=== PATIENT | female | born 1965 | race Caucasian/White ===

== ENCOUNTER 2016-05-12 17:51 | Inpatient (IN) | payer MEDICARE, OTHER ==
[2016-05-12 20:30] LABS: Hematocrit 23 % (35-47); Hemoglobin 7.2 g/dl (12.0-16.0); Mean Corpuscular HGB Conc 31 g/dl (31-36); Mean Corpuscular Hemoglobin 26 pg (27-31); Mean Corpuscular Volume 84 fL (80-97); Mean Platelet Volume 9 um3 (7.4-10.4); Red Blood Count 2.75 10^6/ul (4.0-5.4); Red Cell Distribution Width 14 % (10.5-15); White Blood Count 11.4 10^3/ul (3.5-10.8)
[2016-05-12 20:41] LABS: ALT 16 U/L (7-52); AST 20 U/L (13-39); Acetaminophen < 15 mcg/mL; Albumin 3.3 g/dL (3.2-5.2); Alcohol < 10 mg/dL (<10); Alkaline Phosphatase 309 U/L (34-104); Anion Gap 6 mmol/L (2-11); BUN/Creatinine Ratio 15.8 (8-20); Blood Urea Nitrogen 22 mg/dL (6-24); CO2 Carbon Dioxide 23 mmol/L (22-32); Calcium 9.3 mg/dL (8.6-10.3); Chloride 99 mmol/L (101-111); EGFR African American 51.4 (>60); Globulin 3.9 g/dL (2-4); Glucose 210 mg/dL (70-100); Potassium 4.7 mmol/L (3.5-5.0); Salicylate < 2.50 mg/dL (<30); Sodium 128 mmol/L (133-145); Total Protein 7.2 g/dL (6.4-8.9)
[2016-05-12 20:51] LABS: TSH (Thyroid Stimulating Horm) 1.23 mcIU/mL (0.34-5.60)
--- NOTE | 2016-05-12 21:26 | ED ---
I, Oh,Sooheleazarun, scribed for Kelby Byrd MD on 05/12/16 at 1821 . Psychiatric Complaint - HPI Summary HPI Summary: This 50 y/o female presents to ED for acute on chronic anxiety that is worse since yesterday PM. Pt states her anxiety started 2 weeks ago, and reports pounding/racing palpitation. "Everything is making me nervous". This pt is noted to be yelling and frustrated when asked questions during initial evaluation. Recent medication change from Xanax to Clonazepam. She states that clonazepam did little to alleviate her anxiety. PMHx includes DM type I with DKA and bilat BKA, and friend present at bedside reports recent sinusitis and RLE infection, for which pt was evaluated by Dr. Fofana 2 days ago and sent home with keflex, doxycycline, and wound clinic referral. FHx is positive for "nervous breakdown" to pt's sister. - History Of Current Complaint Time Seen by Provider: 05/12/16 17:59 Hx Obtained From: Patient, Family/Bisque Cleaner - friend present at bedside, Medical Records Onset/Duration: Gradual Onset Timing: Constant Severity Initially: Mild Severity Currently: Moderate Character: Anxious Aggravating Factor(s): Nothing Alleviating Factor(s): Nothing Associated Signs And Symptoms: Positive: Paranoid Behavior Related History: Positive For: Prior Psychiatric Issues - Allergies/Home Medications Allergies/Adverse Reactions: Allergies Allergy/AdvReac Type Severity Reaction Status Date / Time Iodinated Contrast Media AdvReac Severe See Comment Verified 03/20/15 16:10 [IV CONTRAST DYE] Metronidazole [From Flagyl] AdvReac Intermediate GI Upset Verified 03/20/15 16: 10 Vancomycin AdvReac Mild See Comment Verified 03/20/15 16:10 PMH/Surg Hx/FS Hx/Imm Hx Endocrine/Hematology History: Reports: Hx Anticoagulant Therapy - During hospitalizations only, Hx Blood Transfusions - 06/04/12, Hx Diabetes - 1, Hx Anemia Denies: Hx Blood Disorders, Hx Bone Marrow Disease, Hx Systemic Lupus Erythematosus, Hx Sickle Cell Disease, Hx Thyroid Disease, Hx Unexplained Bleeding, Other Endocrine/Hematological Disorders Cardiovascular History: Reports: Hx Coronary Artery Disease, Hx Hypercholesterolemia, Hx Hypotension, Hx Hypertension, Other Cardiovascular Problems/Disorders - hyperlipidemia, HX OF TRIPLE BYPASS Denies: Hx Aneurysm, Hx Angina, Hx Angioplasty, Hx Auto Implanted Cardiovert Defib, Hx Cardiac Arrest, Hx Cardiomegaly, Hx Congenital Heart Disease, Hx Congestive Heart Failure, Hx Deep Vein Thrombosis, Hx Pacemaker/ICD, Hx Peripheral Vascular Disease, Hx Rheumatic Fever, Hx Syncope, Hx Valvular Heart Disease Respiratory History: Reports: Other Respiratory Problems/Disorders - "Always stuffed up." Denies: Hx Asthma, Hx Chronic Bronchitis, Hx Chronic Obstructive Pulmonary Disease (COPD), Hx Cystic Fibrosis, Hx Lung Cancer, Hx Pleural Effusion, Hx Pneumonia, Hx Pulmonary Edema, Hx Pulmonary Embolism, Hx Seasonal Allergies, Hx Sleep Apnea GI History: Reports: Hx Gall Bladder Disease - Has gallstones, Hx Gastroesophageal Reflux Disease Denies: Hx Cirrhosis, Hx Crohn's Disease, Hx Diverticulosis, Hx Gastrointestinal Bleed, Hx Hiatal Hernia, Hx Irritable Bowel, Hx Jaundice, Hx Obstructive Bowel, Hx Ileostomy, Hx Pyloric Stenosis, Hx Ulcer, Other GI Disorders History: Reports: Other Problems/Disorders - Hx of UTIs and in 2002 or 2003 a Kidney infection Denies: Hx Acute Renal Failure, Hx Benign Prostatic Hyperplasia, Hx Chronic Renal Failure, Hx Dialysis, Hx Kidney Infection, Hx Kidney Stones, Hx Renal Disease Musculoskeletal History: Reports: Hx Arthritis - hands Denies: Hx Back Problems, Hx Bursitis, Hx Congenital Bone Abnormalities, Hx Fibromyalgia, Hx Gout, Hx Orthopedic Injury, Hx Osteoporosis, Hx Scoliosis, Hx Tendonitis, Other Musculoskeletal History Sensory History: Reports: Hx Cataracts, Hx Contacts or Glasses, Hx Legally Blind - blind left eye, Hx Vision Problem - Right eye farsighted, only needs reading glasses. Denies: Hx Eye Injury, Hx Eye Prosthesis, Hx Glaucoma, Hx Macular Degeneration, Hx Deafness, Hx Hearing Aid, Hx Hearing Problem, Other Sensory Impairments Opthamlomology History: Reports: Hx Cataracts, Hx Contacts or Glasses, Hx Legally Blind - blind left eye, Hx Vision Problem - Right eye farsighted, only needs reading glasses. Denies: Hx Eye Injury, Hx Eye Prosthesis, Hx Glaucoma, Hx Macular Degeneration, Other Sensory Impairments Neurological History: Reports: Other Neuro Impairments/Disorders - diabetic neuropathy, right facial numbness Denies: Hx Dementia, Hx Developmental Delay, Hx Headaches, Hx Migraine, Hx Seizures, Hx Spinal Cord Injury, Hx Transient Ischemic Attacks (TIA) Psychiatric History: Reports: Hx Anxiety Denies: Hx Attention Deficit Hyperactivity Disorder, Hx Eating Disorder, Hx Depression, Hx Panic Disorder, Hx Post Traumatic Stress Disorder, Hx Inpatient Treatment, Hx Community Mental Health Tx, Hx Schizophrenia, Hx Bipolar Disorder , Hx Suicide Attempt, Hx of Violent Episodes Against Others, Hx Substance Abuse , Other Psychiatric Issues/Disorders - Surgical History Surgery Procedure, Year, and Place: TRIPLE BYPASS 2005, EYE SURGERY LEFT DETACHED RETINA ( ORBIT XRAYS DONE 2007 - CLEARED FOR MRI BY ){sw}, BILAT CATARACTS, RT EYE VITRECTOMY , LT BKA 3 YEARS AGO, RT FOOT HEEL EXCISION, rt below knee amputation, 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 Infectious Disease History: Denies: Hx Clostridium Difficile, Hx Hepatitis, Hx Human Immunodeficiency Virus (HIV), Hx Shingles, Hx Tuberculosis, History Other Infectious Disease, Traveled Outside the [place] in Last 30 Days - Family History Known Family History: Positive: Cardiac Disease - "Nervous breakdown" to sister , Other - Social History Alcohol Use: None Hx Substance Use: No Substance Use Type: Reports: None Hx Tobacco Use: Yes Smoking Status (MU): Heavy Every Day Tobacco Smoker Type: Cigarettes Amount Used/How Often: 1.5 PPD Review of Systems Negative: Fever Positive: Other - RLE infection at BKA stump Positive: Anxious All Other Systems Reviewed And Are Negative: Yes Physical Exam Triage Information Reviewed: Yes Vital Signs On Initial Exam: Initial Vitals Temp Pulse Resp BP Pulse Ox 98.9 F 72 16 119/46 97 05/12/16 18:33 05/12/16 18:33 05/12/16 18:33 05/12/16 18:33 05/12/16 18:33 Vital Signs Reviewed: Yes Appearance: Positive: Well-Appearing, No Pain Distress Skin: Positive: Warm, Dry, Other - anterior erythem 1 cm granulated wound. No fluctuance. No cretipus. Not TTP. Head/Face: Positive: Normal Head/Face Inspection Eyes: Positive: UZIEL Neck: Positive: Supple, Nontender Respiratory/Lung Sounds: Positive: Clear to Auscultation, Breath Sounds Present Musculoskeletal: Positive: Strength/ROM Intact Neurological: Positive: Sensory/Motor Intact, Alert, Oriented to Person Place, Time Psychiatric: Positive: Anxious AVPU Assessment: Alert Diagnostics - Vital Signs Vital Signs Temp Pulse Resp BP Pulse Ox 05/12/16 18:33 98.9 F 72 16 119/46 97 - Laboratory Result Diagrams: 05/12/16 18:25 05/12/16 18:25 Lab Statement: Any lab studies that have been ordered have been reviewed, and results considered in the medical decision making process. Course/Dx - Differential Dx/Clinical Impression Differential Diagnosis/HQI/PQRI: Positive: Anxiety, Depression, Other - Primary concern for escalating anxiety and exacerbation due to changed benzodiazepine for which she is clearly addicted. Minimal signs of cellulitis and just begun therapy on appropriate therapy of doxycycline and cephalexin. No streaking, adenopathy, or fluctuance. Provider Diagnosis: Cellulitis, Anemia - Physician Notifications Discussed Care Of Patient With: [facility] -- Pt is psych cleared for discharge. Dr. Llanes (Hospitalist) at 2118 PM -- shared bloodwork indicative for acute anemia. He will admit. Patient Is Medically Stable For: Psych Evaluation - at 1812 pm Discharge - Discharge Plan Condition: Stable Disposition: ADMITTED TO [facility] Referrals: Ade Koehler, [employer]IAISON [Primary Care Provider] - Additional Instructions: In Case of Emergency Instructions to copy and paste for Adult patients: Per completion of a mental health evaluation, you are cleared for release and do not require inpatient psychiatric hospitalization at this time. Please go to nearest emergency room or call 911 if safety concerns arise or condition worsens. Important Phone Numbers: [facility]~~ ph:[phone] Suicide Prevention and Crisis Services~~~~~~~~~ph:[phone] [place] Suicide Prevention Lifeline~~~~~~~~~~~ph:326-264-IHNP (4382) [facility]~~~~~~~~ph:[phone] Alcoholics Anonymous~~~~~~~~~~~~~~~~~~~ph:[phone] [facility] Mental Health Association~~~~ph:[phone] [place] [employer]~~~~~~~~~~~~~~~~~~~ph:[phone] In Case of Emergency Please go to the nearest emergency room or call 911 if safety concerns arise or your condition worsens [facility] ph: [phone] Suicide Prevention and Crisis Services ph: [phone] National Suicide Prevention Lifeline ph: [phone] [facility] ph: [phone] Alcoholics Anonymous ph: [phone] [facility] ph: [phone] [facility]: [facility] Mental Health Clinic: Crisis Number: Suicide Prevention and Crisis Services [facility]: [facility]: [facility] - Emergency Room: [facility] Crisis Line- Suicide Prevention and Crisis Service: [facility]: [facility]: ph: [phone] National Suicide Prevention 29/10 Hotline Ph: 2-256-358-XTBD [facility] Suicide Prevention Hotline: [facility]: [facility]: [phone] 2-04-08 is a 29/10 Crisis and Suicide Information and Referral line [facility] Suicide Prevention Hotline: or [facility]: [place] [facility], [facility] Clinic [facility]: [facility] Department [facility] Suicide Prevention Hotline: 240.813.1107 [facility]: [facility] Ph: [phone] [facility] Crisis Program: [phone] Suicide Prevention Hotline: 5-135-944930-963-GTAD [facility] Mental Health Association of [facility] warm line at [phone] Family [facility] Children[facility] Society ph: [phone] [facility] ph: [phone] [facility] CPEP open 29/10 or [phone] [facility] Counsel[facility] Services [facility] Clinic [facility] Suicide and Crisis Prevention / The documentation as recorded by the Sunday morejon Soohyun accurately reflects the service I personally performed and the decisions made by me, Kelby Byrd MD.
[2016-05-12] MEDS ORDERED: Acetaminophen TAB* 325 MG PO PRN (21:51)
[2016-05-12] MEDS ORDERED: Ondansetron INJ* 2 MG/ML VIAL IV PRN (21:51)
[2016-05-12] MEDS ORDERED: Dextrose 50% Syringe 50 ML* 25 GM/50 ML SYRINGE IV PUSH PRN (21:51)
[2016-05-12] MEDS ORDERED: Metoclopramide TAB* 10 MG PO PRN (21:54)
[2016-05-12] MEDS ORDERED: Docusate CAP* 100 MG PO PRN (21:54)
[2016-05-12 22:21] LABS: Total Iron Binding Capacity 340 mcg/dL (250-450); Transferrin 243 mg/dL (203-362)
[2016-05-12 22:41] LABS: Ferritin 18.8 ng/mL (11-307)
[2016-05-12 22:46] LABS: Vitamin B12 271 pg/mL (180-914)
[2016-05-12 23:01] LABS: Iron < 15 ug/dL (50-212)
[2016-05-12] MEDS ORDERED: ZALEPLON 10 MG PO PRN (23:45)
--- NOTE | 2016-05-13 00:31 | HP ---
HISTORY AND PHYSICAL: DATE OF ADMISSION: 05/12/16 PRIMARY CARE PROVIDER: Ade Koehler NP ATTENDING PHYSICIAN WHILE IN THE HOSPITAL: Dr. Eric Llanes * (report being dictated by George Tejada NP). CHIEF COMPLAINT: 1. Redness to right stump. 2. Anxiety. HISTORY OF PRESENT ILLNESS: Ms. Reyes is a 50-year-old female patient who has a history of type 1 diabetes with multiple complications related to this, osteomyelitis, retinopathy. She is blind in the left eye, CAD, hypertension, gastroparesis, neuropathy, GERD, and hyperlipidemia. She comes in today stating that 2 days ago, she was evaluated in the outpatient setting, noted that she had some redness and erythema to her right stump. She noticed this spot the day before, which would be on Saturday. It got worse. She had a scheduled appointment in the outpatient wound clinic and started on doxycycline and Keflex. The patient states that despite this, the redness had gotten worse, and she was not feeling better. She says she has been having fevers off and on as high as 101. She denied having any chest pain or any shortness of breath. She also states that she has been feeling extremely anxious. She says that she wishes she could take a pill that makes her feel better. She has a lot of stress going on, but she denies having any suicidal ideation or wanting to harm herself or others. She says that she recently was started on Klonopin, but it only makes her sleepy. She states that she has also been having some sinus pressure as well behind both her eyes. She denies having any discharge from the wound. She says that it has been painful to put her prosthetic devices on her legs because of the cellulitis. She was concerned because it was not getting any better and anxiety as well, so she came into the ER today and wishes to be evaluated. She was evaluated and it was noted that she was a little anemic and she had some hyponatremia and there was concern that she may be failing outpatient therapy. Hospitalist service was asked to evaluate for admission. PAST MEDICAL HISTORY: Significant for: 1. Type 1 diabetes. 2. Osteomyelitis. 3. Retinopathy. 4. She is blind in the left eye. 5. CAD. 6. Hypertension. 7. Gastroparesis. 8. Neuropathy. 9. GERD. 10. Hyperlipidemia. PAST SURGICAL HISTORY: 1. She has had a CABG. 2. Bilateral amputations. 3. Eye surgeries. HOME MEDICATIONS: According to the list that she provided us include: 1. Lantus 56 units subcu daily. 2. Klonopin 1 mg p.o. b.i.d. 3. Altace 5 mg daily. 4. Prilosec 20 mg daily. 5. Nitro 0.4 mg sublingual q.5 minutes x3 p.r.n. chest pain. 6. Multivitamin 1 tablet daily. 7. Reglan 10 mg p.o. b.i.d. after meals as needed. 8. Milk of mag 10 to 20 cc p.o. daily as needed. 9. NovoLog 5 to 7 units injection daily. 10. Lasix 20 mg p.o. every other day. 11. Colace 200 mg p.o. daily as needed. 12. Clarinex 5 mg a day. 13. Doxycycline 100 mg p.o. daily. 14. Keflex 500 mg p.o. t.i.d. 15. Lipitor 20 mg daily. 16. Tenormin 50 mg daily. 17. Aspirin 81 mg a day. 18. Xanax 0.5 mg p.o. b.i.d. as needed. ALLERGIES TO MEDICATIONS: Include IV DYE, FLAGYL, VANCO. FAMILY HISTORY: Her mother had skin cancer. Father's history is unknown. SOCIAL HISTORY: She is a pack a day smoker, quit two and a half months ago. She does not drink alcohol. Surrogate decision maker is her brother, Yariel. REVIEW OF SYSTEMS: There is no documented fever. She denied any significant weight change. There was no double vision. There is no ear discharge. There is no rhinorrhea. No sore throat. No thyroid enlargement. She denies having any chest pain. There is no orthopnea. No nocturnal dyspnea. There is no abdominal pain. There was no nausea, no vomiting. No dysuria. No frequency. No loss of consciousness. No pruritus and there are skin ulcerations. Review of 14 systems completed, all others were negative. PHYSICAL EXAMINATION GENERAL: At this time, Ms. Reyes is a 50-year-old female patient. She appears chronically ill. She is sitting on the ER stretcher. She does not appear to be in any acute distress. VITAL SIGNS: Blood pressure 119/46, pulse 72, respirations 16, O2 sat 97%, temperature 98.9. HEENT: Head: Atraumatic, normocephalic. Eyes: EOMs are intact. Sclerae anicteric and not pale. Throat: Oral mucosa appeared to be dry. No oropharyngeal erythema. NECK: Supple. LUNGS: Clear to auscultation bilaterally. No wheezes, rales, or rhonchi. HEART: Sounds S1, S2. Regular rate and rhythm. No murmurs, rubs, or gallops. ABDOMEN: Soft, flat, nontender. Bowel sounds present. EXTREMITIES: She has bilateral lower amputations, though she is moving her upper extremities with 5/5 strength. NEUROLOGIC: She is awake, alert, and oriented x3. Tongue midline. Director Supply were equal. No gross focal deficits. SKIN: She had ulcerations noted to bilateral lower stumps. On the right stump though, however, there did appear to be a wound. It measured approximately a centimeter in circumference. In addition to this, it may be 0.5 cm in depth, but there was erythema surrounding the stump, going up to almost her knee. She did have an open ulceration to the left knee into the left stump as well, but they appear to be clean, dry and intact, no discharge. Otherwise skin intact. LABORATORY DATA: Labs today revealed WBC 11.4, RBC of 2.75, hemoglobin 7.2, hematocrit 23, platelet count 426. Sodium 128, potassium 4.7, chloride of 99, bicarb 23, BUN 22, creatinine 1.39, which is right near her baseline. Glucose of 210, calcium 9.3. Total bili 0.3, AST 20, ALT 16, alk phos 309. Albumin was 3.3. Toxicology negative. Old medical records were reviewed. ASSESSMENT AND PLAN: Ms. Reyes is a 50-year-old female patient coming in to the ER today with complaints of worsening redness in the stump and anxiety. On evaluation today, it was found that she was hyponatremic, a little bit of white count, and in addition to this, also noted to be anemic. She will be admitted under observation status for: 1. Right stump infection. At this point, I will go ahead and put her on Rocephin. She does not appear to have any fluctuance or abscess collection there. We will continue to monitor this. Should she spike fevers, we may need to consider broadening her coverage for gram negatives as well, but for the time being, I will just continue her on Rocephin and we will continue to monitor her. If it does not improve, we may consider getting an ID consult. 2. Anemia. Etiology is unclear. I am going to go ahead and repeat her labs in the morning. We will get iron studies. She is not having any tarry stools, but I will get a Hemoccult and we will type and screen her. If we need to, we will transfuse, but she appears to be asymptomatic. 3. Hyponatremia. Again, etiology is unclear. I will get a urine lytes and urine osmol and TSH and I will continue to monitor her. She does run right around the 130 range. She is not too far from the baseline, but we will monitor. 4. Type 1 diabetes. We will continue her meds as prescribed. 5. Retinopathy. Supportive care. 6. Coronary artery disease. Continue with her beta-tony, aspirin, and her statin. 7. Hypertension. Continue meds as prescribed. 8. Gastroparesis, p.r.n. Reglan is available. 9. Neuropathy. Continue meds as prescribed. 10. Gastroesophageal reflux disease. Continue PPI therapy. 11. Hyperlipidemia. Continue statin therapy. 12. Bilateral wounds. We will go ahead and continue dressing changes. 13. DVT prophylaxis. She will be on heparin subcu. 14. Code status. Full code. 15. Fluids, electrolytes, and nutrition: She can have a consistent carb diet. TIME SPENT: Time spent on the admission was 60 minutes, greater than half the time was spent [id number] with the patient obtaining my history and physical, and the other half time was spent going over the plan of care with patient and implementing the plan of care. I did discuss the plan of care with my attending, Dr. Llanes, he is in agreement. GEORGE TEJADA NP CC: Ade Koehler NP * [id number]/[facility] #: [id number] JUAN ANTONIO
[2016-05-13] MEDS: Insulin GLARGINE(*) 1 UNITS UNIT SUBCUT SCH ×2 (01:35→20:56)
[2016-05-13] MEDS: Zolpidem TAB* 10 MG PO PRN ×2 (02:13→22:11)
[2016-05-13 06:27] LABS: Hematocrit 23 % (35-47); Hemoglobin 7.2 g/dl (12.0-16.0); Mean Corpuscular HGB Conc 32 g/dl (31-36); Mean Corpuscular Hemoglobin 26 pg (27-31); Mean Corpuscular Volume 83 fL (80-97); Mean Platelet Volume 9 um3 (7.4-10.4); Red Blood Count 2.74 10^6/ul (4.0-5.4); Red Cell Distribution Width 14 % (10.5-15); White Blood Count 11.3 10^3/ul (3.5-10.8)
[2016-05-13 06:37] LABS: BUN/Creatinine Ratio 16.4 (8-20); Calcium 9.4 mg/dL (8.6-10.3); EGFR African American 59.8 (>60); EGFR Non-African American 46.5 (>60); Potassium 4.2 mmol/L (3.5-5.0)
[2016-05-13] MEDS ORDERED: Magnesium Hydroxide LIQ* 30 ML UDC PO ONE (07:36)
[2016-05-13 08:55] LABS: C Reactive Protein 92.79 mg/L (< 5.00)
[2016-05-13] MEDS: Atorvastatin* 20 MG TAB PO SCH (08:59)
[2016-05-13] MEDS: Atenolol TAB* 50 MG PO SCH (08:59)
[2016-05-13] MEDS: Omeprazole CAP* 20 MG PO SCH (08:59)
[2016-05-13] MEDS: Ramipril CAP* 5 MG PO SCH (08:59)
[2016-05-13] MEDS: Aspirin EC Low Dose* 81 MG TAB.EC PO SCH (09:00)
[2016-05-13] MEDS: Heparin VIAL(*) 5000 UNITS/ML VIAL (FIVE THOUSAND) SUBCUT SCH ×2 (09:00→20:55)
[2016-05-13] MEDS: Insulin LISPRO* 1 UNITS UNIT SUBCUT SCH ×3 (09:00→18:03)
[2016-05-13 10:01] LABS: Urine Bacteria 1+ (Absent); Urine Bilirubin Negative (Negative); Urine Glucose 1+(50 mg/dL) (Negative); Urine Nitrite Negative (Negative)
[2016-05-13 10:07] LABS: Benzodiazepine Urine Screen Presumptive Positive (None Detect)
[2016-05-13] MEDS ORDERED: Magnesium CITRATE* 300 ML BTL PO ONE (10:10)
[2016-05-13] MEDS ORDERED: Iron Sucrose* 20 MG/ML 5 ML VIAL IV PUSH ONE (12:25)
--- NOTE | 2016-05-13 12:39 | PN ---
Subjective Date of Service: 05/13/16 Interval History: Pt reports R stump blister that opened up several days ago. since then she has had low grade fevers. Was placed on Keflex and Doxy by PCP. Has chronic constipation and has had rectal bleeding due to hemorrhoids x 6 months. Last BM reported 1-2 weeks ago. Denies abd pain. Objective Active Medications: Acetaminophen (Tylenol Tab*) 650 mg PO Q4H PRN PRN Reason: FEVER/PAIN Alprazolam (Xanax Tab*) 0.5 mg PO BID PRN PRN Reason: ANXIETY Aspirin (Aspirin Ec Low Dose*) 81 mg PO DAILY [facility] Last Admin: 05/13/16 09:00 Dose: 81 mg Atenolol (Tenormin Tab*) 50 mg PO DAILY [facility] Last Admin: 05/13/16 08:59 Dose: 50 mg Atorvastatin Calcium (Lipitor*) 20 mg PO DAILY [facility] Last Admin: 05/13/16 08:59 Dose: 20 mg Dextrose (D50w Syringe 50 Ml*) 12.5 gm IV PUSH .FOR FS < 60 - SS PRN PRN Reason: FS < 60 Docusate Sodium (Colace Cap*) 200 mg PO BEDTIME PRN PRN Reason: CONSTIPATION Furosemide (Lasix Tab*) 20 mg PO EVERY OTHER DAY [facility] Heparin Sodium (Porcine) (Heparin Vial(*)) 5,000 units SUBCUT Q12HR [facility] Last Admin: 05/13/16 09:00 Dose: 5,000 units Ceftriaxone Sodium 1,000 mg/ (Sodium Chloride) 50 mls @ 200 mls/hr IVPB Q24H [facility] Insulin Glargine (Lantus(*)) 56 units SUBCUT BEDTIME [facility] Last Admin: 05/13/16 01:35 Dose: 56 units Insulin Human Lispro (Humalog*) 0 units SUBCUT AC [facility] PRN Reason: Protocol Last Admin: 05/13/16 12:27 Dose: 6 units Iron Sucrose (Venofer*) 200 mg IV PUSH ONCE ONE Stop: 05/13/16 12:26 Metoclopramide HCl (Reglan Tab*) 10 mg PO BID PC PRN PRN Reason: NAUSEA Last Admin: 05/13/16 12:27 Dose: 10 mg Omeprazole (Prilosec Cap*) 20 mg PO DAILY [facility] Last Admin: 05/13/16 08:59 Dose: 20 mg Ondansetron HCl (Zofran Inj*) 4 mg IV Q6H PRN PRN Reason: NAUSEA Last Admin: 05/13/16 12:27 Dose: 4 mg Ramipril (Altace Cap*) 5 mg PO DAILY [facility] Last Admin: 05/13/16 08:59 Dose: 5 mg Zaleplon (Sonata (Nf)) 10 mg PO BEDTIME PRN; Protocol PRN Reason: SLEEP Zolpidem Tartrate (Ambien Tab*) 10 mg PO BEDTIME PRN PRN Reason: INSOMNIA Last Admin: 05/13/16 02:13 Dose: 10 mg Oxygen Devices in Use Now: None Appearance: 50 yo F in nAD, aAOx3 Eyes: No Scleral Icterus, PERRLA Ears/Nose/Mouth/Throat: NL Teeth, Lips, Gums, Mucous Membranes Moist Neck: NL Appearance and Movements; NL JVP, Trachea Midline Respiratory: Symmetrical Chest Expansion and Respiratory Effort, Clear to Auscultation Cardiovascular: NL Sounds; No Murmurs; No JVD Abdominal: NL Sounds; No Tenderness; No Distention Lymphatic: No Cervical Adenopathy Extremities: No Edema Skin: No Nodules or Sclerosis, - - B/l BKA: R stump wound at 2 cm in diam with purulent drainage. Left stump with what appears to be small chronic wound that is closed Neurological: Alert and Oriented x 3, NL Muscle Strength and Tone Result Diagrams: 05/13/16 06:11 05/13/16 06:11 Assess/Plan/Problems-Billing Assessment: 50 yo F with h/o DM1, B/l BKA, HTN, gastroparesis, anxiety presented feeling anxious and "mean", had ahd low grade fevers x 1 week. R blister on R stump "opened up" several days ago. Was placed on Keflex and doxy by PCP. - Patient Problems (1) Amputation stump infection Comment: R stump wound has copious purulent drainage. MRI of RLE will be ordered. Dr. Chang is consulted re: further management. will as ID to see pt on Saturday. For now cont Ceftriaxone. Cx of the wound pending. (2) Microcytic anemia Comment: worsening of chronic. Pt reports rectal bleeding with BM's due to hemorrhoids x 6 months. will start PO iron and tx with one Venofer infusion. Dr. Chang consulted re: hemorrhoids and leg wound infection. Pt herself is not interested in definitive tx of hemorrhoids due to feeling like she can handle one problem at a time. (3) Gastroparesis due to DM Comment: Continue reglan. (4) Type I diabetes mellitus Comment: A1c 13.2 in 02/2016., BG in 200s. Continue Lantus at home dose and Lispro SSI. (5) HTN (hypertension) Comment: BP is under good control. Continue home medication regimen. (6) Hyponatremia Comment: Improving. Na 131.Chronic (7) CKD stage 3 due to type 1 diabetes mellitus Comment: creat at baseline 1.2-1.3 (8) LFT elevation Comment: Alk phos elevation: may be due to osteo. will await MRI and monitor. (9) DVT prophylaxis Comment: SQ heparin Status and Disposition: Due to suspected osteomyelitis - OBV will be changed to inpatient for further management.
[2016-05-13] MEDS ORDERED: Iron Sucrose* 200 MG in NS 0.9% 250 ML* 250 ML IVPB ONE (13:00)
--- NOTE | 2016-05-13 13:35 | RAD ---
INDICATION: RIGHT lower extremity edema. Below-knee amputation. Immobility. COMPARISON: February 21, 2016 CT. TECHNIQUE: Tejeda scale, color Doppler, and spectral analysis of the deep veins of the RIGHT lower extremity. Vessel compression, phasicity, and augmentation assessed. REPORT: The RIGHT common femoral, great saphenous, profunda femoral, femoral, and popliteal veins are patent. RIGHT below-knee amputation. Similar to the February 21, 2016 CT exam there multiple enlarged RIGHT inguinal lymph nodes with the largest measuring up to 2.6 x 3.5 x 2.2 cm without significant change. Patency of the contralateral common femoral vein documented. IMPRESSION: No evidence for RIGHT lower extremity deep venous thrombosis.
--- NOTE | 2016-05-13 19:24 | CONS ---
SURGICAL CONSULTATION REPORT: DATE OF CONSULT: 05/13/16 HISTORY OF PRESENT ILLNESS: The patient is a 50-year-old female with longstanding type 1 diabetes who has had multiple complications, most relevant is that she has had bilateral [id number] amputations. She has had a chronic small wound in the left stump, which has been treated in the wound clinic but then developed a more acute problem in the right stump, which led to this hospitalization. She did have fevers as high as 101 and some drainage from an open area on the right side. PHYSICAL EXAM: On examination, she does not appear acutely ill. She is a little pale but not diaphoretic. Examination of the left leg reveals a below- knee stump with a well-healed scar, in the central portion is a slight opening that is maybe a centimeter across that looks like it has kind of chronic scabbing and callus building up, but no sign of infection. On the right stump there is an open wound anteriorly undoubtedly from pressure with the underlying bone. There is erythema from the stump up to the knee and there is purulence draining from this open wound. The skin appears well perfused. Nothing appears ischemic. There is no gangrene. DIAGNOSTIC STUDIES/LAB DATA: Her laboratory studies do show an elevated white count of 11,000. She is anemic with a hemoglobin of 7. IMPRESSION: A 50-year-old longstanding diabetic with previous vascular disease and bilateral below-knee amputations, now with an infected right below-knee stump. I did take a culture of that today and sent that off to laboratory. She is currently on ceftriaxone and I think pending the results of the culture that is a reasonable choice. She will be needing imaging to rule out osteomyelitis and I discussed this with Dr. West and she is agreeable to that as well and pending the results of the culture and of the scan for osteomyelitis that will determine the future course. She may potentially need a revision of the stump and I think infectious disease consultation will be warranted and at some point it may be helpful to get an opinion from Dr. Sharma as well. CC: Chris Chang MD; [facility] * [id number]/[facility] #: [id number] MTDD
[2016-05-13] MEDS: Ferrous Sulfate TAB* 325 MG PO SCH (20:54)
[2016-05-13] MEDS: cefTRIAXone VIAL(*) 1,000 MG in NS 0.9% 50 ML* 50 ML IVPB SCH (21:02)
[2016-05-14] MEDS: Insulin LISPRO* 1 UNITS UNIT SUBCUT SCH ×3 (08:28→17:09)
[2016-05-14] MEDS: Heparin VIAL(*) 5000 UNITS/ML VIAL (FIVE THOUSAND) SUBCUT SCH ×2 (08:46→21:55)
[2016-05-14] MEDS: Ramipril CAP* 5 MG PO SCH (08:46)
[2016-05-14] MEDS: Furosemide TAB* 20 MG PO SCH (08:47)
[2016-05-14] MEDS: Aspirin EC Low Dose* 81 MG TAB.EC PO SCH (08:47)
[2016-05-14] MEDS: Atenolol TAB* 50 MG PO SCH (08:47)
[2016-05-14] MEDS: Omeprazole CAP* 20 MG PO SCH (08:47)
[2016-05-14] MEDS: Ferrous Sulfate TAB* 325 MG PO SCH ×2 (08:47→21:54)
[2016-05-14] MEDS: Atorvastatin* 20 MG TAB PO SCH (08:47)
[2016-05-14 09:15] LABS: Hematocrit 23 % (35-47); Hemoglobin 7.2 g/dl (12.0-16.0); Mean Corpuscular HGB Conc 32 g/dl (31-36); Mean Corpuscular Hemoglobin 27 pg (27-31); Mean Corpuscular Volume 84 fL (80-97); Mean Platelet Volume 9 um3 (7.4-10.4); Red Blood Count 2.71 10^6/ul (4.0-5.4); Red Cell Distribution Width 15 % (10.5-15)
[2016-05-14 09:35] LABS: BUN/Creatinine Ratio 14.8 (8-20); Calcium 9.4 mg/dL (8.6-10.3); EGFR African American 56.5 (>60); Potassium 4.3 mmol/L (3.5-5.0)
--- NOTE | 2016-05-14 17:34 | PN ---
Subjective Date of Service: 05/14/16 Interval History: pt feels well. Wound on left stump with mild drainage noted. R stump still with purulent discharge Objective Active Medications: Acetaminophen (Tylenol Tab*) 650 mg PO Q4H PRN PRN Reason: FEVER/PAIN Alprazolam (Xanax Tab*) 0.5 mg PO BID PRN PRN Reason: ANXIETY Aspirin (Aspirin Ec Low Dose*) 81 mg PO DAILY [facility] Last Admin: 05/14/16 08:47 Dose: 81 mg Atenolol (Tenormin Tab*) 50 mg PO DAILY [facility] Last Admin: 05/14/16 08:47 Dose: 50 mg Atorvastatin Calcium (Lipitor*) 20 mg PO DAILY [facility] Last Admin: 05/14/16 08:47 Dose: 20 mg Dextrose (D50w Syringe 50 Ml*) 12.5 gm IV PUSH .FOR FS < 60 - SS PRN PRN Reason: FS < 60 Docusate Sodium (Colace Cap*) 200 mg PO BEDTIME PRN PRN Reason: CONSTIPATION Ferrous Sulfate (Ferrous Sulfate Tab*) 325 mg PO BID [facility] Last Admin: 05/14/16 08:47 Dose: 325 mg Furosemide (Lasix Tab*) 20 mg PO EVERY OTHER DAY [facility] Last Admin: 05/14/16 08:47 Dose: 20 mg Heparin Sodium (Porcine) (Heparin Vial(*)) 5,000 units SUBCUT Q12HR [facility] Last Admin: 05/14/16 08:46 Dose: 5,000 units Ceftriaxone Sodium 1,000 mg/ (Sodium Chloride) 50 mls @ 200 mls/hr IVPB Q24H [facility] Last Admin: 05/13/16 21:02 Dose: 200 mls/hr Insulin Glargine (Lantus(*)) 56 units SUBCUT BEDTIME [facility] Last Admin: 05/13/16 20:56 Dose: 56 units Insulin Human Lispro (Humalog*) 0 units SUBCUT AC [facility] PRN Reason: Protocol Last Admin: 05/14/16 17:09 Dose: 3 units Metoclopramide HCl (Reglan Tab*) 10 mg PO BID PC PRN PRN Reason: NAUSEA Last Admin: 05/13/16 12:27 Dose: 10 mg Omeprazole (Prilosec Cap*) 20 mg PO DAILY [facility] Last Admin: 05/14/16 08:47 Dose: 20 mg Ondansetron HCl (Zofran Inj*) 4 mg IV Q6H PRN PRN Reason: NAUSEA Last Admin: 05/13/16 12:27 Dose: 4 mg Ramipril (Altace Cap*) 5 mg PO DAILY [facility] Last Admin: 05/14/16 08:46 Dose: 5 mg Zaleplon (Sonata (Nf)) 10 mg PO BEDTIME PRN; Protocol PRN Reason: SLEEP Zolpidem Tartrate (Ambien Tab*) 10 mg PO BEDTIME PRN PRN Reason: INSOMNIA Last Admin: 05/13/16 22:11 Dose: 10 mg Vital Signs 05/13/16 05/13/16 05/14/16 19:46 20:00 00:05 Temperature 99.3 F 99.3 F Pulse Rate 83 84 Respiratory 16 16 20 Rate Blood Pressure 128/50 125/67 (mmHg) O2 Sat by Pulse 97 97 Oximetry 05/14/16 05/14/16 05/14/16 02:32 07:27 08:00 Temperature 98.6 F Pulse Rate 79 Respiratory 18 16 Rate Blood Pressure 131/53 (mmHg) O2 Sat by Pulse 97 99 Oximetry 05/14/16 15:00 Temperature 98.2 F Pulse Rate 75 Respiratory Rate Blood Pressure 154/55 (mmHg) O2 Sat by Pulse 97 Oximetry Oxygen Devices in Use Now: None Appearance: 50 yo F in NAD, AAOx3 Eyes: No Scleral Icterus, PERRLA Ears/Nose/Mouth/Throat: NL Teeth, Lips, Gums, Mucous Membranes Moist Neck: NL Appearance and Movements; NL JVP, Trachea Midline Respiratory: Symmetrical Chest Expansion and Respiratory Effort, Clear to Auscultation Cardiovascular: NL Sounds; No Murmurs; No JVD, RRR Abdominal: NL Sounds; No Tenderness; No Distention, No Hepatosplenomegaly Lymphatic: No Cervical Adenopathy Extremities: No Clubbing, Cyanosis, - - s/p BKA b/l Skin: No Nodules or Sclerosis, - - R stump 2 cm wound with purulent drainage. Small crack like wound on left stump with scant yellowish discharge Neurological: Alert and Oriented x 3, NL Muscle Strength and Tone Result Diagrams: 05/14/16 05:51 05/14/16 05:51 Assess/Plan/Problems-Billing Assessment: 50 yo F with h/o DM1, B/l BKA, HTN, gastroparesis, anxiety presented feeling anxious and "mean", had ahd low grade fevers x 1 week. R blister on R stump "opened up" several days ago. Was placed on Keflex and doxy by PCP. - Patient Problems (1) Amputation stump infection Comment: R stump wound has still purulent drainage. MRI of RLE pending appreciate Dr. Chang's consult. For now cont Ceftriaxone. Cx of the wound pending. (2) Microcytic anemia Comment: worsening of chronic. Pt reports rectal bleeding with BM's due to hemorrhoids x 6 months. cont PO iron and tx with one Venofer infusion on 05/13/16. Pt herself is not interested in definitive tx of hemorrhoids due to feeling like she can handle one problem at a time. (3) Gastroparesis due to DM Comment: Continue reglan. (4) Type I diabetes mellitus Comment: A1c 13.2 in 02/2016., BG in 200s. Continue Lantus at home dose and Lispro SSI. (5) HTN (hypertension) Comment: BP is under good control. Continue home medication regimen. (6) Hyponatremia Comment: resolved (7) CKD stage 3 due to type 1 diabetes mellitus Comment: creat at baseline 1.2-1.3 (8) LFT elevation Comment: Alk phos elevation: may be due to osteo. will await MRI and monitor. (9) DVT prophylaxis Comment: SQ heparin Status and Disposition: Suspected osteomyelitis - inpatient for further management.
[2016-05-14] MEDS: Insulin GLARGINE(*) 1 UNITS UNIT SUBCUT SCH (21:54)
[2016-05-14] MEDS: Zolpidem TAB* 10 MG PO PRN (21:54)
[2016-05-14] MEDS: cefTRIAXone VIAL(*) 1,000 MG in NS 0.9% 50 ML* 50 ML IVPB SCH (22:03)
[2016-05-15] MEDS: ALPRAZolam TAB* 0.5 MG PO PRN ×2 (01:16→23:05)
--- NOTE | 2016-05-15 08:04 | PN ---
Subjective Date of Service: 05/15/16 Interval History: no new complaints. R stump with less drainage. Objective Active Medications: Acetaminophen (Tylenol Tab*) 650 mg PO Q4H PRN PRN Reason: FEVER/PAIN Last Admin: 05/15/16 03:50 Dose: 650 mg Alprazolam (Xanax Tab*) 0.5 mg PO BID PRN PRN Reason: ANXIETY Last Admin: 05/15/16 01:16 Dose: 0.5 mg Aspirin (Aspirin Ec Low Dose*) 81 mg PO DAILY [facility] Last Admin: 05/14/16 08:47 Dose: 81 mg Atenolol (Tenormin Tab*) 50 mg PO DAILY [facility] Last Admin: 05/14/16 08:47 Dose: 50 mg Atorvastatin Calcium (Lipitor*) 20 mg PO DAILY [facility] Last Admin: 05/14/16 08:47 Dose: 20 mg Dextrose (D50w Syringe 50 Ml*) 12.5 gm IV PUSH .FOR FS < 60 - SS PRN PRN Reason: FS < 60 Docusate Sodium (Colace Cap*) 200 mg PO BEDTIME PRN PRN Reason: CONSTIPATION Ferrous Sulfate (Ferrous Sulfate Tab*) 325 mg PO BID [facility] Last Admin: 05/14/16 21:54 Dose: 325 mg Furosemide (Lasix Tab*) 20 mg PO EVERY OTHER DAY [facility] Last Admin: 05/14/16 08:47 Dose: 20 mg Heparin Sodium (Porcine) (Heparin Vial(*)) 5,000 units SUBCUT Q12HR [facility] Last Admin: 05/14/16 21:55 Dose: 5,000 units Ceftriaxone Sodium 1,000 mg/ (Sodium Chloride) 50 mls @ 200 mls/hr IVPB Q24H [facility] Last Admin: 05/14/16 22:03 Dose: 200 mls/hr Insulin Glargine (Lantus(*)) 56 units SUBCUT BEDTIME [facility] Last Admin: 05/14/16 21:54 Dose: 56 units Insulin Human Lispro (Humalog*) 0 units SUBCUT AC [facility] PRN Reason: Protocol Last Admin: 05/14/16 17:09 Dose: 3 units Metoclopramide HCl (Reglan Tab*) 10 mg PO BID [facility] PRN PRN Reason: NAUSEA Last Admin: 05/13/16 12:27 Dose: 10 mg Omeprazole (Prilosec Cap*) 20 mg PO DAILY [facility] Last Admin: 05/14/16 08:47 Dose: 20 mg Ondansetron HCl (Zofran Inj*) 4 mg IV Q6H PRN PRN Reason: NAUSEA Last Admin: 05/13/16 12:27 Dose: 4 mg Ramipril (Altace Cap*) 5 mg PO DAILY [facility] Last Admin: 05/14/16 08:46 Dose: 5 mg Zaleplon (Sonata (Nf)) 10 mg PO BEDTIME PRN; Protocol PRN Reason: SLEEP Zolpidem Tartrate (Ambien Tab*) 10 mg PO BEDTIME PRN PRN Reason: INSOMNIA Last Admin: 05/14/16 21:54 Dose: 10 mg Vital Signs 05/14/16 05/14/16 05/14/16 15:00 18:08 20:00 Temperature 98.2 F 98.5 F Pulse Rate 75 80 Respiratory 16 16 Rate Blood Pressure 154/55 144/49 (mmHg) O2 Sat by Pulse 97 99 Oximetry 05/14/16 05/15/16 05/15/16 22:06 01:16 02:13 Temperature 98.2 F 98.8 F Pulse Rate 79 81 Respiratory 16 16 16 Rate Blood Pressure 150/59 132/43 (mmHg) O2 Sat by Pulse 99 99 Oximetry 05/15/16 03:16 Temperature Pulse Rate Respiratory 16 Rate Blood Pressure (mmHg) O2 Sat by Pulse Oximetry Oxygen Devices in Use Now: None Appearance: 50 yo F in nAD, aAOx3 Eyes: No Scleral Icterus, PERRLA Ears/Nose/Mouth/Throat: NL Teeth, Lips, Gums, Mucous Membranes Moist Neck: NL Appearance and Movements; NL JVP, Trachea Midline Respiratory: Symmetrical Chest Expansion and Respiratory Effort, Clear to Auscultation Cardiovascular: NL Sounds; No Murmurs; No JVD, No Edema Abdominal: NL Sounds; No Tenderness; No Distention, No Hepatosplenomegaly Lymphatic: No Cervical Adenopathy Extremities: No Clubbing, Cyanosis, - - b/l BKA Skin: - - R stump wound at 2 cm with purulent drainage, L stump with small area of chronic wound at 2 cm in length- not draining today Result Diagrams: 05/14/16 05:51 05/14/16 05:51 Assess/Plan/Problems-Billing Assessment: 50 yo F with h/o DM1, B/l BKA, HTN, gastroparesis, anxiety presented feeling anxious and "mean", had ahd low grade fevers x 1 week. R blister on R stump "opened up" several days ago. Was placed on Keflex and doxy by PCP. - Patient Problems (1) Amputation stump infection Comment: R stump wound has still purulent drainage. MRI of RLE pending appreciate Dr. Chang's consult. For now cont Ceftriaxone. Cx of the wound pending. (2) Microcytic anemia Comment: worsening of chronic. Pt reports rectal bleeding with BM's due to hemorrhoids x 6 months. cont PO iron and tx with one Venofer infusion on 05/13/16. Pt herself is not interested in definitive tx of hemorrhoids due to feeling like she can handle one problem at a time. (3) Gastroparesis due to DM Comment: Continue reglan. (4) Type I diabetes mellitus Comment: A1c 13.2 in 02/2016., BG in 200s. Continue Lantus at home dose and Lispro SSI. (5) HTN (hypertension) Comment: BP is under good control. Continue home medication regimen. (6) Hyponatremia Comment: resolved (7) CKD stage 3 due to type 1 diabetes mellitus Comment: creat at baseline 1.2-1.3 (8) LFT elevation Comment: Alk phos elevation: may be due to osteo. will await MRI and monitor. (9) DVT prophylaxis Comment: SQ heparin Status and Disposition: Suspected osteomyelitis - inpatient for further management.
--- NOTE | 2016-05-15 08:12 | RAD ---
Indication: Right leg amputation with swelling. Evaluate for osteomyelitis. Image sequences: Sagittal T1, STIR, coronal T1, STIR, axial T1 and T2 fat sat images of the right lower extremity proximal to the amputation is performed. Patient is status post bilateral below the knee amputation. The right lower extremity demonstrates no evidence of bone marrow edema to suggest osteomyelitis. There is diffuse soft tissue edema noted with increased soft tissue swelling in the subcutaneous tissue. There is also muscular edema noted in the remaining of the quadriceps and several hamstring muscles. No drainable collections are noted. IMPRESSION: NO DEFINITE EVIDENCE OF OSTEOMYELITIS. DIFFUSE SOFT TISSUE SWELLING WITH SUBCUTANEOUS EDEMA AND NO ABNORMAL FLUID COLLECTIONS.
[2016-05-15] MEDS: Docusate CAP* 100 MG PO SCH ×2 (09:00→21:54)
[2016-05-15] MEDS: Omeprazole CAP* 20 MG PO SCH (09:00)
[2016-05-15] MEDS: Ramipril CAP* 5 MG PO SCH (09:00)
[2016-05-15] MEDS: Atorvastatin* 20 MG TAB PO SCH (09:00)
[2016-05-15] MEDS: Ferrous Sulfate TAB* 325 MG PO SCH ×2 (09:00→21:52)
[2016-05-15] MEDS: Atenolol TAB* 50 MG PO SCH (09:01)
[2016-05-15] MEDS: Aspirin EC Low Dose* 81 MG TAB.EC PO SCH (09:01)
[2016-05-15] MEDS: Heparin VIAL(*) 5000 UNITS/ML VIAL (FIVE THOUSAND) SUBCUT SCH ×2 (09:01→21:54)
[2016-05-15] MEDS: Insulin LISPRO* 1 UNITS UNIT SUBCUT SCH ×3 (09:01→17:38)
[2016-05-15] MEDS ORDERED: Polyethylene Glycol 3350* 17 GM PACKET ONE (13:01)
[2016-05-15] MEDS: Polyethylene Glycol 3350* 17 GM PACKET PO SCH ×2 (13:05→21:53)
[2016-05-15] MEDS: cefTRIAXone VIAL(*) 1,000 MG in NS 0.9% 50 ML* 50 ML IVPB SCH (21:50)
[2016-05-15] MEDS: Insulin GLARGINE(*) 1 UNITS UNIT SUBCUT SCH (21:53)
[2016-05-15] MEDS: Zolpidem TAB* 10 MG PO PRN (23:06)
--- NOTE | 2016-05-15 23:36 | PRO ---
PROGRESS/PROCEDURE NOTE: DATE OF PROCEDURE/DICTATION: 05/15/16 - ROOM #414 HISTORY: I came to see Ms. Sherin Reyes is a 50-year-old female who admitted in the hospitalist service with soft tissue infection of the right BKA stump followed by Dr. Chang over the weekend, where culture was taken from draining wound at the stump site. The patient has been started on antibiotics, currently on ceftriaxone. The patient underwent MRI. These images as well as report was reviewed, showed soft tissue swelling without fluid collection and without changes in the marrow suggestive of osteomyelitis. This was a noncontrast study. Today, the patient states she is feeling somewhat better. She wants to get back to wearing a prosthesis and this is her major concern. She has been afebrile since hospitalization with legs elevated and she is not utilizing her prosthesis. I saw the patient on in my office and recommended antibiotics and offloading of the area of the right stump because of the cellulitis and pain at the site. There is no fluctuance at that time and it seemed to have blossomed into soft tissue infection. Plan is to follow up at the wound center. I asked the patient to remain off of her right-sided prosthesis and to try to convert the way she does things at her small home, where she utilizes the prosthesis to go to the bathroom because she cannot fit her wheelchair through her bathroom door. I believe this is the one of the reason patient did present to the hospital because she is not sure how she can get along without doing her regular systems within her home and clearly she is becoming some type of placement issue. Microbiology reviewed and still pending. MRSA is negative, however. PHYSICAL EXAMINATION: On examination today, she is afebrile. Vital signs are stable. She is in no apparent distress. Focus examination of the bilateral BKA stumps reveals a small gap at the open area on the left stump. There is no cellulitis and no drainage in the tunnel, but I did not probe the tunnel. The right BKA stump shows a 0.5 x 1 cm ulceration. This does track towards the medial superior aspect. This was drained today of approximately 7 cc of yoli pus. I did not reculture this as the cultures are pending. IMPRESSION: A 50-year-old female with complex medical history, status post bilateral below-knee amputations both with small ulcerations at the site with right BKA stump showing signs of soft tissue abscess. Recommendations for excisional debridement, drainage of abscess and this was performed. Plan will be for wound care and antibiotics. Follow up at the wound center and possible placement in short term rehab facility. The patient will need PT/OT for transfer as she will have to remain off of her prosthetic device on the right till this wound heals. DESCRIPTION OF PROCEDURE: I described the patient the drainage procedure. The area was cleaned and with clamp. The base of the wound was debrided of its loosely adhered fibrinous tissue. This allowed me to enter into a pocket of pus that was drained and I debrided the cavity as well with a Veronica clamp. The wound was then packed with 0.25 inch iodoform packing. The tunnel went into the 2 o'clock direction approximately 5 cm. Once this was packed this followed up with gauze and Hypafix tape. The patient tolerated the procedure well. PLAN: Daily wound care with packing changes, antibiotics, follow up cultures and follow up in the wound center. CC: W[facility]; [facility]; Ade Koe[place] * [id number]/[facility] #: [id number] [facility]ITAL[facility]ess[facility]
[2016-05-16 07:09] LABS: Hematocrit 25 % (35-47); Hemoglobin 7.9 g/dl (12.0-16.0); Mean Corpuscular HGB Conc 32 g/dl (31-36); Mean Corpuscular Hemoglobin 27 pg (27-31); Mean Corpuscular Volume 84 fL (80-97); Mean Platelet Volume 9 um3 (7.4-10.4); Red Blood Count 2.91 10^6/ul (4.0-5.4); Red Cell Distribution Width 15 % (10.5-15); White Blood Count 12.4 10^3/ul (3.5-10.8)
[2016-05-16 07:17] LABS: BUN/Creatinine Ratio 15.2 (8-20); Calcium 9.8 mg/dL (8.6-10.3); EGFR African American 71.1 (>60); EGFR Non-African American 55.3 (>60); Potassium 4.4 mmol/L (3.5-5.0)
[2016-05-16] MEDS: Atenolol TAB* 50 MG PO SCH (08:25)
[2016-05-16] MEDS: Omeprazole CAP* 20 MG PO SCH (08:25)
[2016-05-16] MEDS: Ramipril CAP* 5 MG PO SCH (08:25)
[2016-05-16] MEDS: Docusate CAP* 100 MG PO SCH ×2 (08:25→20:53)
[2016-05-16] MEDS: Atorvastatin* 20 MG TAB PO SCH (08:25)
[2016-05-16] MEDS: Ferrous Sulfate TAB* 325 MG PO SCH ×2 (08:25→20:53)
[2016-05-16] MEDS: Heparin VIAL(*) 5000 UNITS/ML VIAL (FIVE THOUSAND) SUBCUT SCH ×2 (08:25→20:55)
[2016-05-16] MEDS: Insulin LISPRO* 1 UNITS UNIT SUBCUT SCH ×3 (08:25→18:00)
[2016-05-16] MEDS: Aspirin EC Low Dose* 81 MG TAB.EC PO SCH (08:25)
[2016-05-16] MEDS: Furosemide TAB* 20 MG PO SCH (08:25)
[2016-05-16] MEDS: Polyethylene Glycol 3350* 17 GM PACKET PO SCH ×2 (08:27→20:58)
--- NOTE | 2016-05-16 11:11 | PN ---
Subjective Date of Service: 05/16/16 Interval History: Ms. Reyes denies complaint today. She has no pain to either leg. She denies chest pain, SOB, nausea, or abdominal pain. Objective Active Medications: Acetaminophen (Tylenol Tab*) 650 mg PO Q4H PRN Alprazolam (Xanax Tab*) 0.5 mg PO BID PRN Aspirin (Aspirin Ec Low Dose*) 81 mg PO DAILY KAIT Atenolol (Tenormin Tab*) 50 mg PO DAILY KAIT Atorvastatin Calcium (Lipitor*) 20 mg PO DAILY KAIT Dextrose (D50w Syringe 50 Ml*) 12.5 gm IV PUSH .FOR FS < 60 - SS PRN Docusate Sodium (Colace Cap*) 200 mg PO BEDTIME PRN Docusate Sodium (Colace Cap*) 100 mg PO BID KAIT Ferrous Sulfate (Ferrous Sulfate Tab*) 325 mg PO BID KAIT Furosemide (Lasix Tab*) 20 mg PO EVERY OTHER DAY KAIT Heparin Sodium (Porcine) (Heparin Vial(*)) 5,000 units SUBCUT Q12HR KAIT Ceftriaxone Sodium 1,000 mg/ (Sodium Chloride) 50 mls @ 200 mls/hr IVPB Q24H KAIT Insulin Glargine (Lantus(*)) 56 units SUBCUT BEDTIME KAIT Insulin Human Lispro (Humalog*) 0 units SUBCUT AC KAIT Metoclopramide HCl (Reglan Tab*) 10 mg PO BID PC PRN Omeprazole (Prilosec Cap*) 20 mg PO DAILY KAIT Ondansetron HCl (Zofran Inj*) 4 mg IV Q6H PRN Polyethylene Glycol/Electrolytes (Miralax*) 17 gm PO 0800,2100 KAIT Zaleplon (Sonata (Nf)) 10 mg PO BEDTIME PRN; Protocol Zolpidem Tartrate (Ambien Tab*) 10 mg PO BEDTIME PRN Vital Signs 05/15/16 05/15/16 05/15/16 16:22 20:00 23:05 Temperature 98.3 F Pulse Rate 77 Respiratory 16 18 Rate Blood Pressure 112/74 (mmHg) O2 Sat by Pulse 97 Oximetry 05/16/16 05/16/16 01:05 07:32 Temperature 97.8 F Pulse Rate 78 Respiratory 15 16 Rate Blood Pressure 128/53 (mmHg) O2 Sat by Pulse 99 Oximetry Oxygen Devices in Use Now: None Appearance: Female sitting up in bed in NAD Respiratory: Symmetrical Chest Expansion and Respiratory Effort, Clear to Auscultation Cardiovascular: NL Sounds; No Murmurs; No JVD, No Edema Abdominal: NL Sounds; No Tenderness; No Distention Skin: - - Approximately 2 cm diameter wound to anterior of right stump, packing in situ. Minimal drainage, minimal erythema. Smaller approx 1 cm diameter wound to L stump, no drainage or erythema. Neurological: Alert and Oriented x 3, NL Muscle Strength and Tone Nutrition: Taking PO's Result Diagrams: 05/16/16 06:05 05/16/16 06:01 Assess/Plan/Problems-Billing Assessment: Ms. Reyes is a 50 yo F with h/o DM1, B/l BKA, HTN, gastroparesis, anxiety presented feeling anxious with low grade fevers, found to have an abscess to R BKA. - Patient Problems (1) Amputation stump infection Comment: Abscess to R stump drained by Dr. Fofana 05/15/16. Switch to zosyn pending ID eval tomorrow based on polymicrobial cultures. (2) CKD stage 3 due to type 1 diabetes mellitus Comment: Creat at baseline, 1.2-1.3. (3) LFT elevation Comment: Alk phos elevated chronically. Repeat in AM as was higher on admission than in the past. (4) Type I diabetes mellitus Comment: A1c 13.2 in 02/2016., BG well controlled now. Continue Lantus at home dose and Lispro SSI. (5) Microcytic anemia Comment: Stable, worsening of chronic anemia. Pt reports rectal bleeding with BM 's due to hemorrhoids x 6 months. Cont PO iron, had one Venofer infusion on . Pt herself is not interested in definitive tx of hemorrhoids due to feeling like she can handle one problem at a time. (6) HTN (hypertension) Current Visit: No Status: Acute Code(s): I10 - ESSENTIAL (PRIMARY) HYPERTENSION SNOMED Code(s): 75533768 Comment: BP is under good control. Continue atenolol, furosemide, and ramipril. (7) CAD (coronary artery disease) Current Visit: No Status: Chronic Priority: Medium Code(s): I25.10 - ATHSCL HEART DISEASE OF [place] CORONARY ARTERY W/O ANG PCTRS SNOMED Code(s): 02469951 Comment: Continue ASA, atenolol and lipitor. (8) Gastroparesis due to DM Comment: Continue reglan. (9) DVT prophylaxis Comment: SQ heparin (10) Full code status Current Visit: No Status and Disposition: Suspected osteomyelitis - inpatient for further management.
[2016-05-16] MEDS ORDERED: Piperac/Tazob 3.375 gm in NS* 3.375 GM/100 ML BAG IVPB ONE (13:00)
[2016-05-16] MEDS: Piperac/Tazob 3.375 gm in NS* 3.375 GM/100 ML BAG IVPB SCH ×3 (17:16→20:52)
[2016-05-16] MEDS: Insulin GLARGINE(*) 1 UNITS UNIT SUBCUT SCH (20:53)
[2016-05-16] MEDS: ALPRAZolam TAB* 0.5 MG PO PRN (23:55)
[2016-05-17] MEDS: Piperac/Tazob 3.375 gm in NS* 3.375 GM/100 ML BAG IVPB SCH (05:13)
[2016-05-17 07:27] LABS: Albumin 3.2 g/dL (3.2-5.2); BUN/Creatinine Ratio 14.4 (8-20); Calcium 9.4 mg/dL (8.6-10.3); EGFR African American 62.1 (>60); EGFR Non-African American 48.3 (>60); Globulin 3.8 g/dL (2-4); Potassium 4.1 mmol/L (3.5-5.0); Total Bilirubin 0.2 mg/dL (0.2-1.0)
[2016-05-17] MEDS: Insulin LISPRO* 1 UNITS UNIT SUBCUT SCH ×3 (08:41→17:52)
[2016-05-17] MEDS: Heparin VIAL(*) 5000 UNITS/ML VIAL (FIVE THOUSAND) SUBCUT SCH ×2 (08:41→21:00)
[2016-05-17] MEDS: Polyethylene Glycol 3350* 17 GM PACKET PO SCH ×2 (08:41→21:01)
[2016-05-17] MEDS: Aspirin EC Low Dose* 81 MG TAB.EC PO SCH (08:42)
[2016-05-17] MEDS: Omeprazole CAP* 20 MG PO SCH (08:42)
[2016-05-17] MEDS: Ferrous Sulfate TAB* 325 MG PO SCH ×2 (08:42→20:59)
[2016-05-17] MEDS: ALPRAZolam TAB* 0.5 MG PO PRN ×2 (08:42→20:59)
[2016-05-17] MEDS: Docusate CAP* 100 MG PO SCH ×2 (08:43→20:59)
[2016-05-17] MEDS: Ramipril CAP* 5 MG PO SCH (08:43)
[2016-05-17] MEDS: Atenolol TAB* 50 MG PO SCH (08:43)
[2016-05-17] MEDS: Atorvastatin* 20 MG TAB PO SCH (08:43)
--- NOTE | 2016-05-17 09:55 | PN ---
Subjective Date of Service: 05/17/16 Interval History: Ms. Reyes complains of anxiety early this morning but denies complaint at the time of my examination. She denies chest pain, SOB, nausea, or abdominal pain. Objective Active Medications: Acetaminophen (Tylenol Tab*) 650 mg PO Q4H PRN Alprazolam (Xanax Tab*) 0.5 mg PO BID PRN Aspirin (Aspirin Ec Low Dose*) 81 mg PO DAILY KAIT Atenolol (Tenormin Tab*) 50 mg PO DAILY KAIT Atorvastatin Calcium (Lipitor*) 20 mg PO DAILY KAIT Dextrose (D50w Syringe 50 Ml*) 12.5 gm IV PUSH .FOR FS < 60 - SS PRN Docusate Sodium (Colace Cap*) 200 mg PO BEDTIME PRN Docusate Sodium (Colace Cap*) 100 mg PO BID KAIT Ferrous Sulfate (Ferrous Sulfate Tab*) 325 mg PO BID KAIT Furosemide (Lasix Tab*) 20 mg PO EVERY OTHER DAY KAIT Heparin Sodium (Porcine) (Heparin Vial(*)) 5,000 units SUBCUT Q12HR KAIT Piperacillin Sod/Tazobactam Sod (Zosyn 3.375 Gm In Ns Premix*) 3.375 gm in 100 mls @ 25 mls/hr IVPB 0500,1300,2100 KAIT Insulin Glargine (Lantus(*)) 56 units SUBCUT BEDTIME KAIT Insulin Human Lispro (Humalog*) 0 units SUBCUT AC KAIT Metoclopramide HCl (Reglan Tab*) 10 mg PO BID PC PRN Omeprazole (Prilosec Cap*) 20 mg PO DAILY KAIT Ondansetron HCl (Zofran Inj*) 4 mg IV Q6H PRN Polyethylene Glycol/Electrolytes (Miralax*) 17 gm PO 0800,2100 KAIT Ramipril (Altace Cap*) 5 mg PO DAILY KAIT Zaleplon (Sonata (Nf)) 10 mg PO BEDTIME PRN; Protocol Zolpidem Tartrate (Ambien Tab*) 10 mg PO BEDTIME PRN Vital Signs 05/16/16 05/16/16 05/16/16 16:17 20:00 21:44 Temperature 98.6 F Pulse Rate 71 80 Respiratory 16 16 Rate Blood Pressure 114/52 124/51 (mmHg) O2 Sat by Pulse 98 Oximetry 05/16/16 05/17/1617 23:55 06:23 08:00 Temperature 98.4 F Pulse Rate 79 Respiratory 18 16 18 Rate Blood Pressure 119/41 (mmHg) O2 Sat by Pulse 99 Oximetry 05/17/16 08:42 Temperature Pulse Rate Respiratory 18 Rate Blood Pressure (mmHg) O2 Sat by Pulse Oximetry Oxygen Devices in Use Now: None Appearance: Female sitting up in bed in NAD Respiratory: Symmetrical Chest Expansion and Respiratory Effort, Clear to Auscultation Cardiovascular: NL Sounds; No Murmurs; No JVD Abdominal: NL Sounds; No Tenderness; No Distention Skin: - Neurological: Alert and Oriented x 3, NL Muscle Strength and Tone Nutrition: Taking PO's Result Diagrams: 05/16/16 06:05 05/17/16 06:04 Microbiology and Other Data: Microbiology 05/16/16 17:00 Stool Gross Appearance - Final Stool Stool Occult Blood (JAN) - Final Assess/Plan/Problems-Billing Assessment: Ms. Reyes is a 50 yo F with h/o DM1, B/l BKA, HTN, gastroparesis, anxiety presented feeling anxious with low grade fevers, found to have an abscess to R BKA. - Patient Problems (1) Amputation stump infection Comment: Abscess to R stump drained by Dr. Fofana 05/15/16. Switch to augmentin x 2 weeks based on recommendation from ID. (2) CKD stage 3 due to type 1 diabetes mellitus Comment: Creat at baseline, 1.2-1.3. (3) LFT elevation Comment: Stable, Alk phos elevated chronically. (4) Type I diabetes mellitus Comment: A1c 13.2 in 02/2016., BG well controlled now. Continue Lantus at home dose and Lispro SSI. (5) Microcytic anemia Comment: Stable, worsening of chronic anemia. Pt reports rectal bleeding with BM 's due to hemorrhoids x 6 months. Cont PO iron, had one Venofer infusion on . Pt herself is not interested in definitive tx of hemorrhoids due to feeling like she can handle one problem at a time. (6) HTN (hypertension) Current Visit: No Status: Acute Code(s): I10 - ESSENTIAL (PRIMARY) HYPERTENSION SNOMED Code(s): 95058646 Comment: BP is under good control. Continue atenolol, furosemide, and ramipril. (7) CAD (coronary artery disease) Current Visit: No Status: Chronic Priority: Medium Code(s): I25.10 - ATHSCL HEART DISEASE OF [place] CORONARY ARTERY W/O ANG PCTRS SNOMED Code(s): 86945604 Comment: Continue ASA, atenolol and lipitor. (8) Gastroparesis due to DM Comment: Continue reglan. (9) Anxiety Comment: Continue low dose prn xanax, encouraged self soothing techniques such as deep breathing and guided imagery. (10) DVT prophylaxis Comment: SQ heparin (11) Full code status Current Visit: No Status and Disposition: Suspected osteomyelitis - inpatient for further management.
[2016-05-17] MEDS: Amoxicillin/Clavulanate TAB* 500 MG PO SCH (20:58)
[2016-05-17] MEDS: Insulin GLARGINE(*) 1 UNITS UNIT SUBCUT SCH (21:00)
[2016-05-18] MEDS ORDERED: LORazepam INJ* 2 MG/ML 1 ML VIAL IV ONE (00:35)
[2016-05-18] MEDS ORDERED: LORazepam INJ* 2 MG/ML 1 ML VIAL ONE (00:40)
[2016-05-18 08:26] VITALS: BP 126/54
[2016-05-18] MEDS: Heparin VIAL(*) 5000 UNITS/ML VIAL (FIVE THOUSAND) SUBCUT SCH (08:54)
[2016-05-18] MEDS: Insulin LISPRO* 1 UNITS UNIT SUBCUT SCH ×2 (08:54→12:23)
[2016-05-18] MEDS: Polyethylene Glycol 3350* 17 GM PACKET PO SCH (08:54)
[2016-05-18] MEDS: Docusate CAP* 100 MG PO SCH (08:56)
[2016-05-18] MEDS: Aspirin EC Low Dose* 81 MG TAB.EC PO SCH (08:56)
[2016-05-18] MEDS: Furosemide TAB* 20 MG PO SCH (08:56)
[2016-05-18] MEDS: Ferrous Sulfate TAB* 325 MG PO SCH (08:57)
[2016-05-18] MEDS: Atorvastatin* 20 MG TAB PO SCH (08:57)
[2016-05-18] MEDS: Omeprazole CAP* 20 MG PO SCH (08:57)
[2016-05-18] MEDS: ALPRAZolam TAB* 0.5 MG PO PRN (08:57)
[2016-05-18] MEDS: Atenolol TAB* 50 MG PO SCH (08:58)
[2016-05-18] MEDS: Amoxicillin/Clavulanate TAB* 500 MG PO SCH (08:58)
[2016-05-18] MEDS ORDERED: Fluticasone NASAL SPRAY 50MCG* 16 gm SPRAY BTL BOTH NARES SCH (09:00)
[2016-05-18] MEDS: Ramipril CAP* 5 MG PO SCH (09:01)
--- NOTE | 2016-05-18 09:35 | PN ---
Subjective Date of Service: 05/18/16 Interval History: Ms. Reyes denies complaint and is ready for discharge to [facility] [place] today as it will be one step closer to getting home to her cat. Objective Active Medications: Acetaminophen (Tylenol Tab*) 650 mg PO Q4H PRN Alprazolam (Xanax Tab*) 0.25 mg PO Q8H PRN Amoxicillin/Clavulanate Potassium (Augmentin Tab*) 500 mg PO BID KAIT Aspirin (Aspirin Ec Low Dose*) 81 mg PO DAILY KAIT Atenolol (Tenormin Tab*) 50 mg PO DAILY KAIT Atorvastatin Calcium (Lipitor*) 20 mg PO DAILY KAIT Dextrose (D50w Syringe 50 Ml*) 12.5 gm IV PUSH .FOR FS < 60 - SS PRN Docusate Sodium (Colace Cap*) 200 mg PO BEDTIME PRN Docusate Sodium (Colace Cap*) 100 mg PO BID KAIT Ferrous Sulfate (Ferrous Sulfate Tab*) 325 mg PO BID KAIT Fluticasone Propionate (Flonase Nasal [place] 50mcg*) 2 spray BOTH NARES DAILY KAIT Furosemide (Lasix Tab*) 20 mg PO EVERY OTHER DAY KAIT Heparin Sodium (Porcine) (Heparin Vial(*)) 5,000 units SUBCUT Q12HR KAIT Insulin Glargine (Lantus(*)) 56 units SUBCUT BEDTIME KAIT Insulin Human Lispro (Humalog*) 0 units SUBCUT AC KAIT Metoclopramide HCl (Reglan Tab*) 10 mg PO BID PC PRN Omeprazole (Prilosec Cap*) 20 mg PO DAILY KAIT Ondansetron HCl (Zofran Inj*) 4 mg IV Q6H PRN Polyethylene Glycol/Electrolytes (Miralax*) 17 gm PO 0800,2100 KAIT Ramipril (Altace Cap*) 5 mg PO DAILY KAIT Zaleplon (Sonata (Nf)) 10 mg PO BEDTIME PRN; Protocol Zolpidem Tartrate (Ambien Tab*) 10 mg PO BEDTIME PRN Vital Signs 05/17/16 05/17/16 05/17/16 10:42 15:05 15:15 Temperature 99.7 F Pulse Rate 81 89 Respiratory 18 16 Rate Blood Pressure 108/50 (mmHg) O2 Sat by Pulse 98 99 Oximetry 05/17/16 05/17/16 05/17/16 16:06 20:00 20:59 Temperature 99.3 F Pulse Rate Respiratory 18 18 Rate Blood Pressure (mmHg) O2 Sat by Pulse Oximetry 05/17/16 05/17/16 05/18/16 22:59 23:29 00:42 Temperature 98.7 F Pulse Rate 91 Respiratory 16 16 18 Rate Blood Pressure 110/31 (mmHg) O2 Sat by Pulse 97 Oximetry 05/18/16 05/18/16 05/18/16 01:42 08:22 08:57 Temperature 98.4 F Pulse Rate 85 Respiratory 16 18 16 Rate Blood Pressure 126/54 (mmHg) O2 Sat by Pulse 99 Oximetry Oxygen Devices in Use Now: None Appearance: Female sitting up in bed in NAD Respiratory: Symmetrical Chest Expansion and Respiratory Effort, Clear to Auscultation Cardiovascular: NL Sounds; No Murmurs; No JVD Abdominal: NL Sounds; No Tenderness; No Distention Skin: - - Bilateral stump dressings CDI. Neurological: Alert and Oriented x 3, NL Muscle Strength and Tone Nutrition: Taking PO's Result Diagrams: 05/16/16 06:05 05/17/16 06:04 Microbiology and Other Data: Microbiology 05/16/16 17:00 Stool Gross Appearance - Final Stool Stool Occult Blood (JAN) - Final Assess/Plan/Problems-Billing Assessment: Ms. Reyes is a 50 yo F with h/o DM1, B/l BKA, HTN, gastroparesis, anxiety presented feeling anxious with low grade fevers, found to have an abscess to R BKA. - Patient Problems (1) Amputation stump infection Comment: Abscess to R stump drained by Dr. Fofana 05/15/16. Switch to augmentin x 2 weeks based on recommendation from ID. (2) CKD stage 3 due to type 1 diabetes mellitus Comment: Creat at baseline, 1.2-1.3. (3) LFT elevation Comment: Stable, Alk phos elevated chronically. (4) Type I diabetes mellitus Comment: A1c 13.2 in 02/2016. BG well controlled now. Continue Lantus at home dose and Lispro SSI. (5) Microcytic anemia Comment: Stable, worsening of chronic anemia. Pt reports rectal bleeding with BM 's due to hemorrhoids x 6 months. Cont PO iron, had one Venofer infusion on . Pt herself is not interested in definitive tx of hemorrhoids due to feeling like she can handle one problem at a time. (6) HTN (hypertension) Current Visit: No Status: Acute Code(s): I10 - ESSENTIAL (PRIMARY) HYPERTENSION SNOMED Code(s): 82669706 Comment: BP is under good control. Continue atenolol, furosemide, and ramipril. (7) CAD (coronary artery disease) Current Visit: No Status: Chronic Priority: Medium Code(s): I25.10 - ATHSCL HEART DISEASE OF [place] CORONARY ARTERY W/O ANG PCTRS SNOMED Code(s): 61728934 Comment: Continue ASA, atenolol and lipitor. (8) Gastroparesis due to DM Comment: Continue reglan. (9) Anxiety Comment: Continue low dose prn xanax, encouraged self soothing techniques such as deep breathing and guided imagery. (10) DVT prophylaxis Comment: SQ heparin (11) Full code status Current Visit: No Status and Disposition: Discharge to [facility] [place].
--- NOTE | 2016-05-18 11:12 | DS ---
[facility] MEDICINE DISCHARGE SUMMARY: DATE OF ADMISSION: 05/12/16 DATE OF DISCHARGE: 05/18/16 PRIMARY CARE PROVIDER: Erin Koehler NP ATTENDING PHYSICIAN: Marco A Negrete MD* (dictation provided by Kavitha Mcelroy NP) PRIMARY DIAGNOSIS: Right below knee amputation stump diabetic ulceration with abscess, status post incision and drainage. SECONDARY DIAGNOSES: 1. Type 1 diabetes. 2. History of osteomyelitis. 3. History of retinopathy. 4. History of blindness in the left eye. 5. Coronary artery disease, status post CABG. 6. Hypertension. 7. Gastroparesis. 8. Neuropathy. 9. Gastroesophageal reflux disease. 10. Hyperlipidemia. 11. History of bilateral below-knee amputations. MEDICATIONS AT THE TIME OF DISCHARGE: 1. Augmentin 500 mg p.o. b.i.d. x2 weeks. 2. Lantus 56 units subcutaneously daily. 3. Klonopin 1 mg p.o. b.i.d. 4. Altace 5 mg daily. 5. Prilosec 20 mg daily. 6. Nitroglycerin p.r.n. sublingually. 7. Multivitamin 1 tab daily. 8. Reglan 10 mg p.o. b.i.d. with meals as needed. 9. Milk of mag 10 to 20 mL p.o. as needed. 10. NovoLog 3 to 7 units per sliding scale per routine with meals. 11. Lasix 20 mg every other day. 12. Colace 200 mg p.o. daily as needed. 13. Clarinex 5 mg daily. 14. Lipitor 20 mg daily. 15. Atenolol 50 mg daily. 16. Aspirin 81 mg daily. 17. Xanax 0.5 mg p.o. b.i.d. as needed. HOSPITAL COURSE: Ms. Reyes is a 50-year-old female with past medical history of type 1 diabetes with retinopathy and bilateral below-knee amputations, who presented to the emergency room on 05/12/16 with concern for redness to the right stump. Please see the dictated H and P from George Tejada NP, for complete details. The patient stated that 2 days prior to admission, she had noted to have erythema to her right stump. She states she had a fever up to 101. Though she was started on doxycycline and Keflex, she did not see significant improvement. The patient was admitted to the hospital out of concern for a right stump infection with possible osteomyelitis. Ms. Reyes had a lower extremity MRI, which reads as follows: "No definite evidence of osteomyelitis, diffuse soft tissue swelling with subcutaneous edema , and abnormal fluid collections." The patient was seen in consultation by Dr. Levar Fofana from [facility], who performed an incision and drainage on . I refer you to his documentation for complete details. Plans are for the patient to continue with packing to the right stump wound with followup with Wound Care. The patient does have a small ulceration to her left stump as well, but this has also been followed at the [facility] and shows no evidence of infection or abscess formation. During this hospitalization, Ms. Reyes has also been noted to be anemic with a hemoglobin running at approximately 7.2. Today, at the time of discharge, it was 7.9 with hematocrit of 25. The patient has had chronic anemia, although this is slightly normal than baseline. She reports having hemorrhoids with a light amount of blood in the stool. She is not willing or interested in any intervention on the hemorrhoids. She has not noticed of bleeding during the hospitalization nor dark, tarry stools. Plans are for her to follow up outpatient with Surgical Services team regarding banding of the hemorrhoids if this continues to be a problem for her, otherwise she will continue with iron supplementation. During the hospitalization, the patient's blood sugars have been well controlled on her current regimen. She has noted significant anxiety and she is continuing on her Klonopin and Xanax p.r.n. Ms. Reyes is medically stable for discharge to subacute rehab. At this time, she is unable to use her prosthesis due to wounds on her stump and will be supported at rehab until she is able to use prosthesis and live and function independently. DISPOSITION: To [facility] [place]. ACTIVITY: As tolerated. FOLLOWUP PLANS: Please follow up with Wound Care in the next 5 to 7 days regarding management of both bilateral stump wounds. TIME SPENT: Approximately 60 minutes was spent in the discharge of this patient , more than half of the time was spent with her at the bedside reviewing the events leading up to this hospitalization, performing the physical examination, and reviewing my plan of care. KAVITHA MCELROY NP CC: Erin Koehler, GILL * [id number]/[facility] #: [id number] JUAN ANTONIO
--- NOTE | 2016-05-18 13:56 | PN ---
Progress Note - Progress Note SOAP: Subjective: Pt seen and examined yesterday 05/17/16. Note was not written until now. Pt feeling better overall. Nurses are changing packing. Pt yuaneleazar going to short term rehab facility Objective: Right BK stump: 0.5x1.0x0.2 cm full thickness wound tunneling in the 1 o'clock direction. No exposed muscle or bone. Minimal drainage, with improving surrounding cellulitis. packing in place Assessment: Soft tissue abscess, but still a concern fro occult bone infection Plan: off-loading Antibiotics wound care: packing 1/4" plain packing QOD for 1 more week. f/u at wound center with Dr. Mosley or myself No revision surgery at this time, despite pt's frequent request. This would most likely require a vascular surgeon performing a Above knee amputation if the wound does not heal.
== END 2016-05-18 13:00 | DRG 501 ==
LOC: ED 17:51 → MEDTELE 21:45 → OBSVTOIN 05-13 12:21 → MED 05-14 17:50
PROVIDERS: ADMIT Internal Medicine; ATTEND Hospitalist
PROC: 0J9N0ZZ Drainage of Right Lower Leg Subcutaneous Tissue and Fascia, Open Approach (ICD-10-PCS; principal; 2016-05-15)
DX: T87.43 Infection of amputation stump, right lower extremity (principal); E87.1 Hypo-osmolality and hyponatremia; E10.22 Type 1 diabetes mellitus with diabetic chronic kidney disease; E10.622 Type 1 diabetes mellitus with other skin ulcer; L02.415 Cutaneous abscess of right lower limb; L03.115 Cellulitis of right lower limb; L97.819 Non-pressure chronic ulcer of other part of right lower leg with unspecified severity; L97.829 Non-pressure chronic ulcer of other part of left lower leg with unspecified severity; K31.84 Gastroparesis; E10.40 Type 1 diabetes mellitus with diabetic neuropathy, unspecified; Y83.5 Amputation of limb(s) as the cause of abnormal reaction of the patient, or of later complication, without mention of misadventure at the time of the procedure; F41.9 Anxiety disorder, unspecified; E10.319 Type 1 diabetes mellitus with unspecified diabetic retinopathy without macular edema; H54.42 Blindness, left eye, normal vision right eye; I25.10 Atherosclerotic heart disease of native coronary artery without angina pectoris; T87.89 Other complications of amputation stump; E10.43 Type 1 diabetes mellitus with diabetic autonomic (poly)neuropathy; K21.9 Gastro-esophageal reflux disease without esophagitis; E78.5 Hyperlipidemia, unspecified; Z95.1 Presence of aortocoronary bypass graft; Z89.512 Acquired absence of left leg below knee; Z89.511 Acquired absence of right leg below knee; Z88.1 Allergy status to other antibiotic agents; Z91.041 Radiographic dye allergy status; Z80.8 Family history of malignant neoplasm of other organs or systems; K59.09 Other constipation; K64.9 Unspecified hemorrhoids; D50.9 Iron deficiency anemia, unspecified; D53.9 Nutritional anemia, unspecified; I12.9 Hypertensive chronic kidney disease with stage 1 through stage 4 chronic kidney disease, or unspecified chronic kidney disease; N18.3 Chronic kidney disease, stage 3 (moderate); Z79.4 Long term (current) use of insulin; Z79.82 Long term (current) use of aspirin; M13.842 Other specified arthritis, left hand; M13.841 Other specified arthritis, right hand; Z98.42 Cataract extraction status, left eye; Z98.41 Cataract extraction status, right eye; Z87.440 Personal history of urinary (tract) infections; Z95.3 Presence of xenogenic heart valve; F17.210 Nicotine dependence, cigarettes, uncomplicated; Y92.9 Unspecified place or not applicable
CPT/HCPCS: 36415; 80048; 80053; 80307; 80320; 80329; 81003; 81015; 82272; 82533; 82607; 82728; 83540; 83550; 83930; 84443; 84466; 85025; 85027; 86140; 86850; 86900; 86901; 87040; 87070; 87076; 87077; 87086; 87185; 87186; 87205; 87502; 87640; 87641; 99406; A9270-GY; G0480; J0696; J1644; J1756; J2060; J2405; J2543

== ENCOUNTER 2017-08-12 17:33 | Inpatient (IN) | payer MEDICARE, OTHER ==
[2017-08-12] MEDS ORDERED: Albuterol/Ipratropium NEB.SOL* Albuterol 2.5 MG/Ipratropium 0.5 MG 3 ML INH ONE (18:17)
--- NOTE | 2017-08-12 18:48 | RAD ---
INDICATION: Shortness of breath. COMPARISON: None. TECHNIQUE: Single AP portable view of the chest was obtained. FINDINGS: Image quality is compromised due to the relative inferiority of a portable chest x-ray. Stable postsurgical changes include sternotomy wires and surgical clips overlying the mediastinum. There is a mild degree of cardiomegaly. Bilaterally the diaphragm are secured and there is bibasilar costophrenic angle blunting. There is vague density overlying the left lung base. Visualized bones are normal for the patient's age. IMPRESSION: Density obscuring the bilateral lung bases and causing costophrenic angle blunting could be due to pleural effusions and/or consolidation.
[2017-08-12 19:18] LABS: INR 0.97 (0.77-1.02)
[2017-08-12 19:23] LABS: ABS Basophils 0.1 10^3/ul (0-0.2); ABS Eosinophils 0.4 10^3/ul (0-0.6); ABS Lymphocytes 1.9 10^3/ul (1.0-4.8); ABS Monocytes 0.7 10^3/ul (0-0.8); ABS Neutrophils 6.3 10^3/ul (1.5-7.7); ABS Nucleated RBC 0 10^3/ul; Eosinophil % 4.2 % (0-6); Hematocrit 19 % (35-47); Lymphocyte % 20.4 % (25-47); Mean Corpuscular HGB Conc 32 g/dl (31-36); Mean Corpuscular Hemoglobin 31 pg (27-31); Mean Corpuscular Volume 97 fL (80-97); Mean Platelet Volume 8.5 um3 (7.4-10.4); Nucleated Red Blood Cells % 0.1; Platelet Count 373 10^3/ul (150-450); Red Blood Count 1.95 10^6/ul (4.0-5.4); Red Cell Distribution Width 15 % (10.5-15); White Blood Count 9.3 10^3/ul (3.5-10.8)
[2017-08-12 19:24] LABS: EGFR Non-African American 37.9 (>60)
[2017-08-12 19:53] LABS: Urine Appearance Clear; Urine Blood Negative (Negative); Urine Color Straw; Urine Ketones Negative (Negative); Urine Protein Negative (Negative); Urine Specific Gravity 1.003 (1.010-1.030); Urine Urobilinogen Negative (Negative)
[2017-08-12] MEDS ORDERED: Ondansetron INJ* 2 MG/ML VIAL IV PRN (20:22)
[2017-08-12] MEDS ORDERED: Acetaminophen TAB* 325 MG PO PRN (20:22)
[2017-08-12] MEDS ORDERED: Dextrose 50% Syringe 50 ML* 25 GM/50 ML SYRINGE IV PUSH PRN (20:22)
[2017-08-12] MEDS ORDERED: Furosemide IV* 10 MG/ML VIAL (40 MG) IV SLOW PU ONE (20:30)
[2017-08-12] MEDS ORDERED: Metoclopramide TAB* 10 MG PO PRN (20:31)
[2017-08-12 21:34] LABS: Corrected Retic Count 3.5 % (0.5-1.5); Hematocrit 19 % (35-47); Hematocrit for Retic CNT 19 % (35-47); Hemoglobin 5.8 g/dl (12.0-16.0)
[2017-08-12] MEDS ORDERED: Heparin VIAL(*) 5000 UNITS/ML VIAL (FIVE THOUSAND) SUBCUT SCH (22:00)
[2017-08-12] MEDS: Docusate CAP* 100 MG PO SCH (22:48)
[2017-08-12] MEDS: Insulin GLARGINE(*) 1 UNITS UNIT SUBCUT SCH (22:48)
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
[2017-08-13 01:51] LABS: Hematocrit 23 % (35-47); Hemoglobin 7.4 g/dl (12.0-16.0)
--- NOTE | 2017-08-13 05:58 | HP ---
CC: Dr. Noni Faustin. * HISTORY AND PHYSICAL: DATE OF ADMISSION: 08/12/17 PRIMARY CARE PROVIDER: Dr. Noni Faustin. ATTENDING PHYSICIAN WHILE IN THE HOSPITAL: Angela Kramer MD * (report reported by George Tejada NP). CHIEF COMPLAINT: 1. Shortness of breath. 2. Bright red blood per rectum. HISTORY OF PRESENT ILLNESS: Mrs. Reyes is a 51-year-old female patient. She carries a history of diabetes. She has a history of osteomyelitis. She has a history of retinopathy. She is legally blind in the left eye. She has a history of CAD, hypertension, gastroparesis, neuropathy, GERD, and hyperlipidemia. She comes into the emergency department today stating that in the last couple of weeks she has had progressive worsening shortness of breath and she has noticed it today particularly with any type of exertion, she has been feeling really short of breath. She has had chest pressure, but none now. She said she did have some chest pressure with exerting herself today. She felt heaviness in the chest. She felt really short of breath, but again that discomfort is now gone. She said that she has also noted that over the last couple of weeks she has been anytime she wipes and intermittent with bowel movements even she has been having bright red blood per rectum. No lower abdominal pain. She does state that she has been diagnosed with hemorrhoids and they have bled intermittently throughout the last year, but the last couple of weeks has been very constant almost every time she wipes and she states she has been now noticing them more with bowel movements. She denies any fever. No vomiting. She says that she is not having any chest pain now and she admits short of breath at rest, but she was concerned because of bleeding and worsening shortness of breath. Because of this, she came into the hospital today to be evaluated. On evaluation, it was noted that her hemoglobin had dropped significantly from baseline at around 7.5 to 8 to 6 today. Because of these findings, we were asked to evaluate for admission. PAST MEDICAL HISTORY: Significant for: 1. Diabetes. 2. Osteomyelitis. 3. Retinopathy. 4. She is legally blind in the left eye. 5. CAD. 6. Hypertension. 7. Gastroparesis. 8. Neuropathy. 9. GERD. 10. Hyperlipidemia. PAST SURGICAL HISTORY: 1. She has had a CABG. 2. She has had bilateral [id number] amputations. 3. 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 4. She is also having multiple eye surgeries. HOME MEDICATIONS: According to the list provided includes: 1. Reglan 10 mg every 6 hours as needed. 2. MiraLax 17 g p.o. daily. 3. Lasix 20 mg p.o. every other day. 4. Ferrous sulfate 325 mg daily. 5. Aspirin 81 mg daily. 6. Tylenol 650 mg every 4 hours as needed. 7. NovoLog R sliding scale take as directed. 8. Altace 5 mg daily. 9. Prilosec 20 mg daily. 10. Lantus 36 units subcu b.i.d. 11. Lipitor 20 mg daily. 12. Atenolol 50 mg daily. 13. Zoloft 25 mg daily. 14. Colace 100 mg p.o. b.i.d. 15. Xanax 0.5 mg p.o. b.i.d. as needed. ALLERGIES TO MEDICATION: Include IV DYE, VANCOMYCIN, FLAGYL. FAMILY HISTORY: Her mother had a history of skin cancer. Father's history is unknown. SOCIAL HISTORY: She is a former smoker, quit a year and half ago. She was a pack a day smoker previously. She does not drink alcohol. Surrogate decision maker is her brother, Yariel and Monie, her aide. REVIEW OF SYSTEMS: There is no documented fever. She denied having any significant weight change. There is no double vision. She denies having any ear discharge. There is no rhinorrhea. There is no sore throat. No thyroid enlargement. She again does admit having some chest pressure. It is now gone. There is dyspnea particularly with exertion. There is no orthopnea. No nocturnal dyspnea. No abdominal pain. No nausea, vomiting. No dysuria, no frequency. No seizure. No loss of consciousness, no pruritus. No skin ulcerations. Review of 14 systems completed, all others negative. PHYSICAL EXAMINATION GENERAL: At this time, Mrs. Reyes is a 52-year-old female patient. She appears to be older than stated age. She is sitting in the ED stretcher. She does not appear to be in any acute distress. VITAL SIGNS: Blood pressure 145/63 with pulse 78, respirations 19, O2 sat 93% on room air, temperature 98.5. HEENT: Head: Atraumatic and normocephalic. Eyes: EOMs are intact. Sclerae were anicteric and not pale. Throat: Oral mucosa appears to be moist. No oropharyngeal erythema. NECK: Supple. LUNGS: Clear to auscultation bilaterally. No wheezes, rales, or rhonchi. HEART: Sounds S1, S2. Regular rate and rhythm. No murmurs, rubs, or gallops appreciated. ABDOMEN: Soft, flat, nontender. Bowel sounds were present. EXTREMITIES: Pulses were 2+ throughout. She is able to move all 4 extremities with 5/5 strength. RECTAL: Obtained by the ER provider once I was with him, did not appreciate any obvious blood or tarry stool. NEUROLOGICAL: The patient is awake. She is alert. She is oriented x3. No gross focal deficits. SKIN: Grossly intact. DIAGNOSTIC STUDIES/LAB DATA: WBC 9.3, RBC of 1.95, hemoglobin 6, hematocrit 19. Her baseline hemoglobin last one was 8.8 and 7.9. Platelet count was 373. INR of 0.97. PTT of 29.4. The D-dimer is 454. Sodium is 139, potassium 4.3, chloride 106, bicarb was 27, BUN 12, creatinine 1.45, glucose 123, lactate 1.1, calcium 9.1, mag 2.7, iron was 180, TIBC 332, iron sat 54, transferrin 237, ferritin 34, total bili 0.3, AST 14, ALT 13, alk phos 174, LDH was 296, troponin was 0.03, repeat pending. TSH was normal. Lipase was negative. B12 of 255. Urine was obtained, it was negative. The patient did have a chest x-ray obtained today. Chest x-ray showed density obscuring the bilateral lung bases and causing costophrenic angle blunting, could be pleural effusion and/or consolidation. EKG today does show a sinus rhythm rate of 74. She did have T-wave inversions in lead II, III and aVL along with V4, 5, and 6 and V2 and V3. I looked back to an EKG 2 years ago. The inversions in V2 and 3 are now new. The inversions in lead I, II, and aVL are not new. The inversions in V4, 5, and 6 are not new. Old medical records were reviewed. ASSESSMENT AND PLAN: Mrs. Reyes is a 52-year-old female patient with multiple medical problems coming into the ER today with complaints of shortness of breath and blood noted on toilet tissue, progressive worsening shortness of breath for 2 weeks, now found to have acute blood loss anemia. She will be admitted under inpatient status for: 1. Acute blood loss anemia. I suspect this is probably related to hemorrhoids that she has been having and they have been progressively getting worse over the last couple of weeks. Hemoccult is pending, but I am going to get repeat Hemoccult just to make sure that there is definitely no blood. I am going to go ahead and continue her aspirin for the time being given her history of CAD. I will give her two units of blood. In addition to this, I will get serial H and H, two IVs and I did touch base with GI to follow the patient. 2. Shortness of breath, chest pain. In addition to this EKG changes, again the hemoglobin of 6 is most likely causing demand ischemia with this patient. My plan would be to cycle her troponins, place her on telemetry, repeat the echo , get that hemoglobin up to her baseline of 8 and continue to follow. I would not put her on heparin drip obviously because of the bleeding and low H and H. I do continue the aspirin and beta-tony. She is chest pain free now and we will continue to follow. 3. Diabetes. Lispro sliding scale has been ordered. 4. History of retinopathy. Continue with diabetic management. 5. Coronary artery disease. Again continue trending troponin. Continue ASA and her beta-tony. 6. Hypertension. Continue meds as prescribed. 7. Hyperlipidemia. Continue her current medical regimen. 8. History of gastroparesis. We have ordered p.r.n. Reglan. 9. History of neuropathy. Continue meds as prescribed. 10. DVT prophylaxis. Because of the concern for bleeding, I am just going to put her on SCDs. I will not order heparin. We will encourage ambulation. 11. Code status. Full code. 12. Fluids, electrolytes, nutrition. She can have a clear liquid diet. TIME SPENT: On the admission 60 minutes; greater than half the time was spent face- to-face with the patient obtaining my history and physical, other half of the time was spent going over the plan of care with the patient and implementing plan of care. I did discuss the plan of care with my attending, Dr. Kramer; she is in agreement. GEORGE TEJADA NP [id number]/CPS #: [id number]
[2017-08-13] MEDS ORDERED: Perflutren Lipid Microsphere* 3 ML VIAL ONE (08:36)
[2017-08-13] MEDS: Polyethylene Glycol 3350* 17 GM PACKET PO SCH (09:37)
[2017-08-13] MEDS: Insulin GLARGINE(*) 1 UNITS UNIT SUBCUT SCH ×2 (09:37→22:10)
[2017-08-13] MEDS: Insulin LISPRO* 1 UNITS UNIT SUBCUT SCH ×3 (09:37→18:21)
[2017-08-13] MEDS: Ramipril CAP* 5 MG PO SCH (09:38)
[2017-08-13] MEDS: Atenolol TAB* 50 MG PO SCH (09:38)
[2017-08-13] MEDS: Ferrous Sulfate TAB* 325 MG PO SCH (09:38)
[2017-08-13] MEDS: Omeprazole CAP* 20 MG PO SCH (09:38)
[2017-08-13] MEDS: Atorvastatin* 20 MG TAB PO SCH (09:38)
[2017-08-13] MEDS: Docusate CAP* 100 MG PO SCH ×2 (09:38→22:10)
[2017-08-13] MEDS: Sertraline* 25 MG TAB PO SCH (09:38)
[2017-08-13] MEDS: Aspirin EC TAB* 81 MG TAB.EC PO SCH (09:38)
[2017-08-13 09:47] LABS: ABS Basophils 0.1 10^3/ul (0-0.2); ABS Eosinophils 0.6 10^3/ul (0-0.6); ABS Monocytes 0.7 10^3/ul (0-0.8); ABS Neutrophils 8.5 10^3/ul (1.5-7.7); ABS Nucleated RBC 0 10^3/ul; Eosinophil % 4.6 % (0-6); Hematocrit 28 % (35-47); Hemoglobin 9.2 g/dl (12.0-16.0); Lymphocyte % 16.9 % (25-47); Mean Corpuscular HGB Conc 33 g/dl (31-36); Mean Corpuscular Hemoglobin 30 pg (27-31); Mean Corpuscular Volume 92 fL (80-97); Mean Platelet Volume 8.3 um3 (7.4-10.4); Nucleated Red Blood Cells % 0.1; Platelet Count 367 10^3/ul (150-450); Red Blood Count 3.07 10^6/ul (4.0-5.4); Red Cell Distribution Width 17 % (10.5-15); White Blood Count 11.9 10^3/ul (3.5-10.8)
[2017-08-13 10:04] LABS: EGFR Non-African American 43.4 (>60)
[2017-08-13] MEDS ORDERED: Furosemide IV* 10 MG/ML 2 ML VIAL (20 MG) IV ONE (15:48)
--- NOTE | 2017-08-13 16:48 | ECHO ---
Patient: RENATA ROSE [facility] Rec#: [id number] : 1965 Date: 08/13/2017 Age: 51y Height: 137.16 cm / 54.0 in Weight: 104.33 kg / 229.9 lbs Sex: F BSA: 1.84 Room#: [facility] Admit Date#: 08/12/2017 Type: Inpatient Referring: George Tejada NP Reading: Edwin Patel MD [employer]oll Settlement Clerk: Stephanie Minaya RDCS CC: Noni Faustin Transthoracic Echocardiogram Indication: Abnormal EKG, history of CAD. BP: 148/47 HR: 72 Rhythm: NSR Findings History: DM, osteomyelitis, CAD s/p CABG, s/p bilateral below the knee amputation, HTN, HLD. Technical Comments: The study is technically difficult. The study is technically limited due to patient body habitus. Completed at 0915. Left Ventricle: The left ventricular chamber size is normal. Mild concentric left ventricular hypertrophy is observed. Global left ventricular wall motion and contractility are within normal limits. There is normal left ventricular systolic function. The estimated ejection fraction is 55-60%. Post surgical hypokinesis of the interventricular septum is observed consistent with coronary artery bypass. Normal left ventricular diastolic filling is observed. Left Atrium: The left atrium is moderately dilated. Right Ventricle: The right ventricle wall thickness is mildly increased. The right ventricular cavity size is normal. The right ventricular global systolic function is normal. Right Atrium: The right atrium is mild to moderately dilated. Aortic Valve: The aortic valve is trileaflet. The aortic valve leaflets are mildly thickened. There is a trace of aortic regurgitation. There is no evidence of aortic stenosis. Mitral Valve: There is posterior mitral annular calcification. The mitral valve leaflets are mildly thickened. There is a trace of mitral regurgitation. There is no evidence of mitral stenosis. Tricuspid Valve: The tricuspid valve leaflets are normal. There is mild tricuspid regurgitation. The right ventricular systolic pressure is estimated at 42 mmHg. There is evidence of mild pulmonary hypertension. There is no tricuspid stenosis. Pulmonic Valve: The pulmonic valve appears normal. There is trace to mild pulmonic regurgitation. There is no pulmonic stenosis. Pericardium: There is no significant pericardial effusion. A pericardial fat pad is visualized. Aorta: There is no dilatation of the ascending aorta. There is no dilatation of the aortic arch. The aortic root is normal in size. Pulmonary Artery: The main pulmonary artery appears normal. Venous: The venous system is not well visualized. The inferior vena cava is not visualized. Contrast: Definity was used to optimize study. 3 mL of diluted Definity was utilized. Intravenous contrast was used to enhance endocardial border definition. Summary: There are no significant changes when compared to the previous study done on 02/22/16 Conclusions Global left ventricular wall motion and contractility are within normal limits. There is normal left ventricular systolic function. The estimated ejection fraction is 55-60%. The right ventricular global systolic function is normal. There is no evidence of aortic stenosis. There is a trace of aortic regurgitation. There is a trace of mitral regurgitation. There is mild tricuspid regurgitation. There is evidence of mild pulmonary hypertension. There is no significant pericardial effusion. There are no significant changes when compared to the previous study done on 02/22/16 Measurements Name Value Normal Range RVIDd (AP) 2D 2.9 cm (0.9 - 2.6) RVDdMajor (2D) 3.7 cm (2.2 - 4.4) RVAW (2D) 0.6 cm (0.2 - 0.5) RAd ISD 4CH 5.4 cm (3.4 - 4.9) RA (A4C)W 4.4 cm (2.9 - 4.6) IVSd (2D) 1.3 cm (0.6 - 1) LVPWd (2D) 1.1 cm (0.6 - 1) LVIDd (2D) 4.5 cm (3.6 - 5.4) LVIDs (2D) 3.1 cm - LV FS (2D) 31 % (25 - 45) Aortic Annulus 1.8 cm (1.4 - 2.6) Ao root diameter (2D) 3.2 cm (2.1 - 3.5) Ascending Ao 3.1 cm (2.1 - 3.4) Aortic arch 2 cm (1.8 - 3.4) LA dimension (AP) 2D 4.1 cm (2.3 - 3.8) LAd ISD 4CH 5.4 cm (2.9 - 5.3) LA ISD 4CH W 5.4 cm (2.5 - 4.5) Name Value Normal Range LA ESV SP 4CH (A/L) 67 ml - LA ESV SP 2CH (A/L) 82 ml - LA ESV BP (A/L) 82 ml - LA ESV BP (A/L) index 44 ml/m2 - LA ESV SP 4CH (MOD) 65 ml - LA ESV SP 2CH (MOD) 77 ml - Name Value Normal Range MV E-wave Vmax 1.16 m/sec - MV deceleration time 177.4 msec - MV A-wave Vmax 0.74 m/sec - MV E:A ratio 1.57 ratio - LV septal e' Vmax 0.09 m/sec - LV lateral e' Vmax 0.08 m/sec - LV E:e' septal ratio 12.89 ratio - LV E:e' lateral ratio 14.5 ratio - Name Value Normal Range AV Vmax 1.72 m/sec - AV VTI 38.54 cm - AV peak gradient 11.87 mmHg - AV mean gradient 6.19 mmHg - LVOT Vmax 0.85 m/sec - LVOT VTI 20.46 cm - LVOT peak gradient 2.94 mmHg - LVOT mean gradient 1.51 mmHg - CESAR Vmax 1.03 m/sec - Name Value Normal Range TR Vmax 2.9 m/sec - TR peak gradient 34 mmHg - RAP 8 mmHg - RVSP 42 mmHg - Name Value Normal Range PV Vmax 0.73 m/sec - PV peak gradient 2.13 mmHg - DE end-diastolic Vmax 1.07 m/sec -
--- NOTE | 2017-08-13 18:59 | PN ---
Subjective Date of Service: 08/13/17 Interval History: Pt reports no further rectal bleeding noted. no further stools. No abdominal pain. Overall reports she feels good. She had an episode of hypoglycemia this afternoon and was given glucagon - she reports she felt a little sweaty and knew her sugar was low. No other complaints currently otherwise she feels well. Objective Active Medications: Acetaminophen (Tylenol Tab*) 650 mg PO Q4H PRN PRN Reason: FEVER/PAIN Alprazolam (Xanax Tab*) 0.5 mg PO BID PRN PRN Reason: ANXIETY Aspirin (Aspirin Ec Tab*) 81 mg PO DAILY COUNT INCLUDES THE [facility] Last Admin: 08/13/17 09:38 Dose: 81 mg Atenolol (Tenormin Tab*) 50 mg PO DAILY COUNT INCLUDES THE [facility] Last Admin: 08/13/17 09:38 Dose: 50 mg Atorvastatin Calcium (Lipitor*) 20 mg PO DAILY COUNT INCLUDES THE [facility] Last Admin: 08/13/17 09:38 Dose: 20 mg Dextrose (D50w Syringe 50 Ml*) 12.5 gm IV PUSH .FOR FS < 60 - SS PRN PRN Reason: FS < 60 Last Admin: 08/13/17 12:22 Dose: 12.5 gm Docusate Sodium (Colace Cap*) 100 mg PO BID COUNT INCLUDES THE [facility] Last Admin: 08/13/17 09:38 Dose: 100 mg Ferrous Sulfate (Ferrous Sulfate Tab*) 325 mg PO DAILY COUNT INCLUDES THE [facility] Last Admin: 08/13/17 09:38 Dose: 325 mg Furosemide (Lasix Tab*) 20 mg PO EVERY OTHER DAY COUNT INCLUDES THE [facility] Insulin Glargine (Lantus(*)) 10 units SUBCUT BID COUNT INCLUDES THE [facility] Insulin Human Lispro (Humalog*) 0 units SUBCUT AC COUNT INCLUDES THE [facility] PRN Reason: Protocol Last Admin: 08/13/17 18:21 Dose: Not Given Metoclopramide HCl (Reglan Tab*) 10 mg PO Q6H PRN PRN Reason: NAUSEA Omeprazole (Prilosec Cap*) 20 mg PO DAILY COUNT INCLUDES THE [facility] Last Admin: 08/13/17 09:38 Dose: 20 mg Ondansetron HCl (Zofran Inj*) 4 mg IV Q6H PRN PRN Reason: NAUSEA Polyethylene Glycol/Electrolytes (Miralax*) 17 gm PO DAILY COUNT INCLUDES THE [facility] Last Admin: 08/13/17 09:37 Dose: 17 gm Ramipril (Altace Cap*) 5 mg PO DAILY COUNT INCLUDES THE [facility] Last Admin: 08/13/17 09:38 Dose: 5 mg Sertraline HCl (Zoloft*) 25 mg PO DAILY COUNT INCLUDES THE [facility] Last Admin: 08/13/17 09:38 Dose: 25 mg Vital Signs - 8 hr 08/13/17 08/13/17 11:31 15:31 Temperature 99.0 F 98.1 F Pulse Rate 71 76 Respiratory 16 16 Rate Blood Pressure 146/55 155/70 (mmHg) O2 Sat by Pulse 99 96 Oximetry Oxygen Devices in Use Now: None Appearance: 51 yo female A+O x3 in NAD. Eyes: No Scleral Icterus, PERRLA Ears/Nose/Mouth/Throat: NL Teeth, Lips, Gums, Mucous Membranes Moist Neck: NL Appearance and Movements; NL JVP Respiratory: Symmetrical Chest Expansion and Respiratory Effort, Clear to Auscultation Cardiovascular: NL Sounds; No Murmurs; No JVD, RRR, No Edema Abdominal: NL Sounds; No Tenderness; No Distention Extremities: - - s/p B/L LE amputations Neurological: Alert and Oriented x 3 Result Diagrams: 08/13/17 09:36 08/13/17 09:36 Additional Lab and Data: Lab Results 08/12/17 08/12/17 08/12/17 Range/Units 18:58 18:58 18:58 WBC 9.3 (3.5-10.8) 10^3/ul RBC 1.95 L (4.0-5.4) 10^6/ul RBC (Retic) Cancelled Hgb 6.0 L* (12.0-16.0) g/dl Hct 19 L (35-47) % HCT (Retic) Cancelled MCV 97 (80-97) fL MCH 31 (27-31) pg MCHC 32 (31-36) g/dl RDW 15 (10.5-15) % Plt Count 373 (150-450) 10^3/ul MPV 8.5 (7.4-10.4) um3 Neut % (Auto) 67.4 (38-83) % Lymph % (Auto) 20.4 L (25-47) % [place] % (Auto) 7.1 H (0-7) % Eos % (Auto) 4.2 (0-6) % Baso % (Auto) 0.9 (0-2) % Absolute Neuts (auto) 6.3 (1.5-7.7) 10^3/ul Absolute Lymphs (auto) 1.9 (1.0-4.8) 10^3/ul Absolute Monos (auto) 0.7 (0-0.8) 10^3/ul Absolute Eos (auto) 0.4 (0-0.6) 10^3/ul Absolute Basos (auto) 0.1 (0-0.2) 10^3/ul Absolute Nucleated RBC 0 10^3/ul Nucleated RBC % 0.1 Retic Count, Calc Cancelled Corrected Retic Count Cancelled Retic Shift Factor Cancelled Retic Production Index Cancelled Immature Retic Fraction Cancelled Mean Retic Volume Cancelled INR (Anticoag Therapy) 0.97 (0.77-1.02) APTT 29.4 (26.0-36.3) seconds D-Dimer, Quantitative 564 H (Less Than 230) ng/mL Sodium 139 (139-145) mmol/L Potassium 4.2 (3.5-5.0) mmol/L Chloride 106 (101-111) mmol/L Carbon Dioxide 27 (22-32) mmol/L Anion Gap 6 (2-11) mmol/L BUN 12 (6-24) mg/dL Creatinine 1.45 H (0.51-0.95) mg/dL Est GFR ( Amer) 48.8 (>60) Est GFR (Non-Af Amer) 37.9 (>60) BUN/Creatinine Ratio 8.3 (8-20) Glucose 123 H (70-100) mg/dL Lactic Acid (0.5-2.0) mmol/L Calcium 9.1 (8.6-10.3) mg/dL Magnesium 2.7 (1.9-2.7) mg/dL Iron 180 (50-212) ug/dL TIBC 332 (250-450) mcg/dL % Saturation 54 (15-55) % Unsat Iron Binding 152 ug/dL Transferrin 237 (203-362) mg/dL Ferritin 34.7 (11-307) ng/mL Total Bilirubin 0.30 (0.2-1.0) mg/dL AST 14 (13-39) U/L ALT 13 (7-52) U/L Alkaline Phosphatase 174 H (34-104) U/L Lactate Dehydrogenase 296 H (140-271) U/L Total Creatine Kinase 112 (10-223) U/L CK-MB (CK-2) 3.4 (0.6-6.3) ng/mL Troponin I 0.03 (<0.04) ng/mL C-Reactive Protein 16.30 H (< 5.00) mg/L B-Natriuretic Peptide ( - 100) pg/mL Total Protein 6.5 (6.4-8.9) g/dL Albumin 3.5 (3.2-5.2) g/dL Globulin 3.0 (2-4) g/dL Albumin/Globulin Ratio 1.2 (1-3) Lipase < 10 L (11.0-82.0) U/L Vitamin B12 255 (180-914) pg/mL TSH 2.70 (0.34-5.60) mcIU/mL Urine Color Urine Appearance Urine pH (5-9) Ur Specific [place] (1.010-1.030) Urine Protein (Negative) Urine Ketones (Negative) Urine Blood (Negative) Urine Nitrate (Negative) Urine Bilirubin (Negative) Urine Urobilinogen (Negative) Ur Leukocyte Esterase (Negative) Urine Glucose (Negative) Blood Type Antibody Screen Direct Antiglob Test Crossmatch 08/12/17 08/12/17 08/12/17 Range/Units 18:58 18:58 18:58 WBC (3.5-10.8) 10^3/ul RBC (4.0-5.4) 10^6/ul RBC (Retic) Hgb (12.0-16.0) g/dl Hct (35-47) % HCT (Retic) MCV (80-97) fL MCH (27-31) pg MCHC (31-36) g/dl RDW (10.5-15) % Plt Count (150-450) 10^3/ul MPV (7.4-10.4) um3 Neut % (Auto) (38-83) % Lymph % (Auto) (25-47) % [place] % (Auto) (0-7) % Eos % (Auto) (0-6) % Baso % (Auto) (0-2) % Absolute Neuts (auto) (1.5-7.7) 10^3/ul Absolute Lymphs (auto) (1.0-4.8) 10^3/ul Absolute Monos (auto) (0-0.8) 10^3/ul Absolute Eos (auto) (0-0.6) 10^3/ul Absolute Basos (auto) (0-0.2) 10^3/ul Absolute Nucleated RBC 10^3/ul Nucleated RBC % Retic Count, Calc Corrected Retic Count Retic Shift Factor Retic Production Index Immature Retic Fraction Mean Retic Volume INR (Anticoag Therapy) (0.77-1.02) APTT (26.0-36.3) seconds D-Dimer, Quantitative (Less Than 230) ng/mL Sodium (139-145) mmol/L Potassium (3.5-5.0) mmol/L Chloride (101-111) mmol/L Carbon Dioxide (22-32) mmol/L Anion Gap (2-11) mmol/L BUN (6-24) mg/dL Creatinine (0.51-0.95) mg/dL Est GFR ( Amer) (>60) Est GFR (Non-Af Amer) (>60) BUN/Creatinine Ratio (8-20) Glucose (70-100) mg/dL Lactic Acid 1.1 (0.5-2.0) mmol/L Calcium (8.6-10.3) mg/dL Magnesium (1.9-2.7) mg/dL Iron (50-212) ug/dL TIBC (250-450) mcg/dL % Saturation (15-55) % Unsat Iron Binding ug/dL Transferrin (203-362) mg/dL Ferritin (11-307) ng/mL Total Bilirubin (0.2-1.0) mg/dL AST (13-39) U/L ALT (7-52) U/L Alkaline Phosphatase (34-104) U/L Lactate Dehydrogenase (140-271) U/L Total Creatine Kinase (10-223) U/L CK-MB (CK-2) (0.6-6.3) ng/mL Troponin I (<0.04) ng/mL C-Reactive Protein (< 5.00) mg/L B-Natriuretic Peptide 539 H ( - 100) pg/mL Total Protein (6.4-8.9) g/dL Albumin (3.2-5.2) g/dL Globulin (2-4) g/dL Albumin/Globulin Ratio (1-3) Lipase (11.0-82.0) U/L Vitamin B12 (180-914) pg/mL TSH (0.34-5.60) mcIU/mL Urine Color Urine Appearance Urine pH (5-9) Ur Specific [place] (1.010-1.030) Urine Protein (Negative) Urine Ketones (Negative) Urine Blood (Negative) Urine Nitrate (Negative) Urine Bilirubin (Negative) Urine Urobilinogen (Negative) Ur Leukocyte Esterase (Negative) Urine Glucose (Negative) Blood Type A Positive Antibody Screen Negative Direct Antiglob Test Negative Crossmatch See Detail 08/12/17 Range/Units 19:44 WBC (3.5-10.8) 10^3/ul RBC (4.0-5.4) 10^6/ul RBC (Retic) Hgb (12.0-16.0) g/dl Hct (35-47) % HCT (Retic) MCV (80-97) fL MCH (27-31) pg MCHC (31-36) g/dl RDW (10.5-15) % Plt Count (150-450) 10^3/ul MPV (7.4-10.4) um3 Neut % (Auto) (38-83) % Lymph % (Auto) (25-47) % [place] % (Auto) (0-7) % Eos % (Auto) (0-6) % Baso % (Auto) (0-2) % Absolute Neuts (auto) (1.5-7.7) 10^3/ul Absolute Lymphs (auto) (1.0-4.8) 10^3/ul Absolute Monos (auto) (0-0.8) 10^3/ul Absolute Eos (auto) (0-0.6) 10^3/ul Absolute Basos (auto) (0-0.2) 10^3/ul Absolute Nucleated RBC 10^3/ul Nucleated RBC % Retic Count, Calc Corrected Retic Count Retic Shift Factor Retic Production Index Immature Retic Fraction Mean Retic Volume INR (Anticoag Therapy) (0.77-1.02) APTT (26.0-36.3) seconds D-Dimer, Quantitative (Less Than 230) ng/mL Sodium (139-145) mmol/L Potassium (3.5-5.0) mmol/L Chloride (101-111) mmol/L Carbon Dioxide (22-32) mmol/L Anion Gap (2-11) mmol/L BUN (6-24) mg/dL Creatinine (0.51-0.95) mg/dL Est GFR ( Amer) (>60) Est GFR (Non-Af Amer) (>60) BUN/Creatinine Ratio (8-20) Glucose (70-100) mg/dL Lactic Acid (0.5-2.0) mmol/L Calcium (8.6-10.3) mg/dL Magnesium (1.9-2.7) mg/dL Iron (50-212) ug/dL TIBC (250-450) mcg/dL % Saturation (15-55) % Unsat Iron Binding ug/dL Transferrin (203-362) mg/dL Ferritin (11-307) ng/mL Total Bilirubin (0.2-1.0) mg/dL AST (13-39) U/L ALT (7-52) U/L Alkaline Phosphatase (34-104) U/L Lactate Dehydrogenase (140-271) U/L Total Creatine Kinase (10-223) U/L CK-MB (CK-2) (0.6-6.3) ng/mL Troponin I (<0.04) ng/mL C-Reactive Protein (< 5.00) mg/L B-Natriuretic Peptide ( - 100) pg/mL Total Protein (6.4-8.9) g/dL Albumin (3.2-5.2) g/dL Globulin (2-4) g/dL Albumin/Globulin Ratio (1-3) Lipase (11.0-82.0) U/L Vitamin B12 (180-914) pg/mL TSH (0.34-5.60) mcIU/mL Urine Color Straw Urine Appearance Clear Urine pH 7.0 (5-9) Ur Specific [place] 1.003 L (1.010-1.030) Urine Protein Negative (Negative) Urine Ketones Negative (Negative) Urine Blood Negative (Negative) Urine Nitrate Negative (Negative) Urine Bilirubin Negative (Negative) Urine Urobilinogen Negative (Negative) Ur Leukocyte Esterase Negative (Negative) Urine Glucose Negative (Negative) Blood Type Antibody Screen Direct Antiglob Test Crossmatch Assess/Plan/Problems-Billing Assessment: 52 yo female with complex PMH including type 1 DM s/p bilateral LE amputations, CAD s/p CABG, legally blind in left eye, gastroparesis, neuropathy , GERD, HLD who presented with report of BRB per rectum found to have a HH 6. - Patient Problems (1) Anemia Comment: HH stable after 2 units PRBCs now hgb 9. No further rectal bleeding/stools. Appreciate GI consult - plan for colonoscopy in am. NPO. continue to trend HH (2) Type I diabetes mellitus Comment: Cut home dose Lantus to 10 units QPM, she did have a hypoglycemic episode today and resolved quickly; and Lispro SSI- switch to FSBG Q4hr (3) Anxiety Comment: Continue low dose prn xanax (4) HTN (hypertension) Comment: BP is under good control. Continue atenolol, furosemide, and ramipril. (5) CAD (coronary artery disease) Comment: Continue ASA, atenolol and lipitor. (6) CKD stage 3 due to type 1 diabetes mellitus SNOMED Code(s): 55178228245123 Comment: Creat at baseline, 1.2-1.3 - currently at baseline (7) DVT prophylaxis Comment: hold in the setting of GI bleed Status and Disposition: inpatient. GI bleed. Plan for scope in am.
[2017-08-13] MEDS ORDERED: PEG 3000 GI LAVAGE* 1 GALLON PO ONE (20:00)
[2017-08-13 21:28] LABS: Hematocrit 31 % (35-47); Hemoglobin 9.3 g/dl (12.0-16.0)
[2017-08-13] MEDS: CMCS: Melatonin (NF) 3 MG TAB PO SCH (22:06)
[2017-08-13] MEDS ORDERED: Furosemide IV* 10 MG/ML 2 ML VIAL (20 MG) IV SLOW PU ONE (22:22)
[2017-08-13] MEDS: ALPRAZolam TAB* 0.5 MG PO PRN (22:32)
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
[2017-08-14] MEDS ORDERED: Ondansetron 40 MG VIAL* 2 MG/ML 20 ML VIAL IV PRN
[2017-08-14 01:22] LABS: EGFR Non-African American 48.6 (>60)
[2017-08-14 06:05] LABS: ABS Basophils 0.2 10^3/ul (0-0.2); ABS Eosinophils 0.7 10^3/ul (0-0.6); ABS Lymphocytes 2.4 10^3/ul (1.0-4.8); ABS Monocytes 0.8 10^3/ul (0-0.8); ABS Neutrophils 6.3 10^3/ul (1.5-7.7); ABS Nucleated RBC 0 10^3/ul; Eosinophil % 6.4 % (0-6); Hematocrit 26 % (35-47); Hemoglobin 8.5 g/dl (12.0-16.0); Lymphocyte % 23.6 % (25-47); Mean Corpuscular HGB Conc 32 g/dl (31-36); Mean Corpuscular Hemoglobin 30 pg (27-31); Mean Corpuscular Volume 92 fL (80-97); Mean Platelet Volume 8.7 um3 (7.4-10.4); Nucleated Red Blood Cells % 0.1; Platelet Count 344 10^3/ul (150-450); Red Blood Count 2.85 10^6/ul (4.0-5.4); Red Cell Distribution Width 16 % (10.5-15); White Blood Count 10.3 10^3/ul (3.5-10.8)
[2017-08-14 06:06] LABS: Hematocrit 26 % (35-47); Hemoglobin 8.5 g/dl (12.0-16.0)
[2017-08-14 06:20] LABS: EGFR Non-African American 43.8 (>60)
--- NOTE | 2017-08-14 07:54 | RAD ---
INDICATION: Vomiting COMPARISON: None TECHNIQUE: A single view of the abdomen representing 4 images is submitted. FINDINGS: Bones: There are no acute bony findings. Soft tissues: The soft tissues appear normal. The psoas margins are sharp. Bowel gas pattern: Normal Calcifications: There are no abnormal calcifications. Other: None IMPRESSION: NO ACUTE DIAGNOSTIC FINDINGS.
[2017-08-14] MEDS ORDERED: Magnesium Hydroxide LIQ* 30 ML UDC PO PRN (08:52)
[2017-08-14] MEDS ORDERED: Furosemide TAB* 20 MG PO SCH (09:00)
[2017-08-14] MEDS: Insulin LISPRO* 1 UNITS UNIT SUBCUT SCH ×3 (09:04→16:34)
[2017-08-14] MEDS: Polyethylene Glycol 3350* 17 GM PACKET PO SCH (09:16)
[2017-08-14] MEDS: Aspirin EC TAB* 81 MG TAB.EC PO SCH (09:17)
[2017-08-14] MEDS: Sertraline* 25 MG TAB PO SCH (09:17)
[2017-08-14] MEDS: Atorvastatin* 20 MG TAB PO SCH (09:17)
[2017-08-14] MEDS: Omeprazole CAP* 20 MG PO SCH (09:17)
[2017-08-14] MEDS: Ferrous Sulfate TAB* 325 MG PO SCH (09:17)
[2017-08-14] MEDS: Atenolol TAB* 50 MG PO SCH (09:17)
[2017-08-14] MEDS: Docusate CAP* 100 MG PO SCH ×2 (09:17→21:03)
[2017-08-14] MEDS: Ramipril CAP* 5 MG PO SCH (09:18)
[2017-08-14] MEDS: Insulin GLARGINE(*) 1 UNITS UNIT SUBCUT SCH ×2 (09:19→21:00)
[2017-08-14] MEDS: ALPRAZolam TAB* 0.5 MG PO PRN (12:51)
--- NOTE | 2017-08-14 19:39 | PN ---
Subjective Date of Service: 08/14/17 Interval History: patient reported constipation x 4-5 days - no bowel movement overnight even with prep. today had a enema and had multiple large BMs. Per nurse concern for melena after multiple hard stools. no further BRB. patient states she feels much better with less abdominal distention and discomfort. Objective Active Medications: Acetaminophen (Tylenol Tab*) 650 mg PO Q4H PRN PRN Reason: FEVER/PAIN Last Admin: 08/14/17 12:52 Dose: 650 mg Alprazolam (Xanax Tab*) 0.5 mg PO BID PRN PRN Reason: ANXIETY Last Admin: 08/14/17 12:51 Dose: 0.5 mg Aspirin (Aspirin Ec Tab*) 81 mg PO DAILY [facility] Last Admin: 08/14/17 09:17 Dose: 81 mg Atenolol (Tenormin Tab*) 50 mg PO DAILY [facility] Last Admin: 08/14/17 09:17 Dose: 50 mg Atorvastatin Calcium (Lipitor*) 20 mg PO DAILY [facility] Last Admin: 08/14/17 09:17 Dose: 20 mg Dextrose (D50w Syringe 50 Ml*) 12.5 gm IV PUSH .FOR FS < 60 - SS PRN PRN Reason: FS < 60 Last Admin: 08/13/17 12:22 Dose: 12.5 gm Docusate Sodium (Colace Cap*) 100 mg PO BID [facility] Last Admin: 08/14/17 09:17 Dose: 100 mg Ferrous Sulfate (Ferrous Sulfate Tab*) 325 mg PO DAILY [facility] Last Admin: 08/14/17 09:17 Dose: 325 mg Furosemide (Lasix Tab*) 20 mg PO EVERY OTHER DAY [facility] Last Admin: 08/14/17 09:17 Dose: 20 mg Insulin Glargine (Lantus(*)) 10 units SUBCUT BID [facility] Last Admin: 08/14/17 09:19 Dose: Not Given Insulin Human Lispro (Humalog*) 0 units SUBCUT AC [facility] PRN Reason: Protocol Last Admin: 08/14/17 16:34 Dose: Not Given Magnesium Hydroxide (Milk Of Magnesia Liq*) 30 ml PO Q4H PRN PRN Reason: CONSTIPATION Last Admin: 08/14/17 09:15 Dose: 30 ml Melatonin (Melatonin (Nf)) 3 mg PO BEDTIME [facility] Last Admin: 08/13/17 22:06 Dose: 3 mg Metoclopramide HCl (Reglan Tab*) 10 mg PO Q6H PRN PRN Reason: NAUSEA Last Admin: 08/13/17 18:56 Dose: 10 mg Omeprazole (Prilosec Cap*) 20 mg PO DAILY [facility] Last Admin: 08/14/17 09:17 Dose: 20 mg Ondansetron HCl (Zofran Inj*) 4 mg IV Q6H PRN PRN Reason: NAUSEA Last Admin: 08/14/17 00:13 Dose: 4 mg Polyethylene Glycol/Electrolytes (Miralax*) 17 gm PO DAILY [facility] Last Admin: 08/14/17 09:16 Dose: 17 gm Ramipril (Altace Cap*) 5 mg PO DAILY [facility] Last Admin: 08/14/17 09:18 Dose: 5 mg Sertraline HCl (Zoloft*) 25 mg PO DAILY [facility] Last Admin: 08/14/17 09:17 Dose: 25 mg Vital Signs - 8 hr 08/14/17 08/14/17 08/14/17 12:51 15:34 16:07 Temperature 98.5 F Pulse Rate 74 Respiratory 18 16 18 Rate Blood Pressure 141/45 (mmHg) O2 Sat by Pulse 97 Oximetry Oxygen Devices in Use Now: None Appearance: A+O x3 female sitting up in bed A+O x3 in NAD Eyes: No Scleral Icterus, PERRLA Ears/Nose/Mouth/Throat: NL Teeth, Lips, Gums, Mucous Membranes Moist Neck: NL Appearance and Movements; NL JVP Respiratory: Symmetrical Chest Expansion and Respiratory Effort, Clear to Auscultation Cardiovascular: NL Sounds; No Murmurs; No JVD, RRR, No Edema Abdominal: NL Sounds; No Tenderness; No Distention Extremities: No Edema, No Clubbing, Cyanosis, - - s/p B/L LE amputations Skin: No Rash or Ulcers, No Nodules or Sclerosis Neurological: Alert and Oriented x 3, NL Sensation, NL Muscle Strength and Tone Lines/Tubes/Other Access: Clean, Dry and Intact Peripheral IV Nutrition: Taking PO's Result Diagrams: 08/14/17 05:30 08/14/17 05:30 Additional Lab and Data: Lab Results 08/12/17 08/12/17 08/12/17 Range/Units 18:58 18:58 18:58 WBC 9.3 (3.5-10.8) 10^3/ul RBC 1.95 L (4.0-5.4) 10^6/ul RBC (Retic) Cancelled Hgb 6.0 L* (12.0-16.0) g/dl Hct 19 L (35-47) % HCT (Retic) Cancelled MCV 97 (80-97) fL MCH 31 (27-31) pg MCHC 32 (31-36) g/dl RDW 15 (10.5-15) % Plt Count 373 (150-450) 10^3/ul MPV 8.5 (7.4-10.4) um3 Neut % (Auto) 67.4 (38-83) % Lymph % (Auto) 20.4 L (25-47) % [place] % (Auto) 7.1 H (0-7) % Eos % (Auto) 4.2 (0-6) % Baso % (Auto) 0.9 (0-2) % Absolute Neuts (auto) 6.3 (1.5-7.7) 10^3/ul Absolute Lymphs (auto) 1.9 (1.0-4.8) 10^3/ul Absolute Monos (auto) 0.7 (0-0.8) 10^3/ul Absolute Eos (auto) 0.4 (0-0.6) 10^3/ul Absolute Basos (auto) 0.1 (0-0.2) 10^3/ul Absolute Nucleated RBC 0 10^3/ul Nucleated RBC % 0.1 Retic Count, Calc Cancelled Corrected Retic Count Cancelled Retic Shift Factor Cancelled Retic Production Index Cancelled Immature Retic Fraction Cancelled Mean Retic Volume Cancelled INR (Anticoag Therapy) 0.97 (0.77-1.02) APTT 29.4 (26.0-36.3) seconds D-Dimer, Quantitative 564 H (Less Than 230) ng/mL Sodium 139 (139-145) mmol/L Potassium 4.2 (3.5-5.0) mmol/L Chloride 106 (101-111) mmol/L Carbon Dioxide 27 (22-32) mmol/L Anion Gap 6 (2-11) mmol/L BUN 12 (6-24) mg/dL Creatinine 1.45 H (0.51-0.95) mg/dL Est GFR ( Amer) 48.8 (>60) Est GFR (Non-Af Amer) 37.9 (>60) BUN/Creatinine Ratio 8.3 (8-20) Glucose 123 H (70-100) mg/dL Lactic Acid (0.5-2.0) mmol/L Calcium 9.1 (8.6-10.3) mg/dL Magnesium 2.7 (1.9-2.7) mg/dL Iron 180 (50-212) ug/dL TIBC 332 (250-450) mcg/dL % Saturation 54 (15-55) % Unsat Iron Binding 152 ug/dL Transferrin 237 (203-362) mg/dL Ferritin 34.7 (11-307) ng/mL Total Bilirubin 0.30 (0.2-1.0) mg/dL AST 14 (13-39) U/L ALT 13 (7-52) U/L Alkaline Phosphatase 174 H (34-104) U/L Lactate Dehydrogenase 296 H (140-271) U/L Total Creatine Kinase 112 (10-223) U/L CK-MB (CK-2) 3.4 (0.6-6.3) ng/mL Troponin I 0.03 (<0.04) ng/mL C-Reactive Protein 16.30 H (< 5.00) mg/L B-Natriuretic Peptide ( - 100) pg/mL Total Protein 6.5 (6.4-8.9) g/dL Albumin 3.5 (3.2-5.2) g/dL Globulin 3.0 (2-4) g/dL Albumin/Globulin Ratio 1.2 (1-3) Lipase < 10 L (11.0-82.0) U/L Vitamin B12 255 (180-914) pg/mL TSH 2.70 (0.34-5.60) mcIU/mL Urine Color Urine Appearance Urine pH (5-9) Ur Specific [place] (1.010-1.030) Urine Protein (Negative) Urine Ketones (Negative) Urine Blood (Negative) Urine Nitrate (Negative) Urine Bilirubin (Negative) Urine Urobilinogen (Negative) Ur Leukocyte Esterase (Negative) Urine Glucose (Negative) Blood Type Antibody Screen Direct Antiglob Test Crossmatch 08/12/17 08/12/17 08/12/17 Range/Units 18:58 18:58 18:58 WBC (3.5-10.8) 10^3/ul RBC (4.0-5.4) 10^6/ul RBC (Retic) Hgb (12.0-16.0) g/dl Hct (35-47) % HCT (Retic) MCV (80-97) fL MCH (27-31) pg MCHC (31-36) g/dl RDW (10.5-15) % Plt Count (150-450) 10^3/ul MPV (7.4-10.4) um3 Neut % (Auto) (38-83) % Lymph % (Auto) (25-47) % [place] % (Auto) (0-7) % Eos % (Auto) (0-6) % Baso % (Auto) (0-2) % Absolute Neuts (auto) (1.5-7.7) 10^3/ul Absolute Lymphs (auto) (1.0-4.8) 10^3/ul Absolute Monos (auto) (0-0.8) 10^3/ul Absolute Eos (auto) (0-0.6) 10^3/ul Absolute Basos (auto) (0-0.2) 10^3/ul Absolute Nucleated RBC 10^3/ul Nucleated RBC % Retic Count, Calc Corrected Retic Count Retic Shift Factor Retic Production Index Immature Retic Fraction Mean Retic Volume INR (Anticoag Therapy) (0.77-1.02) APTT (26.0-36.3) seconds D-Dimer, Quantitative (Less Than 230) ng/mL Sodium (139-145) mmol/L Potassium (3.5-5.0) mmol/L Chloride (101-111) mmol/L Carbon Dioxide (22-32) mmol/L Anion Gap (2-11) mmol/L BUN (6-24) mg/dL Creatinine (0.51-0.95) mg/dL Est GFR ( Amer) (>60) Est GFR (Non-Af Amer) (>60) BUN/Creatinine Ratio (8-20) Glucose (70-100) mg/dL Lactic Acid 1.1 (0.5-2.0) mmol/L Calcium (8.6-10.3) mg/dL Magnesium (1.9-2.7) mg/dL Iron (50-212) ug/dL TIBC (250-450) mcg/dL % Saturation (15-55) % Unsat Iron Binding ug/dL Transferrin (203-362) mg/dL Ferritin (11-307) ng/mL Total Bilirubin (0.2-1.0) mg/dL AST (13-39) U/L ALT (7-52) U/L Alkaline Phosphatase (34-104) U/L Lactate Dehydrogenase (140-271) U/L Total Creatine Kinase (10-223) U/L CK-MB (CK-2) (0.6-6.3) ng/mL Troponin I (<0.04) ng/mL C-Reactive Protein (< 5.00) mg/L B-Natriuretic Peptide 539 H ( - 100) pg/mL Total Protein (6.4-8.9) g/dL Albumin (3.2-5.2) g/dL Globulin (2-4) g/dL Albumin/Globulin Ratio (1-3) Lipase (11.0-82.0) U/L Vitamin B12 (180-914) pg/mL TSH (0.34-5.60) mcIU/mL Urine Color Urine Appearance Urine pH (5-9) Ur Specific [place] (1.010-1.030) Urine Protein (Negative) Urine Ketones (Negative) Urine Blood (Negative) Urine Nitrate (Negative) Urine Bilirubin (Negative) Urine Urobilinogen (Negative) Ur Leukocyte Esterase (Negative) Urine Glucose (Negative) Blood Type A Positive Antibody Screen Negative Direct Antiglob Test Negative Crossmatch See Detail 08/12/17 Range/Units 19:44 WBC (3.5-10.8) 10^3/ul RBC (4.0-5.4) 10^6/ul RBC (Retic) Hgb (12.0-16.0) g/dl Hct (35-47) % HCT (Retic) MCV (80-97) fL MCH (27-31) pg MCHC (31-36) g/dl RDW (10.5-15) % Plt Count (150-450) 10^3/ul MPV (7.4-10.4) um3 Neut % (Auto) (38-83) % Lymph % (Auto) (25-47) % [place] % (Auto) (0-7) % Eos % (Auto) (0-6) % Baso % (Auto) (0-2) % Absolute Neuts (auto) (1.5-7.7) 10^3/ul Absolute Lymphs (auto) (1.0-4.8) 10^3/ul Absolute Monos (auto) (0-0.8) 10^3/ul Absolute Eos (auto) (0-0.6) 10^3/ul Absolute Basos (auto) (0-0.2) 10^3/ul Absolute Nucleated RBC 10^3/ul Nucleated RBC % Retic Count, Calc Corrected Retic Count Retic Shift Factor Retic Production Index Immature Retic Fraction Mean Retic Volume INR (Anticoag Therapy) (0.77-1.02) APTT (26.0-36.3) seconds D-Dimer, Quantitative (Less Than 230) ng/mL Sodium (139-145) mmol/L Potassium (3.5-5.0) mmol/L Chloride (101-111) mmol/L Carbon Dioxide (22-32) mmol/L Anion Gap (2-11) mmol/L BUN (6-24) mg/dL Creatinine (0.51-0.95) mg/dL Est GFR ( Amer) (>60) Est GFR (Non-Af Amer) (>60) BUN/Creatinine Ratio (8-20) Glucose (70-100) mg/dL Lactic Acid (0.5-2.0) mmol/L Calcium (8.6-10.3) mg/dL Magnesium (1.9-2.7) mg/dL Iron (50-212) ug/dL TIBC (250-450) mcg/dL % Saturation (15-55) % Unsat Iron Binding ug/dL Transferrin (203-362) mg/dL Ferritin (11-307) ng/mL Total Bilirubin (0.2-1.0) mg/dL AST (13-39) U/L ALT (7-52) U/L Alkaline Phosphatase (34-104) U/L Lactate Dehydrogenase (140-271) U/L Total Creatine Kinase (10-223) U/L CK-MB (CK-2) (0.6-6.3) ng/mL Troponin I (<0.04) ng/mL C-Reactive Protein (< 5.00) mg/L B-Natriuretic Peptide ( - 100) pg/mL Total Protein (6.4-8.9) g/dL Albumin (3.2-5.2) g/dL Globulin (2-4) g/dL Albumin/Globulin Ratio (1-3) Lipase (11.0-82.0) U/L Vitamin B12 (180-914) pg/mL TSH (0.34-5.60) mcIU/mL Urine Color Straw Urine Appearance Clear Urine pH 7.0 (5-9) Ur Specific [place] 1.003 L (1.010-1.030) Urine Protein Negative (Negative) Urine Ketones Negative (Negative) Urine Blood Negative (Negative) Urine Nitrate Negative (Negative) Urine Bilirubin Negative (Negative) Urine Urobilinogen Negative (Negative) Ur Leukocyte Esterase Negative (Negative) Urine Glucose Negative (Negative) Blood Type Antibody Screen Direct Antiglob Test Crossmatch Assess/Plan/Problems-Billing Assessment: 52 yo female with complex PMH including type 1 DM s/p bilateral LE amputations, CAD s/p CABG, legally blind in left eye, gastroparesis, neuropathy , GERD, HLD who presented with report of BRB per rectum found to have a HH 6. - Patient Problems (1) Anemia Comment: HH stable after 2 units PRBCs now hgb 8.5. recheck this evening. No further rectal bleeding/stools. Appreciate GI consult - plan for colonoscopy in am. continue clear with colon prep. continue to trend HH (2) Type I diabetes mellitus Comment: Cut home dose Lantus to 10 units QPM, she did have a hypoglycemic episode yesterday and resolved quickly; and Lispro SSI- continue FSBG Q4hr (3) Anxiety Comment: Continue low dose prn xanax (4) HTN (hypertension) Comment: BP is under good control. Continue atenolol, furosemide, and ramipril. (5) CAD (coronary artery disease) Comment: Continue ASA, atenolol and lipitor. (6) CKD stage 3 due to type 1 diabetes mellitus SNOMED Code(s): [id number] Comment: Creat at baseline, 1.2-1.3 - currently at baseline (7) DVT prophylaxis Comment: hold in the setting of GI bleed Status and Disposition: inpatient. GI bleed. Plan for scope in am.
[2017-08-14] MEDS: CMCS: Melatonin (NF) 3 MG TAB PO SCH (21:03)
[2017-08-14 21:32] LABS: Hematocrit 26 % (35-47); Hemoglobin 8.5 g/dl (12.0-16.0)
[2017-08-15 05:41] LABS: ABS Basophils 0.1 10^3/ul (0-0.2); ABS Eosinophils 0.6 10^3/ul (0-0.6); ABS Lymphocytes 1.9 10^3/ul (1.0-4.8); ABS Monocytes 0.9 10^3/ul (0-0.8); ABS Neutrophils 5.9 10^3/ul (1.5-7.7); ABS Nucleated RBC 0 10^3/ul; Eosinophil % 6.9 % (0-6); Hematocrit 25 % (35-47); Hemoglobin 8.3 g/dl (12.0-16.0); Lymphocyte % 20.2 % (25-47); Mean Corpuscular HGB Conc 33 g/dl (31-36); Mean Corpuscular Hemoglobin 31 pg (27-31); Mean Corpuscular Volume 92 fL (80-97); Mean Platelet Volume 8.8 um3 (7.4-10.4); Nucleated Red Blood Cells % 0.1; Platelet Count 345 10^3/ul (150-450); Red Blood Count 2.71 10^6/ul (4.0-5.4); Red Cell Distribution Width 15 % (10.5-15); White Blood Count 9.4 10^3/ul (3.5-10.8)
[2017-08-15 06:17] LABS: EGFR Non-African American 41.4 (>60)
[2017-08-15] MEDS: Insulin GLARGINE(*) 1 UNITS UNIT SUBCUT SCH (09:30)
[2017-08-15] MEDS: Polyethylene Glycol 3350* 17 GM PACKET PO SCH (09:30)
[2017-08-15] MEDS: Insulin LISPRO* 1 UNITS UNIT SUBCUT SCH ×3 (09:31→17:26)
[2017-08-15] MEDS: Atorvastatin* 20 MG TAB PO SCH (09:32)
[2017-08-15] MEDS: Atenolol TAB* 50 MG PO SCH (09:32)
[2017-08-15] MEDS: Aspirin EC TAB* 81 MG TAB.EC PO SCH (09:32)
[2017-08-15] MEDS: Ferrous Sulfate TAB* 325 MG PO SCH (09:32)
[2017-08-15] MEDS: Docusate CAP* 100 MG PO SCH (09:32)
[2017-08-15] MEDS: Sertraline* 25 MG TAB PO SCH (09:32)
[2017-08-15] MEDS: Omeprazole CAP* 20 MG PO SCH (09:32)
[2017-08-15] MEDS: Ramipril CAP* 5 MG PO SCH (09:32)
[2017-08-15] MEDS: ALPRAZolam TAB* 0.5 MG PO PRN (13:23)
[2017-08-15 15:58] VITALS: BP 123/43
--- NOTE | 2017-08-15 16:43 | PN ---
Subjective Date of Service: 08/15/17 Interval History: Patient seen and examined. Stopped her bowel prep today 2/2 nausea. Discussed the prep at length. Patient states she has no more blood in her stool and now thinks that she does not want to continue the prep and have the colonoscopy. Discussed benefits and risks at length, but patient wishes to think about it some more. Denies fever or headache, no current n/v, BMs are mostly clear. No fever or chills. No abdominal pain. Objective Active Medications: Acetaminophen (Tylenol Tab*) 650 mg PO Q4H PRN PRN Reason: FEVER/PAIN Last Admin: 08/14/17 12:52 Dose: 650 mg Alprazolam (Xanax Tab*) 0.5 mg PO BID PRN PRN Reason: ANXIETY Last Admin: 08/15/17 13:23 Dose: 0.5 mg Aspirin (Aspirin Ec Tab*) 81 mg PO DAILY [facility] Last Admin: 08/15/17 09:32 Dose: 81 mg Atenolol (Tenormin Tab*) 50 mg PO DAILY [facility] Last Admin: 08/15/17 09:32 Dose: 50 mg Atorvastatin Calcium (Lipitor*) 20 mg PO DAILY [facility] Last Admin: 08/15/17 09:32 Dose: 20 mg Dextrose (D50w Syringe 50 Ml*) 12.5 gm IV PUSH .FOR FS < 60 - SS PRN PRN Reason: FS < 60 Last Admin: 08/13/17 12:22 Dose: 12.5 gm Docusate Sodium (Colace Cap*) 100 mg PO BID [facility] Last Admin: 08/15/17 09:32 Dose: 100 mg Ferrous Sulfate (Ferrous Sulfate Tab*) 325 mg PO DAILY [facility] Last Admin: 08/15/17 09:32 Dose: 325 mg Furosemide (Lasix Tab*) 20 mg PO EVERY OTHER DAY [facility] Last Admin: 08/14/17 09:17 Dose: 20 mg Insulin Glargine (Lantus(*)) 10 units SUBCUT BID [facility] Last Admin: 08/15/17 09:30 Dose: 10 units Insulin Human Lispro (Humalog*) 0 units SUBCUT AC [facility] PRN Reason: Protocol Last Admin: 08/15/17 13:21 Dose: Not Given Magnesium Hydroxide (Milk Of Magnesia Liq*) 30 ml PO Q4H PRN PRN Reason: CONSTIPATION Last Admin: 08/14/17 09:15 Dose: 30 ml Melatonin (Melatonin (Nf)) 3 mg PO BEDTIME [facility] Last Admin: 08/14/17 21:03 Dose: 3 mg Metoclopramide HCl (Reglan Tab*) 10 mg PO Q6H PRN PRN Reason: NAUSEA Last Admin: 08/13/17 18:56 Dose: 10 mg Omeprazole (Prilosec Cap*) 20 mg PO DAILY [facility] Last Admin: 08/15/17 09:32 Dose: 20 mg Ondansetron HCl (Zofran Inj*) 4 mg IV Q6H PRN PRN Reason: NAUSEA Last Admin: 08/14/17 00:13 Dose: 4 mg Polyethylene Glycol/Electrolytes (Miralax*) 17 gm PO DAILY [facility] Last Admin: 08/15/17 09:30 Dose: 17 gm Ramipril (Altace Cap*) 5 mg PO DAILY [facility] Last Admin: 08/15/17 09:32 Dose: 5 mg Sertraline HCl (Zoloft*) 25 mg PO DAILY [facility] Last Admin: 08/15/17 09:32 Dose: 25 mg Vital Signs - 8 hr 08/15/17 08/15/17 08/15/17 11:30 13:23 14:55 Temperature 98.7 F Pulse Rate 76 Respiratory 16 18 18 Rate Blood Pressure 123/43 (mmHg) O2 Sat by Pulse 93 Oximetry Oxygen Devices in Use Now: None Appearance: alert, NAD Ears/Nose/Mouth/Throat: Mucous Membranes Moist, - - edentulous Neck: NL Appearance and Movements; NL JVP Respiratory: Symmetrical Chest Expansion and Respiratory Effort, - - diminished bases Cardiovascular: NL Sounds; No Murmurs; No JVD, RRR Abdominal: NL Sounds; No Tenderness; No Distention Extremities: - - bilateral amputee LE Skin: No Rash or Ulcers Neurological: Alert and Oriented x 3 Nutrition: - - tolerating clears Result Diagrams: 08/15/17 05:28 08/15/17 05:28 Additional Lab and Data: Lab Results 08/12/17 08/12/17 08/12/17 Range/Units 18:58 18:58 18:58 WBC 9.3 (3.5-10.8) 10^3/ul RBC 1.95 L (4.0-5.4) 10^6/ul RBC (Retic) Cancelled Hgb 6.0 L* (12.0-16.0) g/dl Hct 19 L (35-47) % HCT (Retic) Cancelled MCV 97 (80-97) fL MCH 31 (27-31) pg MCHC 32 (31-36) g/dl RDW 15 (10.5-15) % Plt Count 373 (150-450) 10^3/ul MPV 8.5 (7.4-10.4) um3 Neut % (Auto) 67.4 (38-83) % Lymph % (Auto) 20.4 L (25-47) % [place] % (Auto) 7.1 H (0-7) % Eos % (Auto) 4.2 (0-6) % Baso % (Auto) 0.9 (0-2) % Absolute Neuts (auto) 6.3 (1.5-7.7) 10^3/ul Absolute Lymphs (auto) 1.9 (1.0-4.8) 10^3/ul Absolute Monos (auto) 0.7 (0-0.8) 10^3/ul Absolute Eos (auto) 0.4 (0-0.6) 10^3/ul Absolute Basos (auto) 0.1 (0-0.2) 10^3/ul Absolute Nucleated RBC 0 10^3/ul Nucleated RBC % 0.1 Retic Count, Calc Cancelled Corrected Retic Count Cancelled Retic Shift Factor Cancelled Retic Production Index Cancelled Immature Retic Fraction Cancelled Mean Retic Volume Cancelled INR (Anticoag Therapy) 0.97 (0.77-1.02) APTT 29.4 (26.0-36.3) seconds D-Dimer, Quantitative 564 H (Less Than 230) ng/mL Sodium 139 (139-145) mmol/L Potassium 4.2 (3.5-5.0) mmol/L Chloride 106 (101-111) mmol/L Carbon Dioxide 27 (22-32) mmol/L Anion Gap 6 (2-11) mmol/L BUN 12 (6-24) mg/dL Creatinine 1.45 H (0.51-0.95) mg/dL Est GFR ( Amer) 48.8 (>60) Est GFR (Non-Af Amer) 37.9 (>60) BUN/Creatinine Ratio 8.3 (8-20) Glucose 123 H (70-100) mg/dL Lactic Acid (0.5-2.0) mmol/L Calcium 9.1 (8.6-10.3) mg/dL Magnesium 2.7 (1.9-2.7) mg/dL Iron 180 (50-212) ug/dL TIBC 332 (250-450) mcg/dL % Saturation 54 (15-55) % Unsat Iron Binding 152 ug/dL Transferrin 237 (203-362) mg/dL Ferritin 34.7 (11-307) ng/mL Total Bilirubin 0.30 (0.2-1.0) mg/dL AST 14 (13-39) U/L ALT 13 (7-52) U/L Alkaline Phosphatase 174 H (34-104) U/L Lactate Dehydrogenase 296 H (140-271) U/L Total Creatine Kinase 112 (10-223) U/L CK-MB (CK-2) 3.4 (0.6-6.3) ng/mL Troponin I 0.03 (<0.04) ng/mL C-Reactive Protein 16.30 H (< 5.00) mg/L B-Natriuretic Peptide ( - 100) pg/mL Total Protein 6.5 (6.4-8.9) g/dL Albumin 3.5 (3.2-5.2) g/dL Globulin 3.0 (2-4) g/dL Albumin/Globulin Ratio 1.2 (1-3) Lipase < 10 L (11.0-82.0) U/L Vitamin B12 255 (180-914) pg/mL TSH 2.70 (0.34-5.60) mcIU/mL Urine Color Urine Appearance Urine pH (5-9) Ur Specific [place] (1.010-1.030) Urine Protein (Negative) Urine Ketones (Negative) Urine Blood (Negative) Urine Nitrate (Negative) Urine Bilirubin (Negative) Urine Urobilinogen (Negative) Ur Leukocyte Esterase (Negative) Urine Glucose (Negative) Blood Type Antibody Screen Direct Antiglob Test Crossmatch 08/12/17 08/12/17 08/12/17 Range/Units 18:58 18:58 18:58 WBC (3.5-10.8) 10^3/ul RBC (4.0-5.4) 10^6/ul RBC (Retic) Hgb (12.0-16.0) g/dl Hct (35-47) % HCT (Retic) MCV (80-97) fL MCH (27-31) pg MCHC (31-36) g/dl RDW (10.5-15) % Plt Count (150-450) 10^3/ul MPV (7.4-10.4) um3 Neut % (Auto) (38-83) % Lymph % (Auto) (25-47) % [place] % (Auto) (0-7) % Eos % (Auto) (0-6) % Baso % (Auto) (0-2) % Absolute Neuts (auto) (1.5-7.7) 10^3/ul Absolute Lymphs (auto) (1.0-4.8) 10^3/ul Absolute Monos (auto) (0-0.8) 10^3/ul Absolute Eos (auto) (0-0.6) 10^3/ul Absolute Basos (auto) (0-0.2) 10^3/ul Absolute Nucleated RBC 10^3/ul Nucleated RBC % Retic Count, Calc Corrected Retic Count Retic Shift Factor Retic Production Index Immature Retic Fraction Mean Retic Volume INR (Anticoag Therapy) (0.77-1.02) APTT (26.0-36.3) seconds D-Dimer, Quantitative (Less Than 230) ng/mL Sodium (139-145) mmol/L Potassium (3.5-5.0) mmol/L Chloride (101-111) mmol/L Carbon Dioxide (22-32) mmol/L Anion Gap (2-11) mmol/L BUN (6-24) mg/dL Creatinine (0.51-0.95) mg/dL Est GFR ( Amer) (>60) Est GFR (Non-Af Amer) (>60) BUN/Creatinine Ratio (8-20) Glucose (70-100) mg/dL Lactic Acid 1.1 (0.5-2.0) mmol/L Calcium (8.6-10.3) mg/dL Magnesium (1.9-2.7) mg/dL Iron (50-212) ug/dL TIBC (250-450) mcg/dL % Saturation (15-55) % Unsat Iron Binding ug/dL Transferrin (203-362) mg/dL Ferritin (11-307) ng/mL Total Bilirubin (0.2-1.0) mg/dL AST (13-39) U/L ALT (7-52) U/L Alkaline Phosphatase (34-104) U/L Lactate Dehydrogenase (140-271) U/L Total Creatine Kinase (10-223) U/L CK-MB (CK-2) (0.6-6.3) ng/mL Troponin I (<0.04) ng/mL C-Reactive Protein (< 5.00) mg/L B-Natriuretic Peptide 539 H ( - 100) pg/mL Total Protein (6.4-8.9) g/dL Albumin (3.2-5.2) g/dL Globulin (2-4) g/dL Albumin/Globulin Ratio (1-3) Lipase (11.0-82.0) U/L Vitamin B12 (180-914) pg/mL TSH (0.34-5.60) mcIU/mL Urine Color Urine Appearance Urine pH (5-9) Ur Specific [place] (1.010-1.030) Urine Protein (Negative) Urine Ketones (Negative) Urine Blood (Negative) Urine Nitrate (Negative) Urine Bilirubin (Negative) Urine Urobilinogen (Negative) Ur Leukocyte Esterase (Negative) Urine Glucose (Negative) Blood Type A Positive Antibody Screen Negative Direct Antiglob Test Negative Crossmatch See Detail 08/12/17 Range/Units 19:44 WBC (3.5-10.8) 10^3/ul RBC (4.0-5.4) 10^6/ul RBC (Retic) Hgb (12.0-16.0) g/dl Hct (35-47) % HCT (Retic) MCV (80-97) fL MCH (27-31) pg MCHC (31-36) g/dl RDW (10.5-15) % Plt Count (150-450) 10^3/ul MPV (7.4-10.4) um3 Neut % (Auto) (38-83) % Lymph % (Auto) (25-47) % [place] % (Auto) (0-7) % Eos % (Auto) (0-6) % Baso % (Auto) (0-2) % Absolute Neuts (auto) (1.5-7.7) 10^3/ul Absolute Lymphs (auto) (1.0-4.8) 10^3/ul Absolute Monos (auto) (0-0.8) 10^3/ul Absolute Eos (auto) (0-0.6) 10^3/ul Absolute Basos (auto) (0-0.2) 10^3/ul Absolute Nucleated RBC 10^3/ul Nucleated RBC % Retic Count, Calc Corrected Retic Count Retic Shift Factor Retic Production Index Immature Retic Fraction Mean Retic Volume INR (Anticoag Therapy) (0.77-1.02) APTT (26.0-36.3) seconds D-Dimer, Quantitative (Less Than 230) ng/mL Sodium (139-145) mmol/L Potassium (3.5-5.0) mmol/L Chloride (101-111) mmol/L Carbon Dioxide (22-32) mmol/L Anion Gap (2-11) mmol/L BUN (6-24) mg/dL Creatinine (0.51-0.95) mg/dL Est GFR ( Amer) (>60) Est GFR (Non-Af Amer) (>60) BUN/Creatinine Ratio (8-20) Glucose (70-100) mg/dL Lactic Acid (0.5-2.0) mmol/L Calcium (8.6-10.3) mg/dL Magnesium (1.9-2.7) mg/dL Iron (50-212) ug/dL TIBC (250-450) mcg/dL % Saturation (15-55) % Unsat Iron Binding ug/dL Transferrin (203-362) mg/dL Ferritin (11-307) ng/mL Total Bilirubin (0.2-1.0) mg/dL AST (13-39) U/L ALT (7-52) U/L Alkaline Phosphatase (34-104) U/L Lactate Dehydrogenase (140-271) U/L Total Creatine Kinase (10-223) U/L CK-MB (CK-2) (0.6-6.3) ng/mL Troponin I (<0.04) ng/mL C-Reactive Protein (< 5.00) mg/L B-Natriuretic Peptide ( - 100) pg/mL Total Protein (6.4-8.9) g/dL Albumin (3.2-5.2) g/dL Globulin (2-4) g/dL Albumin/Globulin Ratio (1-3) Lipase (11.0-82.0) U/L Vitamin B12 (180-914) pg/mL TSH (0.34-5.60) mcIU/mL Urine Color Straw Urine Appearance Clear Urine pH 7.0 (5-9) Ur Specific [place] 1.003 L (1.010-1.030) Urine Protein Negative (Negative) Urine Ketones Negative (Negative) Urine Blood Negative (Negative) Urine Nitrate Negative (Negative) Urine Bilirubin Negative (Negative) Urine Urobilinogen Negative (Negative) Ur Leukocyte Esterase Negative (Negative) Urine Glucose Negative (Negative) Blood Type Antibody Screen Direct Antiglob Test Crossmatch Assess/Plan/Problems-Billing Assessment: This is a 52 yo female with complex PMH including type 1 DM s/p bilateral LE amputations, CAD s/p CABG, legally blind in left eye, gastroparesis, neuropathy , GERD, HLD who presented with report of BRB per rectum found to have a HgB 6, s /p transfusion. - Patient Problems (1) Anemia Code(s): D64.9 - ANEMIA, UNSPECIFIED SNOMED Code(s): 780984124 Comment: - Likely 2/2 GI bleed but no blood GA last 24 hours - HgB 8.3 after two units - Patient was planned for scope, however, she could not tolerate the prep and would prefer outpatient but is still thinking about it - concern that anemia may be acute on chronic, acute lower GI bleed with chronic low anemia 2/2 DM and renal disease - GI following - Hold ASA - Will let patient have soft diet now and see if she tolerates, she is leaning towards being discharged to home and will follow up outpatient for colonoscopy as she does not want to finish the prep (2) CKD stage 3 due to type 1 diabetes mellitus Code(s): E10.22 - TYPE 1 DIABETES MELLITUS W DIABETIC CHRONIC KIDNEY DISEASE; N18.3 - CHRONIC KIDNEY DISEASE, STAGE 3 (MODERATE) SNOMED Code(s): 56985292503601 Comment: - Creat at baseline, 1.2-1.3, but further elevated this admission, 1.34 today - Increase 2/2 GI bleed vs advancing disease? - Continue to monitor (3) HTN (hypertension) Code(s): I10 - ESSENTIAL (PRIMARY) HYPERTENSION SNOMED Code(s): 24671427 Comment: - controlled on atenolol, furosemide, and ramipril (4) Type I diabetes mellitus Comment: - Lantus decreased in light of CLD to 10 units in evening - Continue lispro SSI- continue FSBG Q4hr (5) CAD (coronary artery disease) Code(s): I25.10 - ATHSCL HEART DISEASE OF [place] CORONARY ARTERY W/O ANG PCTRS SNOMED Code(s): 98335518 Comment: - Hold ASA, continue lipitor and atenolol (6) Full code status Code(s): Z78.9 - OTHER SPECIFIED HEALTH STATUS SNOMED Code(s): 087493923 Status and Disposition: May DC in AM without colonoscopy if no further bleeding and can tolerate a diet. I discussed the importance of outpatient follow up with her and her aid if she chooses to decline colonoscopy as an inpatient, including hemorrhage and decompensation. Patient states understanding.
[2017-08-15] MEDS ORDERED: Furosemide IV* 10 MG/ML 2 ML VIAL (20 MG) IV ONE (18:23)
[2017-08-15] MEDS ORDERED: Furosemide TAB* 20 MG PO ONE (18:46)
[2017-08-15] MEDS ORDERED: Furosemide TAB* 20 MG ONE (18:49)
--- NOTE | 2017-08-16 06:15 | PN ---
CC: Dr. Weir GASTROENTEROLOGY PROGRESS NOTE: DATE OF SERVICE: 08/15/17 SUMMARY: Ms. Reyes was seen and evaluated by Dr. Weir on 08/13/17. Colonoscopy was recommended. The patient had issues with bright red blood per rectum and anemia. She has received a total of 2 u nits of packed red blood cells with subsequent hematocrit of 31 back down to 25 currently. She denie s any further signs of any bleeding. The patient drank a portion of the colonic preparation after grant ving 4 to 5 days of constipation. From my understanding from the nursing staff, she has had a total of 6 bowel movements, currently her stools remain soft. She no longer complains of abdominal pain or distention. The patient refuses to drink anymore preparation for the colonoscopy and I have explaine d to her that we cannot perform colonoscopy in the setting of soft stool. She understands this. She wants to go home and she wants to eat. She states that she will pursue colonoscopy at a later date. At this point, I have discussed with the patient that this is her choice and she will therefore be g iven a diabetic diet, and from a GI standpoint of view, colonoscopy can be pursued as an outpatient. I will begin the patient on a diabetic diet. [id number]/[facility] #: [id number]
--- NOTE | 2017-08-16 07:55 | DS ---
CC: Dr. Noni Faustin * DISCHARGE SUMMARY: DATE OF ADMISSION: 08/12/17 DATE OF DISCHARGE: 08/15/17 PRIMARY CARE PHYSICIAN: Dr. Noni Faustin. ATTENDING FOR THIS ADMISSION: Dr. Angela Kramer. MY ATTENDING FOR TODAY: Dr. Eboni Braga. * (DICTATED BY GISSELL LIU NP) HOSPITAL COURSE: This is a 51-year-old female patient that came to the emergency department with a complaint of shortness of breath and some chest pressure and some dizziness. She noted that she had more of a heaviness and she was also having some bright red blood per rectum. Over the past couple of weeks, she became consistently more dizzy and worsening shortness of breath. She came to the emergency department to be evaluated and she was found to have a hemoglobin of 6. She was admitted for rule out GI bleed. The patient was placed on clear liquid diet, given IV Protonix, and was seen by GI Service. The patient was trying to get through her prep in anticipation of colonoscopy in the last 24 hours; however, it was complicated by bouts of nausea and she had a significant amount of constipation. Prior to this event, she had difficulty getting through the prep and then today explained to staff that she was unable to tolerate taking anymore of the GoLYTELY. Also, she had not eaten any solid food since Saturday and felt that was contributing to her symptoms of nausea and difficulty tolerating the prep. Her bowel movements were not clear and at that point she refused to take the last of the GoLYTELY today and requested to eat food. I had a lengthy discussion with the patient regarding her need for a colonoscopy. She was actually recommended to have one 3 years prior and did not and also had a bout with GI bleeding about 15 years ago. I explained to the patient it may not just the allergens or aspirin causing her bleeding; she may also have an issue with colon polyps or cancer or other disease. The patient states that she would rather be discharged to home that she has no longer bleeding per rectum. She has no abdominal pain, no nausea, no vomiting. No fevers, fatigue, or chills. She feels good after having 2 units of blood transfused at admission and feels that she wants to go home and follow up with GI as an outpatient. Again, we have discussed this at length. I have agreed to discharge the patient provided she calls the GI doctor and her primary care this week and schedule an outpatient colonoscopy as soon as possible. PHYSICAL EXAMINATION: Today, the patient is awake, alert, in no acute distress , well appearing. Vital signs are blood pressure 123/43, heart rate 76, respiratory rate 18, temperature 98.7, satting 93% on room air. HEENT: The patient is atraumatic, normocephalic. PERRLA with nonicteric sclerae. Neck is supple and nontender. No JVD noted. No carotid bruit auscultated. Cardiovascular: S1, S2 present. No murmurs, gallops, or rubs noted. Lungs are clear bilaterally to auscultation with no wheezing, rhonchi, or rales. Abdomen is soft, obese, nontender. Positive bowel sounds in all 4 quadrants. No organomegaly appreciated. is deferred. Musculoskeletal: There is no clubbing, no cyanosis, no edema of the upper extremities. The lower extremities , she has bilateral lower extremity amputations. Stumps are clean, dry, and intact. Neurologic: She is grossly intact with no focal deficits. Psychiatric : She is a cooperative and appropriate. LABORATORY DATA: On the day of discharge, WBCs 9.4, RBCs 8.71, hemoglobin 8.3, hematocrit 25, platelets 345. Sodium 138, potassium 4.1, chloride 103, CO2 26, BUN 9, creatinine 1.34, GFR 41.4, glucose 157, calcium 8.9. Urinalysis is negative for any acute infectious process. DISCHARGE DIAGNOSES: 1. Symptomatic anemia, likely acute on chronic in the setting of lower gastrointestinal bleeding and chronic kidney disease. 2. Type 1 diabetes mellitus. 3. Chronic kidney disease stage 3. 4. History of hypertension. 5. History of coronary artery disease. 6. Nausea, now resolved. DISCHARGE MEDICATIONS: Include, 1. Tylenol 650 mg q.4 hours as needed. 2. Xanax 0.5 mg 2 times a day as needed. We are holding her baby aspirin in light of her bleeding and anemia. 3. Atenolol 50 mg p.o. daily. 4. Atorvastatin 20 mg daily. 5. Colace 100 mg 2 times a day. 6. Ferrous sulfate 325 mg daily. 7. Lasix 20 mg every other day. 8. Lantus 36 units subcu 2 times a day. 9. Regular insulin sliding scale. 10. Sertraline 25 mg daily. 11. Docusate 100 mg 2 times a day. 12. Polyethylene glycol 17 g daily. DISPOSITION PLANNING: The patient was instructed to follow up with her primary care provider this week and also to call Dr. Weir from the GI service to schedule an outpatient colonoscopy. Again, I stressed the importance of the patient's symptomatic anemia that may be related to her lower GI bleeding. The patient states she does understand that but she still wishes to proceed being discharged to home with outpatient followup. I explained to the patient that she should return to the hospital if she feels dizzy, fatigue, short of breath, has chest pain or should she experience increased bleeding again. The patient also states that she will have to do the prep all over again and she is aware that she will have to do that at home if she elects to have an outpatient colonoscopy. The patient was discharged in stable condition in the care of her aide. All questions were answered. The patient stated understanding of her discharge instructions, followups, and medications. GISSELL LIU, [employer] [id number]/[facility] #: [id number] JUAN ANTONIO
== END 2017-08-15 20:00 | disposition home or self-care (01) | DRG 811 ==
LOC: ED 17:33 → MEDTELE 20:16
PROVIDERS: ADMIT Pediatrics; ATTEND Internal Medicine
PROC: 30233N1 Transfusion of Nonautologous Red Blood Cells into Peripheral Vein, Percutaneous Approach (ICD-10-PCS; principal; 2017-08-13)
DX: D62 Acute posthemorrhagic anemia (principal); E10.641 Type 1 diabetes mellitus with hypoglycemia with coma; K92.1 Melena; M86.9 Osteomyelitis, unspecified; Z68.44 Body mass index [BMI] 60.0-69.9, adult; E10.22 Type 1 diabetes mellitus with diabetic chronic kidney disease; D63.1 Anemia in chronic kidney disease; I25.10 Atherosclerotic heart disease of native coronary artery without angina pectoris; E10.319 Type 1 diabetes mellitus with unspecified diabetic retinopathy without macular edema; K21.9 Gastro-esophageal reflux disease without esophagitis; E10.40 Type 1 diabetes mellitus with diabetic neuropathy, unspecified; N18.3 Chronic kidney disease, stage 3 (moderate); E10.43 Type 1 diabetes mellitus with diabetic autonomic (poly)neuropathy; K31.84 Gastroparesis; I12.9 Hypertensive chronic kidney disease with stage 1 through stage 4 chronic kidney disease, or unspecified chronic kidney disease; E78.5 Hyperlipidemia, unspecified; K59.09 Other constipation; E66.01 Morbid (severe) obesity due to excess calories; E10.21 Type 1 diabetes mellitus with diabetic nephropathy; H54.8 Legal blindness, as defined in USA; E10.69 Type 1 diabetes mellitus with other specified complication; E78.00 Pure hypercholesterolemia, unspecified; M19.042 Primary osteoarthritis, left hand; M19.041 Primary osteoarthritis, right hand; F41.9 Anxiety disorder, unspecified; Z98.42 Cataract extraction status, left eye; Z98.41 Cataract extraction status, right eye; Z79.4 Long term (current) use of insulin; Z95.1 Presence of aortocoronary bypass graft; Z89.511 Acquired absence of right leg below knee; Z79.82 Long term (current) use of aspirin; Z88.1 Allergy status to other antibiotic agents; Z91.041 Radiographic dye allergy status; Z87.891 Personal history of nicotine dependence; Z87.440 Personal history of urinary (tract) infections
CPT/HCPCS: 36415; 71045; 74018; 80048; 80053; 81003; 82270; 82550; 82553; 82607; 82728; 83010; 83540; 83550; 83605; 83615; 83690; 83735; 83880; 83921; 84443; 84484; 85014; 85018; 85025; 85045; 85379; 85610; 85730; 86140; 86850; 86880; 86900; 86901; 86922; 93005; 93306; 99284; A9270-GY; C8929; J1940; J2405; P9040

== ENCOUNTER 2017-09-11 09:28 | Inpatient (IN) | payer MEDICAID, MEDICARE ==
[2017-09-11 11:54] LABS: INR 0.89 (0.77-1.02)
[2017-09-11 11:58] LABS: ABS Basophils 0.1 10^3/ul (0-0.2); ABS Eosinophils 0.5 10^3/ul (0-0.6); ABS Lymphocytes 1.6 10^3/ul (1.0-4.8); ABS Monocytes 0.8 10^3/ul (0-0.8); ABS Neutrophils 7.1 10^3/ul (1.5-7.7); ABS Nucleated RBC 0 10^3/ul; Eosinophil % 4.8 % (0-6); Hematocrit 24 % (35-47); Hemoglobin 7.6 g/dl (12.0-16.0); Lymphocyte % 16.4 % (25-47); Mean Corpuscular HGB Conc 32 g/dl (31-36); Mean Corpuscular Hemoglobin 29 pg (27-31); Mean Corpuscular Volume 91 fL (80-97); Mean Platelet Volume 8.5 um3 (7.4-10.4); Nucleated Red Blood Cells % 0.1; Platelet Count 359 10^3/ul (150-450); Red Blood Count 2.62 10^6/ul (4.0-5.4); Red Cell Distribution Width 15 % (10.5-15)
[2017-09-11 12:02] LABS: EGFR Non-African American 46.5 (>60)
--- NOTE | 2017-09-11 12:11 | RAD ---
INDICATION: Shortness of breath. COMPARISON: Comparison is made with a prior study from August 12, 2017. TECHNIQUE: AP and lateral views of the chest were obtained. FINDINGS: The patient appears to be status post coronary artery bypass surgery. The heart is mildly enlarged and unchanged. There is mild prominence of the interstitial markings and trace bilateral pleural effusions suggestive of congestive heart failure. IMPRESSION: FINDINGS SUGGESTIVE OF CONGESTIVE HEART FAILURE.
--- NOTE | 2017-09-11 13:25 | ED ---
Melo Gonzalez Angela, scribed for Gil Copeland MD on 09/11/17 at 1043 . Shortness of Breath - HPI Summary HPI Summary: This pt is a 52 y/o female presenting to [facility] via EMS c/o SOB for the past couple of days. [employer] states the pt has increased SOB on exertion and pt has been dizzy as well. Pt reports she has rectal bleeding and this might the cause of her SOB. [employer] notes that they believe her blood levels ( hemoglobin and hematocrit) are low because the pt is bleeding from her rectum. Denies chest pain, nausea, vomiting. Pt is very adamant that she does not want a rectal exam. - History of Current Complaint Chief Complaint: EDShortnessOfBreath Hx Obtained From: Patient Onset/Duration: Lasting Days, Still Present Timing: Constant Current Severity: Moderate Dyspnea At: Rest Aggrevating Factors: Nothing Alleviating Factors: Nothing - Allergy/Home Medications Allergies/Adverse Reactions: Allergies Allergy/AdvReac Type Severity Reaction Status Date / Time Iodinated Contrast- Oral and Allergy Hives Verified 08/12/17 18:34 IV Dye metronidazole [From Flagyl] Allergy GI Upset Verified 08/12/17 18:34 vancomycin Allergy See Comment Verified 08/12/17 18:35 Home Medications: Home Medications Lidocaine/PRILOCAINE* [Emla*] 1 applic TOPICAL TID PRN 09/11/17 [History Confirmed 09/11/17] Mupirocin 2% OINT* [Bactroban 2 % Oint*] 1 applic TOPICAL TID PRN 09/11/17 [ History Confirmed 09/11/17] Ondansetron TAB* [Zofran 4 MG Tab*] 4 - 8 mg PO .Q4-6H PRN 09/11/17 [History Confirmed 09/11/17] Pseudoephedrine HCl [Sudafed 24-Hour] 240 mg PO DAILY 09/11/17 [History Confirmed 09/11/17] PMH/Surg Hx/FS Hx/Imm Hx Endocrine/Hematology History: Reports: Hx Anticoagulant Therapy - During hospitalizations only, Hx Blood Transfusions - 06/04/12, Hx Diabetes - 1, Hx Anemia Denies: Hx Blood Disorders, Hx Bone Marrow Disease, Hx Systemic Lupus Erythematosus, Hx Sickle Cell Disease, Hx Thyroid Disease, Hx Unexplained Bleeding, Other Endocrine/Hematological Disorders Cardiovascular History: Reports: Hx Coronary Artery Disease, Hx Hypercholesterolemia, Hx Hypotension, Hx Hypertension, Other Cardiovascular Problems/Disorders - hyperlipidemia, HX OF TRIPLE BYPASS Denies: Hx Aneurysm, Hx Angina, Hx Angioplasty, Hx Auto Implanted Cardiovert Defib, Hx Cardiac Arrest, Hx Cardiomegaly, Hx Congenital Heart Disease, Hx Congestive Heart Failure, Hx Deep Vein Thrombosis, Hx Pacemaker/ICD, Hx Peripheral Vascular Disease, Hx Rheumatic Fever, Hx Syncope, Hx Valvular Heart Disease Respiratory History: Reports: Other Respiratory Problems/Disorders - "Always stuffed up." Denies: Hx Asthma, Hx Chronic Bronchitis, Hx Chronic Obstructive Pulmonary Disease (COPD), Hx Cystic Fibrosis, Hx Lung Cancer, Hx Pleural Effusion, Hx Pneumonia, Hx Pulmonary Edema, Hx Pulmonary Embolism, Hx Seasonal Allergies, Hx Sleep Apnea GI History: Reports: Hx Gall Bladder Disease - Has gallstones, Hx Gastroesophageal Reflux Disease Denies: Hx Cirrhosis, Hx Crohn's Disease, Hx Diverticulosis, Hx Gastrointestinal Bleed, Hx Hiatal Hernia, Hx Irritable Bowel, Hx Jaundice, Hx Obstructive Bowel, Hx Ileostomy, Hx Pyloric Stenosis, Hx Ulcer, Other GI Disorders History: Reports: Other Problems/Disorders - Hx of UTIs and in 2002 or 2003 a Kidney infection Denies: Hx Acute Renal Failure, Hx Benign Prostatic Hyperplasia, Hx Chronic Renal Failure, Hx Dialysis, Hx Kidney Infection, Hx Kidney Stones, Hx Renal Disease Musculoskeletal History: Reports: Hx Arthritis - hands Denies: Hx Back Problems, Hx Bursitis, Hx Congenital Bone Abnormalities, Hx Fibromyalgia, Hx Gout, Hx Orthopedic Injury, Hx Osteoporosis, Hx Scoliosis, Hx Tendonitis, Other Musculoskeletal History Sensory History: Reports: Hx Cataracts, Hx Contacts or Glasses, Hx Legally Blind - blind left eye, Hx Vision Problem - Right eye farsighted, only needs reading glasses. Denies: Hx Eye Injury, Hx Eye Prosthesis, Hx Glaucoma, Hx Macular Degeneration, Hx Deafness, Hx Hearing Aid, Hx Hearing Problem, Other Sensory Impairments Opthamlomology History: Reports: Hx Cataracts, Hx Contacts or Glasses, Hx Legally Blind - blind left eye, Hx Vision Problem - Right eye farsighted, only needs reading glasses. Denies: Hx Eye Injury, Hx Eye Prosthesis, Hx Glaucoma, Hx Macular Degeneration, Other Sensory Impairments Neurological History: Reports: Other Neuro Impairments/Disorders - diabetic neuropathy, right facial numbness Denies: Hx Dementia, Hx Developmental Delay, Hx Headaches, Hx Migraine, Hx Seizures, Hx Spinal Cord Injury, Hx Transient Ischemic Attacks (TIA) Psychiatric History: Reports: Hx Anxiety Denies: Hx Attention Deficit Hyperactivity Disorder, Hx Eating Disorder, Hx Depression, Hx Panic Disorder, Hx Post Traumatic Stress Disorder, Hx Inpatient Treatment, Hx Community Mental Health Tx, Hx Schizophrenia, Hx Bipolar Disorder , Hx Suicide Attempt, Hx of Violent Episodes Against Others, Hx Substance Abuse , Other Psychiatric Issues/Disorders - Surgical History Surgery Procedure, Year, and Place: TRIPLE BYPASS PIG ARTERY PLACEMENT 2005;. EYE SURGERY LEFT DETACHED RETINA (ORBIT XRAYS DONE 2007 - CLEARED FOR MRI BY ){sw};. BILAT CATARACTS;. RT EYE VITRECTOMY;. LT BKA 2008;. RT FOOT HEEL EXCISION; RIGHT BKA 2012; Hx Anesthesia Reactions: Yes - Excessive Lethargy, and N&V. Infectious Disease History: No Infectious Disease History: Reports: Hx of Known/Suspected MRSA Denies: Hx Clostridium Difficile, Hx Hepatitis, Hx Human Immunodeficiency Virus (HIV), Hx Shingles, Hx Tuberculosis, History Other Infectious Disease, Traveled Outside the [place] in Last 30 Days - Family History Known Family History: Positive: Unknown - pt is a poor historian., Cardiac Disease - "Nervous breakdown" to sister, Other - Social History Alcohol Use: None Hx Substance Use: No Substance Use Type: Reports: None Hx Tobacco Use: Yes Smoking Status (MU): Former Smoker Type: Cigarettes Amount Used/How Often: 1.5 PPD Have You Smoked in the Last Year: No Review of Systems Negative: Fever Negative: Chest Pain Positive: Shortness Of Breath Gastrointestinal: Other - rectal bleeding Negative: Vomiting, Nausea Neurological: Other - POS: dizziness All Other Systems Reviewed And Are Negative: Yes Physical Exam - Summary Physical Exam Summary: VITAL SIGNS: Reviewed. GENERAL: Patient is a well-developed and nourished female who is lying comfortable in the stretcher. Patient is not in any acute respiratory distress. HEAD AND FACE: No signs of trauma. No ecchymosis, hematomas or skull depressions. No sinus tenderness. EYES: PERRLA, EOMI x 2, No injected conjunctiva, no nystagmus. EARS: Hearing grossly intact. Ear canals and tympanic membranes are within normal limits. MOUTH: Oropharynx within normal limits. NECK: Supple, trachea is midline, no adenopathy, no JVD, no carotid bruit, no c- spine tenderness, neck with full ROM. CHEST: Symmetric, no tenderness at palpation LUNGS: Crackles bilaterally. CVS: Regular rate and rhythm, S1 and S2 present, no murmurs or gallops appreciated. ABDOMEN: Soft, non-tender. No signs of distention. No rebound no guarding, and no masses palpated. Bowel sounds are normal. EXTREMITIES: no edema, no cyanosis or clubbing. Below the knee amputations bilaterally. NEURO: Alert and oriented x 3. No acute neurological deficits. Speech is normal and follows commands. SKIN: Dry and warm Pt refuses a rectal exam. Triage Information Reviewed: Yes Vital Signs On Initial Exam: Initial Vitals Temp Pulse Resp BP Pulse Ox 98.5 F 82 15 160/59 99 09/11/17 09:36 09/11/17 09:36 09/11/17 09:36 09/11/17 09:36 09/11/17 09:36 Vital Signs Reviewed: Yes Diagnostics - Vital Signs Vital Signs Temp Pulse Resp BP Pulse Ox 09/11/17 09:39 81 20 160/59 100 09/11/17 09:37 15 09/11/17 09:36 98.5 F 82 15 160/59 99 - Laboratory Lab Results: Lab Results 09/11/17 09/11/17 09/11/17 Range/Units 11:24 11:24 11:24 WBC 10.0 (3.5-10.8) 10^3/ul RBC 2.62 L (4.0-5.4) 10^6/ul Hgb 7.6 L (12.0-16.0) g/dl Hct 24 L (35-47) % MCV 91 (80-97) fL MCH 29 (27-31) pg MCHC 32 (31-36) g/dl RDW 15 (10.5-15) % Plt Count 359 (150-450) 10^3/ul MPV 8.5 (7.4-10.4) um3 Neut % (Auto) 70.4 (38-83) % Lymph % (Auto) 16.4 L (25-47) % Sumner % (Auto) 7.6 H (0-7) % Eos % (Auto) 4.8 (0-6) % Baso % (Auto) 0.8 (0-2) % Absolute Neuts (auto) 7.1 (1.5-7.7) 10^3/ul Absolute Lymphs (auto) 1.6 (1.0-4.8) 10^3/ul Absolute Monos (auto) 0.8 (0-0.8) 10^3/ul Absolute Eos (auto) 0.5 (0-0.6) 10^3/ul Absolute Basos (auto) 0.1 (0-0.2) 10^3/ul Absolute Nucleated RBC 0 10^3/ul Nucleated RBC % 0.1 INR (Anticoag Therapy) 0.89 (0.77-1.02) APTT 29.3 (26.0-36.3) seconds Sodium 139 (139-145) mmol/L Potassium 3.8 (3.5-5.0) mmol/L Chloride 104 (101-111) mmol/L Carbon Dioxide 30 (22-32) mmol/L Anion Gap 5 (2-11) mmol/L BUN 10 (6-24) mg/dL Creatinine 1.21 H (0.51-0.95) mg/dL Est GFR ( Amer) 59.9 (>60) Est GFR (Non-Af Amer) 46.5 (>60) BUN/Creatinine Ratio 8.3 (8-20) Glucose 253 H (70-100) mg/dL Calcium 9.1 (8.6-10.3) mg/dL Total Bilirubin 0.20 (0.2-1.0) mg/dL AST 13 (13-39) U/L ALT 13 (7-52) U/L Alkaline Phosphatase 179 H (34-104) U/L C-Reactive Protein 21.21 H (< 5.00) mg/L B-Natriuretic Peptide ( - 100) pg/mL Total Protein 6.9 (6.4-8.9) g/dL Albumin 3.5 (3.2-5.2) g/dL Globulin 3.4 (2-4) g/dL Albumin/Globulin Ratio 1.0 (1-3) Lipase 13 (11.0-82.0) U/L Blood Type Antibody Screen Crossmatch 09/11/17 09/11/17 Range/Units 11:24 11:24 WBC (3.5-10.8) 10^3/ul RBC (4.0-5.4) 10^6/ul Hgb (12.0-16.0) g/dl Hct (35-47) % MCV (80-97) fL MCH (27-31) pg MCHC (31-36) g/dl RDW (10.5-15) % Plt Count (150-450) 10^3/ul MPV (7.4-10.4) um3 Neut % (Auto) (38-83) % Lymph % (Auto) (25-47) % Sumner % (Auto) (0-7) % Eos % (Auto) (0-6) % Baso % (Auto) (0-2) % Absolute Neuts (auto) (1.5-7.7) 10^3/ul Absolute Lymphs (auto) (1.0-4.8) 10^3/ul Absolute Monos (auto) (0-0.8) 10^3/ul Absolute Eos (auto) (0-0.6) 10^3/ul Absolute Basos (auto) (0-0.2) 10^3/ul Absolute Nucleated RBC 10^3/ul Nucleated RBC % INR (Anticoag Therapy) (0.77-1.02) APTT (26.0-36.3) seconds Sodium (139-145) mmol/L Potassium (3.5-5.0) mmol/L Chloride (101-111) mmol/L Carbon Dioxide (22-32) mmol/L Anion Gap (2-11) mmol/L BUN (6-24) mg/dL Creatinine (0.51-0.95) mg/dL Est GFR ( Amer) (>60) Est GFR (Non-Af Amer) (>60) BUN/Creatinine Ratio (8-20) Glucose (70-100) mg/dL Calcium (8.6-10.3) mg/dL Total Bilirubin (0.2-1.0) mg/dL AST (13-39) U/L ALT (7-52) U/L Alkaline Phosphatase (34-104) U/L C-Reactive Protein (< 5.00) mg/L B-Natriuretic Peptide 372 H ( - 100) pg/mL Total Protein (6.4-8.9) g/dL Albumin (3.2-5.2) g/dL Globulin (2-4) g/dL Albumin/Globulin Ratio (1-3) Lipase (11.0-82.0) U/L Blood Type A Positive Antibody Screen Pending Crossmatch See Detail Result Diagrams: 09/11/17 11:24 09/11/17 11:24 Lab Statement: Any lab studies that have been ordered have been reviewed, and results considered in the medical decision making process. - Radiology Chest XR Xray Interpretation: Positive (See Comments) - IMPRESSION: Findings suggestive of congestive heart failure. Dr. Copeland has reviewed this radiology report. Radiology Interpretation Completed By: Radiologist - EKG 10:41 Cardiac Rate: NL - at 78 bpm EKG Rhythm: Sinus Rhythm EKG Interpretation: No ST elevations. T wave inversions on leads V4, V5, V6. Course/Dx - Course Assessment/Plan: This patient is a 52-year-old female who presents to the emergency department with a chief complaint of having rectal bleeding, shortness of breath, weakness and fatigue. The patient has past medical history significant for diabetes, osteomyelitis, radiculopathy, CAD, hypertension, gastroparesis, neuropathy, GERD, hyperlipidemia,CAD status post CABG, and bilateral [id number] amputations. Blood cultures result shows a normocytic normochromic anemia with a hemoglobin of 7. 6/24, creatinine 1.21, glucose 253, CRP of 21.2, and BNP of 772. Chest x-ray consistent with a congestive heart failure. EKG shows a sinus rhythm at [address] elevations. The patient has T-wave inversions in V4 V5 and V6. The patient seems to be very angry, she is screaming at me reporting that she is not going to have a rectal exam. The last time she was here she had a rectal exam and she was not happy with that. Therefore she refused a rectal exam. I discussed the case with Dr. Weir from GI and and he recommends for the patient to be given a blood transfusion, admitted to the hospitalist, and if the patient agrees for a GI Prep he will consult for possible colonoscopy. Therefore I discussed the case with Dr. West from the hospitalist services and she agrees to admit the patient to his services for further workup and management. - Diagnoses Provider Diagnoses: GI bleed, Symptomatic anemia - Physician Notifications Discussed Care of Patient With: Wolfgang Weir Time Discussed With Above Provider: 12:38 Instructed by Provider To: Other - I discussed pt care with Dr. Weir, metal casket maker, who reports pt needs to be admitted for a blood transfusion and will do a colonoscopy if the pt is prepped prior to this. [13:09] I discussed with Dr. West, hospitalist, who accepted the pt for admission. Discharge - Sign-Out/Discharge Documenting (check all that apply): Discharge/Admit/Transfer - Admit - Discharge Plan Condition: Stable Disposition: ADMITTED TO [facility] Referrals: Noni Faustin MD [Primary Care Provider] - - Billing Disposition and Condition Condition: STABLE Disposition: Admitted to [facility] The documentation as recorded by the Melo morejon Angela accurately reflects the service I personally performed and the decisions made by , Gil Copeland MD.
[2017-09-11] MEDS ORDERED: Furosemide IV* 10 MG/ML VIAL (40 MG) IV SLOW PU ONE (14:18)
[2017-09-11] MEDS ORDERED: Dextrose 50% Syringe 50 ML* 25 GM/50 ML SYRINGE IV PUSH PRN (14:20)
--- NOTE | 2017-09-11 15:33 | PN ---
Hospitalist Progress Note Date of Service: 09/11/17 Discussed with Pt the need for a blood transfusion. We discussed the risks and she agrees to receive a blood transfusion today.
[2017-09-11] MEDS ORDERED: Furosemide IV* 10 MG/ML 2 ML VIAL (20 MG) IV SLOW PU ONE ×2 (17:00)
[2017-09-11] MEDS: Insulin LISPRO* 1 UNITS UNIT SUBCUT SCH ×2 (17:52→23:15)
[2017-09-11] MEDS ORDERED: Magnesium CITRATE* 300 ML BTL PO ONE ×2 (18:00→22:00)
[2017-09-11] MEDS ORDERED: Insulin GLARGINE(*) 1 UNITS UNIT SUBCUT SCH (20:00)
[2017-09-11] MEDS: Ferrous Sulfate TAB* 325 MG PO SCH (20:17)
--- NOTE | 2017-09-11 20:47 | HP ---
CC: Dr. Noni Faustin * HISTORY AND PHYSICAL: DATE OF ADMISSION: 09/11/17 PRIMARY CARE PROVIDER: Dr. Noni Faustin. ATTENDING PHYSICIAN: Dr. La West * (dictated by Stephanie Rosenthal NP). CHIEF COMPLAINT: Shortness of breath and bright red blood per rectum. HISTORY OF PRESENT ILLNESS: Ms. Reyes is a 52-year-old female with past medical history significant for type 1 diabetes mellitus; osteomyelitis, status post bilateral BKAs; retinopathy; legally blind in her left eye; CAD; hypertension; gastroparesis; neuropathy; GERD; hyperlipidemia, who previously presented to the hospital on 08/12/17 with complaints of shortness of breath and bright red blood per rectum. At that time, the patient was found to be anemic with a hemoglobin of 6. She was admitted through 08/15/17, at which time she left with agreement to have outpatient GI followup. The patient has not had an outpatient GI followup. It is also to note during that admission she received 2 units of packed red blood cells. According to the patient's caregiver, she was constipated and took milk of magnesia yesterday, afterwards she was noted to have some bright red blood per rectum. She states that she does not usually have blood per rectum unless she has strained for a bowel movement. She also has had increased shortness of breath over the last few days especially with exertion with intermittent dizziness. She sleeps upright in a recliner chair, but has done this for 9 years post CABG. She denies any fevers, chills, chest pain, vomiting, diarrhea, urinary symptoms. Again, she reports shortness of breath with exertion. She also feels "puffy" since her discharge earlier this month. She has intermittent nausea due to her gastroparesis. Due to her symptoms of shortness of breath and continued bright red blood per rectum, she presented to the emergency room for further evaluation. While in the emergency room, she had labs showing a hemoglobin of 7.6, hematocrit of 24, which appears to be similar to when she was discharged. Her creatinine appears to be at baseline. She has a BNP of 372. She had a chest x- ray showing findings suggestive of CHF. She was hypoxic requiring supplemental oxygen. The patient was adamantly refusing a rectal exam and hospitalists were asked to evaluate the patient for admission. PAST MEDICAL HISTORY: 1. Coronary artery disease. 2. Hyperlipidemia. 3. Hypertension. 4. GERD. 5. Legally blind in left eye. 6. Gastroparesis. 7. Neuropathy. 8. Arthritis. 9. Anxiety. 10. Type 1 diabetes mellitus. 11. Osteomyelitis. PAST SURGICAL HISTORY: 1. Status post right pzzcs-mkm-tyax amputation in 2012. 2. Status post right heel excision. 3. Status post coronary artery bypass graft 3 vessels in 2005. 4. Status post repair of a left detached retina. 5. Status post right eye vitrectomy. 6. Status post left [id number]-[id number] amputation in 2008. HOME MEDICATIONS: Include: 1. Zoloft 25 mg oral daily. 2. Ramipril 5 mg oral daily. 3. Sudafed 24 Hour 240 mg oral daily. 4. MiraLAX 17 g oral daily. 5. Zofran 4 to 8 mg oral every 4 to 6 hours as needed for nausea. 6. Omeprazole 20 mg oral daily. 7. Mupirocin 2% three times daily to affected area. 8. Reglan 10 mg oral every morning. 9. EMLA cream topically 3 times daily as needed to affected area. 10. Regular insulin 5 units subcutaneous as needed for blood sugar greater than 250. 11. Lantus 36 units subcutaneous twice daily. 12. Ferrous sulfate 325 mg oral daily. 13. Colace 200 mg oral daily. 14. Atorvastatin 20 mg oral daily. 15. Atenolol 50 mg oral daily. 16. Xanax 0.5 mg oral twice daily as needed for anxiety. 17. Furosemide 20 mg oral every other day, patient took today. 18. Sleeping pill 1 tablet oral daily at bedtime as needed for sleep. ALLERGIES: 1. CONTRAST DYE. 2. LOVAZA. 3. METRONIDAZOLE. 4. VANCOMYCIN. FAMILY HISTORY: The patient's maternal grandparents had a history of heart disease and she has a brother with history of heart disease. She has a sister with a history of type 1 diabetes mellitus. Her mother had a history of skin cancer. SOCIAL HISTORY: The patient is a former smoker. She quit 1-1/2 years ago. Prior to that, she had a 1 pack a day smoking history for over 30 years. She denies alcohol or recreational drug use. Her friend and aide, Monie Ventura, will be her surrogate decision maker in the event she is unable to make decisions for herself. REVIEW OF SYSTEMS: I performed an 11-point review of systems. All the pertinent positives and negatives are mentioned in the history of present illness. The remaining review of systems are negative. PHYSICAL EXAMINATION GENERAL APPEARANCE: The patient is alert, pleasant and appears to be in no acute distress. VITAL SIGNS: Temperature 98.5, heart rate 74, respiratory rate 19, O2 sat 100% on 4 L via nasal cannula, blood pressure 143/75. HEENT: Normocephalic, atraumatic. Pupils are equal and reactive to light. Extraocular movements are intact. RESPIRATORY: There is no accessory muscle use. The lungs have crackles in the bases bilateral. ABDOMEN: Soft, nondistended, nontender. There are bowel sounds present x4. EXTREMITIES: There is no edema to bilateral stumps. Popliteal pulses are 1+ and symmetric. The patient has 1+ bilateral upper extremity edema. MUSCULOSKELETAL: There is no clubbing or cyanosis noted. The patient exhibits good strength in all extremities. NEUROLOGICAL: The patient is alert and oriented x4. Cranial nerves II through XII are grossly intact. PSYCHOLOGICAL: The patient is calm and cooperative. SKIN: There are no rashes or abnormalities seen. DIAGNOSTIC STUDIES/LABORATORY DATA: Sodium 139, potassium 3.8, chloride 104, CO2 30, BUN 16, creatinine 1.21, glucose 253. White blood cell count 10.0, hemoglobin 7.6, hematocrit 24, platelet count 359. Alk phos 179. BNP 372. CRP 21.21. EKG shows a sinus rhythm with a rate of 78. There is T-wave inversion in V4 to V6 and aVL. This EKG is similar to previous EKG from 08/12/17, where at that time, she additionally had T-wave inversion in V2 and V3. Chest x-ray from today. Radiologist's impression: Findings suggestive of congestive heart failure. IMPRESSION: Ms. Reyes is a 52-year-old female with past medical history significant for type 1 diabetes mellitus, coronary artery disease, hyperlipidemia, hypertension, gastroesophageal reflux disease, arthritis, anxiety, osteomyelitis, gastroparesis, neuropathy and recent hospitalization for anemia secondary to acute blood loss, who will be admitted as an observation for shortness of breath, acute blood loss anemia and suspected acute congestive heart failure. PLAN: 1. Shortness of breath. I suspect this is secondary to symptomatic anemia and fluid overload. The patient reports having edema since being hospitalized a month ago. Plan will be to give her 40 of IV Lasix now and repeat another 20 of IV Lasix after her blood transfusion. She had an echo on 08/12/17 showing no diastolic or systolic dysfunction and an EF of 55% to 60%. I am going to hold on repeating an echo at this time. 2. Anemia. I suspect this represents acute blood loss anemia secondary to likely hemorrhoids. The patient is adamantly declining rectal exam at this time , but she is agreeable to prepping and having a colonoscopy. I have asked GI to consult on her. For now, she will have clear liquid diet. She will have 2 large bore IVs in place and once I touch base with GI, I will order a bowel prep. The patient has normocytic normochromic anemia. We will trend her H and H. She will be continued on ferrous sulfate. 3. Elevated alkaline phosphatase. The patient appears to chronically have an elevated alkaline phosphatase and appears to be at baseline. This should be followed and further worked-up outpatient. 4. Chronic kidney disease stage 3. The patient appears to be at baseline. 5. Diabetes mellitus. The patient will be continued on Lantus, but I will decrease her to 20 units twice daily while she is only taking in clear liquids with a lispro sliding scale. 6. Coronary artery disease. The patient has had her aspirin on hold for a month since her previous hospitalization. We will continue to hold her aspirin. She will be continued on her atorvastatin and atenolol. 7. Hyperlipidemia. Continue home atorvastatin. 8. Hypertension. Continue home ramipril and atenolol. 9. Gastroesophageal reflux disease. Continue home omeprazole. 10. Gastroparesis. Continue home Reglan. 11. Anxiety. Continued home Xanax as needed. 12. Fluids, electrolytes and nutrition: The patient will be on a clear liquid diet. 13. Code status: Full code. 14. DVT prophylaxis: The patient is at moderate risk and we will not give her chemical DVT prophylaxis in the setting of a suspect GI bleed. Additionally, as she has bilateral lower extremity amputations, she will not have SCDs. We will encourage her to ambulate and move as able. 15. Disposition: Observation. TIME SPENT: Time for this admission was approximately 60 minutes, greater than half of that was spent with the patient and her caregiver discussing medications , past medical history, events leading up to her arrival today, and performing a physical examination. The case has been reviewed with the attending, Dr. West, who agrees with the plan of care. Reviewed by LISETH LAY 09/12/17 [id number]/[facility] #: [id number]
[2017-09-11 22:08] LABS: Hematocrit 28 % (35-47)
--- NOTE | 2017-09-11 22:43 | CONS ---
GASTROENTEROLOGY CONSULT: DATE: 09/11/17 CONSULTING PHYSICIANS: Gil Copeland, emergency room; Stephanie Duenas NP REASON FOR CONSULT: Recurring rectal bleeding and anemia, presenting with hemoglobin 7.6, hematocrit 24, MCV 91, platelets 359, INR 0.89, creatinine 1.21 , BUN 10. HISTORY OF PRESENT ILLNESS: This 52-year-old woman with morbid obesity, diabetes, coronary disease, neuropathy, and blindness of the left eye, has been short of breath. She has also been bleeding sporadically from the rectum. She suffers from chronic constipation. She was here a month ago and left the hospital rather than drink the Colyte that had been suggested to clean her out. Although proper followup was arranged though it seemed unlikely that she would follow through. This indeed turned out to be the case. In the emergency room, she was short of breath with hemoglobin of 7.6. She has been admitted. In the beginning, she has been quite vociferous and strident, repeatedly stating she would not have a rectal exam and she would not drink the large volume of fluid. PAST MEDICAL HISTORY: 1. Diabetes. 2. Morbid obesity. 3. Coronary disease. 4. Renal disease. OUTPATIENT MEDICATIONS: See medication reconciliation. SOCIAL HISTORY: [place]. She has help coming into the home. REVIEW OF SYSTEMS: No history of recent palpitations, syncope, seizure, CVA, hemoptysis, falls, fracture. PHYSICAL EXAM: She is a morbidly obese woman, distraught, and stating repeatedly that she will not have a rectal exam. She will not drink fluid. Limited exam is just of the abdomen, which is protuberant with normal bowel sounds. LABORATORY DATA: At her last admission, magnesium was 2.1 at discharge, having been 2.7 at admission. Her creatinine was basically stable at 1.2 to 1.3 during that stay. IMPRESSION AND PLAN: This 52-year-old woman with numerous chronic significant problems, has been having rectal bleeding. She certainly does have hemorrhoids and that was seen during the last stay here. Obviously, other things need to be ruled out when a preparation is accomplished. In conversation with the hospitalist, she has had a precondition that she would not spend much time here. That was not strictly defined. The depth of her motivation is going to be the muse factor here. We will see. Colyte certainly has a high safety factor regards volume and electrolyte shifts. Use of magnesium citrate with monitoring of her IV fluid, weights, and its results could be substituted. Some additional MiraLAX would help. It appears that it will be a challenge to prep her, but starting with a couple of bottles of mag citrate tonight and then monitoring electrolytes and magnesium in the morning is the starting position. [id number]/[facility] #: [id number] MTDD
[2017-09-11] MEDS: ALPRAZolam TAB* 0.5 MG PO PRN (23:16)
[2017-09-12 02:41] LABS: Hematocrit 25 % (35-47); Hemoglobin 8.1 g/dl (12.0-16.0)
[2017-09-12 05:46] LABS: ABS Basophils 0.1 10^3/ul (0-0.2); ABS Eosinophils 0.5 10^3/ul (0-0.6); ABS Lymphocytes 2.1 10^3/ul (1.0-4.8); ABS Monocytes 0.9 10^3/ul (0-0.8); ABS Neutrophils 8.2 10^3/ul (1.5-7.7); ABS Nucleated RBC 0 10^3/ul; Eosinophil % 4.2 % (0-6); Hematocrit 27 % (35-47); Hemoglobin 8.6 g/dl (12.0-16.0); Lymphocyte % 18.2 % (25-47); Mean Corpuscular HGB Conc 32 g/dl (31-36); Mean Corpuscular Hemoglobin 29 pg (27-31); Mean Corpuscular Volume 89 fL (80-97); Mean Platelet Volume 8.4 um3 (7.4-10.4); Nucleated Red Blood Cells % 0.2; Platelet Count 383 10^3/ul (150-450); Red Blood Count 2.98 10^6/ul (4.0-5.4); Red Cell Distribution Width 16 % (10.5-15); White Blood Count 11.8 10^3/ul (3.5-10.8)
[2017-09-12] MEDS: Insulin LISPRO* 1 UNITS UNIT SUBCUT SCH ×3 (06:01→17:37)
[2017-09-12 06:03] LABS: EGFR Non-African American 53.1 (>60)
--- NOTE | 2017-09-12 06:18 | PN ---
Hospitalist Progress Note Date of Service: 09/12/17 HOSPITALIST ADDENDUM Patient had episodes of hypoglycemia overnight. First one resolved with orange juice but she'll have GI studies later today - will give dextrose IV and repeat FS in 1 hour - if low again would start D10 infusion. Hold Lantus for now.
[2017-09-12] MEDS: Omeprazole CAP* 20 MG PO SCH (07:19)
[2017-09-12] MEDS: Ferrous Sulfate TAB* 325 MG PO SCH ×2 (07:19→22:29)
[2017-09-12] MEDS: Atenolol TAB* 50 MG PO SCH (07:19)
[2017-09-12] MEDS: Ramipril CAP* 5 MG PO SCH (07:20)
[2017-09-12] MEDS: Atorvastatin* 20 MG TAB PO SCH (07:20)
[2017-09-12] MEDS: Sertraline* 25 MG TAB PO SCH (07:20)
[2017-09-12] MEDS ORDERED: Metoclopramide TAB* 10 MG PO SCH (09:00)
[2017-09-12] MEDS ORDERED: Magnesium CITRATE* 300 ML BTL PO ONE ×2 (09:30→17:30)
--- NOTE | 2017-09-12 12:35 | PN ---
Subjective Date of Service: 09/12/17 Interval History: No longer SOB. Pt upset that she is still passing dark stools and is not adequaately prepared for a colonoscopy at this moment No pain. Very hungry. Objective Active Medications: Alprazolam (Xanax Tab*) 0.5 mg PO BID PRN PRN Reason: ANXIETY Last Admin: 09/11/17 23:16 Dose: 0.5 mg Atenolol (Tenormin Tab*) 50 mg PO DAILY [facility] Last Admin: 09/12/17 07:19 Dose: 50 mg Atorvastatin Calcium (Lipitor*) 20 mg PO DAILY [facility] Last Admin: 09/12/17 07:20 Dose: 20 mg Dextrose (D50w Syringe 50 Ml*) 12.5 gm IV PUSH .FOR FS < 60 - SS PRN PRN Reason: FS < 60 Last Admin: 09/12/17 05:58 Dose: 12.5 gm Ferrous Sulfate (Ferrous Sulfate Tab*) 325 mg PO BID [facility] Last Admin: 09/12/17 07:19 Dose: 325 mg Insulin Human Lispro (Humalog*) 0 - 10 units SUBCUT Q6HR [facility] PRN Reason: Protocol Last Admin: 09/12/17 11:34 Dose: Not Given Metoclopramide HCl (Reglan Tab*) 10 mg PO QAM [facility] Last Admin: 09/12/17 07:20 Dose: 10 mg Omeprazole (Prilosec Cap*) 20 mg PO DAILY@0730 [facility] Last Admin: 09/12/17 07:19 Dose: 20 mg Ramipril (Altace Cap*) 5 mg PO DAILY [facility] Last Admin: 09/12/17 07:20 Dose: 5 mg Sertraline HCl (Zoloft*) 25 mg PO DAILY [facility] Last Admin: 09/12/17 07:20 Dose: 25 mg Vital Signs - 8 hr 09/12/17 09/12/17 09/12/17 07:14 07:27 08:24 Temperature 98.7 F Pulse Rate 70 77 Respiratory 16 18 Rate Blood Pressure 138/76 152/65 (mmHg) O2 Sat by Pulse 98 Oximetry Oxygen Devices in Use Now: Nasal Cannula Appearance: Alert, sitting up in bed. Irritable, angry, otherwise looks comfortable. Eyes: No Scleral Icterus Neck: NL Appearance and Movements; NL JVP, No Thyroid Enlargement, Masses Respiratory: Symmetrical Chest Expansion and Respiratory Effort, Clear to Auscultation, Clear to Percussion Cardiovascular: NL Sounds; No Murmurs; No JVD, RRR, No Edema, - Extremities: No Edema, No Clubbing, Cyanosis, - - BL BKA's Neurological: Alert and Oriented x 3, NL Sensation Result Diagrams: 09/12/17 05:18 09/12/17 05:18 Additional Lab and Data: Lab Results 09/11/17 09/11/17 09/11/17 Range/Units 11:24 11:24 11:24 WBC 10.0 (3.5-10.8) 10^3/ul RBC 2.62 L (4.0-5.4) 10^6/ul Hgb 7.6 L (12.0-16.0) g/dl Hct 24 L (35-47) % MCV 91 (80-97) fL MCH 29 (27-31) pg MCHC 32 (31-36) g/dl RDW 15 (10.5-15) % Plt Count 359 (150-450) 10^3/ul MPV 8.5 (7.4-10.4) um3 Neut % (Auto) 70.4 (38-83) % Lymph % (Auto) 16.4 L (25-47) % [place] % (Auto) 7.6 H (0-7) % Eos % (Auto) 4.8 (0-6) % Baso % (Auto) 0.8 (0-2) % Absolute Neuts (auto) 7.1 (1.5-7.7) 10^3/ul Absolute Lymphs (auto) 1.6 (1.0-4.8) 10^3/ul Absolute Monos (auto) 0.8 (0-0.8) 10^3/ul Absolute Eos (auto) 0.5 (0-0.6) 10^3/ul Absolute Basos (auto) 0.1 (0-0.2) 10^3/ul Absolute Nucleated RBC 0 10^3/ul Nucleated RBC % 0.1 INR (Anticoag Therapy) 0.89 (0.77-1.02) APTT 29.3 (26.0-36.3) seconds Sodium 139 (139-145) mmol/L Potassium 3.8 (3.5-5.0) mmol/L Chloride 104 (101-111) mmol/L Carbon Dioxide 30 (22-32) mmol/L Anion Gap 5 (2-11) mmol/L BUN 10 (6-24) mg/dL Creatinine 1.21 H (0.51-0.95) mg/dL Est GFR ( Amer) 59.9 (>60) Est GFR (Non-Af Amer) 46.5 (>60) BUN/Creatinine Ratio 8.3 (8-20) Glucose 253 H (70-100) mg/dL Calcium 9.1 (8.6-10.3) mg/dL Total Bilirubin 0.20 (0.2-1.0) mg/dL AST 13 (13-39) U/L ALT 13 (7-52) U/L Alkaline Phosphatase 179 H (34-104) U/L C-Reactive Protein 21.21 H (< 5.00) mg/L B-Natriuretic Peptide ( - 100) pg/mL Total Protein 6.9 (6.4-8.9) g/dL Albumin 3.5 (3.2-5.2) g/dL Globulin 3.4 (2-4) g/dL Albumin/Globulin Ratio 1.0 (1-3) Lipase 13 (11.0-82.0) U/L Blood Type Antibody Screen Crossmatch 09/11/17 09/11/17 Range/Units 11:24 11:24 WBC (3.5-10.8) 10^3/ul RBC (4.0-5.4) 10^6/ul Hgb (12.0-16.0) g/dl Hct (35-47) % MCV (80-97) fL MCH (27-31) pg MCHC (31-36) g/dl RDW (10.5-15) % Plt Count (150-450) 10^3/ul MPV (7.4-10.4) um3 Neut % (Auto) (38-83) % Lymph % (Auto) (25-47) % [place] % (Auto) (0-7) % Eos % (Auto) (0-6) % Baso % (Auto) (0-2) % Absolute Neuts (auto) (1.5-7.7) 10^3/ul Absolute Lymphs (auto) (1.0-4.8) 10^3/ul Absolute Monos (auto) (0-0.8) 10^3/ul Absolute Eos (auto) (0-0.6) 10^3/ul Absolute Basos (auto) (0-0.2) 10^3/ul Absolute Nucleated RBC 10^3/ul Nucleated RBC % INR (Anticoag Therapy) (0.77-1.02) APTT (26.0-36.3) seconds Sodium (139-145) mmol/L Potassium (3.5-5.0) mmol/L Chloride (101-111) mmol/L Carbon Dioxide (22-32) mmol/L Anion Gap (2-11) mmol/L BUN (6-24) mg/dL Creatinine (0.51-0.95) mg/dL Est GFR ( Amer) (>60) Est GFR (Non-Af Amer) (>60) BUN/Creatinine Ratio (8-20) Glucose (70-100) mg/dL Calcium (8.6-10.3) mg/dL Total Bilirubin (0.2-1.0) mg/dL AST (13-39) U/L ALT (7-52) U/L Alkaline Phosphatase (34-104) U/L C-Reactive Protein (< 5.00) mg/L B-Natriuretic Peptide 372 H ( - 100) pg/mL Total Protein (6.4-8.9) g/dL Albumin (3.2-5.2) g/dL Globulin (2-4) g/dL Albumin/Globulin Ratio (1-3) Lipase (11.0-82.0) U/L Blood Type A Positive Antibody Screen Pending Crossmatch See Detail Microbiology and Other Data: Microbiology 09/11/17 15:32 Nasal Screen MRSA (PCR)(JAN) - Final Nasal Mrsa Not Detected Assess/Plan/Problems-Billing Assessment: - Patient Problems (1) Lower GI bleed Current Visit: No Status: Acute Code(s): K92.2 - GASTROINTESTINAL HEMORRHAGE , UNSPECIFIED SNOMED Code(s): 58117743 Comment: Hopefully will have colonoscopy 09/12. Hgb 8.6 on 09/12 after 1 U PC's 09/11. (2) Type I diabetes mellitus Current Visit: No Status: Acute Priority: High Comment: Lispro by SS. (3) Anemia Current Visit: No Status: Acute Code(s): D64.9 - ANEMIA, UNSPECIFIED SNOMED Code(s): 615996818 Comment: Multifactorial. Ferritin 34.7 on 08/12/17, continue oral iron. (4) HTN (hypertension) Current Visit: No Status: Acute Code(s): I10 - ESSENTIAL (PRIMARY) HYPERTENSION SNOMED Code(s): 74359422 Comment: Continue atenolol and ramipril.
[2017-09-12] MEDS: ALPRAZolam TAB* 0.5 MG PO PRN ×2 (13:06→22:33)
--- NOTE | 2017-09-12 17:53 | PN ---
Progress Note - Progress Note Date of Service: 09/12/17 - Gastrotenterology Note: Patient seen and examined this morning. Completed two bottles of mag citrate. Still refusing Golytely or Miralax. No abdominal pain. No nausea/emesis. No further episodes of bleeding. Brown stool present this afternoon. Colonoscopy was cancelled due to poor prep. Vital Signs: Temp Pulse Resp BP Pulse Ox 98.3 F 74 17 131/51 100 09/12/17 15:05 09/12/17 15:05 09/12/17 15:05 09/12/17 15:05 09/12/17 15:05 Physical Examination: GENERAL: AAOx3, NAD. CV: RRR. PULM: CTAB. ADBOMEN: Obese, distented (at baseline), non-tender. +BS. Laboratory Last Values WBC 11.8 10^3/ul (3.5-10.8) H 09/12/17 05:18 RBC 2.98 10^6/ul (4.0-5.4) L 09/12/17 05:18 Hgb 8.6 g/dl (12.0-16.0) L 09/12/17 05:18 Hct 27 % (35-47) L 09/12/17 05:18 MCV 89 fL (80-97) 09/12/17 05:18 MCH 29 pg (27-31) 09/12/17 05:18 MCHC 32 g/dl (31-36) 09/12/17 05:18 RDW 16 % (10.5-15) H 09/12/17 05:18 Plt Count 383 10^3/ul (150-450) 09/12/17 05:18 MPV 8.4 um3 (7.4-10.4) 09/12/17 05:18 Neut % (Auto) 69.2 % (38-83) 09/12/17 05:18 Lymph % (Auto) 18.2 % (25-47) L 09/12/17 05:18 [place] % (Auto) 8.0 % (0-7) H 09/12/17 05:18 Eos % (Auto) 4.2 % (0-6) 09/12/17 05:18 Baso % (Auto) 0.4 % (0-2) 09/12/17 05:18 Absolute Neuts (auto) 8.2 10^3/ul (1.5-7.7) H 09/12/17 05:18 Absolute Lymphs (auto) 2.1 10^3/ul (1.0-4.8) 09/12/17 05:18 Absolute Monos (auto) 0.9 10^3/ul (0-0.8) H 09/12/17 05:18 Absolute Eos (auto) 0.5 10^3/ul (0-0.6) 09/12/17 05:18 Absolute Basos (auto) 0.1 10^3/ul (0-0.2) 09/12/17 05:18 Absolute Nucleated RBC 0 10^3/ul 09/12/17 05:18 Nucleated RBC % 0.2 09/12/17 05:18 INR (Anticoag Therapy) 0.89 (0.77-1.02) 09/11/17 11:24 APTT 29.3 seconds (26.0-36.3) 09/11/17 11:24 Sodium 143 mmol/L (139-145) 09/12/17 05:18 Potassium 3.5 mmol/L (3.5-5.0) 09/12/17 05:18 Chloride 106 mmol/L (101-111) 09/12/17 05:18 Carbon Dioxide 30 mmol/L (22-32) 09/12/17 05:18 Anion Gap 7 mmol/L (2-11) 09/12/17 05:18 BUN 9 mg/dL (6-24) 09/12/17 05:18 Creatinine 1.08 mg/dL (0.51-0.95) H 09/12/17 05:18 Est GFR ( Amer) 68.2 (>60) 09/12/17 05:18 Est GFR (Non-Af Amer) 53.1 (>60) 09/12/17 05:18 BUN/Creatinine Ratio 8.3 (8-20) 09/12/17 05:18 Glucose 57 mg/dL (70-100) L 09/12/17 05:18 POC Glucose (mg/dL) 103 mg/dL (70-100) H 09/12/17 11:32 Calcium 9.1 mg/dL (8.6-10.3) 09/12/17 05:18 Magnesium 2.9 mg/dL (1.9-2.7) H 09/12/17 05:18 Total Bilirubin 0.20 mg/dL (0.2-1.0) 09/11/17 11:24 AST 13 U/L (13-39) 09/11/17 11:24 ALT 13 U/L (7-52) 09/11/17 11:24 Alkaline Phosphatase 179 U/L (34-104) H 09/11/17 11:24 C-Reactive Protein 21.21 mg/L (< 5.00) H 09/11/17 11:24 B-Natriuretic Peptide 372 pg/mL (-100) H 09/11/17 11:24 Total Protein 6.9 g/dL (6.4-8.9) 09/11/17 11:24 Albumin 3.5 g/dL (3.2-5.2) 09/11/17 11:24 Globulin 3.4 g/dL (2-4) 09/11/17 11:24 Albumin/Globulin Ratio 1.0 (1-3) 09/11/17 11:24 Lipase 13 U/L (11.0-82.0) 09/11/17 11:24 Blood Type A Positive 09/11/17 11:24 Antibody Screen Negative 09/11/17 11:24 Crossmatch See Detail 09/11/17 11:24 52 yo female presented with rectal bleeding and Hgb of 7.6 s/p 1 unit of prbcs. Hgb today is 8.6 and there are no further episodes of bleeding. 1. Rectal bleeding - resolved. ~May be hemorrhoidal vs colorectal carcinoma. 2. Acute blood loss anemia - stable. ~S/p one unit of prbcs. ~Poor prep for colonoscopy today thus was rescheduled for tomorrow with Dr. Yin. ~Refusing Golytely but will give Miralax prep with Gatorade tonight with additional mag citrate bottle. 4 tablets of dulcolax given this evening as well. ~Clear liquids only. ~D/w Dr. Kirkland and RN. Lorenza Oden D.O.
[2017-09-12] MEDS ORDERED: Bisacodyl EC TAB* 5 MG PO ONE (18:00)
[2017-09-12] MEDS ORDERED: Polyethylene Glycol 3350 BTL* 238 GM BTL PO ONE (20:00)
[2017-09-12] MEDS ORDERED: Metoclopramide TAB* 10 MG PO PRN (22:41)
[2017-09-12] MEDS ORDERED: Lidocaine 2% JELLY* 6 ML JELLY TOPICAL ONE (23:30)
[2017-09-13] MEDS: Insulin LISPRO* 1 UNITS UNIT SUBCUT SCH ×4 (00:27→18:36)
[2017-09-13] MEDS ORDERED: traMADol TAB* 50 MG PO ONE (04:59)
[2017-09-13] MEDS ORDERED: Magnesium CITRATE* 300 ML BTL PO ONE (06:00)
[2017-09-13] MEDS: Atorvastatin* 20 MG TAB PO SCH (07:33)
[2017-09-13] MEDS: Ferrous Sulfate TAB* 325 MG PO SCH ×3 (07:33→23:35)
[2017-09-13] MEDS: Omeprazole CAP* 20 MG PO SCH (07:33)
[2017-09-13] MEDS: Sertraline* 25 MG TAB PO SCH (07:33)
[2017-09-13] MEDS: Atenolol TAB* 50 MG PO SCH (07:33)
[2017-09-13] MEDS: Ramipril CAP* 5 MG PO SCH (07:33)
[2017-09-13] MEDS: ALPRAZolam TAB* 0.5 MG PO PRN ×2 (07:44→23:34)
--- NOTE | 2017-09-13 11:36 | PN ---
Subjective Date of Service: 09/13/17 Interval History: Subj much better. No new c/o. Objective Active Medications: Alprazolam (Xanax Tab*) 0.5 mg PO BID PRN PRN Reason: ANXIETY Last Admin: 09/13/17 07:44 Dose: 0.5 mg Atenolol (Tenormin Tab*) 50 mg PO DAILY [facility] Last Admin: 09/13/17 07:33 Dose: 50 mg Atorvastatin Calcium (Lipitor*) 20 mg PO DAILY [facility] Last Admin: 09/13/17 07:33 Dose: 20 mg Dextrose (D50w Syringe 50 Ml*) 12.5 gm IV PUSH .FOR FS < 60 - SS PRN PRN Reason: FS < 60 Last Admin: 09/12/17 05:58 Dose: 12.5 gm Ferrous Sulfate (Ferrous Sulfate Tab*) 325 mg PO BID [facility] Last Admin: 09/13/17 07:43 Dose: Not Given Insulin Human Lispro (Humalog*) 0 - 10 units SUBCUT Q6HR [facility] PRN Reason: Protocol Last Admin: 09/13/17 06:49 Dose: Not Given Metoclopramide HCl (Reglan Tab*) 10 mg PO Q6H PRN PRN Reason: n/v Omeprazole (Prilosec Cap*) 20 mg PO DAILY@0730 [facility] Last Admin: 09/13/17 07:33 Dose: 20 mg Ramipril (Altace Cap*) 5 mg PO DAILY [facility] Last Admin: 09/13/17 07:33 Dose: 5 mg Sertraline HCl (Zoloft*) 25 mg PO DAILY [facility] Last Admin: 09/13/17 07:33 Dose: 25 mg Vital Signs - 8 hr 09/13/17 09/13/17 09/13/17 07:32 07:44 07:48 Temperature 98.3 F Pulse Rate 68 80 Respiratory 21 18 Rate Blood Pressure 120/76 145/48 (mmHg) O2 Sat by Pulse 99 Oximetry 09/13/17 11:24 Temperature Pulse Rate Respiratory 16 Rate Blood Pressure (mmHg) O2 Sat by Pulse Oximetry Oxygen Devices in Use Now: Nasal Cannula Appearance: Alert, sitting up in bed. In good spirits. Looks comfortable. Eyes: No Scleral Icterus Respiratory: Symmetrical Chest Expansion and Respiratory Effort, Clear to Auscultation, Clear to Percussion Cardiovascular: NL Sounds; No Murmurs; No JVD, RRR, No Edema, - Abdominal: NL Sounds; No Tenderness; No Distention, No Hepatosplenomegaly, - Extremities: No Edema, No Clubbing, Cyanosis, - Skin: No Rash or Ulcers, No Nodules or Sclerosis, - Neurological: Alert and Oriented x 3, NL Sensation Result Diagrams: 09/13/17 11:43 09/12/17 05:18 Additional Lab and Data: Lab Results 09/11/17 09/11/17 09/11/17 Range/Units 11:24 11:24 11:24 WBC 10.0 (3.5-10.8) 10^3/ul RBC 2.62 L (4.0-5.4) 10^6/ul Hgb 7.6 L (12.0-16.0) g/dl Hct 24 L (35-47) % MCV 91 (80-97) fL MCH 29 (27-31) pg MCHC 32 (31-36) g/dl RDW 15 (10.5-15) % Plt Count 359 (150-450) 10^3/ul MPV 8.5 (7.4-10.4) um3 Neut % (Auto) 70.4 (38-83) % Lymph % (Auto) 16.4 L (25-47) % [place] % (Auto) 7.6 H (0-7) % Eos % (Auto) 4.8 (0-6) % Baso % (Auto) 0.8 (0-2) % Absolute Neuts (auto) 7.1 (1.5-7.7) 10^3/ul Absolute Lymphs (auto) 1.6 (1.0-4.8) 10^3/ul Absolute Monos (auto) 0.8 (0-0.8) 10^3/ul Absolute Eos (auto) 0.5 (0-0.6) 10^3/ul Absolute Basos (auto) 0.1 (0-0.2) 10^3/ul Absolute Nucleated RBC 0 10^3/ul Nucleated RBC % 0.1 INR (Anticoag Therapy) 0.89 (0.77-1.02) APTT 29.3 (26.0-36.3) seconds Sodium 139 (139-145) mmol/L Potassium 3.8 (3.5-5.0) mmol/L Chloride 104 (101-111) mmol/L Carbon Dioxide 30 (22-32) mmol/L Anion Gap 5 (2-11) mmol/L BUN 10 (6-24) mg/dL Creatinine 1.21 H (0.51-0.95) mg/dL Est GFR ( Amer) 59.9 (>60) Est GFR (Non-Af Amer) 46.5 (>60) BUN/Creatinine Ratio 8.3 (8-20) Glucose 253 H (70-100) mg/dL Calcium 9.1 (8.6-10.3) mg/dL Total Bilirubin 0.20 (0.2-1.0) mg/dL AST 13 (13-39) U/L ALT 13 (7-52) U/L Alkaline Phosphatase 179 H (34-104) U/L C-Reactive Protein 21.21 H (< 5.00) mg/L B-Natriuretic Peptide ( - 100) pg/mL Total Protein 6.9 (6.4-8.9) g/dL Albumin 3.5 (3.2-5.2) g/dL Globulin 3.4 (2-4) g/dL Albumin/Globulin Ratio 1.0 (1-3) Lipase 13 (11.0-82.0) U/L Blood Type Antibody Screen Crossmatch 09/11/17 09/11/17 Range/Units 11:24 11:24 WBC (3.5-10.8) 10^3/ul RBC (4.0-5.4) 10^6/ul Hgb (12.0-16.0) g/dl Hct (35-47) % MCV (80-97) fL MCH (27-31) pg MCHC (31-36) g/dl RDW (10.5-15) % Plt Count (150-450) 10^3/ul MPV (7.4-10.4) um3 Neut % (Auto) (38-83) % Lymph % (Auto) (25-47) % [place] % (Auto) (0-7) % Eos % (Auto) (0-6) % Baso % (Auto) (0-2) % Absolute Neuts (auto) (1.5-7.7) 10^3/ul Absolute Lymphs (auto) (1.0-4.8) 10^3/ul Absolute Monos (auto) (0-0.8) 10^3/ul Absolute Eos (auto) (0-0.6) 10^3/ul Absolute Basos (auto) (0-0.2) 10^3/ul Absolute Nucleated RBC 10^3/ul Nucleated RBC % INR (Anticoag Therapy) (0.77-1.02) APTT (26.0-36.3) seconds Sodium (139-145) mmol/L Potassium (3.5-5.0) mmol/L Chloride (101-111) mmol/L Carbon Dioxide (22-32) mmol/L Anion Gap (2-11) mmol/L BUN (6-24) mg/dL Creatinine (0.51-0.95) mg/dL Est GFR ( Amer) (>60) Est GFR (Non-Af Amer) (>60) BUN/Creatinine Ratio (8-20) Glucose (70-100) mg/dL Calcium (8.6-10.3) mg/dL Total Bilirubin (0.2-1.0) mg/dL AST (13-39) U/L ALT (7-52) U/L Alkaline Phosphatase (34-104) U/L C-Reactive Protein (< 5.00) mg/L B-Natriuretic Peptide 372 H ( - 100) pg/mL Total Protein (6.4-8.9) g/dL Albumin (3.2-5.2) g/dL Globulin (2-4) g/dL Albumin/Globulin Ratio (1-3) Lipase (11.0-82.0) U/L Blood Type A Positive Antibody Screen Pending Crossmatch See Detail Microbiology and Other Data: Microbiology 09/11/17 15:32 Nasal Screen MRSA (PCR)(JAN) - Final Nasal Mrsa Not Detected Assess/Plan/Problems-Billing Assessment: - Patient Problems (1) Lower GI bleed Current Visit: No Status: Acute Code(s): K92.2 - GASTROINTESTINAL HEMORRHAGE , UNSPECIFIED SNOMED Code(s): 99389266 Comment: Colonoscopy 09/13 showed large internal and external hemorrhoids, bleeding during the procedure. Increase her home PEG to 17 gm bid, start 8 PM. CBC 09/14. Discussed wtih Dr. iYn. (2) Type I diabetes mellitus Current Visit: No Status: Acute Priority: High Comment: Lispro by SS. (3) Anemia Current Visit: No Status: Acute Code(s): D64.9 - ANEMIA, UNSPECIFIED SNOMED Code(s): 364194614 Comment: Multifactorial. Ferritin 34.7 on 08/12/17, continue oral iron. (4) HTN (hypertension) Current Visit: No Status: Acute Code(s): I10 - ESSENTIAL (PRIMARY) HYPERTENSION SNOMED Code(s): 88925877 Comment: Continue atenolol and ramipril.
[2017-09-13 11:50] LABS: ABS Basophils 0.1 10^3/ul (0-0.2); ABS Eosinophils 0.5 10^3/ul (0-0.6); ABS Lymphocytes 1.4 10^3/ul (1.0-4.8); ABS Monocytes 0.8 10^3/ul (0-0.8); ABS Neutrophils 7.8 10^3/ul (1.5-7.7); ABS Nucleated RBC 0 10^3/ul; Eosinophil % 5.2 % (0-6); Hematocrit 25 % (35-47); Hemoglobin 8.1 g/dl (12.0-16.0); Lymphocyte % 13.2 % (25-47); Mean Corpuscular HGB Conc 32 g/dl (31-36); Mean Corpuscular Hemoglobin 29 pg (27-31); Mean Corpuscular Volume 90 fL (80-97); Mean Platelet Volume 8.4 um3 (7.4-10.4); Nucleated Red Blood Cells % 0; Platelet Count 335 10^3/ul (150-450); Red Blood Count 2.81 10^6/ul (4.0-5.4); Red Cell Distribution Width 16 % (10.5-15); White Blood Count 10.6 10^3/ul (3.5-10.8)
[2017-09-13] MEDS ORDERED: Lidocaine 4% GEL* 10 GM TUBE TOPICAL ONE (12:12)
[2017-09-13] MEDS ORDERED: Lidocaine 2% JELLY* 6 ML JELLY TOPICAL ONE (12:30)
[2017-09-13] MEDS ORDERED: fentaNYL* 50 MCG/ML 2 ML VIAL (100 MCG VIAL) ONE (13:27)
[2017-09-13] MEDS ORDERED: Midazolam* 1 MG/ML 10 ML VIAL (10 MG) ONE (13:27)
--- NOTE | 2017-09-13 18:24 | PN ---
Subjective Date of Service: 09/13/17 Interval History: Pt insists that Farmer be removed and told nurse if it wasn;t removed she would pull it out. Objective Active Medications: Alprazolam (Xanax Tab*) 0.5 mg PO BID PRN PRN Reason: ANXIETY Last Admin: 09/13/17 07:44 Dose: 0.5 mg Atenolol (Tenormin Tab*) 50 mg PO DAILY [facility] Last Admin: 09/13/17 07:33 Dose: 50 mg Atorvastatin Calcium (Lipitor*) 20 mg PO DAILY [facility] Last Admin: 09/13/17 07:33 Dose: 20 mg Dextrose (D50w Syringe 50 Ml*) 12.5 gm IV PUSH .FOR FS < 60 - SS PRN PRN Reason: FS < 60 Last Admin: 09/12/17 05:58 Dose: 12.5 gm Ferrous Sulfate (Ferrous Sulfate Tab*) 325 mg PO BID [facility] Last Admin: 09/13/17 07:43 Dose: Not Given Insulin Human Lispro (Humalog*) 0 - 10 units SUBCUT Q6HR [facility] PRN Reason: Protocol Last Admin: 09/13/17 12:17 Dose: Not Given Metoclopramide HCl (Reglan Tab*) 10 mg PO Q6H PRN PRN Reason: n/v Omeprazole (Prilosec Cap*) 20 mg PO DAILY@0730 [facility] Last Admin: 09/13/17 07:33 Dose: 20 mg Polyethylene Glycol/Electrolytes (Miralax*) 17 gm PO BID [facility] Ramipril (Altace Cap*) 5 mg PO DAILY [facility] Last Admin: 09/13/17 07:33 Dose: 5 mg Sertraline HCl (Zoloft*) 25 mg PO DAILY [facility] Last Admin: 09/13/17 07:33 Dose: 25 mg Vital Signs - 8 hr 09/13/17 09/13/17 15:14 16:19 Temperature 98.2 F Pulse Rate 81 Respiratory 20 Rate Blood Pressure 156/53 144/66 (mmHg) O2 Sat by Pulse 99 Oximetry Oxygen Devices in Use Now: Nasal Cannula Result Diagrams: 09/13/17 11:43 09/12/17 05:18 Additional Lab and Data: Lab Results 09/11/17 09/11/17 09/11/17 Range/Units 11:24 11:24 11:24 WBC 10.0 (3.5-10.8) 10^3/ul RBC 2.62 L (4.0-5.4) 10^6/ul Hgb 7.6 L (12.0-16.0) g/dl Hct 24 L (35-47) % MCV 91 (80-97) fL MCH 29 (27-31) pg MCHC 32 (31-36) g/dl RDW 15 (10.5-15) % Plt Count 359 (150-450) 10^3/ul MPV 8.5 (7.4-10.4) um3 Neut % (Auto) 70.4 (38-83) % Lymph % (Auto) 16.4 L (25-47) % [place] % (Auto) 7.6 H (0-7) % Eos % (Auto) 4.8 (0-6) % Baso % (Auto) 0.8 (0-2) % Absolute Neuts (auto) 7.1 (1.5-7.7) 10^3/ul Absolute Lymphs (auto) 1.6 (1.0-4.8) 10^3/ul Absolute Monos (auto) 0.8 (0-0.8) 10^3/ul Absolute Eos (auto) 0.5 (0-0.6) 10^3/ul Absolute Basos (auto) 0.1 (0-0.2) 10^3/ul Absolute Nucleated RBC 0 10^3/ul Nucleated RBC % 0.1 INR (Anticoag Therapy) 0.89 (0.77-1.02) APTT 29.3 (26.0-36.3) seconds Sodium 139 (139-145) mmol/L Potassium 3.8 (3.5-5.0) mmol/L Chloride 104 (101-111) mmol/L Carbon Dioxide 30 (22-32) mmol/L Anion Gap 5 (2-11) mmol/L BUN 10 (6-24) mg/dL Creatinine 1.21 H (0.51-0.95) mg/dL Est GFR ( Amer) 59.9 (>60) Est GFR (Non-Af Amer) 46.5 (>60) BUN/Creatinine Ratio 8.3 (8-20) Glucose 253 H (70-100) mg/dL Calcium 9.1 (8.6-10.3) mg/dL Total Bilirubin 0.20 (0.2-1.0) mg/dL AST 13 (13-39) U/L ALT 13 (7-52) U/L Alkaline Phosphatase 179 H (34-104) U/L C-Reactive Protein 21.21 H (< 5.00) mg/L B-Natriuretic Peptide ( - 100) pg/mL Total Protein 6.9 (6.4-8.9) g/dL Albumin 3.5 (3.2-5.2) g/dL Globulin 3.4 (2-4) g/dL Albumin/Globulin Ratio 1.0 (1-3) Lipase 13 (11.0-82.0) U/L Blood Type Antibody Screen Crossmatch 09/11/17 09/11/17 Range/Units 11:24 11:24 WBC (3.5-10.8) 10^3/ul RBC (4.0-5.4) 10^6/ul Hgb (12.0-16.0) g/dl Hct (35-47) % MCV (80-97) fL MCH (27-31) pg MCHC (31-36) g/dl RDW (10.5-15) % Plt Count (150-450) 10^3/ul MPV (7.4-10.4) um3 Neut % (Auto) (38-83) % Lymph % (Auto) (25-47) % [place] % (Auto) (0-7) % Eos % (Auto) (0-6) % Baso % (Auto) (0-2) % Absolute Neuts (auto) (1.5-7.7) 10^3/ul Absolute Lymphs (auto) (1.0-4.8) 10^3/ul Absolute Monos (auto) (0-0.8) 10^3/ul Absolute Eos (auto) (0-0.6) 10^3/ul Absolute Basos (auto) (0-0.2) 10^3/ul Absolute Nucleated RBC 10^3/ul Nucleated RBC % INR (Anticoag Therapy) (0.77-1.02) APTT (26.0-36.3) seconds Sodium (139-145) mmol/L Potassium (3.5-5.0) mmol/L Chloride (101-111) mmol/L Carbon Dioxide (22-32) mmol/L Anion Gap (2-11) mmol/L BUN (6-24) mg/dL Creatinine (0.51-0.95) mg/dL Est GFR ( Amer) (>60) Est GFR (Non-Af Amer) (>60) BUN/Creatinine Ratio (8-20) Glucose (70-100) mg/dL Calcium (8.6-10.3) mg/dL Total Bilirubin (0.2-1.0) mg/dL AST (13-39) U/L ALT (7-52) U/L Alkaline Phosphatase (34-104) U/L C-Reactive Protein (< 5.00) mg/L B-Natriuretic Peptide 372 H ( - 100) pg/mL Total Protein (6.4-8.9) g/dL Albumin (3.2-5.2) g/dL Globulin (2-4) g/dL Albumin/Globulin Ratio (1-3) Lipase (11.0-82.0) U/L Blood Type A Positive Antibody Screen Pending Crossmatch See Detail Microbiology and Other Data: Microbiology 09/11/17 15:32 Nasal Screen MRSA (PCR)(JAN) - Final Nasal Mrsa Not Detected Assess/Plan/Problems-Billing Assessment: - Patient Problems (1) Lower GI bleed Current Visit: No Status: Acute Code(s): K92.2 - GASTROINTESTINAL HEMORRHAGE , UNSPECIFIED SNOMED Code(s): 82931066 Comment: Colonoscopy 09/13 showed large internal and external hemorrhoids, bleeding during the procedure. Increase her home PEG to 17 gm bid, start 68 PM. CBC 09/14. Discussed wtih Dr. Yin. (2) Type I diabetes mellitus Current Visit: No Status: Acute Priority: High Comment: Lispro by SS. (3) Anemia Current Visit: No Status: Acute Code(s): D64.9 - ANEMIA, UNSPECIFIED SNOMED Code(s): 858367627 Comment: Multifactorial. Ferritin 34.7 on 08/12/17, continue oral iron. (4) HTN (hypertension) Current Visit: No Status: Acute Code(s): I10 - ESSENTIAL (PRIMARY) HYPERTENSION SNOMED Code(s): 36948019 Comment: Continue atenolol and ramipril. (5) Urinary retention Current Visit: No Status: Acute Priority: Medium Code(s): R33.9 - RETENTION OF URINE, UNSPECIFIED SNOMED Code(s): 273751119 Comment: Twice in past 24 hrs very large residual urines measured by bladder scan. Straight cath the first time, Farmer the second time. As pt stated she would pull out the Farmer if we didn't remove it I odered removal of the Farmer. Bladder scan q 8 hr starting 10 PM 09/13.
[2017-09-13] MEDS ORDERED: Insulin LISPRO* 1 UNITS UNIT SUBCUT ONE ×2 (18:28→18:32)
[2017-09-13] MEDS ORDERED: Tamsulosin CAP* 0.4 MG PO SCH (21:00)
[2017-09-13] MEDS ORDERED: Ondansetron 40 MG VIAL* 2 MG/ML 20 ML VIAL IV PRN (22:25)
[2017-09-13] MEDS: Polyethylene Glycol 3350* 17 GM PACKET PO SCH (23:34)
[2017-09-14] MEDS ORDERED: Insulin LISPRO* 1 UNITS UNIT SUBCUT ONE ×3 (00:35→13:16)
[2017-09-14] MEDS: Insulin LISPRO* 1 UNITS UNIT SUBCUT SCH ×3 (00:57→13:19)
[2017-09-14 06:13] LABS: ABS Basophils 0.1 10^3/ul (0-0.2); ABS Eosinophils 0.3 10^3/ul (0-0.6); ABS Lymphocytes 1.3 10^3/ul (1.0-4.8); ABS Monocytes 0.8 10^3/ul (0-0.8); ABS Neutrophils 6.6 10^3/ul (1.5-7.7); ABS Nucleated RBC 0 10^3/ul; Eosinophil % 3.2 % (0-6); Hematocrit 25 % (35-47); Lymphocyte % 14.6 % (25-47); Mean Corpuscular HGB Conc 33 g/dl (31-36); Mean Corpuscular Hemoglobin 29 pg (27-31); Mean Corpuscular Volume 89 fL (80-97); Mean Platelet Volume 8.7 um3 (7.4-10.4); Nucleated Red Blood Cells % 0; Platelet Count 334 10^3/ul (150-450); Red Blood Count 2.75 10^6/ul (4.0-5.4); Red Cell Distribution Width 15 % (10.5-15); White Blood Count 9.1 10^3/ul (3.5-10.8)
[2017-09-14] MEDS: Atenolol TAB* 50 MG PO SCH (08:14)
[2017-09-14] MEDS: Polyethylene Glycol 3350* 17 GM PACKET PO SCH (08:14)
[2017-09-14] MEDS: Ferrous Sulfate TAB* 325 MG PO SCH (08:15)
[2017-09-14] MEDS: Omeprazole CAP* 20 MG PO SCH (08:15)
[2017-09-14] MEDS: Ramipril CAP* 5 MG PO SCH (08:15)
[2017-09-14] MEDS: Atorvastatin* 20 MG TAB PO SCH (08:15)
[2017-09-14] MEDS: Sertraline* 25 MG TAB PO SCH (08:15)
[2017-09-14] MEDS ORDERED: Furosemide TAB* 20 MG PO SCH (10:15)
[2017-09-14] MEDS ORDERED: Insulin GLARGINE(*) 1 UNITS UNIT SUBCUT SCH (11:00)
--- NOTE | 2017-09-14 11:28 | PN ---
Progress Note - Progress Note Date of Service: 09/14/17 Note: Time spent on discharge 50 minutes.
[2017-09-14 12:55] VITALS: BP 143/52
--- NOTE | 2017-09-14 16:56 | DS ---
CC: Dr. Noni Faustin DISCHARGE SUMMARY: DATE OF ADMISSION: 09/13/17 DATE OF DISCHARGE: 09/14/17 HISTORY OF PRESENT ILLNESS/HOSPITAL COURSE: This 52-year-old woman was admitted for shortness of deb ath and bright red blood per rectum. The history is detailed in the admission note. The patient had 1 blood transfusion on 09/11/17. Her hemoglobin was 7.6 on admission, it was 8.0 on the day of discharge, it appeared to be stable. She had colonoscopy on 09/13/17. The colon itself w as unremarkable. There are large internal and external hemorrhoids, which were bleeding at the time of endoscopy. It was felt that a better bowel regimen would be the main thing she needed to help her. She did have some urinary retention documented by bladder scan. She insisted on having her Farmer cat heter removed. She was given tamsulosin. She did have a low residual of 11 mL postvoid after tamsul osin and removing the catheter. She will continue on tamsulosin at home. FINAL DIAGNOSES: 1. Lower GI bleed, likely due to hemorrhoids. 2. Diabetes. 3. Anemia. 4. Morbid obesity. 5. Hypertension. 6. Intermittent urinary retention. DISCHARGE MEDICATIONS: 1. Lispro insulin as prescribed. 2. Polyethylene glycol 17 g b.i.d. 3. Tamsulosin 0.4 mg h.s. 4. Metoclopramide 10 mg every 6 hours p.r.n. 5. Furosemide 20 mg every other day. 6. Ferrous sulfate 325 mg b.i.d. 7. Regular insulin as prescribed. 8. Ramipril 5 mg daily. 9. Omeprazole 20 mg daily. 10. Glargine insulin 36 units b.i.d. 11. Atorvastatin 20 mg daily. 12. Atenolol 50 mg daily. 13. Sertraline 25 mg daily. 14. Docusate 200 mg daily. 15. Alprazolam 0.5 mg b.i.d. p.r.n. 16. EMLA cream t.i.d. p.r.n. 17. Mupirocin 2% ointment t.i.d. p.r.n. 18. Ondansetron 4 mg every 4 hours p.r.n. 19. Pseudoephedrine 240 mg as prescribed. [id number]/[facility] #: [id number]
--- NOTE | 2017-09-16 03:58 | PRO ---
DATE OF PROCEDURE: 09/13/17 - ROOM #407 PROCEDURE: Colonoscopy. INDICATION: Rectal bleeding. REFERRING PHYSICIAN: No one. MEDICATIONS GIVEN: 50 mcg IV fentanyl, 6 mg IV Versed. PROCEDURE IN DETAIL: After the colonoscopy procedure including the risks, benefits, and alternatives not limited to perforation, surgery, and/or were explained to the patient, written consent was then obtained. IV medication was given and a rectal exam was performed. The rectal exam was unremarkable. An Olympus colonoscope was then inserted into the patient's rectum and advanced to the hepatic flexure. Unfortunately, I could not navigate around the hepatic flexure due to massive looping of the scope. The patient has a super morbidly obese body habitus. She is 4 feet 4 inches tall, weighs 232 pounds with a BMI of 60.4. Unfortunately, my nurses were unable to palpate and provide any external hand support on her abdomen due to the extremely large nature of her abdomen. Her body habitus prevented a full and complete colonoscopy. The scope was then withdrawn from the hepatic flexure through the remainder of the colon. Two polyps were seen, one at 50 cm from the anal verge removed with snare polypectomy, no cautery. One in the rectum removed with jumbo biopsy forceps. On retroflexion maneuver, she did have very large internal hemorrhoids and on external anal examination, she had very large external hemorrhoids. The scope was withdrawn from the patient. She tolerated the procedure well and was returned to the hospital room in stable condition. IMPRESSION: 1. Incomplete colonoscopy to the hepatic flexure with snare polypectomy and biopsy polypectomy. 2. Two colorectal polyps. 3. Internal and external hemorrhoids. 4. Incomplete colonoscopy due to the patient's super morbidly obese body habitus. The patient really needs to lose weight and if she is able to lose approximately 100 pounds, I think it would be important to try and repeat a screening colonoscopy. [id number]/[facility] #: [id number] JUAN ANTONIO
== END 2017-09-14 15:00 | disposition home health service (06) | DRG 394 ==
LOC: ED 09:28 → MED 14:12 → OBSVTOIN 09-13 14:58
PROVIDERS: ADMIT Internal Medicine; ATTEND Internal Medicine
PROC: 30233N1 Transfusion of Nonautologous Red Blood Cells into Peripheral Vein, Percutaneous Approach (ICD-10-PCS; principal; 2017-09-13)
PROC: 0DBE8ZZ Excision of Large Intestine, Via Natural or Artificial Opening Endoscopic (ICD-10-PCS; 2017-09-13)
PROC: 0DBP8ZZ Excision of Rectum, Via Natural or Artificial Opening Endoscopic (ICD-10-PCS; 2017-09-13)
PROC: 0T9B70Z Drainage of Bladder with Drainage Device, Via Natural or Artificial Opening (ICD-10-PCS; 2017-09-13)
DX: K64.4 Residual hemorrhoidal skin tags (principal); Z68.44 Body mass index [BMI] 60.0-69.9, adult; D62 Acute posthemorrhagic anemia; K64.8 Other hemorrhoids; I25.10 Atherosclerotic heart disease of native coronary artery without angina pectoris; E78.00 Pure hypercholesterolemia, unspecified; K21.9 Gastro-esophageal reflux disease without esophagitis; M19.042 Primary osteoarthritis, left hand; M19.041 Primary osteoarthritis, right hand; E10.43 Type 1 diabetes mellitus with diabetic autonomic (poly)neuropathy; E10.319 Type 1 diabetes mellitus with unspecified diabetic retinopathy without macular edema; K31.84 Gastroparesis; H54.62 Unqualified visual loss, left eye, normal vision right eye; E10.40 Type 1 diabetes mellitus with diabetic neuropathy, unspecified; D63.1 Anemia in chronic kidney disease; E10.22 Type 1 diabetes mellitus with diabetic chronic kidney disease; I12.9 Hypertensive chronic kidney disease with stage 1 through stage 4 chronic kidney disease, or unspecified chronic kidney disease; K63.5 Polyp of colon; N18.3 Chronic kidney disease, stage 3 (moderate); E66.01 Morbid (severe) obesity due to excess calories; R09.02 Hypoxemia; R33.8 Other retention of urine; F41.9 Anxiety disorder, unspecified; E10.649 Type 1 diabetes mellitus with hypoglycemia without coma; Z89.521 Acquired absence of right knee; Z98.42 Cataract extraction status, left eye; Z91.041 Radiographic dye allergy status; Z79.4 Long term (current) use of insulin; Z95.1 Presence of aortocoronary bypass graft; Z87.440 Personal history of urinary (tract) infections; Z98.41 Cataract extraction status, right eye; Z82.49 Family history of ischemic heart disease and other diseases of the circulatory system; Z83.3 Family history of diabetes mellitus; Z80.8 Family history of malignant neoplasm of other organs or systems
CPT/HCPCS: 36415; 71046; 80048; 80053; 82272; 82947; 83690; 83735; 83880; 85014; 85018; 85025; 85610; 85730; 86140; 86850; 86900; 86901; 86922; 87641; 88305; 93005; 99156; 99157; 99284; A9270-GY; G0378; J1940; J2250; J3010; P9040

== ENCOUNTER 2017-09-21 02:50 | Emergency (ER) | payer MEDICARE, OTHER ==
[2017-09-21] MEDS ORDERED: Albuterol 0.5% CONC NEB.SOL* 5 MG/ML 20 ml BOT INH ONE (03:00)
[2017-09-21] MEDS ORDERED: methylPREDNISolone 125 MG* 2 ML VIAL IV ONE (03:00)
[2017-09-21] MEDS ORDERED: Albuterol 2.5 MG/3 ML NEB.SOL* (0.083%) ONE (03:16)
[2017-09-21 03:24] LABS: ABS Basophils 0.1 10^3/ul (0-0.2); ABS Eosinophils 0.3 10^3/ul (0-0.6); ABS Lymphocytes 1.3 10^3/ul (1.0-4.8); ABS Monocytes 0.8 10^3/ul (0-0.8); ABS Nucleated RBC 0 10^3/ul; Eosinophil % 1.9 % (0-6); Hematocrit 29 % (35-47); Hemoglobin 9.2 g/dl (12.0-16.0); Mean Corpuscular HGB Conc 32 g/dl (31-36); Mean Corpuscular Hemoglobin 29 pg (27-31); Mean Corpuscular Volume 90 fL (80-97); Mean Platelet Volume 8.5 um3 (7.4-10.4); Nucleated Red Blood Cells % 0; Platelet Count 411 10^3/ul (150-450); Red Blood Count 3.21 10^6/ul (4.00-5.40); Red Cell Distribution Width 15 % (10.5-15); White Blood Count 18.6 10^3/ul (3.5-10.8)
[2017-09-21] MEDS ORDERED: Sterile Water for Inj* 10 ML ONE (04:55)
[2017-09-21] MEDS ORDERED: Levofloxacin 750 MG IVPREMIX(* 750 MG/150 ML BAG IVPB ONE (05:43)
--- NOTE | 2017-09-21 07:44 | RAD ---
HISTORY: sob COMPARISONS: September 11, 2017 VIEWS: 2: frontal portable view of the chest at 3:30 AM. The patient is obliqued to the right. FINDINGS: LINES AND TUBES: None. CARDIOMEDIASTINAL SILHOUETTE: The cardiac silhouette is enlarged. The cardiomediastinal silhouette is otherwise normal for portable technique. PLEURA: There is blunting of left costophrenic angle. LUNG PARENCHYMA: There is a diffuse reticular pattern with indistinct pulmonary vessels. ABDOMEN: The upper abdomen is clear. There is no subphrenic gas. BONES AND SOFT TISSUES: The patient is status post median sternotomy. IMPRESSION: CARDIOMEGALY WITH PULMONARY INTERSTITIAL EDEMA AND A SMALL LEFT PLEURAL EFFUSION.
[2017-09-21 07:57] VITALS: BP 121/63
--- NOTE | 2017-10-08 11:08 | ED ---
Mauro Gonzalez Natalie, scribed for González Garcia MD on 09/21/17 at 0454 . Shortness of Breath - History of Current Complaint Chief Complaint: EDShortnessOfBreath Time Seen by Provider: 09/21/17 03:00 Hx Obtained From: Patient, EMS Onset/Duration: Gradual Onset Timing: Constant Current Severity: Severe Dyspnea At: Rest Alleviating Factors: Bronchodilators, EMS Tx, Oxygen Associated Signs & Symptoms: Cough (Productive), Wheezing Related History: Similar Episode - Risk Factors Pulmonary Embolism: Negative Cardiac: Smoking - Allergy/Home Medications Allergies/Adverse Reactions: Allergies Allergy/AdvReac Type Severity Reaction Status Date / Time Iodinated Contrast- Oral and Allergy Hives Verified 08/12/17 18:34 IV Dye metronidazole [From Flagyl] AdvReac GI Upset Verified 09/21/17 06:19 vancomycin AdvReac javid Verified 09/21/17 06:19 syndrome PMH/Surg Hx/FS Hx/Imm Hx Endocrine/Hematology History: Reports: Hx Anticoagulant Therapy - During hospitalizations only, Hx Blood Transfusions - 06/04/12, Hx Diabetes - 1, Hx Anemia Denies: Hx Blood Disorders, Hx Bone Marrow Disease, Hx Systemic Lupus Erythematosus, Hx Sickle Cell Disease, Hx Thyroid Disease, Hx Unexplained Bleeding, Other Endocrine/Hematological Disorders Cardiovascular History: Reports: Hx Coronary Artery Disease, Hx Hypercholesterolemia, Hx Hypotension, Hx Hypertension, Other Cardiovascular Problems/Disorders - hyperlipidemia, HX OF TRIPLE BYPASS Denies: Hx Aneurysm, Hx Angina, Hx Angioplasty, Hx Auto Implanted Cardiovert Defib, Hx Cardiac Arrest, Hx Cardiomegaly, Hx Congenital Heart Disease, Hx Congestive Heart Failure, Hx Deep Vein Thrombosis, Hx Pacemaker/ICD, Hx Peripheral Vascular Disease, Hx Rheumatic Fever, Hx Syncope, Hx Valvular Heart Disease Respiratory History: Reports: Other Respiratory Problems/Disorders - "Always stuffed up." Denies: Hx Asthma, Hx Chronic Bronchitis, Hx Chronic Obstructive Pulmonary Disease (COPD), Hx Cystic Fibrosis, Hx Lung Cancer, Hx Pleural Effusion, Hx Pneumonia, Hx Pulmonary Edema, Hx Pulmonary Embolism, Hx Seasonal Allergies, Hx Sleep Apnea GI History: Reports: Hx Gall Bladder Disease - Has gallstones, Hx Gastroesophageal Reflux Disease Denies: Hx Cirrhosis, Hx Crohn's Disease, Hx Diverticulosis, Hx Gastrointestinal Bleed, Hx Hiatal Hernia, Hx Irritable Bowel, Hx Jaundice, Hx Obstructive Bowel, Hx Ileostomy, Hx Pyloric Stenosis, Hx Ulcer, Other GI Disorders History: Reports: Other Problems/Disorders - Hx of UTIs and in 2002 or 2003 a Kidney infection Denies: Hx Acute Renal Failure, Hx Benign Prostatic Hyperplasia, Hx Chronic Renal Failure, Hx Dialysis, Hx Kidney Infection, Hx Kidney Stones, Hx Renal Disease Musculoskeletal History: Reports: Hx Arthritis - hands Denies: Hx Back Problems, Hx Bursitis, Hx Congenital Bone Abnormalities, Hx Fibromyalgia, Hx Gout, Hx Orthopedic Injury, Hx Osteoporosis, Hx Scoliosis, Hx Tendonitis, Other Musculoskeletal History Sensory History: Reports: Hx Cataracts, Hx Contacts or Glasses, Hx Legally Blind - blind left eye, Hx Vision Problem - Right eye farsighted, only needs reading glasses. Denies: Hx Eye Injury, Hx Eye Prosthesis, Hx Glaucoma, Hx Macular Degeneration, Hx Deafness, Hx Hearing Aid, Hx Hearing Problem, Other Sensory Impairments Opthamlomology History: Reports: Hx Cataracts, Hx Contacts or Glasses, Hx Legally Blind - blind left eye, Hx Vision Problem - Right eye farsighted, only needs reading glasses. Denies: Hx Eye Injury, Hx Eye Prosthesis, Hx Glaucoma, Hx Macular Degeneration, Other Sensory Impairments Neurological History: Reports: Other Neuro Impairments/Disorders - diabetic neuropathy, right facial numbness Denies: Hx Dementia, Hx Developmental Delay, Hx Headaches, Hx Migraine, Hx Seizures, Hx Spinal Cord Injury, Hx Transient Ischemic Attacks (TIA) Psychiatric History: Reports: Hx Anxiety Denies: Hx Attention Deficit Hyperactivity Disorder, Hx Eating Disorder, Hx Depression, Hx Panic Disorder, Hx Post Traumatic Stress Disorder, Hx Inpatient Treatment, Hx Community Mental Health Tx, Hx Schizophrenia, Hx Bipolar Disorder , Hx Suicide Attempt, Hx of Violent Episodes Against Others, Hx Substance Abuse , Other Psychiatric Issues/Disorders - Surgical History Surgery Procedure, Year, and Place: TRIPLE BYPASS PIG ARTERY PLACEMENT 2005;. EYE SURGERY LEFT DETACHED RETINA (ORBIT XRAYS DONE 2007 - CLEARED FOR MRI BY ){sw};. BILAT CATARACTS;. RT EYE VITRECTOMY;. LT BKA 2008;. RT FOOT HEEL EXCISION; RIGHT BKA 2013; Hx Anesthesia Reactions: Yes - Excessive Lethargy, and N&V. Infectious Disease History: No Infectious Disease History: Reports: Hx of Known/Suspected MRSA Denies: Hx Clostridium Difficile, Hx Hepatitis, Hx Human Immunodeficiency Virus (HIV), Hx Shingles, Hx Tuberculosis, History Other Infectious Disease, Traveled Outside the [place] in Last 30 Days - Family History Known Family History: Positive: Cardiac Disease - "Nervous breakdown" to sister , Other - Social History Alcohol Use: None Hx Substance Use: No Substance Use Type: Reports: None Hx Tobacco Use: Yes Smoking Status (MU): Former Smoker Type: Cigarettes Amount Used/How Often: 1.5 PPD Have You Smoked in the Last Year: No Review of Systems Constitutional: Negative Positive: Shortness Of Breath All Other Systems Reviewed And Are Negative: Yes Physical Exam - Summary Physical Exam Summary: Appearance: Well-appearing, no distress, Well-nourished Skin: Warm, color reflects adequate perfusion Head: Normal Head/Face inspection Eyes: Conjunctiva clear ENT: Normal inspection Neck: Supple, no nodes, no JVD. Respiratory: Lungs clear, Normal breath sounds, no respiratory distress Cardio: RRR, No murmur, pulses normal, brisk capillary refill Abdomen: soft, nontender, no guarding, no rebound Bowel sounds: present Musculoskeletal: Strength Intact/ ROM intact. No calf tenderness. No edema. Neuro: Alert, muscle tone normal, facial symmetry, speech normal, sensory/motor intact Psychological: Normal Triage Information Reviewed: Yes Vital Signs On Initial Exam: Initial Vitals Temp Pulse Resp BP Pulse Ox 99.3 F 111 28 185/96 96 09/21/17 03:00 09/21/17 03:00 09/21/17 03:00 09/21/17 03:00 09/21/17 03:00 Vital Signs Reviewed: Yes Appearance: Positive: Ill-Appearing Skin: Positive: Warm, Skin Color Reflects Adequate Perfusion, Dry Head/Face: Positive: Normal Head/Face Inspection Eyes: Positive: EOMI ENT: Positive: Normal ENT inspection Neck: Positive: No Lymphadenopathy Respiratory/Lung Sounds: Positive: Decreased Breath Sounds, Wheezes Cardiovascular: Positive: Normal Abdomen Description: Positive: Nontender, Soft Bowel Sounds: Positive: Present Musculoskeletal: Positive: Other - Bilateral BKA with prosthesis in place Psychiatric: Positive: Normal Diagnostics - Vital Signs Vital Signs Temp Pulse Resp BP Pulse Ox 09/21/17 03:00 99.3 F 111 28 185/96 96 - Laboratory Lab Results: Lab Results 09/21/17 09/21/17 09/21/17 Range/Units 03:17 03:17 03:17 WBC 18.6 H (3.5-10.8) 10^3/ul RBC 3.21 L (4.00-5.40) 10^6/ul Hgb 9.2 L (12.0-16.0) g/dl Hct 29 L (35-47) % MCV 90 (80-97) fL MCH 29 (27-31) pg MCHC 32 (31-36) g/dl RDW 15 (10.5-15) % Plt Count 411 (150-450) 10^3/ul MPV 8.5 (7.4-10.4) um3 Neut % (Auto) 86.1 H (38-83) % Lymph % (Auto) 7.0 L (25-47) % [place] % (Auto) 4.4 (0-7) % Eos % (Auto) 1.9 (0-6) % Baso % (Auto) 0.6 (0-2) % Absolute Neuts (auto) 16.0 H (1.5-7.7) 10^3/ul Absolute Lymphs (auto) 1.3 (1.0-4.8) 10^3/ul Absolute Monos (auto) 0.8 (0-0.8) 10^3/ul Absolute Eos (auto) 0.3 (0-0.6) 10^3/ul Absolute Basos (auto) 0.1 (0-0.2) 10^3/ul Absolute Nucleated RBC 0 10^3/ul Nucleated RBC % 0 Sodium 138 (135-145) mmol/L Potassium 4.0 (3.5-5.0) mmol/L Chloride 104 (101-111) mmol/L Carbon Dioxide 24 (22-32) mmol/L Anion Gap 10 (2-11) mmol/L BUN 8 (6-24) mg/dL Creatinine 1.00 H (0.51-0.95) mg/dL Est GFR ( Amer) 74.6 (>60) Est GFR (Non-Af Amer) 58.0 (>60) BUN/Creatinine Ratio 8.0 (8-20) Glucose 156 H (70-100) mg/dL Lactic Acid 1.8 (0.5-2.0) mmol/L Calcium 9.5 (8.6-10.3) mg/dL Total Bilirubin 0.30 (0.2-1.0) mg/dL AST 18 (13-39) U/L ALT 14 (7-52) U/L Alkaline Phosphatase 178 H (34-104) U/L Troponin I 0.00 (<0.04) ng/mL B-Natriuretic Peptide ( - 100) pg/mL Total Protein 7.4 (6.4-8.9) g/dL Albumin 3.6 (3.2-5.2) g/dL Globulin 3.8 (2-4) g/dL Albumin/Globulin Ratio 0.9 L (1-3) 09/21/17 Range/Units 03:17 WBC (3.5-10.8) 10^3/ul RBC (4.00-5.40) 10^6/ul Hgb (12.0-16.0) g/dl Hct (35-47) % MCV (80-97) fL MCH (27-31) pg MCHC (31-36) g/dl RDW (10.5-15) % Plt Count (150-450) 10^3/ul MPV (7.4-10.4) um3 Neut % (Auto) (38-83) % Lymph % (Auto) (25-47) % [place] % (Auto) (0-7) % Eos % (Auto) (0-6) % Baso % (Auto) (0-2) % Absolute Neuts (auto) (1.5-7.7) 10^3/ul Absolute Lymphs (auto) (1.0-4.8) 10^3/ul Absolute Monos (auto) (0-0.8) 10^3/ul Absolute Eos (auto) (0-0.6) 10^3/ul Absolute Basos (auto) (0-0.2) 10^3/ul Absolute Nucleated RBC 10^3/ul Nucleated RBC % Sodium (135-145) mmol/L Potassium (3.5-5.0) mmol/L Chloride (101-111) mmol/L Carbon Dioxide (22-32) mmol/L Anion Gap (2-11) mmol/L BUN (6-24) mg/dL Creatinine (0.51-0.95) mg/dL Est GFR ( Amer) (>60) Est GFR (Non-Af Amer) (>60) BUN/Creatinine Ratio (8-20) Glucose (70-100) mg/dL Lactic Acid (0.5-2.0) mmol/L Calcium (8.6-10.3) mg/dL Total Bilirubin (0.2-1.0) mg/dL AST (13-39) U/L ALT (7-52) U/L Alkaline Phosphatase (34-104) U/L Troponin I (<0.04) ng/mL B-Natriuretic Peptide 377 H ( - 100) pg/mL Total Protein (6.4-8.9) g/dL Albumin (3.2-5.2) g/dL Globulin (2-4) g/dL Albumin/Globulin Ratio (1-3) Result Diagrams: 18 03:17 18 03:17 Lab Statement: Any lab studies that have been ordered have been reviewed, and results considered in the medical decision making process. - Radiology CXR Xray Interpretation: No Acute Changes - No acute cardiopulmonary process. ED physician has reviewed this report. Radiology Interpretation Completed By: Radiologist - EKG 03:46 Cardiac Rate: Tachycardia EKG Rhythm: Sinus Tachycardia - 121 BPM EKG Interpretation: Nml axes. Nml intervals. No ST elevation or T wave changes. 05:59 Cardiac Rate: Tachycardia EKG Rhythm: Sinus Tachycardia - 127 BPM EKG Interpretation: Nml axes. Nml intervals. No ST elevation or T wave changes. Re-Evaluation - Re-Evaluation First Eval Re-Evaluation Time: 05:31 Change: Improved Second Eval Re-Evaluation Time: 06:28 Change: Improved Comment: Pt significantly improved. pt with no respiratory distress or hypoxia; Pt with improved air movement. will continue to monitor. Third Eval Re-Evaluation Time: 07:27 Change: Improved Comment: Pt symptomatically improved. Pt with no rerspiratory distress or hypoxia; Pt with no wheezing or decreased air movement. Course/Dx - Course Course Of Treatment: Pt given continuous nebs tx with IV steroids and IV abx. Pt with resolution in symptoms. Pt significantly improved. Pt discharged home with albuterol inhaler and oral abx. pt refused steroids at this time. - Diagnoses Differential Diagnosis/HQI/PQRI: Positive: Airway Obstruction, Asthma, Bronchitis, CHF, [place], Pneumonia, Pneumothorax, Pulmonary Embolism, Pulmonary Edema Provider Diagnoses: COPD (chronic obstructive pulmonary disease) Discharge - Sign-Out/Discharge Documenting (check all that apply): Discharge/Admit/Transfer - Discharge Plan Condition: Improved Disposition: HOME Prescriptions: Albuterol HFA INHALER* [Ventolin HFA Inhaler*] 2 puff INH Q4H PRN #1 mdi PRN Reason: Shortness Of Breath Levofloxacin TAB* [Levaquin TAB*] 750 mg PO DAILY #5 tab Patient Education Materials: Emphysema (ED) Referrals: Noni Faustin MD [Primary Care Provider] - 2 Days - Billing Disposition and Condition Condition: IMPROVED Disposition: Home The documentation as recorded by the Mauro moreojn Natalie accurately reflects the service I personally performed and the decisions made by , González Garcia MD.
== END 2017-09-21 07:56 | disposition home or self-care (01) ==
LOC: ED 02:50
DX: J44.9 Chronic obstructive pulmonary disease, unspecified (principal); R05 Cough; R06.2 Wheezing; R06.02 Shortness of breath
CPT/HCPCS: 36415; 71045; 80053; 83605; 83880; 84484; 85025; 93005; 96365; 96375; 99283; J2930; J7611

== ENCOUNTER 2017-11-04 12:31 | Observation (INO) | payer MEDICARE, MEDICAID ==
--- NOTE | 2017-11-04 13:49 | ED ---
GI/ HPI - HPI Summary HPI Summary: This is scribjose Dang documenting for attending Gil Copeland MD. Patient is a 52 y/o F w/ c/o GI bleed. Patient reports she has had blood in stool the past four days. Today, she had a bowel movement in the morning and reports no blood. Patient notes rectal pain as well, which is rated 7/10 in the room. On triage, nothing is noted to aggravate/alleviate Sx. Patient reports Hx of these Sx. Home allergies and medications are reviewed. - History of Current Complaint Chief Complaint: EDGIBleed Time Seen by Provider: 11/04/17 13:44 Stated Complaint: POSSIBLE GI BLEED Hx Obtained From: Patient Onset/Duration: Started Days Ago - four days ago Timing: Lasting Days - four days, reports no blood in stool today Current Severity: Moderate - 7/10 Pain Intensity: 7 Location of Pain: Rectal Associated Signs and Symptoms: Positive: Rectal Pain, Blood w/Stool Aggravating Factor(s): Nothing Alleviating Factor(s): Nothing - Additional Pertinent History Primary Care Physician: VIGNESH - Allergy/Home Medications Allergies/Adverse Reactions: Allergies Allergy/AdvReac Type Severity Reaction Status Date / Time Iodinated Contrast- Oral and Allergy Hives Verified 08/12/17 18:34 IV Dye metronidazole [From Flagyl] AdvReac GI Upset Verified 09/21/17 06:19 vancomycin AdvReac javid Verified 09/21/17 06:19 syndrome Home Medications: Home Medications Docusate Sodium [Col-Rite] 200 mg PO BID 11/04/17 [History Confirmed 11/04/17] PMH/Surg Hx/FS Hx/Imm Hx Endocrine/Hematology History: Reports: Hx Anticoagulant Therapy - During hospitalizations only, Hx Blood Transfusions - 06/04/12, Hx Diabetes - 1, Hx Anemia Denies: Hx Blood Disorders, Hx Bone Marrow Disease, Hx Systemic Lupus Erythematosus, Hx Sickle Cell Disease, Hx Thyroid Disease, Hx Unexplained Bleeding, Other Endocrine/Hematological Disorders Cardiovascular History: Reports: Hx Coronary Artery Disease, Hx Hypercholesterolemia, Hx Hypotension, Hx Hypertension, Other Cardiovascular Problems/Disorders - hyperlipidemia, HX OF TRIPLE BYPASS Denies: Hx Aneurysm, Hx Angina, Hx Angioplasty, Hx Auto Implanted Cardiovert Defib, Hx Cardiac Arrest, Hx Cardiomegaly, Hx Congenital Heart Disease, Hx Congestive Heart Failure, Hx Deep Vein Thrombosis, Hx Myocardial Infarction, Hx Pacemaker/ICD, Hx Peripheral Vascular Disease, Hx Rheumatic Fever, Hx Syncope, Hx Valvular Heart Disease Respiratory History: Reports: Other Respiratory Problems/Disorders - "Always stuffed up." Denies: Hx Asthma, Hx Chronic Bronchitis, Hx Chronic Obstructive Pulmonary Disease (COPD), Hx Cystic Fibrosis, Hx Lung Cancer, Hx Pleural Effusion, Hx Pneumonia, Hx Pulmonary Edema, Hx Pulmonary Embolism, Hx Seasonal Allergies, Hx Sleep Apnea GI History: Reports: Hx Gall Bladder Disease - Has gallstones, Hx Gastroesophageal Reflux Disease Denies: Hx Cirrhosis, Hx Crohn's Disease, Hx Diverticulosis, Hx Gastrointestinal Bleed, Hx Hiatal Hernia, Hx Irritable Bowel, Hx Jaundice, Hx Obstructive Bowel, Hx Ileostomy, Hx Pyloric Stenosis, Hx Ulcer, Other GI Disorders History: Reports: Other Problems/Disorders - Hx of UTIs and in 2002 or 2003 a Kidney infection Denies: Hx Acute Renal Failure, Hx Benign Prostatic Hyperplasia, Hx Chronic Renal Failure, Hx Dialysis, Hx Kidney Infection, Hx Kidney Stones, Hx Renal Disease Musculoskeletal History: Reports: Hx Arthritis - hands Denies: Hx Back Problems, Hx Bursitis, Hx Congenital Bone Abnormalities, Hx Fibromyalgia, Hx Gout, Hx Orthopedic Injury, Hx Osteoporosis, Hx Scoliosis, Hx Tendonitis, Other Musculoskeletal History Sensory History: Reports: Hx Cataracts, Hx Contacts or Glasses, Hx Legally Blind - blind left eye, Hx Vision Problem - Right eye farsighted, only needs reading glasses. Denies: Hx Eye Injury, Hx Eye Prosthesis, Hx Glaucoma, Hx Macular Degeneration, Hx Deafness, Hx Hearing Aid, Hx Hearing Problem, Other Sensory Impairments Opthamlomology History: Reports: Hx Cataracts, Hx Contacts or Glasses, Hx Legally Blind - blind left eye, Hx Vision Problem - Right eye farsighted, only needs reading glasses. Denies: Hx Eye Injury, Hx Eye Prosthesis, Hx Glaucoma, Hx Macular Degeneration, Other Sensory Impairments Neurological History: Reports: Other Neuro Impairments/Disorders - diabetic neuropathy, right facial numbness Denies: Hx Dementia, Hx Developmental Delay, Hx Headaches, Hx Migraine, Hx Seizures, Hx Spinal Cord Injury, Hx Transient Ischemic Attacks (TIA) Psychiatric History: Reports: Hx Anxiety Denies: Hx Attention Deficit Hyperactivity Disorder, Hx Eating Disorder, Hx Depression, Hx Panic Disorder, Hx Post Traumatic Stress Disorder, Hx Inpatient Treatment, Hx Community Mental Health Tx, Hx Schizophrenia, Hx Bipolar Disorder , Hx Suicide Attempt, Hx of Violent Episodes Against Others, Hx Substance Abuse , Other Psychiatric Issues/Disorders - Surgical History Surgery Procedure, Year, and Place: TRIPLE BYPASS PIG ARTERY PLACEMENT 2005;. EYE SURGERY LEFT DETACHED RETINA (ORBIT XRAYS DONE 2007 - CLEARED FOR MRI BY ){sw};. BILAT CATARACTS;. RT EYE VITRECTOMY;. LT BKA 2008;. RT FOOT HEEL EXCISION; RIGHT BKA 2012; Hx Anesthesia Reactions: Yes - Excessive Lethargy, and N&V. Infectious Disease History: No Infectious Disease History: Reports: Hx of Known/Suspected MRSA - before left leg was amputated Denies: Hx Clostridium Difficile, Hx Hepatitis, Hx Human Immunodeficiency Virus (HIV), Hx Shingles, Hx Tuberculosis, History Other Infectious Disease, Traveled Outside the [place] in Last 30 Days - Family History Known Family History: Positive: Unknown - pt is a poor historian., Cardiac Disease - "Nervous breakdown" to sister, Other - Social History Alcohol Use: None Hx Substance Use: No Substance Use Type: Reports: None Hx Tobacco Use: Yes Smoking Status (MU): Former Smoker Type: Cigarettes Amount Used/How Often: 1 pck Have You Smoked in the Last Year: No Review of Systems Positive: Other - blood in stool Positive: pain - rectal All Other Systems Reviewed And Are Negative: Yes Physical Exam - Summary Physical Exam Summary: VITAL SIGNS: Reviewed. GENERAL: Patient is a well-developed and obese female who is lying comfortable in the stretcher. Patient is not in any acute respiratory distress. HEAD AND FACE: No signs of trauma. No ecchymosis, hematomas or skull depressions. No sinus tenderness. EYES: PERRLA, EOMI x 2, No injected conjunctiva, no nystagmus. EARS: Hearing grossly intact. Ear canals and tympanic membranes are within normal limits. MOUTH: Oropharynx within normal limits. NECK: Supple, trachea is midline, no adenopathy, no JVD, no carotid bruit, no c- spine tenderness, neck with full ROM. CHEST: Symmetric, no tenderness at palpation LUNGS: Clear to auscultation bilaterally. No wheezing or crackles. CVS: Regular rate and rhythm, S1 and S2 present, no murmurs or gallops appreciated. ABDOMEN: Soft, non-tender. No signs of distention. No rebound no guarding, and no masses palpated. Bowel sounds are normal. RECTAL EXAM: Done in the presence of a female leather roller. Normal sphincter tone, moderate to severe external hemorrhoids. No other abnormal findings noted, no melena or gross blood. EXTREMITIES: FROM in all major joints, no edema, no cyanosis or clubbing. Bilateral LE amputations below the knee. NEURO: Alert and oriented x 3. No acute neurological deficits. Speech is normal and follows commands. SKIN: Dry and warm Triage Information Reviewed: Yes Vital Signs On Initial Exam: Initial Vitals Temp Pulse Resp BP Pulse Ox 98.2 F 84 16 138/63 98 11/04/17 12:35 11/04/17 12:35 11/04/17 12:35 11/04/17 12:35 11/04/17 12:35 Vital Signs Reviewed: Yes Diagnostics - Vital Signs Vital Signs Temp Pulse Resp BP Pulse Ox 11/04/17 13:37 85 21 157/78 96 11/04/17 12:35 98.2 F 84 16 138/63 98 - Laboratory Result Diagrams: 11/04/17 14:10 11/04/17 14:10 Lab Statement: Any lab studies that have been ordered have been reviewed, and results considered in the medical decision making process. - Radiology abdomen X-ray Xray Interpretation: Positive (See Comments) Radiology Interpretation Completed By: Radiologist - Nonobstructive bowel gas pattern. Large ventral stool throughout colon. This report was reviewed by ED physician. Re-Evaluation - Re-Evaluation Second Eval Re-Evaluation Time: 16:22 Comment: Discussed results of labs and tests. Admission of patient to [facility] [place] was discussed as well. Patient is agreeable with the plan. First Eval Re-Evaluation Time: 15:25 Comment: Discussed the benefits and risk of transfusion with the patient and the caregiver and they agree for the transfusion. Patient signed the consent. GIGU Course/Dx - Course Assessment/Plan: Patient is a 52 y/o F w/ c/o GI bleed. Patient reports she has had blood in stool the past four days. Today, she had a bowel movement in the morning and reports no blood. Patient reports rectal pain as well, which is rated 7/10 in the room. On triage, nothing is noted to aggravate/alleviate Sx. Patient reports Hx of these Sx. Home allergies and medications are reviewed. Rectal exam shows and normal sphincter tone, she has large hemorrhoids, no melena or gross blood. Blood test results shows a hemoglobin of 6.8 hematocrit 21, BUNs 8 creatinine 0.86, CRP of 13.4, BNP is 419. Since the patient has low H&H, I would be given the patient transfusion for packed red blood cells. I discussed the benefits and risk of transfusion with the patient and the caregiver and they agree for the transfusion. Patient signed the consent. I also discussed the physical exam and findings with Dr. Lemus from GI and he will consult for this patient. I discussed the physical examination findings with Dr. Ivan from the hospitalist services and she will be admitted the patient to the medicine floor for further workup and management. Patient is hemodynamically stable alert and oriented 3. - Diagnoses Differential Diagnoses - Female: Hemorrhoids - GI bleed Provider Diagnoses: GI bleed - Physician Notifications Discussed Care Of Patient With: Chris Yin Time Discussed With Above Provider: 14:52 Instructed by Provider To: Other - Discussed the case with Dr. Yin at 1452. He agrees to consult on the case. 16:08 -- Dr. Ivan was consulted on the case. She agrees to accept patient for admission to [facility] [place]. Discharge - Sign-Out/Discharge Documenting (check all that apply): Patient Departure - admit - Discharge Plan Condition: Good Disposition: ADMITTED TO [facility] Referrals: Noni Faustin MD [Primary Care Provider] -
[2017-11-04 14:28] LABS: ABS Basophils 0.1 10^3/ul (0-0.2); ABS Eosinophils 0.4 10^3/ul (0-0.6); ABS Lymphocytes 1.3 10^3/ul (1.0-4.8); ABS Monocytes 0.7 10^3/ul (0-0.8); ABS Neutrophils 6.6 10^3/ul (1.5-7.7); ABS Nucleated RBC 0 10^3/ul; Eosinophil % 4.7 % (0-6); Hematocrit 21 % (35-47); Hemoglobin 6.8 g/dl (12.0-16.0); Lymphocyte % 14.6 % (25-47); Mean Corpuscular HGB Conc 32 g/dl (31-36); Mean Corpuscular Hemoglobin 28 pg (27-31); Mean Corpuscular Volume 87 fL (80-97); Mean Platelet Volume 8.1 um3 (7.4-10.4); Nucleated Red Blood Cells % 0.1; Platelet Count 346 10^3/ul (150-450); Red Blood Count 2.47 10^6/ul (4.00-5.40); Red Cell Distribution Width 17 % (10.5-15); White Blood Count 9.1 10^3/ul (3.5-10.8)
--- NOTE | 2017-11-04 15:14 | RAD ---
HISTORY: constipation COMPARISONS: None VIEWS: Frontal and left lateral decubitus views of the abdomen. FINDINGS: BOWEL: There is a nonobstructive bowel gas pattern. There is a large amount of stool within the colon. CALCULI: There are no abnormal calculi. BONES AND SOFT TISSUES: There are no osseous abnormalities. OTHER FINDINGS: The lung bases are clear. There is no subphrenic gas. IMPRESSION: NONOBSTRUCTIVE BOWEL GAS PATTERN. LARGE VENTRAL STOOL THROUGHOUT THE COLON.
[2017-11-04] MEDS ORDERED: ALPRAZolam TAB* 0.5 MG PO PRN (15:39)
[2017-11-04] MEDS ORDERED: Metoclopramide TAB* 10 MG PO PRN (15:39)
[2017-11-04] MEDS ORDERED: Dextrose 50% Syringe 50 ML* 25 GM/50 ML SYRINGE IV PUSH PRN (16:05)
[2017-11-04 16:24] LABS: Urine Appearance Clear; Urine Blood Negative (Negative); Urine Color Colorless; Urine Ketones Negative (Negative); Urine Protein Negative (Negative); Urine Specific Gravity 1.006 (1.010-1.030); Urine Urobilinogen Negative (Negative)
[2017-11-04] MEDS: Insulin LISPRO* 1 UNITS UNIT SUBCUT SCH ×2 (17:57→20:44)
[2017-11-04] MEDS ORDERED: Furosemide IV* 10 MG/ML 2 ML VIAL (20 MG) IV ONE (18:00)
[2017-11-04 18:16] LABS: Hematocrit 22 % (35-47); Hemoglobin 6.8 g/dl (12.0-16.0)
--- NOTE | 2017-11-04 19:52 | CONS ---
CONSULTATION REPORT: DATE OF CONSULT: 11/04/17 REQUESTING PHYSICIAN: Dr. Copeland in the emergency room INDICATION: Bright red blood per rectum. NARRATIVE: Mrs. Reyes is a pleasant 52-year-old female who I know from a colonoscopy on 09/23/17. She is a patient of Dr. Paiz. Her colonoscopy unfortunately was incomplete to the hepatic flexure, terminated secondary to super morbid obesity, unable to reduce loops and palpate the scope at all. She did have 2 small polyps that were removed. She also had hemorrhoids. The patient states for the past 4 days, she has been constipated pushing and straining. She has had bright red blood per rectum and came to the emergency room. She denies any dizziness. She does admit to worsening shortness of breath. No abdominal pain, no nausea, no vomiting. Denies any new nonsteroidals. PAST MEDICAL HISTORY: Significant for diabetes, morbid obesity, coronary artery disease, renal disease. PAST SURGICAL HISTORY: Includes bilateral BKAs. MEDICATIONS: Upon admission include: 1. Lispro insulin. 2. Polyethylene glycol. 3. Tamsulosin. 4. Metoclopramide. 5. Furosemide. 6. Ferrous sulfate. 7. Regular insulin. 8. Ramipril. 9. Omeprazole. 10. Glargine. 11. Atorvastatin. 12. Atenolol. 13. Sertraline. 14. Docusate. 15. Alprazolam. 16. Pseudoephedrine as needed. REVIEW OF SYSTEMS: Twelve systems were reviewed, other than that mentioned in the HPI were unremarkable. PHYSICAL EXAM: Temperature is 98.2, blood pressure 157/78, pulse is 85. General: Chronically ill-appearing female. She appears in no acute distress, alert, oriented, pleasant, fluent. HEENT: Mucous membranes are moist without lesions, ulcers, or exudate. Neck is supple. Trachea is midline. Head is normocephalic, atraumatic. Heart: Regular rate and rhythm. No murmurs, rubs, or gallops. Lungs: Clear to auscultation bilaterally. No wheezes, rales, or rhonchi. Abdomen: Obese, positive bowel sounds. Soft, nontender, nondistended. No hepatosplenomegaly, masses, rebound, or guarding. Skin is warm and dry. Extremities: Bilateral bupfm-nap-[id number] amputation. LABORATORY DATA: Labs of note, hemoglobin is 6.8, when she was discharged from the hospital a month and a half ago was 9.2; platelet count of 346. INR not checked. BUN is normal at 8, creatinine 0.86. ASSESSMENT AND PLAN: A 52-year-old female with multiple medical issues with bright red blood over the past 4 days. She was constipated. She has known hemorrhoids. The patient emergency room doctors did perform a rectal exam and the patient was found to have a very larger external hemorrhoids with stigmata of recent hemorrhage. I think that that is the most likely culprit for her rectal bleeding. She just had a colonoscopy a month ago that revealed 2 benign polyps and internal and external hemorrhoids. I doubt that this is an upper gastrointestinal bleed as her BUN is normal. I think she needs a surgical consultation. At this point, she is being admitted for blood transfusion. Gastroenterology will follow along. [id number]/[facility] #: [id number] JUAN ANTONIO
--- NOTE | 2017-11-04 20:26 | HP ---
HISTORY AND PHYSICAL: DATE OF ADMISSION: 11/04/17 PROVIDER: Nicolás Rose NP ATTENDING PHYSICIAN: Karin Ivan DO * (report dictated by Nicolás Rose NP). PRIMARY CARE PROVIDER: Dr. Noni Faustin. CHIEF COMPLAINT: Bright red blood per rectum. HISTORY OF PRESENT ILLNESS: Ms. Reyes is a 52-year-old female with a complex past medical history significant for type 1 diabetes; osteomyelitis, status post bilateral [id number] amputations; gastroparesis; neuropathy; legally blind in her left eye; coronary artery disease, status post CABG; hypertension; GERD; hyperlipidemia who presented to the emergency department today with report of 4 days of bright red blood per rectum and constipation. The patient has been admitted several times for recurrent GI bleeds with a low hemoglobin and hematocrit in which in the past she has refused a colonoscopy; however, she did undergo a colonoscopy approximately a month ago with Dr. Yin, which was noted to be normal. She is noted to have large external hemorrhoids. Per the patient, over the past 4 days, she has had intermittent bright red blood when she has had a bowel movement and/or has had flatulence in which she reports as a "splatter" on her underwear. In the emergency department, she is found to have a hemoglobin of 6.8 and 21 and a normal BUN. She had some noted bright red blood per rectum this morning, however has not had any since. Her stool for occult blood in the emergency department was negative. She is currently hemodynamically stable and does report some increased shortness of breath above her baseline, but states that this is quite mild. Otherwise, the patient denies abdominal pain, nausea, vomiting. Denies any recent fevers, chills. PAST MEDICAL HISTORY: 1. Type 1 diabetes. 2. Morbid obesity. 3. Osteomyelitis, status post bilateral zebdc-spl-tyni amputations. 4. Hypertension. 5. Coronary artery disease, status post CABG. 6. Legally blind in left eye. 7. GERD. 8. Hyperlipidemia. 9. Gastroparesis. 10. Neuropathy. 11. Arthritis. 12. Anxiety. PAST SURGICAL HISTORY: 1. Status post right kwmku-orl-brqf amputation in 2012 and left kqlez-crc-vqdb amputation in 2008. 2. Status post right heel excision. 3. Coronary artery bypass graft, 3 vessels in 2005. 4. Repair of left detached retina. 5. Status post right eye vitrectomy. MEDICATIONS: Home medications: 1. Lantus 35 units subcu b.i.d. 2. Flomax 0.4 mg p.o. at bedtime. 3. Ferrous sulfate 325 mg p.o. daily. 4. Lipitor 20 mg p.o. daily. 5. Sudafed 240 mg p.o. daily p.r.n. 6. MiraLAX 17 g p.o. daily. 7. EMLA 1 application topical t.i.d. p.r.n. 8. Prilosec 20 mg p.o. daily. 9. Atenolol 50 mg p.o. daily. 10. Ramipril 5 mg p.o. daily. 11. Reglan 10 mg p.o. q.6 hours p.r.n. 12. Lasix 20 mg p.o. daily. 13. Insulin aspart/insulin NovoLog mix 70/30, 5 units subcu per instructions. 14. Docusate sodium 200 mg p.o. daily. 15. Zoloft 25 mg p.o. daily. 16. Zofran 4 to 8 mg q.4 to 6 hours p.r.n. 17. Xanax 0.5 mg p.o. b.i.d. p.r.n. ALLERGIES: 1. IODINATED CONTRAST ORAL and IV DYE. 2. FLAGYL. 3. VANCOMYCIN. FAMILY HISTORY: The patient's paternal grandparents had history of coronary artery disease and has a brother with heart disease. She has a sister with a history of type 1 diabetes. Mother has a history of skin cancer. SOCIAL HISTORY: The patient is a former smoker, quitting approximately a year and a half ago. She smoked a pack a day for approximately 30 years. Denies any alcohol or recreational drug use. Her aide and close friend, Monie Edouard, is listed as her health care proxy, her number is [phone]. She also lists her brother as her health care proxy. REVIEW OF SYSTEMS: A 14-point review of systems was performed and all the pertinent positives and negatives are mentioned in the history of present illness. Otherwise, they are negative. PHYSICAL EXAMINATION GENERAL APPEARANCE: A 52-year-old obese female, sitting up on the emergency department stretcher, alert and oriented x3, in no acute distress. VITAL SIGNS: Temperature 98.2, heart rate 85, respirations 18, O2 sat 98% on room air, blood pressure 157/78. HEENT: Head is normocephalic, atraumatic. Pupils are equal and reactive to light. Oropharynx is clear. Moist mucous membranes. NECK: Supple. LUNGS: Clear to auscultation bilaterally. Good aeration throughout. CARDIAC: S1, S2. Regular rate and rhythm. No murmur, rub, or gallop appreciated. ABDOMEN: Obese, distended, soft, nontender. Normal bowel sounds throughout. EXTREMITIES: The patient is noted to have bilateral wixqp-uio-jawv leg prosthetics. She has no noted edema. MUSCULOSKELETAL: Moves all extremities equally. Strength is 5/5 throughout. NEURO: Alert and oriented x3. Cranial nerves II through XII are grossly intact. PSYCH: Appropriate. LABORATORY DATA AND DIAGNOSTIC STUDIES: Sodium 140, potassium 3.9, chloride 106, carbon dioxide 27, anion gap 7, BUN 8, creatinine 0.86, glucose 211. Calcium 9.0. Total bilirubin 0.30, AST 11, ALT 8, alkaline phosphatase 138. C- reactive protein 13.45. BNP 419. Total protein 6.7. Albumin 3.5, lipase 14. APTT 33.8. WBC is 9.1, RBC 2.47, HBG 6.8, HCT 21, MCV 87, MCH 28, MCHC 32, RDW 17, platelet count 346. Stool for occult blood negative. Abdominal x-ray, impression, "nonobstructive bowel gas pattern, large ventral stool throughout the colon." ASSESSMENT AND PLAN: Ms. Reyes is a 52-year-old female with a past medical history significant for recurrent gastrointestinal bleeds with anemia, recently undergone a colonoscopy, which was negative, but found to have extensive large hemorrhoids; type 1 diabetes; coronary artery disease, status post CABG; hypertension; hyperlipidemia; gastroesophageal reflux disease; arthritis; anxiety; osteomyelitis, status post zntsd-nwu-ocah amputations; gastroparesis; neuropathy who presents today with report of 4 days of bright red blood per rectum and constipation, found to have a hemoglobin and hematocrit of 6.8 and 21. 1. Gastrointestinal bleed. It is suspected that the patient's most likely cause of rectal bleeding is from her large hemorrhoids. She had a colonoscopy approximately a month ago, in which GI physician, Dr. Yin, said was unremarkable. She does have known history of large hemorrhoids, which is most likely the case of bleeding as described by her own history of intermittent bright red blood per rectum with stools and as well with spurts of blood during flatulence. She has no upper abdominal pain. Her BUN is normal. I discussed with Dr. Yin and he would like Surgery consult tomorrow to evaluate her hemorrhoids. She possibly will need some surgical intervention. She is hemodynamically stable. We will place 2 large bore IVs. The emergency room physician, Dr. Copeland, ordered 2 units of packed red blood cells. We will monitor for signs of congestive heart failure. We will plan to give a dose of Lasix this evening if hemodynamically stable. We will trend H and Hs q.6 hours. Clear liquid diet. 2. Type 1 diabetes. Discussed with the patient her insulin regimen, in which she takes Lantus 35 units b.i.d. Plan to cut this in half giving 18 units. She would like to monitor her blood sugars q.4 hours with a lispro sliding scale , which I have customized to what she would do at home. However, in discussion with the patient, we went a little bit lower of what she would cover herself at home, in which she only covers herself if she has a blood sugar over 250. Please see customized sliding scale. 3. Hypertension. She is slightly hypertensive in the emergency department with systolic blood pressures in the 150s. At this time, we will plan to continue her ramipril, Lasix, and atenolol and monitor blood pressures closely. 4. Anxiety. Continue Xanax p.r.n. 5. Hyperlipidemia. Continue Lipitor. 6. History of constipation. We will continue her bowel regimens as the abdominal x-ray does show that she has a lot of stool currently. If she begins to have softer stools, we will plan to hold this. 7. Gastroesophageal reflux disease. Continue omeprazole 20 mg p.o. daily. 8. DVT prophylaxis. Hold in the setting of GI bleed and anemia. 9. Code status. Full code. 10. Hospital status. Observation. TIME SPENT: Approximately 60 minutes were spent on this admission. NICOLÁS ROSE, IT SUPPORT MANAGER [id number]/[facility] #: [id number] JUAN ANTONIO
[2017-11-04] MEDS: Docusate CAP* 100 MG PO SCH (20:42)
[2017-11-04] MEDS: Insulin GLARGINE(*) 1 UNITS UNIT SUBCUT SCH (20:47)
[2017-11-04] MEDS ORDERED: Insulin GLARGINE(*) 1 UNITS UNIT SUBCUT SCH (21:00)
[2017-11-04] MEDS ORDERED: Tamsulosin CAP* 0.4 MG PO SCH (21:00)
[2017-11-05 00:37] LABS: Hematocrit 27 % (35-47); Hemoglobin 8.4 g/dl (12.0-16.0)
[2017-11-05] MEDS: Insulin LISPRO* 1 UNITS UNIT SUBCUT SCH ×3 (03:59→08:23)
[2017-11-05 05:59] LABS: Hematocrit 27 % (35-47); Hemoglobin 8.9 g/dl (12.0-16.0)
[2017-11-05 06:10] LABS: EGFR Non-African American 72.9 (>60)
[2017-11-05] MEDS ORDERED: Magnesium CITRATE* 300 ML BTL PO ONE (08:13)
[2017-11-05] MEDS: Insulin GLARGINE(*) 1 UNITS UNIT SUBCUT SCH (08:25)
[2017-11-05] MEDS: Docusate CAP* 100 MG PO SCH (08:25)
[2017-11-05] MEDS ORDERED: Ferrous Sulfate TAB* 325 MG PO SCH (09:00)
[2017-11-05] MEDS ORDERED: Omeprazole CAP* 20 MG PO SCH (09:00)
[2017-11-05] MEDS ORDERED: Polyethylene Glycol 3350* 17 GM PACKET PO SCH (09:00)
[2017-11-05] MEDS ORDERED: Sertraline* 25 MG TAB PO SCH (09:00)
[2017-11-05] MEDS ORDERED: Ramipril CAP* 5 MG PO SCH (09:00)
[2017-11-05] MEDS ORDERED: Atenolol TAB* 50 MG PO SCH (09:00)
[2017-11-05] MEDS ORDERED: Atorvastatin* 20 MG TAB PO SCH (09:00)
[2017-11-05] MEDS ORDERED: Furosemide TAB* 20 MG PO SCH (09:00)
[2017-11-05] MEDS ORDERED: Furosemide IV* 10 MG/ML 2 ML VIAL (20 MG) IV ONE (09:20)
[2017-11-05] MEDS ORDERED: Dextrose 50% Syringe 50 ML* 25 GM/50 ML SYRINGE IV PUSH PRN (09:28)
[2017-11-05] MEDS ORDERED: Insulin LISPRO* 1 UNITS UNIT SUBCUT SCH (11:30)
[2017-11-05 11:58] VITALS: BP 146/88
--- NOTE | 2017-11-06 06:12 | DS ---
CC: Dr. Noni Faustin * DISCHARGE SUMMARY: DATE OF ADMISSION: 11/04/17 DATE OF DISCHARGE: 11/05/17 PRINCIPAL DISCHARGE DIAGNOSES: 1. Acute blood loss anemia. 2. Lower gastrointestinal bleed from external hemorrhoids. SECONDARY DISCHARGE DIAGNOSES: 1. Type 1 diabetes. 2. Hypertension. 3. Coronary artery disease status post CABG. 4. Gastroparesis. 5. Diabetic neuropathy. 6. Anxiety. 7. Status post bilateral kciev-nbn-[id number] amputations. PHYSICAL EXAMINATION: At the time of discharge, temperature 98.2, heart rate 78 , respiratory rate 16, pulse ox 92% on room air, blood pressure 146/88. General : Alert obese female in no distress. HEENT: Pupils equal, round, and reactive to light. Oral mucosa is moist. No pharyngeal exudates or erythema. Neck: No JVP. No cervical adenopathy. Chest: Regular rate and rhythm. No murmurs. PMI nondisplaced. Lungs: Clear bilaterally. Abdomen: Soft, nontender, nondistended. No guarding or rebound. Extremities: Bilateral BKAs, 1+ upper extremity edema. Rectal: Moderate external hemorrhoids are noted, nonbleeding. PERTINENT LABS: Fecal occult blood test was negative. Admission hemoglobin was 6.8, discharge hemoglobin is 8.9 status post 2 units of packed red blood cells. HOSPITAL COURSE BY PROBLEM: 1. Acute blood loss anemia. This is thought to be most likely secondary to hemorrhoids given the bright red blood per rectum that was described and her chronic constipation. In addition, she had a colonoscopy done 1 month ago which was normal. She was evaluated by Dr. Yin during this admission, who suggested a surgical consult for hemorrhoidectomy. Dr. Chang evaluated the patient on this admission and he recommended an outpatient followup for banding of her hemorrhoids. She had no further bouts of bright red blood per rectum. She received 2 units of packed red blood cells on this admission along with Lasix and tolerated them well. She agrees to follow up with Dr. Chang as an outpatient. She was educated on a high fiber diet. 2. Type 1 diabetes. She was continued on her home doses of insulin. 3. Gastroparesis. She was continued on her home Reglan. 4. Hypertension. She was continued on her home Ramipril and atenolol. 5. Depression. She was continued on sertraline. TIME SPENT: Thirty minutes were spent on this discharge. Please do not hesitate to contact me with any questions or concerns about this admission or discharge. [id number]/[facility] #: [id number] JUAN ANTONIO
== END 2017-11-05 15:30 | disposition home or self-care (01) ==
LOC: ED 12:31 → MEDTELE 15:33
PROVIDERS: ADMIT Hospitalist; ATTEND Internal Medicine
DX: K92.2 Gastrointestinal hemorrhage, unspecified (principal); D62 Acute posthemorrhagic anemia; K64.4 Residual hemorrhoidal skin tags; I10 Essential (primary) hypertension; I25.10 Atherosclerotic heart disease of native coronary artery without angina pectoris; Z95.1 Presence of aortocoronary bypass graft; K31.84 Gastroparesis; F41.9 Anxiety disorder, unspecified; Z89.512 Acquired absence of left leg below knee; Z89.511 Acquired absence of right leg below knee; K21.9 Gastro-esophageal reflux disease without esophagitis; E78.5 Hyperlipidemia, unspecified; H54.8 Legal blindness, as defined in USA; E66.01 Morbid (severe) obesity due to excess calories; Z88.1 Allergy status to other antibiotic agents; Z91.041 Radiographic dye allergy status; Z87.891 Personal history of nicotine dependence; M86.9 Osteomyelitis, unspecified; K59.00 Constipation, unspecified; Z79.899 Other long term (current) drug therapy; E10.21 Type 1 diabetes mellitus with diabetic nephropathy
CPT/HCPCS: 36415; 74019; 80048; 80053; 81003; 82272; 83690; 83880; 85014; 85018; 85025; 85730; 86140; 86850; 86900; 86901; 86922; 96374; 99283; A9270-GY; G0378; J1940; P9040

== ENCOUNTER 2017-12-07 07:41 | Inpatient (IN) | payer MEDICARE, MEDICAID ==
--- NOTE | 2017-12-07 08:01 | ED ---
Shortness of Breath - HPI Summary HPI Summary: The pt is a 52 y/o female presenting to [facility] c/o SOB for 2 days ago worsened this morning. She notes a PMHx of HTN, HLD, hemorrhoids (for 9 months), chronic anemia, blood transfusions and chronic urinary retention. She denies any O2 use at home. She notes weakness , hemorrhoids , and melena but denies CP. The pt declines a rectal exam for her hemorrhoids at bedside. - History of Current Complaint Time Seen by Provider: 12/07/17 07:50 Hx Obtained From: Patient Onset/Duration: Other - Acute on chronic Associated Signs & Symptoms: Negative - CP - Allergy/Home Medications Allergies/Adverse Reactions: Allergies Allergy/AdvReac Type Severity Reaction Status Date / Time Iodinated Contrast- Oral and Allergy Hives Verified 08/12/17 18:34 IV Dye metronidazole [From Flagyl] AdvReac GI Upset Verified 09/21/17 06:19 vancomycin AdvReac javid Verified 09/21/17 06:19 syndrome PMH/Surg Hx/FS Hx/Imm Hx Previously Healthy: No Endocrine/Hematology History: Reports: Hx Anticoagulant Therapy - During hospitalizations only, Hx Blood Transfusions - 06/04/12, Hx Diabetes - 1, Hx Anemia Denies: Hx Blood Disorders, Hx Bone Marrow Disease, Hx Systemic Lupus Erythematosus, Hx Sickle Cell Disease, Hx Thyroid Disease, Hx Unexplained Bleeding, Other Endocrine/Hematological Disorders Cardiovascular History: Reports: Hx Coronary Artery Disease, Hx Hypercholesterolemia, Hx Hypotension, Hx Hypertension, Other Cardiovascular Problems/Disorders - hyperlipidemia, HX OF TRIPLE BYPASS Denies: Hx Aneurysm, Hx Angina, Hx Angioplasty, Hx Auto Implanted Cardiovert Defib, Hx Cardiac Arrest, Hx Cardiomegaly, Hx Congenital Heart Disease, Hx Congestive Heart Failure, Hx Deep Vein Thrombosis, Hx Myocardial Infarction, Hx Pacemaker/ICD, Hx Peripheral Vascular Disease, Hx Rheumatic Fever, Hx Syncope, Hx Valvular Heart Disease Respiratory History: Reports: Other Respiratory Problems/Disorders - "Always stuffed up." Denies: Hx Asthma, Hx Chronic Bronchitis, Hx Chronic Obstructive Pulmonary Disease (COPD), Hx Cystic Fibrosis, Hx Lung Cancer, Hx Pleural Effusion, Hx Pneumonia, Hx Pulmonary Edema, Hx Pulmonary Embolism, Hx Seasonal Allergies, Hx Sleep Apnea GI History: Reports: Hx Gall Bladder Disease - Has gallstones, Hx Gastroesophageal Reflux Disease Denies: Hx Cirrhosis, Hx Crohn's Disease, Hx Diverticulosis, Hx Gastrointestinal Bleed, Hx Hiatal Hernia, Hx Irritable Bowel, Hx Jaundice, Hx Obstructive Bowel, Hx Ileostomy, Hx Pyloric Stenosis, Hx Ulcer, Other GI Disorders History: Reports: Other Problems/Disorders - Hx of UTIs and in 2002 or 2003 a Kidney infection Denies: Hx Acute Renal Failure, Hx Benign Prostatic Hyperplasia, Hx Chronic Renal Failure, Hx Dialysis, Hx Kidney Infection, Hx Kidney Stones, Hx Renal Disease Musculoskeletal History: Reports: Hx Arthritis - hands Denies: Hx Back Problems, Hx Bursitis, Hx Congenital Bone Abnormalities, Hx Fibromyalgia, Hx Gout, Hx Orthopedic Injury, Hx Osteoporosis, Hx Scoliosis, Hx Tendonitis, Other Musculoskeletal History Sensory History: Reports: Hx Cataracts, Hx Contacts or Glasses, Hx Legally Blind - blind left eye, Hx Vision Problem - Right eye farsighted, only needs reading glasses. Denies: Hx Eye Injury, Hx Eye Prosthesis, Hx Glaucoma, Hx Macular Degeneration, Hx Deafness, Hx Hearing Aid, Hx Hearing Problem, Other Sensory Impairments Opthamlomology History: Reports: Hx Cataracts, Hx Contacts or Glasses, Hx Legally Blind - blind left eye, Hx Vision Problem - Right eye farsighted, only needs reading glasses. Denies: Hx Eye Injury, Hx Eye Prosthesis, Hx Glaucoma, Hx Macular Degeneration, Other Sensory Impairments Neurological History: Reports: Other Neuro Impairments/Disorders - diabetic neuropathy, right facial numbness Denies: Hx Dementia, Hx Developmental Delay, Hx Headaches, Hx Migraine, Hx Seizures, Hx Spinal Cord Injury, Hx Transient Ischemic Attacks (TIA) Psychiatric History: Reports: Hx Anxiety Denies: Hx Attention Deficit Hyperactivity Disorder, Hx Eating Disorder, Hx Depression, Hx Panic Disorder, Hx Post Traumatic Stress Disorder, Hx Inpatient Treatment, Hx Community Mental Health Tx, Hx Schizophrenia, Hx Bipolar Disorder , Hx Suicide Attempt, Hx of Violent Episodes Against Others, Hx Substance Abuse , Other Psychiatric Issues/Disorders - Surgical History Surgery Procedure, Year, and Place: TRIPLE BYPASS PIG ARTERY PLACEMENT 2005;. EYE SURGERY LEFT DETACHED RETINA (ORBIT XRAYS DONE 2007 - CLEARED FOR MRI BY ){sw};. BILAT CATARACTS;. RT EYE VITRECTOMY;. LT BKA 2008;. RT FOOT HEEL EXCISION; RIGHT BKA 2012; Hx Anesthesia Reactions: Yes - Excessive Lethargy, and N&V. Infectious Disease History: Reports: Hx of Known/Suspected MRSA - before left leg was amputated Denies: Hx Clostridium Difficile, Hx Hepatitis, Hx Human Immunodeficiency Virus (HIV), Hx Shingles, Hx Tuberculosis, History Other Infectious Disease - Family History Known Family History: Positive: Cardiac Disease - "Nervous breakdown" to sister , Other - Social History Occupation: Disabled Lives: Alone Alcohol Use: None Hx Substance Use: No Substance Use Type: Reports: None Hx Tobacco Use: Yes Smoking Status (MU): Former Smoker Type: Cigarettes Amount Used/How Often: 1 pck Have You Smoked in the Last Year: No Review of Systems Constitutional: Other - Positive : Weakness Negative: Chest Pain Positive: Shortness Of Breath Positive: other - Positive: hemorrhoids and melena All Other Systems Reviewed And Are Negative: Yes Physical Exam - Summary Physical Exam Summary: Appearance: Well appearing, Skin: warm, dry, reflects adequate perfusion Head/face: normal Eyes: EOMI, UZIEL; pale conjunctiva ENT: normal Neck: supple, non-tender Respiratory: CTA, breath sounds present Cardiovascular: RRR, pulses symmetrical Abdomen: non-tender, soft; distended abd Bowel: present; Pt declined a rectal exam for the hemorrhoids Musculoskeletal: Bilateral above knee amputation on LE with prosthetics; Neuro A&Ox3 Triage Information Reviewed: Yes Vital Signs On Initial Exam: Initial Vital Signs Temp 98.7 F 12/07/17 08:08 Pulse 88 12/07/17 08:08 Resp 19 12/07/17 08:08 BP 132/68 12/07/17 08:08 Pulse Ox 97 12/07/17 08:08 Vital Signs Reviewed: Yes Diagnostics - Laboratory Result Diagrams: 12/07/17 08:32 12/07/17 08:32 Lab Statement: Any lab studies that have been ordered have been reviewed, and results considered in the medical decision making process. - Radiology CXR Radiology Interpretation Completed By: Radiologist - IMPRESSION: #. Mild pulmonary vascular congestion and interstitial edema less prominent than on the prior exam.The ED physician reviewed this radiology report. - EKG 08:46 Cardiac Rate: NL - 87 bpm EKG Interpretation: Non specific ST T changes Course/Dx - Course Course Of Treatment: A 52 year-old F presents to the ED with a CC of SOB since 2 days ago worsened this morning. She notes a PMHx of HTN, HLD, hemorrhoids ( for 9 months), chronic anemia, and chronic urinary retention. She denies any O2 use at home. She notes weakness, hemorrhoids and melena but denies CP. A physical exam revealed pale conjunctiva, a distended abd and bilateral above knee amputation on LE with prosthesis. The pt declined a rectal exam for the hemorrhoids. A CXR reveals mild pulmonary vascular congestion and interstitial edema less prominent than on the prior exam. An EKG reveals nonspecific ST T changes. Lab tests reveal a HGB level of 5.9 mg/dL. I discussed the care of the pt with Dr. Karin Ivan MD (hospitalist) who agreed to admit the pt and recommended giving starting the blood transfusion. The patient will be admitted with a final Dx of anemia, rectal bleeding and hemorrhoids. Pt is agreeable with this plan. - Diagnoses Differential Diagnosis/HQI/PQRI: Positive: Other - anemia/dyspnea Provider Diagnoses: Anemia, Rectal bleeding, Hemorrhoids - Physician Notifications Discussed Care of Patient With: Karin Ivan - Hospitalist Time Discussed With Above Provider: 09:16 Instructed by Provider To: Admit As Inpatient - Dr. Villela beginning the blood tranfusion. Discharge - Sign-Out/Discharge Documenting (check all that apply): Patient Departure - Admit - Discharge Plan Condition: Stable Disposition: ADMITTED TO [facility] Referrals: Noni Faustin MD [Primary Care Provider] - - Billing Disposition and Condition Condition: STABLE Disposition: Admitted to [facility] - Attestation Statements Document Initiated by Raudelibe: Yes Documenting Scribe: Queenie Emmanuel Provider For Whom Hemalatha is Documenting (Include Credential): Dr. James Law MD Scribe Attestation: Queenie Gonzalez , scribed for Dr. James Law MD on 12/07/17 at 0934. Scribe Documentation Reviewed: Yes Provider Attestation: The documentation as recorded by the Queenie morejon accurately reflects the service I personally performed and the decisions made by me, Dr. James Law MD
[2017-12-07 08:49] LABS: Hematocrit 18 % (35-47); Hemoglobin 5.9 g/dl (12.0-16.0); Mean Corpuscular HGB Conc 33 g/dl (31-36); Mean Corpuscular Hemoglobin 30 pg (27-31); Mean Corpuscular Volume 90 fL (80-97); Mean Platelet Volume 8.6 um3 (7.4-10.4); Platelet Count 269 10^3/ul (150-450); Red Blood Count 1.98 10^6/ul (4.00-5.40); Red Cell Distribution Width 17 % (10.5-15); White Blood Count 9.8 10^3/ul (3.5-10.8)
[2017-12-07 08:58] LABS: INR 0.87 (0.77-1.02)
[2017-12-07 09:00] LABS: EGFR Non-African American 42.1 (>60)
--- NOTE | 2017-12-07 09:01 | RAD ---
Indication: One-week worsening shortness of breath. Comparison: September 21, 2017 Technique: Upright AP 0820 hours Report: Mild prominence of the interstitial markings. Grossly clear pleural spaces. Negative for pneumothorax. Median sternotomy wires and mediastinal vascular clips. Cardiomegaly. Mildly prominent and ill-defined central pulmonary vasculature. Unremarkable mediastinal contours accounting for mild rightward rotation. IMPRESSION: #. Mild pulmonary vascular congestion and interstitial edema less prominent than on the prior exam.
[2017-12-07 09:17] LABS: ABS Basophils 0.1 10^3/ul (0-0.2); ABS Eosinophils 0.4 10^3/ul (0-0.6); ABS Lymphocytes 1.3 10^3/ul (1.0-4.8); ABS Monocytes 0.6 10^3/ul (0-0.8); ABS Neutrophils 7.4 10^3/ul (1.5-7.7); ABS Nucleated RBC 0 10^3/ul; Eosinophil % 3.7 % (0-6); Lymphocyte % 13.4 % (25-47); Nucleated Red Blood Cells % 0.1
[2017-12-07] MEDS ORDERED: Dextrose 50% Syringe 50 ML* 25 GM/50 ML SYRINGE IV PUSH PRN (11:34)
--- NOTE | 2017-12-07 13:10 | HP ---
CC: Dr. Noni Faustin; Dr. Taya Mosley; Dr. Ema Wheatley * HISTORY AND PHYSICAL: DATE OF ADMISSION: 12/07/17 PRIMARY CARE PROVIDER: Dr. Noni Faustin PRIMARY SPRAY CEMENTER: Dr. Ema Wheatley ATTENDING PHYSICIAN: Dr. Karin Ivan * (dictated by Sebas Faith NP). CHIEF COMPLAINT: Rectal bleeding and needs a blood transfusion. HISTORY OF PRESENT ILLNESS: Ms. Reyes is a 52-year-old female with past medical history significant for type 1 diabetes mellitus, morbid obesity, osteomyelitis status post bilateral llrld-ydm-inal amputation, hypertension, coronary artery disease status post 3-vessel CABG, GERD, hyperlipidemia, arthritis, anxiety, and known bleeding hemorrhoids, who states that she has been in her usual state of health since she was previously discharged after hospitalization on 11/04/17 to 11/05/17. The patient states that when she moves her bowels, there is significant amount of blood in the toilet and when she wipes this is described as bright red. She reports developing shortness of breath earlier this week that has progressed and worsened and is worse with exertion. She denies any fever or chills, chest pain, nausea, vomiting, or diarrhea. She chronically suffers from constipation. She reports some lightheadedness and dizziness. She reports feeling as though she is retaining fluid and took 2 Lasix this morning so she takes 20 mg daily and now she feels as though she is gaining weight or more edematous and then she takes 40 mg daily. She chronically suffers from urinary retention. She has been following with Cardiology for workup to have hemorrhoidectomy. She underwent a cardiac stress test on 10/24/17, showing an intermediate risk with moderate reversible defect of the inferolateral wall suggestive of ischemia. Prior to that, she underwent an echocardiogram on 08/12/17, showing global left ventricular wall motion and contractility within normal limits. Normal left ventricular systolic function and EF of 55% to 60%. Right ventricular global systolic function normal. No significant changes when compared to the previous from 02/21. The patient has been following with Dr. Ema Wheatley with Cardiology who felt that she would need a cardiac catheterization and possible stent placement in her circumflex, but due to the patient's bleeding, there was concern if she would be able to be placed on Brilinta or dual antiplatelet therapy if she was to need a stent so her cardiac catheterization has been placed on hold. The patient also has a history of renal insufficiency post cardiac catheterization in 2012. She has been following with Dr. Mosley with General Surgery who is awaiting cardiac clearance for the patient to be able to have hemorrhoidectomy under anesthesia. Due to the patient's shortness of breath and continued bleeding, she presented to the emergency room for further evaluation. While in the emergency room, she had labs remarkable for hemoglobin of 5.9, hematocrit of 18. Her creatinine is slightly elevated above her baseline of 1.32. She had an EKG showing diffuse ST depression in V2 to V5. This is similar to previous. She has a slight ST elevation in lead 3. She had a chest x-ray showing mild pulmonary vascular congestion, less prominent than prior. She was found to have an elevated troponin of 0.10. Due to the patient's significant anemia, the hospitalist were asked to evaluate for admission. PAST MEDICAL HISTORY: 1. Diabetes mellitus type 1. 2. Morbid obesity. 3. Osteomyelitis. 4. Hypertension. 5. Coronary artery disease. 6. GERD. 7. Hyperlipidemia. 8. Neuropathy. 9. Arthritis. 10. Anxiety. 11. 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 12. Hemorrhoids. PAST SURGICAL HISTORY: 1. Status post right eye vitrectomy. 2. Status post bilateral jxovc-fge-[id number] amputation of the right, 2012 and left 2008. 3. Status post coronary artery bypass graft 3 vessels 2005. 4. Status post heel excision. 5. Status post repair of left detached retina. MEDICATIONS: Home medications include, 1. Flomax 0.4 mg oral daily at bedtime. 2. Zoloft 25 mg oral daily. 3. Ramipril 5 mg oral daily. 4. Sudafed 240 mg oral daily as needed for congestion. 5. MiraLax 17 g oral daily. 6. Zofran 4 to 8 mg oral every 4 to 6 hours as needed for nausea. 7. Omeprazole 20 mg oral daily. 8. Mupirocin 2% apply topical 3 times daily as needed. 9. Reglan 10 mg oral every 6 hours as needed for nausea. 10. EMLA topical 3 times daily as needed for pain. 11. Lantus insulin 35 units subcutaneous twice daily. 12. NovoLog mix 70/30, 5 units subcutaneous for blood sugars over 250. 13. Furosemide 20 mg oral daily. 14. Ferrous sulfate 325 mg oral daily. 15. Colace 200 mg oral twice daily. 16. Atorvastatin 20 mg oral daily. 17. Atenolol 50 mg oral daily. 18. Xanax 0.5 mg oral twice daily as needed for anxiety. ALLERGIES: CONTRAST DYE caused renal insufficiency after cardiac catheterization. FLAGYL caused GI upset and VANCOMYCIN caused Red man syndrome. FAMILY HISTORY: The patient's paternal grandparents had a history of coronary artery disease and a brother with a history of coronary artery disease. She has a sister with history of diabetes mellitus and mother with a history of skin cancer. SOCIAL HISTORY: The patient is a former smoker. She quit approximately a year- and- a-half ago. Prior to that, she has a 30 year aaz-wznt-x-day smoking history. She denies alcohol or recreational drug use. Her caregiver Monie Edouard will be her surrogate decision maker in the event she is unable to make decisions for herself. REVIEW OF SYSTEMS: I performed an 11-point of review of systems. All the pertinent positives and negatives are mentioned in the history of present illness. The remaining review of systems is negative. PHYSICAL EXAMINATION GENERAL APPEARANCE: The patient is alert, pleasant, appears to be in no acute distress. VITAL SIGNS: Temperature 98.7, heart rate 88, respiratory rate 19, O2 sat 97% on room air, blood pressure 132/68. HEENT: Normocephalic, atraumatic. Pupils are equal and reactive to light. Extraocular movement are intact. RESPIRATORY: There is no accessory muscle use. The lungs are clear to auscultation. CARDIOVASCULAR: Regular rate and rhythm. S1, S2 present. There are no murmurs , rubs, or gallops heard. ABDOMEN: Soft, large, nontender. EXTREMITIES: There is trace to 1+ bilateral lower extremity edema. Trace edema to the upper extremities. Popliteal pulses are present. MUSCULOSKELETAL: There is no clubbing or cyanosis noted. The patient exhibits good strength in all extremities. The patient has bilateral nardo-zlg-khwm amputations with prosthetics in place at this time. NEUROLOGICAL: The patient is alert and oriented x4. Cranial nerves II through XII are grossly intact. PSYCHOLOGICAL: The patient is clam and cooperative. SKIN: There is no rashes or abnormalities seen. DIAGNOSTIC STUDIES/LAB DATA: Sodium 140, potassium 4.2, chloride 106, CO2 27, BUN 19, creatinine 1.32, glucose 146. White blood cell count 9.8, hemoglobin 5.9, hematocrit 18, platelet count 269. Troponin 0.10. EKG shows a sinus rhythm at rate of 87. There is slight ST elevation in lead 3, ST depression in V2 to V5 that are similar to previous EKG from 09/21/17. Chest x-ray from today. Radiologist impression: Mild pulmonary vascular congestion. Interstitial edema less prominent than on the previous exam. IMPRESSION: Ms. Reyes is a 52-year-old female with past medical history significant for diabetes mellitus type 1, morbid obesity, osteomyelitis, hypertension, coronary artery disease, GERD, neuropathy, anxiety and known bleeding hemorrhoids, who presented to the emergency room with complaints of shortness of breath and weakness. She will be admitted as an observation for symptomatic anemia, elevated troponin and suspected lower GI bleed secondary to hemorrhoids. ASSESSMENT/PLAN: 1. Symptomatic anemia. The patient is complaining of shortness of breath. I suspect this is secondary to her anemia. She will receive 2 units of packed red blood cells. We will recheck an H and H later today after she has received her blood and we will recheck an H and H in the morning. I will touch base with GI to see if there is anything further they can offer. 2. Lower GI bleed secondary to hemorrhoids. We will monitor the patient's H and H. She is going to receive 2 units of blood. Again, I will check this with GI to see if there is anything they can offer. She will need to continue to follow with Surgery as they plan for her hemorrhoidectomy. 3. Elevated troponin. I suspect this is secondary to demand ischemia in the setting of significant anemia. This could also represent coronary artery disease as she does have a significant cardiac history. We will trend her troponins, monitor her on telemetry. She should continue to follow with Cardiology outpatient. Her shortness of breath could also be secondary to a cardiac cause and not just her symptomatic anemia. For now, I will hold off and follow her troponins, but we may need to get Cardiology involved while she is here. She should follow up with Cardiology outpatient as it sounds as they are working on plans for possible cardiac cath in the future. 4. Acute-on chronic kidney disease. The patient's creatinine is slightly above her baseline. I am going to give her some blood today and recheck her labs in the morning and be cautious for nephrotoxic agents. It appears that her baseline creatinine is 1 to 1.2. 5. Diabetes mellitus type 1. The patient will have glucose checks a.c. and h.s. I will continue her on her Lantus. I am going to decrease that to 18 units b.i.d. We will monitor how well she is going to be eating and place her on a Lispro sliding scale. Her last hemoglobin A1c was 10.3 in May 2016. She has not had another completed in our records. 6. Coronary artery disease. The patient will be continued on her home atenolol , atorvastatin. She is currently on any antiplatelet therapy. 7. Hypertension. She is currently normotensive. We will continue her on home ramipril and atenolol. 8. Constipation. We will continue the patient on her home Colace. 9. Chronic urinary retention. She will be continued on her home Flomax. 10. Anxiety. We will continue her Zoloft and Xanax as needed. 11. Fluid, electrolytes, and nutrition. Consistent carbohydrate diet. 12. Code status. Do no resuscitate. She has a MOLST on file. 13. DVT prophylaxis. She is at moderate risk. We will encourage her to ambulate. She will not have SCDs or TEDs as she has a history of bilateral BKAs and we will hold on chemical DVT prophylaxis as she currently has lower GI bleeding. 14. Disposition. Observation. TIME SPENT: Time for this admission was approximately 60 minutes, greater than half of that was spent on the patient and her caregiver discussing medications, past medical history, the events leading up to her arrival today, and performing a physical examination. The case has been reviewed with the attending, Dr. Ivan who agrees with the plan of care. SEBAS FAITH, GILL [id number]/[facility] #: [id number] JUAN ANTONIO
[2017-12-07] MEDS ORDERED: Ondansetron TAB* 4 MG PO PRN (15:36)
[2017-12-07] MEDS ORDERED: ALPRAZolam TAB* 0.5 MG PO PRN (15:36)
[2017-12-07] MEDS: Insulin LISPRO* 1 UNITS UNIT SUBCUT SCH (17:23)
[2017-12-07] MEDS ORDERED: Polyethylene Glycol 3350* 17 GM PACKET PO SCH (21:00)
[2017-12-07] MEDS: Insulin GLARGINE(*) 1 UNITS UNIT SUBCUT SCH (22:00)
[2017-12-07] MEDS: Docusate CAP* 100 MG PO SCH (22:02)
[2017-12-07] MEDS: Tamsulosin CAP* 0.4 MG PO SCH (22:02)
[2017-12-07] MEDS: Melatonin 3 MG TAB PO PRN (22:03)
[2017-12-07 23:44] LABS: Hematocrit 26 % (35-47); Hemoglobin 8.5 g/dl (12.0-16.0)
[2017-12-08] MEDS: Metoclopramide TAB* 10 MG PO PRN (05:54)
[2017-12-08 06:03] LABS: ABS Basophils 0.1 10^3/ul (0-0.2); ABS Eosinophils 0.4 10^3/ul (0-0.6); ABS Lymphocytes 1.5 10^3/ul (1.0-4.8); ABS Monocytes 0.7 10^3/ul (0-0.8); ABS Neutrophils 7.6 10^3/ul (1.5-7.7); ABS Nucleated RBC 0 10^3/ul; Hematocrit 26 % (35-47); Hemoglobin 8.6 g/dl (12.0-16.0); Lymphocyte % 14.7 % (25-47); Mean Corpuscular HGB Conc 33 g/dl (31-36); Mean Corpuscular Hemoglobin 30 pg (27-31); Mean Corpuscular Volume 90 fL (80-97); Mean Platelet Volume 8.8 um3 (7.4-10.4); Nucleated Red Blood Cells % 0.1; Platelet Count 274 10^3/ul (150-450); Red Blood Count 2.85 10^6/ul (4.00-5.40); Red Cell Distribution Width 16 % (10.5-15); White Blood Count 10.3 10^3/ul (3.5-10.8)
[2017-12-08 06:19] LABS: EGFR Non-African American 46.1 (>60)
[2017-12-08] MEDS ORDERED: Docusate CAP* 100 MG PO SCH (09:00)
[2017-12-08] MEDS ORDERED: Furosemide IV* 10 MG/ML VIAL (40 MG) IV ONE (09:33)
[2017-12-08] MEDS: Polyethylene Glycol 3350* 17 GM PACKET PO SCH (10:12)
[2017-12-08] MEDS: Sertraline* 25 MG TAB PO SCH (10:13)
[2017-12-08] MEDS: Omeprazole CAP* 20 MG PO SCH (10:13)
[2017-12-08] MEDS: Atorvastatin* 40 MG TAB PO SCH (10:13)
[2017-12-08] MEDS: Ramipril CAP* 5 MG PO SCH (10:14)
[2017-12-08] MEDS: Atenolol TAB* 50 MG PO SCH (10:14)
[2017-12-08] MEDS: Docusate CAP* 100 MG PO SCH ×2 (10:14→20:43)
[2017-12-08] MEDS: Insulin GLARGINE(*) 1 UNITS UNIT SUBCUT SCH ×2 (10:15→20:43)
[2017-12-08] MEDS: Insulin LISPRO* 1 UNITS UNIT SUBCUT SCH ×3 (10:15→17:38)
[2017-12-08] MEDS: Furosemide TAB* 20 MG PO SCH (10:16)
--- NOTE | 2017-12-08 15:13 | PN ---
Subjective Date of Service: 12/08/17 Interval History: Patient seen and examined. States she was feeling SOB earlier, but it is improving. Denies chest pain, states no bloody bowel movements today, denies abdominal pain, no n/v. Objective Active Medications: Alprazolam (Xanax Tab*) 0.5 mg PO BID PRN PRN Reason: ANXIETY Atenolol (Tenormin Tab*) 50 mg PO DAILY [facility] Last Admin: 12/08/17 10:14 Dose: 50 mg Atorvastatin Calcium (Lipitor*) 40 mg PO DAILY [facility] Last Admin: 12/08/17 10:13 Dose: 40 mg Dextrose (D50w Syringe 50 Ml*) 12.5 gm IV PUSH .FOR FS < 60 - SS PRN PRN Reason: FS < 60 Docusate Sodium (Colace Cap*) 200 mg PO BID [facility] Last Admin: 12/08/17 10:14 Dose: 200 mg Furosemide (Lasix Tab*) 20 mg PO DAILY [facility] Last Admin: 12/08/17 10:16 Dose: Not Given Insulin Glargine (Lantus(*)) 18 units SUBCUT BID [facility] Last Admin: 12/08/17 10:15 Dose: 18 units Insulin Human Lispro (Humalog*) 0 - 10 units SUBCUT AC [facility]; Protocol Last Admin: 12/08/17 13:08 Dose: 4 units Melatonin (Melatonin) 3 mg PO BEDTIME PRN; Protocol PRN Reason: SLEEP Last Admin: 12/07/17 22:03 Dose: 3 mg Metoclopramide HCl (Reglan Tab*) 10 mg PO BID PRN PRN Reason: NAUSEA Last Admin: 12/08/17 05:54 Dose: 10 mg Omeprazole (Prilosec Cap*) 20 mg PO DAILY@0730 [facility] Last Admin: 12/08/17 10:13 Dose: 20 mg Ondansetron HCl (Zofran Tab*) 4 mg PO Q6H PRN PRN Reason: NAUSEA Polyethylene Glycol/Electrolytes (Miralax*) 17 gm PO DAILY [facility] Last Admin: 12/08/17 10:12 Dose: 17 gm Ramipril (Altace Cap*) 5 mg PO DAILY [facility] Last Admin: 12/08/17 10:14 Dose: 5 mg Sertraline HCl (Zoloft*) 25 mg PO DAILY [facility] Last Admin: 12/08/17 10:13 Dose: 25 mg Tamsulosin HCl (Flomax Cap*) 0.4 mg PO BEDTIME [facility] Last Admin: 12/07/17 22:02 Dose: 0.4 mg Vital Signs - 8 hr 12/08/17 12/08/17 12/08/17 07:34 08:00 11:43 Temperature 97.5 F Pulse Rate 74 77 Respiratory 22 22 16 Rate Blood Pressure 126/47 133/62 (mmHg) O2 Sat by Pulse 97 95 Oximetry Oxygen Devices in Use Now: None Appearance: alert, NAD Eyes: No Scleral Icterus, PERRLA Ears/Nose/Mouth/Throat: Clear Oropharnyx, Mucous Membranes Moist, - - edentulous Neck: NL Appearance and Movements; NL JVP, Trachea Midline Respiratory: Symmetrical Chest Expansion and Respiratory Effort, Clear to Auscultation Cardiovascular: NL Sounds; No Murmurs; No JVD, RRR Abdominal: NL Sounds; No Tenderness; No Distention Extremities: - - double amputee Skin: - - rash and skin excoriation around area of silicone prostheses sleeves, open to air, improved Neurological: Alert and Oriented x 3 Nutrition: Taking PO's Result Diagrams: 12/08/17 05:17 12/08/17 05:17 Assess/Plan/Problems-Billing Assessment: This is a 52 year old female patient with multiple admissions for symptomatic anemia, admitted with SOB yesterday for same. - Patient Problems (1) Anemia Code(s): D64.9 - ANEMIA, UNSPECIFIED SNOMED Code(s): 726140727 Comment: - s/p 2 units PRBCs, H&H now stable - Colonoscopy in September incomplete but only had two polyps - Likely etiology is severe, chronically bleeding hemorrhoids - Patient follows with Dr. Taya Mosley, currently pending cardiac clearance for hemorrhoidectomy (2) Fluid overload due to blood transfusion Code(s): E87.71 - TRANSFUSION ASSOCIATED CIRCULATORY OVERLOAD SNOMED Code(s): 26223922 Comment: - Will give one dose lasix 40mg IV today and start back on PO dose tomorrow (3) CKD stage 3 due to type 1 diabetes mellitus Code(s): E10.22 - TYPE 1 DIABETES MELLITUS W DIABETIC CHRONIC KIDNEY DISEASE; N18.3 - CHRONIC KIDNEY DISEASE, STAGE 3 (MODERATE) SNOMED Code(s): 40358843736752 Comment: - Creat at baseline (4) HTN (hypertension) Code(s): I10 - ESSENTIAL (PRIMARY) HYPERTENSION SNOMED Code(s): 47096942 Comment: - Stable on atenolol and ramipril (5) Type I diabetes mellitus Current Visit: No Status: Acute Priority: High Comment: Lispro by SS. (6) CAD (coronary artery disease) Code(s): I25.10 - ATHSCL HEART DISEASE OF [place] CORONARY ARTERY W/O ANG PCTRS SNOMED Code(s): 91886913 Comment: - Continue lipitor and home regimen, hold ASA (7) Gastroparesis due to DM Code(s): E11.43 - TYPE 2 DIABETES W DIABETIC AUTONOMIC (POLY)NEUROPATHY; K31.84 - GASTROPARESIS SNOMED Code(s): 745963344 Comment: - Stable, continue reglan Status and Disposition: likely DC home tomorrow.
[2017-12-08] MEDS: Tamsulosin CAP* 0.4 MG PO SCH (20:43)
[2017-12-08] MEDS: Melatonin 3 MG TAB PO PRN (20:47)
[2017-12-09] MEDS: Metoclopramide TAB* 10 MG PO PRN (06:45)
[2017-12-09 08:42] LABS: Hematocrit 27 % (35-47); Hemoglobin 9.1 g/dl (12.0-16.0)
[2017-12-09] MEDS ORDERED: Insulin GLARGINE(*) 1 UNITS UNIT SUBCUT ONE (08:57)
[2017-12-09] MEDS ORDERED: Furosemide TAB* 20 MG PO SCH (09:00)
[2017-12-09] MEDS: Insulin LISPRO* 1 UNITS UNIT SUBCUT SCH ×2 (09:25→13:18)
[2017-12-09] MEDS: Polyethylene Glycol 3350* 17 GM PACKET PO SCH (09:36)
[2017-12-09] MEDS: Furosemide TAB* 20 MG PO SCH (09:37)
[2017-12-09] MEDS: Insulin GLARGINE(*) 1 UNITS UNIT SUBCUT SCH (09:37)
[2017-12-09] MEDS: Atorvastatin* 40 MG TAB PO SCH (09:37)
[2017-12-09] MEDS: Atenolol TAB* 50 MG PO SCH (09:37)
[2017-12-09] MEDS: Sertraline* 25 MG TAB PO SCH (09:37)
[2017-12-09] MEDS: Docusate CAP* 100 MG PO SCH (09:37)
[2017-12-09] MEDS: Omeprazole CAP* 20 MG PO SCH (09:37)
[2017-12-09] MEDS: Ramipril CAP* 5 MG PO SCH (09:37)
[2017-12-09 13:28] VITALS: BP 147/65
--- NOTE | 2017-12-10 23:49 | DS ---
CC: Dr. Faustin; Dr. Ivan; Dr. Taya Mosley from Surgery; Dr. Ema Wheatley from Cardiology. * DISCHARGE SUMMARY: DATE OF ADMISSION: 12/07/17 DATE OF DISCHARGE: 12/09/17 PRIMARY CARE PHYSICIAN: Dr. Noni Faustin ATTENDING: Karin Ivan DO. My attending for today is also Dr. Ivan. * ( DICTATED BY GISSELL LIU NP) HOSPITAL COURSE: This is a 52-year-old female patient very well known to our service who presented to the emergency department after having being discharged at the end of October 2017 presented again with the complaint of significant bleeding of her bowels. After bowel movements, the patient states she has had bright red blood per rectum since being discharged from the hospital and she was also having some shortness of breath, which progressed to dyspnea at rest, not just with exertion. The patient denied any fevers or chills. She stated that she did not have any chest pain at that time, but her shortness of breath was remaining pretty consistent. The patient came to the emergency department to be evaluated, which showed at that time that the patient was having some symptomatic anemia. The patient had H and H performed in the emergency department, which showed hemoglobin of 5.9, hematocrit of 18, troponin was 0.10. Sodium, potassium and other electrolytes were all within her baseline. The patient was admitted to receive 2 units of packed red blood cells, her H and H did respond to her transfusion, numbers came up to 8.5 and 26 at approximately 11:30 in the evening on 12/07/17 and remained stable, on day of discharge hemoglobin was 9.1, and hematocrit was 27. Of significant note, after the patient was transfused she did have some reperfusion arrhythmia on telemetry. She had 5 beats of V-tach at that time she was asymptomatic and had no further issues or ectopy after that. The patient was having some issues with her blood sugar as well her Lantus was decreased to accommodate her lower sugars. She still had some shortness of breath and it was noted that after she received blood transfusion she was mildly fluid overloaded, which required her to have some Lasix IV. She did diurese after having Lasix and her breathing and respiratory pattern returned back to baseline. She was made ready for discharge the morning of 12/09/17 that day. The patient was seen by the wound care nurse practitioner, Stephanie Rosenthal, for the rash on her stumps. At that time, we recommended to the patient that she leave her silicone sleeves off as the moisture type rash that was left open to air with barrier cream. She can wrap with Drew bandages, but should leave her leg stumps open to air for the moisture rash that she has currently secondary to her silicone sleeves. Instruction was given to the patient and to the patient's aide regarding her wound care regimen at home. REVIEW OF SYSTEMS: Negative except as noted as above. PHYSICAL EXAMINATION: On the day of discharge, vital signs were blood pressure 147/65, heart rate 80, temperature 98.0, respiratory rate 18 with an O2 saturation 95% on room air. HEENT: The patient is atraumatic, normocephalic. PERRLA with nonicteric sclerae. Oral mucosa is moist, tongue is midline. She is edentulous. Neck is supple, nontender. No JVD noted. No carotid bruit auscultated. Cardiovascular: S1, S2 present. No gallops or rubs noted. Lungs are clear. The apices bilaterally diminished at the bases. No wheezing, rhonchi or rales noted. Abdomen is soft, nontender, nondistended. Positive bowel sounds in all 4 quadrants. was deferred. Musculoskeletal: There is no clubbing, no cyanosis and no edema to her stumps. Of significant note, the patient is a double amputee. She does have a rash on her stump secondary to her silicone sleeves, which is improving from admission. Neurologic: She is grossly intact with no focal deficits. Psychiatric: She is cooperative and appropriate. DIAGNOSTIC STUDIES/LAB DATA: As noted above. DISPOSITION: I had a lengthy conversation with the patient regarding her persistent bleeding and anemia. The patient had colonoscopies a couple of months ago, which showed internal and external hemorrhoids. At this point, it is felt that her bleeding hemorrhoids are the source of her persistent anemia and then it is not secondary to any further GI cause in the colon. She did have 2 polyps removed, but it is also noted that during her colonoscopy it could not be completed secondary to the patient's body habitus. Notes read that it was an incomplete colonoscopy to the hepatic flexure with a snare polypectomy and biopsy with polypectomy. Internal and external hemorrhoids again as noted above. The patient reported that she is aware of the bleeding hemorrhoids. She had seen Dr. Taya Mosley from surgery who is prepared to do hemorrhoidectomy; however, the patient required cardiac clearance because of her severe cardiac disease. She is still pending cardiac clearance from Dr. Ema Wheatley to see when she would be able to undergo the hemorrhoidectomy. At this point, the patient is clinically stable and can be discharged to home; however, if she continues to bleed, this would necessitate having to do the hemorrhoidectomy sooner as every time the patient becomes anemic this is very stressful for her comorbid conditions, her cardiac condition, her bleeding status and also affecting her overall health. The patient is in agreement that she will follow up as soon as possible as an outpatient and obtaining her cardiac clearance to undergo that procedure. DISCHARGE DIAGNOSES: 1. Symptomatic anemia secondary to chronically bleeding hemorrhoids, status post 2 units packed RBCs transfused. 2. Fluid overload due to blood transfusion. Has received 40 mg Lasix IV, diuresed effectively and is currently euvolemic. 3. Chronic kidney disease stage 3, creatinine is at her baseline. 4. History of hypertension, now she is stable on her home meds of atenolol and ramipril. 5. Insulin-dependent diabetes mellitus. Continue Lantus and lispro sliding scale and diabetic diet. 6. Coronary artery disease. Continue Lipitor and aspirin on hold secondary to bleeding. 7. History of gastroparesis secondary to diabetes mellitus, stable on Reglan. MEDICATIONS FOR DISCHARGE: Please note the only change to her medications that we were holding her aspirin because of her bleeding, rest of her medications are as follows. 1. Lasix 20 mg daily. 2. Zyrtec 10 mg daily. 3. Insulin and FlexPen per her home protocol. 4. Ferrous sulfate 325 two times a day. 5. Zofran 4 to 8 mg q.4 to 6 hours as needed. 6. MiraLAX 17 g daily. 7. Docusate 200 mg 2 times a day. 8. Reglan 10 mg 2 times a day. 9. Atorvastatin 40 mg daily. 10. Atenolol 50 mg daily. 11. Alprazolam 0.5 mg b.i.d. 12. Lantus 35 units subcu 2 times daily. 13. Omeprazole 20 mg daily. 14. Sertraline 25 mg daily. 15. Ramipril 5 mg daily. 16. Flomax 0.4 mg at bedtime. CONDITION: The patient was discharged in stable condition. All questions were answered. The patient stated understanding of her discharge. FOLLOWUP: The patient was instructed to follow up with her primary care provider, Dr. Noni Faustin, in 1 to [address] Mosley from surgery and also Dr. Ema Wheatley from Cardiology. The patient was discharged to home in the care of her aide. GISSELL LIU, PRECISION HONER [id number]/[facility] #: [id number] JUAN ANTONIO
== END 2017-12-09 15:02 | disposition home or self-care (01) | DRG 812 ==
LOC: ED 07:41 → MEDTELE 10:15 → OBSVTOIN 12-08 14:09
PROVIDERS: ADMIT Hospitalist; ATTEND Hospitalist
PROC: 30233N1 Transfusion of Nonautologous Red Blood Cells into Peripheral Vein, Percutaneous Approach (ICD-10-PCS; principal; 2017-12-07)
DX: D50.0 Iron deficiency anemia secondary to blood loss (chronic) (principal); N17.9 Acute kidney failure, unspecified; Z68.44 Body mass index [BMI] 60.0-69.9, adult; K64.8 Other hemorrhoids; E10.22 Type 1 diabetes mellitus with diabetic chronic kidney disease; K64.4 Residual hemorrhoidal skin tags; E87.71 Transfusion associated circulatory overload; I13.10 Hypertensive heart and chronic kidney disease without heart failure, with stage 1 through stage 4 chronic kidney disease, or unspecified chronic kidney disease; E10.43 Type 1 diabetes mellitus with diabetic autonomic (poly)neuropathy; K31.84 Gastroparesis; N18.3 Chronic kidney disease, stage 3 (moderate); I25.10 Atherosclerotic heart disease of native coronary artery without angina pectoris; E66.01 Morbid (severe) obesity due to excess calories; K21.9 Gastro-esophageal reflux disease without esophagitis; E78.5 Hyperlipidemia, unspecified; M19.90 Unspecified osteoarthritis, unspecified site; F41.9 Anxiety disorder, unspecified; E10.40 Type 1 diabetes mellitus with diabetic neuropathy, unspecified; R74.8 Abnormal levels of other serum enzymes; H54.40 Blindness, one eye, unspecified eye; Z79.899 Other long term (current) drug therapy; Z79.4 Long term (current) use of insulin; Z89.511 Acquired absence of right leg below knee; Z89.512 Acquired absence of left leg below knee; Z95.1 Presence of aortocoronary bypass graft; Z88.8 Allergy status to other drugs, medicaments and biological substances; Z88.1 Allergy status to other antibiotic agents; Z91.041 Radiographic dye allergy status; Z82.49 Family history of ischemic heart disease and other diseases of the circulatory system; Z83.3 Family history of diabetes mellitus; Z80.8 Family history of malignant neoplasm of other organs or systems; Z87.891 Personal history of nicotine dependence
CPT/HCPCS: 36415; 71045; 80048; 80053; 83880; 84484; 85014; 85018; 85025; 85610; 85730; 86850; 86900; 86901; 86922; 93005; 99283; A9270-GY; G0378; J1940; P9040

== ENCOUNTER 2017-12-27 06:46 | Day surgery (SDC) | payer MEDICARE, MEDICAID ==
--- NOTE | 2017-12-24 22:14 | HP ---
CC: Dr. Noni Faustin; Dr. Ema Wheatley * PREOPERATIVE HISTORY AND PHYSICAL: DATE OF PREOPERATIVE HISTORY AND PHYSICAL EXAMINATION: 12/24/17. DATE OF ADMISSION: 12/27/17 This patient is scheduled for same-day surgery admission by Dr. Mosley on Saturday , 12/27/17. ATTENDING SURGEON: Taya Mosley MD * (dictated by Cheyenne Monge NP) CHIEF COMPLAINT: Bleeding hemorrhoids. HISTORY OF PRESENT ILLNESS: The patient is a 52-year-old female with type 1 diabetes, coronary artery disease, and a complex medical history, recently evaluated by Dr. Mosley for painful bleeding hemorrhoids causing symptomatic anemia. She has had [address] [facility] over the past 2 months for painful hemorrhoids, blood per rectum, anemia, and shortness of breath. She has required blood transfusions with the most recent being when her hemoglobin was 5 and hematocrit was 18. After the 2 units of packed red blood cells on 12/08/17, her hemoglobin was 9.1, hematocrit 27. She had a colonoscopy on 09/13/17 with removal of 2 benign polyps but the colonoscopy was incomplete as they were unable to get pass the hepatic flexure. She was evaluated for followup with Dr. Mosley for treatment of the bleeding hemorrhoids. The patient states that when she moves her bowels, there is a significant amount of blood in the toilet and when she wipes; this is described as bright red. Dr. Mosley examined the patient and noted circumferential external hemorrhoids. She was able to do a limited anoscopy due to the patient' s discomfort, but it showed what appeared to be internal hemorrhoids. Dr. Mosley recommended anal exam under anesthesia for further evaluation and possible rubber banding of the internal hemorrhoids and excision of the external hemorrhoids. Dr. Mosley discussed the nature of the surgical procedure , the rationale for the procedure, the relevant risks and benefits and today, I reviewed the expected postoperative care and recovery. The patient has had a chance to ask questions and stated that she understands the information and is satisfied with the answers given to her questions. She will sign surgical consent on the day of surgery. PAST MEDICAL HISTORY: Significant for type 1 diabetes, morbid obesity, osteomyelitis status post bilateral [id number] amputations, hypertension, coronary artery disease status post three-vessel CABG, GERD, hyperlipidemia, arthritis, and anxiety. Due to the bleeding hemorrhoids, she has had symptomatic iron deficiency anemia requiring frequent blood transfusions. She also has renal insufficiency with a baseline creatinine of 1.2. PAST SURGICAL HISTORY: Coronary artery bypass x3 in 2005; right [id number] amputation in 2012, left [id number] amputation in 2008 and cataract extraction. MEDICATIONS: 1. Flomax 0.4 mg p.o. daily at bedtime. 2. Zoloft 25 mg p.o. daily. 3. Ramipril 5 mg p.o. daily. 4. Sudafed 240 mg daily as needed for congestion. 5. MiraLAX 17 g p.o. daily. 6. Zofran 4 to 8 mg every 4 to 6 hours p.r.n. nausea. 7. Omeprazole 20 mg p.o. daily. 8. Reglan 10 mg p.o. every 6 hours as needed for nausea. 9. Lantus insulin 35 units subcutaneously b.i.d. 10. NovoLog 70/30, 5 units subcutaneously for blood sugars over 250. 11. Furosemide 20 mg p.o. daily. 12. Ferrous sulfate 325 mg p.o. daily. 13. Colace 200 mg p.o. b.i.d. 14. Atorvastatin 20 mg p.o. daily. 15. Atenolol 50 mg p.o. daily. 16. Xanax 0.5 mg p.o. b.i.d. p.r.n. anxiety. ALLERGIES: CONTRAST DYE caused renal insufficiency after cardiac catheterization; VANCOMYCIN caused red man syndrome; she has had unspecified reactions to CHANTIX, VISIPAQUE, and LOVAZA; FLAGYL caused GI upset. FAMILY HISTORY: The patient's paternal grandparents had a history of coronary artery disease. She had a brother with coronary artery disease, a sister with history of diabetes mellitus. 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 She quit approximately a year and a half ago. Prior to that she has a 30-year 1 pack a day smoking history; she denies alcohol or recreational drug use. REVIEW OF SYSTEMS: Constitutional: No fevers or chills. Endocrine: Type 1 diabetes mellitus. Fingerstick in the morning today was 88; typically runs anywhere from 136 to 220. Hematologic: Rectal bleeding with associated symptomatic anemia as described previously; most recent blood transfusion of 2 units of packed red blood cells on 12/07/17. Respiratory: Anemia associated shortness of breath. Today, she denies any dyspnea; no chronic cough. Cardiovascular: No anginal chest pain or palpitations. Please see the Cardiology clearance note from Dr. Wheatley dated 12/17/17. Dr. Wheatley has cleared her to proceed with surgery and recommends continuing atenolol in the perioperative period and obtaining a postprocedure EKG in PACU and stated that Cardiology is available postoperatively as needed. Her most recent stress test, 10/24/17 revealed moderate reversible ischemia, inferior lateral wall. Echocardiogram, 08/08/17 with ejection fraction of 60 to 65%. Gastrointestinal: No nausea or vomiting. She reports chronic constipation and as previously mentioned rectal bleeding. Genitourinary: No dysuria. Musculoskeletal: Bilateral [id number]-[id number] amputee, wearing prosthetic limbs. Neurologic: No headache or blurred vision. No obvious sensory problems. General: No history of deep vein thrombosis or pulmonary embolism. No anesthesia complications. PHYSICAL EXAMINATION GENERAL SURVEY: The patient is a 52-year-old female, obese, well developed, in no acute distress, seated in a wheelchair. VITAL SIGNS: Weight approximately 228 pounds, blood pressure 118/76, pulse 92 and regular, respiratory rate 18, temperature 98 tympanic. HEENT: Benign. NECK: Supple. No cervical lymphadenopathy. LUNGS: No accessory muscle use; lungs are clear to auscultation. HEART: Regular rate and rhythm. No murmurs, rubs, or gallops heard. ABDOMEN: Active bowel sounds. Soft, large, nontender throughout. RECTAL: Exam as done by Dr. Mosley revealed circumferential external hemorrhoids; limited anoscopy due to discomfort, but it revealed what appeared to be internal hemorrhoids. EXTREMITIES: Bilateral qyskq-pbz-[id number] amputations. The patient has bilateral prosthetics. NEUROLOGIC: Alert and oriented x3. SKIN: Warm, dry, intact. IMPRESSION: Bleeding hemorrhoids that are painful and contributing to symptomatic anemia. PLAN: Same-Day Surgery admission to Dr. Mosley's service on 12/27/17 for anal exam under anesthesia; possible rubber banding of internal hemorrhoids ; excision of external hemorrhoids. We will obtain a hematocrit and hemoglobin and a P3 on the patient's arrival on the day of surgery. EMMY MONGE, TELECOMMUNICATIONS LINE INSTALLER [id number]/[facility] #: [id number] E.[facility]. NOBLE HOSPITALYessenia
[2017-12-27] MEDS ORDERED: ceFOXitin 2 GM IVPREMIX* 2 GM/50 ML BAG ONE (07:01)
[2017-12-27 07:50] LABS: Hematocrit 19 % (35-47); Hemoglobin 6.1 g/dl (12.0-16.0)
[2017-12-27 08:02] LABS: EGFR Non-African American 46.1 (>60)
[2017-12-27] MEDS ORDERED: Dextrose 50% Syringe 50 ML* 25 GM/50 ML SYRINGE ONE (08:32)
[2017-12-27] MEDS ORDERED: Bupivacaine 0.25% EPI 200,000* 30 ML SDV ONE (08:38)
[2017-12-27] MEDS ORDERED: Lidocaine 2% PF * 5 ML VIAL ONE (09:15)
[2017-12-27] MEDS ORDERED: Propofol* 10 MG/ML 20 ML BTL IV PUSH ONE (09:15)
[2017-12-27] MEDS ORDERED: Mivacurium Chloride* 20 MG/10 ML VIAL IV ONE (09:15)
[2017-12-27] MEDS ORDERED: Midazolam* 1 MG/ML 2 ML VIAL (2 MG) ONE (09:50)
[2017-12-27] MEDS ORDERED: fentaNYL* 50 MCG/ML 2 ML VIAL (100 MCG VIAL) ONE ×2 (09:51→11:17)
[2017-12-27] MEDS ORDERED: Gelfoam Sponge SIZE 100* SPONGE ONE (10:27)
[2017-12-27] MEDS ORDERED: Lidocaine 2% JELLY* 20 ML (for OR use) ONE (10:28)
[2017-12-27] MEDS ORDERED: Levalbuterol 0.63MG/3ML NEB* UNIT OF USE INH PRN (10:30)
[2017-12-27] MEDS ORDERED: Naloxone* 0.4 MG/ML 1 ML VIAL IV PRN (10:30)
[2017-12-27] MEDS ORDERED: Acetaminophen TAB* 325 MG PO PRN (10:30)
[2017-12-27] MEDS ORDERED: Ondansetron INJ* 2 MG/ML VIAL IV PRN (10:30)
[2017-12-27] MEDS ORDERED: DiMENhydriNATE IV* 50 MG/ML VIAL IV PUSH PRN (10:30)
[2017-12-27] MEDS ORDERED: Dextrose 50% Syringe 50 ML* 25 GM/50 ML SYRINGE IV PUSH PRN (10:32)
[2017-12-27] MEDS ORDERED: Acetaminophen TAB* 325 MG ONE (11:17)
[2017-12-27] MEDS: fentaNYL* 50 MCG/ML 2 ML VIAL (100 MCG VIAL) IV PRN ×4 (11:19→13:15)
[2017-12-27 13:29] LABS: Hematocrit 26 % (35-47); Hemoglobin 8.4 g/dl (12.0-16.0)
[2017-12-27 15:02] VITALS: BP 106/67
--- NOTE | 2017-12-27 23:48 | CONS ---
CONSULTATION NOTE: DATE OF CONSULT: 12/27/17 REASON FOR CONSULT: Multiple medical issues and concern regarding CHF exacerbation post transfusion. HISTORY OF PRESENT ILLNESS: The patient is a 52-year-old lady with history of type 1 diabe daniela mellitus, morbid obesity and osteomyelitis, who was recently just discharged on 12/10/17 due to s ymptomatic anemia thought to be secondary to bleeding hemorrhoids, status post 2 units of packed RBC transfusion. Given her history of fluid overload to blood transfusion, she has received 40 mg of IV L asix and has diuresed effectively at that point and I have been asked by Dr. Msoley to see the cely t in PACU status post hemorrhoidectomy as well as 2 units of blood transfusion given her H and H was 6.1 and 19 today and post transfusion was found to be 8.4 and 26 and given her history of CHF exacerb ation post transfusion in the past, I was asked to evaluate the patient prior to planned discharge. PAST MEDICAL HISTORY: Type 1 diabetes mellitus, morbid obesity, osteomyelitis, hypertension, CAD, GE RD, hyperlipidemia, neuropathy, arthritis, anxiety, legally blind in her left eye, hemorrhoids. PAST SURGICAL HISTORY: Status post right eye vitrectomy, status post bilateral iaxse-oev-gwcc amputa tion of the right in 2012 and left in 2008, status post CABG 3 vessels back in 2005, status post heel excision, status post repair of left detached retina. MEDICATIONS: Home medications on file were: 1. Flomax 0.4 mg. 2. Zoloft 25 mg p.o. daily. 3. Ramipril 5 mg p.o. daily. 4. Sudafed 240 mg p.o. daily. 5. MiraLAX 17 g p.o. daily. 6. Zofran 4 to 8 mg orally every 4 to 6 hours p.r.n. 7. Omeprazole 20 mg p.o. daily. 8. Mupirocin 2% topically t.i.d. as needed. 9. Reglan 10 mg p.o. q.6 hours p.r.n. 10. EMLA topical 3 times daily as needed for pain. 11. Lantus insulin 35 units subcutaneous b.i.d. 12. NovoLog mix 70/30, 5 units subcutaneous for blood sugars over 50. 13. Lasix 20 mg p.o. daily. 14. Ferrous sulfate 325 mg p.o. daily. 15. Colace 200 mg p.o. b.i.d. 16. Atorvastatin 20 mg p.o. daily. 17. Atenolol 50 mg p.o. daily. 18. Xanax 0.5 mg p.o. b.i.d. as needed for anxiety. ALLERGIES: To CONTRAST DYE causing renal insufficiency after cardiac catheterization as well as FLAG YL causing GI upset and VANCOMYCIN causing red man syndrome. FAMILY HISTORY: The patient's paternal grandparents have had a history of coronary artery disease an d a brother with history of coronary artery disease. She has a sister with the history of diabetes m ellitus and mother with history of skin cancer. SOCIAL HISTORY: She is a former smoker. She quit approximately a year and half ago. Prior to that, she has a 30-year 1 pack-a-day smoking history. Denies any history of alcohol nor recreational drug use. Her caregiver is Monie Edouard and will be her surrogate decision maker in the event that she i s unable to make any decisions herself. REVIEW OF SYSTEMS: The patient denied any increasing orthopnea, although she mentions that she has o rthopnea at baseline and usually sits up at an angled position to breathe and which she mentions is n ormal for her. She mentions that she feels quite normal and given that she is a bilateral BKA ampute e, she could not provide any history of any dyspnea on exertion. However, she mentions that she felt better today. On review of systems, she denied any recent headaches, dizziness, fevers, chills, [place], vomiting, chest pain, shortness of breath, increased cough, sputum production, abdominal pain, d iarrhea, constipation, pain and/or increased frequency in urination, myalgias, arthralgias, throat pa in, or new skin lesions. The rest of the 14-point review of systems is otherwise unremarkable. PHYSICAL EXAMINATION: Shows the most recent vital signs of record with blood pressure of 106/67, 76 beats per minute heart rate, 100% saturation on room air. General Appearance: The patient is awake, alert, and oriented x3, not in acute distress. HEENT: Normocephalic, atraumatic. PERRLA. Extraocu lar muscles intact. Negative for icterus. Moist oral mucosa. Negative throat erythema. Neck is sof t, supple with no cervical lymphadenopathy, no JVD and no hepatojugular reflux, although the patient is obese. Chest is otherwise clear to auscultation bilaterally. Good air entry. No wheezes, rales, or rhonchi. Abdomen is soft, nondistended, nontender. Normoactive bowel sounds x4 q. Extremities: Bilateral BKA. Skin is warm to touch. Psychiatric: No active depression, suicidal ideation nor h omicidal ideation, as well as psychosis. ASSESSMENT AND PLAN: The patient is a 52-year-old lady with history of diabetes mellitus t ype 1, morbid obesity and osteomyelitis as well as congestive heart failure, who is status post elect evette hemorrhoidectomy today as planned. 1. History of congestive heart failure. The patient is currently at baseline and her weight has bee n stable since she was last seen in our facility and during her last discharge. In addition, the pat ient describes no additional symptoms and her physical examination is benign. She has a stable conge stive heart failure at this time. I have advised the patient that she will need to maintain no more than 1.5 g of sodium per day as well as continue her diuretics as prescribed. 2. Status post hemorrhoidectomy. We will defer with any further advice with Dr. Bain, but would adv ise to repeat CBC as an outpatient in a few days to be sure that she has stable vital signs and to de termine whether a repeat colonoscopy would be necessary to further figure out any causes of bleeding if it does drop and if it proves that her H and H might not be from the presumed hemorrhoids due to t he poor prep from previous colonoscopy. 3. Disposition: We will defer with Dr. Taya Mosley, and I have discussed the above plan with Dr. Onesimo españa and the patient as well as a friend at bedside, who agree with the above assessment and plan. Thank you for having us participate in evaluation of Ms. Reyes prior to her planned discharge status post elective hemorrhoidectomy. [id number]/[id number] #: [id number]
--- NOTE | 2017-12-28 03:30 | OP ---
CC: [facility]; Dr. Ema Wheatley; Dr. Noni Faustin OPERATIVE REPORT: DATE OF OPERATION: 12/27/17 DATE OF : 63 SURGEON: Taya Mosley MD STATION CASHIER: Cheyenne Bolivar NP PRE-OP DIAGNOSIS: Bleeding hemorrhoids. POST-OP DIAGNOSIS: Bleeding hemorrhoids. OPERATIVE PROCEDURE: Examination under anesthesia, rubber-band ligation of hemorrhoids, sigmoidoscop y and hemorrhoidectomy. INDICATIONS: Ms. Reyes is a 52-year-old woman with multiple medical problems who has been suffering with anemia due it is believed to bleeding hemorrhoids. She was therefore prepared for surgery and b rought to the operating room. DESCRIPTION OF PROCEDURE: She was given general anesthesia and then placed on the OR table in the pr one Fredi-knife position. The rectal and anal area was prepped and draped in the usual sterile fashio n. Then, the anus was circumferentially infiltrated with local anesthetic and then after dilating th e anus to 4 fingers, retractors were placed to try to examine the anal canal. This was made somewhat difficult by both the patulous nature of the anal mucosa and also by the friable nature of almost th e entire anal mucosa, which appeared somewhat inflamed. At this point, I elected to look in with the sigmoidoscope to see how far the friable tissue extended and it appeared after inserting the scope t o about 20 cm that about 5 cm the rectal mucosa appeared normal, but in the anal canal for about 5 cm , it was circumferentially injected and friable. However, this also allowed visualization of what ap peared to be some prominent internal hemorrhoids at the 10 o'clock position and external hemorrhoid that was actively bleeding at the roughly 5 o'clock position. Once the sigmoidoscope was removed, th e retractors were replaced and the 10 o'clock position internal hemorrhoids were rubber band ligated in 2 locations. Then, the attention was turned to the hemorrhoid at 5 o'clock and here a stitch was placed in the apex of the hemorrhoid and then the hemorrhoid was excised with the knife. Electrocaut adri was used behind the incision to control some bleeding and the stitch was used to close the defect that was left by excising the hemorrhoid. Once the hemorrhoid was completely removed, it was handed off as a specimen and labelled hemorrhoid from the 5 o'clock position and then, the remainder of the defect was closed with 2-0 Vicryl stitch. Then, an additional stitch of 4-0 Vicryl was placed just over the external knot to bury it in a more durable fashion of life. Then, Gelfoam with lidocaine je lly was placed in the anal canal and dry sterile dressing was applied. All sponge and instrument cou nts were correct. The patient tolerated the procedure well and was transferred to Recovery in a stab condition. [id number]/[facility] #: [id number]
== END 2017-12-27 16:46 | disposition home or self-care (01) ==
LOC: OR 06:46
PROVIDERS: ATTEND Surgery
DX: K64.8 Other hemorrhoids (principal); D50.0 Iron deficiency anemia secondary to blood loss (chronic); E11.9 Type 2 diabetes mellitus without complications; Z79.4 Long term (current) use of insulin; E66.01 Morbid (severe) obesity due to excess calories; I10 Essential (primary) hypertension; I25.10 Atherosclerotic heart disease of native coronary artery without angina pectoris; Z95.1 Presence of aortocoronary bypass graft; K21.9 Gastro-esophageal reflux disease without esophagitis; E78.5 Hyperlipidemia, unspecified; M19.90 Unspecified osteoarthritis, unspecified site; F41.9 Anxiety disorder, unspecified
CPT/HCPCS: 36415; 80048; 85014; 85018; 86850; 86900; 86901; 86922; 88304; 93005; A9270-GY; J0694; J2250; J2704; J3010; P9040

== ENCOUNTER 2018-01-09 23:18 | Emergency (ER) | payer MEDICARE, MEDICAID ==
--- NOTE | 2018-01-09 23:52 | ED ---
GI/ HPI - HPI Summary HPI Summary: The pt is a 52 y[facility] pain since 12 days ago s/p a hemorrhoid surgery on 12/28/2017. She notes rectal bleeding and melena but denies constipation, and fever. She did not show up to her follow up appointment with her surgeon-Dr.Cora Mosley today. The appointment got rescheduled to 01/16/2018. - History of Current Complaint Chief Complaint: EDRectalPain Time Seen by Provider: 01/09/18 23:33 Stated Complaint: PAIN Hx Obtained From: Patient, Family/Lapping Machine Tender Onset/Duration: Started Days Ago - On 12/29/2017, Still Present Timing: Constant Current Severity: Moderate Pain Intensity: 6 Location of Pain: Rectal Associated Signs and Symptoms: Positive: Rectal Pain, Blood w/Stool. Negative: Fever - Additional Pertinent History Primary Care Physician: VIGNESH - Allergy/Home Medications Allergies/Adverse Reactions: Allergies Allergy/AdvReac Type Severity Reaction Status Date / Time Iodinated Contrast- Oral and Allergy Hives Verified 12/27/17 07:08 IV Dye iodixanol [From Visipaque] Allergy Unknown Verified 12/27/17 07:08 Reaction Details omega-3 acid ethyl esters Allergy Unknown Verified 12/27/17 07:08 [From Lovaza] Reaction Details metronidazole [From Flagyl] AdvReac GI Upset Verified 12/27/17 07:08 vancomycin AdvReac javid Verified 12/27/17 07:08 syndrome varenicline [From Chantix] AdvReac Altered Verified 12/27/17 07:08 Mental Status PMH/Surg Hx/FS Hx/Imm Hx Previously Healthy: No Endocrine/Hematology History: Reports: Hx Anticoagulant Therapy - During hospitalizations only, Hx Blood Transfusions - 06/04/12, Hx Diabetes - type 1, Hx Anemia - currently Denies: Hx Blood Disorders, Hx Bone Marrow Disease, Hx Systemic Lupus Erythematosus, Hx Sickle Cell Disease, Hx Thyroid Disease, Hx Unexplained Bleeding, Other Endocrine/Hematological Disorders Cardiovascular History: Reports: Hx Coronary Artery Disease - triple cabg, Hx Hypercholesterolemia, Hx Hypotension, Hx Hypertension - on meds, Other Cardiovascular Problems/Disorders - hyperlipidemia, HX OF TRIPLE BYPASS Denies: Hx Aneurysm, Hx Angina, Hx Angioplasty, Hx Auto Implanted Cardiovert Defib, Hx Cardiac Arrest, Hx Cardiomegaly, Hx Congenital Heart Disease, Hx Congestive Heart Failure, Hx Deep Vein Thrombosis, Hx Myocardial Infarction, Hx Pacemaker/ICD, Hx Peripheral Vascular Disease, Hx Rheumatic Fever, Hx Syncope, Hx Valvular Heart Disease Respiratory History: Reports: Other Respiratory Problems/Disorders - "Always stuffed up." Denies: Hx Asthma, Hx Chronic Bronchitis, Hx Chronic Obstructive Pulmonary Disease (COPD), Hx Cystic Fibrosis, Hx Lung Cancer, Hx Pleural Effusion, Hx Pneumonia, Hx Pulmonary Edema, Hx Pulmonary Embolism, Hx Seasonal Allergies, Hx Sleep Apnea GI History: Reports: Hx Gall Bladder Disease - Has gallstones, Hx Gastroesophageal Reflux Disease Denies: Hx Cirrhosis, Hx Crohn's Disease, Hx Diverticulosis, Hx Gastrointestinal Bleed, Hx Hiatal Hernia, Hx Irritable Bowel, Hx Jaundice, Hx Obstructive Bowel, Hx Ileostomy, Hx Pyloric Stenosis, Hx Ulcer, Other GI Disorders History: Reports: Other Problems/Disorders - Hx of UTIs and in 2002 or 2003 a Kidney infection Denies: Hx Acute Renal Failure, Hx Benign Prostatic Hyperplasia, Hx Chronic Renal Failure, Hx Dialysis, Hx Kidney Infection, Hx Kidney Stones, Hx Renal Disease Musculoskeletal History: Reports: Hx Arthritis - hands Denies: Hx Back Problems, Hx Bursitis, Hx Congenital Bone Abnormalities, Hx Fibromyalgia, Hx Gout, Hx Orthopedic Injury, Hx Osteoporosis, Hx Scoliosis, Hx Tendonitis, Other Musculoskeletal History Sensory History: Reports: Hx Cataracts - louie, Hx Legally Blind - blind left eye , Hx Vision Problem - Right eye farsighted, only needs reading glasses. Denies: Hx Contacts or Glasses, Hx Eye Injury, Hx Eye Prosthesis, Hx Glaucoma , Hx Macular Degeneration, Hx Deafness, Hx Hearing Aid, Hx Hearing Problem, Other Sensory Impairments Opthamlomology History: Reports: Hx Cataracts - louie, Hx Legally Blind - blind left eye, Hx Vision Problem - Right eye farsighted, only needs reading glasses. Denies: Hx Contacts or Glasses, Hx Eye Injury, Hx Eye Prosthesis, Hx Glaucoma , Hx Macular Degeneration, Other Sensory Impairments Neurological History: Reports: Hx Nerve Disease - neuropathy, Other Neuro Impairments/Disorders - diabetic neuropathy Denies: Hx Dementia, Hx Developmental Delay, Hx Headaches, Hx Migraine, Hx Seizures, Hx Spinal Cord Injury, Hx Transient Ischemic Attacks (TIA) Psychiatric History: Reports: Hx Anxiety - on meds Denies: Hx Attention Deficit Hyperactivity Disorder, Hx Eating Disorder, Hx Depression, Hx Panic Disorder, Hx Post Traumatic Stress Disorder, Hx Inpatient Treatment, Hx Community Mental Health Tx, Hx Schizophrenia, Hx Bipolar Disorder , Hx Suicide Attempt, Hx of Violent Episodes Against Others, Hx Substance Abuse , Other Psychiatric Issues/Disorders - Surgical History Surgery Procedure, Year, and Place: Hemorrhoid surgery - December 2017. TRIPLE BYPASS PIG ARTERY PLACEMENT 2005;. EYE SURGERY LEFT DETACHED RETINA ( ORBIT XRAYS DONE . BILAT CATARACTS;. RT EYE VITRECTOMY; 1990. LT BKA 2008;. RT FOOT HEEL EXCISION;. RIGHT BKA 2012; Hx Anesthesia Reactions: Yes - Excessive Lethargy, and N&V. Infectious Disease History: Yes Infectious Disease History: Reports: Hx of Known/Suspected MRSA - before left leg was amputated Denies: Hx Clostridium Difficile, Hx Hepatitis, Hx Human Immunodeficiency Virus (HIV), Hx Shingles, Hx Tuberculosis, History Other Infectious Disease, Traveled Outside the in Last 30 Days - Family History Known Family History: Positive: Cardiac Disease, Other - Nervous breakdown- sister - Social History Occupation: Disabled Lives: Dormitory/Roommates Alcohol Use: None Alcohol Amount: recovering alcoholic Hx Substance Use: No Substance Use Type: Reports: None Hx Tobacco Use: Yes Smoking Status (MU): Former Smoker Type: Cigarettes Amount Used/How Often: 1.5 packs a day for 33 yrs Have You Smoked in the Last Year: No Review of Systems Negative: Fever Gastrointestinal: Negative - Constipation Positive: Other - Positive: Rectal bleeding, rectal pain, melena All Other Systems Reviewed And Are Negative: Yes Physical Exam - Summary Physical Exam Summary: VITAL SIGNS: Reviewed. GENERAL: Patient is a morbidly obese female who is lying comfortable in the stretcher. Patient is not in any acute respiratory distress. HEAD AND FACE: No signs of trauma. No ecchymosis, hematomas or skull depressions. No sinus tenderness. EYES: PERRLA, EOMI x 2, No injected conjunctiva, no nystagmus. EARS: Hearing grossly intact. Ear canals and tympanic membranes are within normal limits. MOUTH: Oropharynx within normal limits. NECK: Supple, trachea is midline, no adenopathy, no JVD, no carotid bruit, no c- spine tenderness, neck with full ROM. CHEST: Symmetric, no tenderness at palpation LUNGS: Clear to auscultation bilaterally. No wheezing or crackles. CVS: Regular rate and rhythm, S1 and S2 present, no murmurs or gallops appreciated. ABDOMEN: Soft, non-tender. No signs of distention. No rebound no guarding, and no masses palpated. Bowel sounds are normal. RECTAL EXAM: Multiple swollen areas around the rectum; Pt declined digital rectal exam; Perirectal tenderness EXTREMITIES: Bilateral AKA with prosthesis; FROM in all major joints, no edema, no cyanosis or clubbing. NEURO: Alert and oriented x 3. No acute neurological deficits. Speech is normal and follows commands. SKIN: Dry and warm Triage Information Reviewed: Yes Vital Signs On Initial Exam: Initial Vitals Temp Pulse Resp BP Pulse Ox 98.3 F 84 16 162/65 94 01/09/18 23:25 01/09/18 23:25 01/09/18 23:25 01/09/18 23:25 01/09/18 23:25 Vital Signs Reviewed: Yes Diagnostics - Vital Signs Vital Signs Temp Pulse Resp BP Pulse Ox 01/09/18 23:25 98.3 F 84 16 162/65 94 - Laboratory Result Diagrams: 01/10/18 00:07 01/10/18 00:07 Lab Statement: Any lab studies that have been ordered have been reviewed, and results considered in the medical decision making process. - CT Pelvic CT CT Interpretation Completed By: Radiologist - Pelvis CT IMPRESSION: 1. Thickened distal anal soft tissues likely postsurgical. No active extravasation. 2. Persistent reactive bilateral inguinal lymph nodes. 3. Nonspecific pelvic and lower extremity edema. The ED physician reviewed this radiology report. Re-Evaluation - Re-Evaluation First Eval Re-Evaluation Time: 23:50 Change: Unchanged - The pt is very reluctant to rectal exam; she is uncooperative and rude. She demands pain medication. GIGU Course/Dx - Course Course Of Treatment: A 52 year-old F presents to the ED with a CC of rectal pain since 12 days ago s/p a hemorrhoid surgery on 12/28/2017. She notes melena ad rectal pain but denies constipation, and fever. She did not show up to her follow up appointment with her surgeon today. The appointment got rescheduled to 01/16/2018. A physical exam revealed that the pt is morbidly obese, has bilateral AKA with prosthesis. A rectal exam revealed multiple swollen areas around the rectum and perirectal tenderness,. The pt declined a digital rectal exam. On revaluation, she reports moderate swelling in her extremities. A pelvis CT reveals thickened distal anal soft tissues likely postsurgical. In the ED course, pt was given Metoclopramide 10mg IV and Morphine 4mg IV which improved the symptoms. I discussed the care of the pt with Dr. Chris Chang MD who recommended discharging the pt. Patient will be discharged with a final Dx of rectal pain with instructions to call Taya Crocker MD (surgeon) tomorrow . I also instructed her to increase her Lasix from 20-40 for only three days and to apply Lidocaine cream to the rectal area 3 times a day. The pt is agreeable with this plan. Allergies noted. - Diagnoses Provider Diagnoses: Rectal pain - Physician Notifications Discussed Care Of Patient With: Chris Chang - General surgeon Time Discussed With Above Provider: 02:12 Instructed by Provider To: Other - Dr. Chang recommended discharging the pt with instructions to call her surgeon - Dr Taya Mosley MD tomorrow Discharge - Sign-Out/Discharge Documenting (check all that apply): Patient Departure - DC - Discharge Plan Condition: Stable Disposition: HOME Prescriptions: oxyCODONE/Acetamin 5/325 MG* [Percocet 5/325 TAB*] 1 tab PO Q6H PRN #14 tab MDD 4 PRN Reason: Pain Patient Education Materials: Rectal Pain (ED) Referrals: Noni Faustin MD [Primary Care Provider] - 2 Days Taya Mosley MD [Medical Doctor] - Additional Instructions: RETURN TO THE EMERGENCY DEPARTMENT FOR CHANGING OR WORSENING SYMPTOMS. FOLLOW UP WITH DR MOSLEY TOMORROW. Apply Lidocaine cream to the rectal area 3 times daily. Orthopedic note: Lasix can be increased from 20 -40 for only three days. - Attestation Statements Document Initiated by Scribe: Yes Documenting Scribe: Queenie Emmanuel Provider For Whom Scribe is Documenting (Include Credential): Dr. Aye Dominguez MD Scribe Attestation: Queenie Gonzalez, scribed for Dr. Aye Dominguez MD on 01/10/18 at 0302.
[2018-01-09] MEDS ORDERED: Metoclopramide IV* 5 MG/ML 2 ML VIAL IV SLOW PU ONE (23:57)
[2018-01-09] MEDS ORDERED: Morphine INJ* 4 MG/ML 1 ML SYRINGE (NEW SYRINGE VERSION) IV ONE (23:57)
[2018-01-10 00:36] LABS: INR 0.93 (0.77-1.02)
[2018-01-10 00:37] LABS: EGFR Non-African American 68.1 (>60)
[2018-01-10 00:54] LABS: ABS Basophils 0.1 10^3/ul (0-0.2); ABS Eosinophils 0.3 10^3/ul (0-0.6); ABS Lymphocytes 1.1 10^3/ul (1.0-4.8); ABS Monocytes 0.6 10^3/ul (0-0.8); ABS Neutrophils 5.7 10^3/ul (1.5-7.7); ABS Nucleated RBC 0 10^3/ul; Eosinophil % 4.5 % (0-6); Hematocrit 32 % (35-47); Hemoglobin 10.2 g/dl (12.0-16.0); Lymphocyte % 14.4 % (25-47); Mean Corpuscular HGB Conc 32 g/dl (31-36); Mean Corpuscular Hemoglobin 30 pg (27-31); Mean Corpuscular Volume 95 fL (80-97); Mean Platelet Volume 8.2 um3 (7.4-10.4); Nucleated Red Blood Cells % 0.1; Platelet Count 359 10^3/ul (150-450); Red Blood Count 3.38 10^6/ul (4.00-5.40); Red Cell Distribution Width 16 % (10.5-15); White Blood Count 7.8 10^3/ul (3.5-10.8)
--- NOTE | 2018-01-10 01:37 | RAD ---
EXAM: CT Pelvis Without Intravenous Contrast CLINICAL HISTORY: 52 years old, female; Pain; Perianal pain and other: Rectal /hemorrhoid SX 1 week ago pain with bleeding now; Prior surgery; Surgery date: 3-7 days post-operative; Patient HX: Bilateral leg prosthesis; Additional info: Rectal pain TECHNIQUE: Axial computed tomography images of the pelvis without intravenous contrast. All CT scans at this facility use at least one of these dose optimization techniques: automated exposure control; mA and/or kV adjustment per patient size (includes targeted exams where dose is matched to clinical indication); or iterative reconstruction. Coronal and sagittal reformatted images were created and reviewed. COMPARISON: A/P WO CT ABD/PEL W/O 04/07/2012 9:57 PM FINDINGS: Kidneys and ureters: Visualized kidneys are normal. Bowel: Visualized small bowel is normal in caliber. No masses or segmental thickening of the visualized colon. Thickening of the distal anal soft tissues with associated prolapse. No adjacent stranding. No obstruction. Appendix: No dilation or periappendiceal inflammation. Intraperitoneal space: Normal. No pneumoperitoneum. No ascities. Bladder: Thin-walled bladder with no focal nodularity, perivesicular stranding, or calcifications. No stones. Reproductive: Uterus and ovaries are normal. Bones/joints: No fractures. No suspicious bone lesions. Soft tissues: Diffuse mild subcutaneous edema. Vasculature: The vasculature demonstrates diffuse moderate atherosclerotic calcification. No lower abdominal aortic aneurysm. Lymph nodes: Bilateral enlarged inguinal lymph nodes again seen including on the right measuring 2.3 cm (series 2, image 45) previously 1.4 cm and on the left measuring 1.4 cm (series 2, image 58) previously 1.4 cm. IMPRESSION: 1. Thickened distal anal soft tissues likely postsurgical. No active extravasation. 2. Persistent reactive bilateral inguinal lymph nodes. 3. Nonspecific pelvic and lower extremity edema. To contact [facility] with a general question: Operations Center - [phone] For direct physician to physician contact: Physician Hotline - [phone] [facility] ([facility] Facility ID #[id number])
[2018-01-10] MEDS ORDERED: Lidocaine 5% OINT TOPICAL PRN (02:16)
[2018-01-10 04:06] VITALS: BP 165/87
== END 2018-01-10 04:04 | disposition home or self-care (01) ==
LOC: ED 23:18
DX: K62.89 Other specified diseases of anus and rectum (principal); K92.1 Melena; Z87.891 Personal history of nicotine dependence
CPT/HCPCS: 36415; 72192; 80053; 83735; 85025; 85610; 85730; 86140; 96374; 96375; 99283; A9270-GY; J2270; J2765

== ENCOUNTER 2018-08-23 20:57 | Emergency (ER) | payer MEDICARE, OTHER ==
--- NOTE | 2018-08-23 21:22 | ED ---
GI/ HPI - HPI Summary HPI Summary: 53-year-old female presents with abd pain since sat. She states that last time had BM was Saturday. She took some milk of magnesium and had diarrhea on Saturday. She states that she has not a bowel movement since. She states that increasing shortness of breath. She states this problem has been intermittent for the past 3 years. She states MiraLAX daily. Denies any blood in her stool or dark tarry stool. She denies any nausea vomiting. No history of bowel obstruction. She denies any chest pain. No cough. No history asthma or COPD. States that her abdomen feels very distended. No fevers. No urinary symptoms. - History of Current Complaint Chief Complaint: EDConstipation Time Seen by Provider: 08/23/18 21:08 Stated Complaint: "ABDOMINAL PAIN PER EMS" Pain Intensity: 0 - Additional Pertinent History Primary Care Physician: VIGNESH - Allergy/Home Medications Allergies/Adverse Reactions: Allergies Allergy/AdvReac Type Severity Reaction Status Date / Time Iodinated Contrast- Oral and Allergy Hives Verified 08/23/18 21:08 IV Dye iodixanol [From Visipaque] Allergy Unknown Verified 08/23/18 21:08 Reaction Details omega-3 acid ethyl esters Allergy Unknown Verified 08/23/18 21:08 [From Lovaza] Reaction Details metronidazole [From Flagyl] AdvReac GI Upset Verified 08/23/18 21:08 vancomycin AdvReac javid Verified 08/23/18 21:08 syndrome varenicline [From Chantix] AdvReac Altered Verified 08/23/18 21:08 Mental Status PMH/Surg Hx/FS Hx/Imm Hx Endocrine/Hematology History: Reports: Hx Anticoagulant Therapy - During hospitalizations only, Hx Blood Transfusions - 06/04/12, Hx Diabetes - type 1, Hx Anemia - currently Denies: Hx Blood Disorders, Hx Bone Marrow Disease, Hx Systemic Lupus Erythematosus, Hx Sickle Cell Disease, Hx Thyroid Disease, Hx Unexplained Bleeding, Other Endocrine/Hematological Disorders Cardiovascular History: Reports: Hx Coronary Artery Disease - triple cabg, Hx Hypercholesterolemia, Hx Hypotension, Hx Hypertension - on meds, Other Cardiovascular Problems/Disorders - hyperlipidemia, HX OF TRIPLE BYPASS Denies: Hx Aneurysm, Hx Angina, Hx Angioplasty, Hx Auto Implanted Cardiovert Defib, Hx Cardiac Arrest, Hx Cardiomegaly, Hx Congenital Heart Disease, Hx Congestive Heart Failure, Hx Deep Vein Thrombosis, Hx Myocardial Infarction, Hx Pacemaker/ICD, Hx Peripheral Vascular Disease, Hx Rheumatic Fever, Hx Syncope, Hx Valvular Heart Disease Respiratory History: Reports: Other Respiratory Problems/Disorders - "Always stuffed up." Denies: Hx Asthma, Hx Chronic Bronchitis, Hx Chronic Obstructive Pulmonary Disease (COPD), Hx Cystic Fibrosis, Hx Lung Cancer, Hx Pleural Effusion, Hx Pneumonia, Hx Pulmonary Edema, Hx Pulmonary Embolism, Hx Seasonal Allergies, Hx Sleep Apnea GI History: Reports: Hx Gall Bladder Disease - Has gallstones, Hx Gastroesophageal Reflux Disease Denies: Hx Cirrhosis, Hx Crohn's Disease, Hx Diverticulosis, Hx Gastrointestinal Bleed, Hx Hiatal Hernia, Hx Irritable Bowel, Hx Jaundice, Hx Obstructive Bowel, Hx Ileostomy, Hx Pyloric Stenosis, Hx Ulcer, Other GI Disorders History: Reports: Other Problems/Disorders - Hx of UTIs and in 2002 or 2003 a Kidney infection Denies: Hx Acute Renal Failure, Hx Benign Prostatic Hyperplasia, Hx Chronic Renal Failure, Hx Dialysis, Hx Kidney Infection, Hx Kidney Stones, Hx Renal Disease Musculoskeletal History: Reports: Hx Arthritis - hands Denies: Hx Back Problems, Hx Bursitis, Hx Congenital Bone Abnormalities, Hx Fibromyalgia, Hx Gout, Hx Orthopedic Injury, Hx Osteoporosis, Hx Scoliosis, Hx Tendonitis, Other Musculoskeletal History Sensory History: Reports: Hx Cataracts - louie, Hx Legally Blind - blind left eye , Hx Vision Problem - Right eye farsighted, only needs reading glasses. Denies: Hx Contacts or Glasses, Hx Eye Injury, Hx Eye Prosthesis, Hx Glaucoma , Hx Macular Degeneration, Hx Deafness, Hx Hearing Aid, Hx Hearing Problem, Other Sensory Impairments Opthamlomology History: Reports: Hx Cataracts - louie, Hx Legally Blind - blind left eye, Hx Vision Problem - Right eye farsighted, only needs reading glasses. Denies: Hx Contacts or Glasses, Hx Eye Injury, Hx Eye Prosthesis, Hx Glaucoma , Hx Macular Degeneration, Other Sensory Impairments Neurological History: Reports: Hx Nerve Disease - neuropathy, Other Neuro Impairments/Disorders - diabetic neuropathy Denies: Hx Dementia, Hx Developmental Delay, Hx Headaches, Hx Migraine, Hx Seizures, Hx Spinal Cord Injury, Hx Transient Ischemic Attacks (TIA) Psychiatric History: Reports: Hx Anxiety - on meds Denies: Hx Attention Deficit Hyperactivity Disorder, Hx Eating Disorder, Hx Depression, Hx Panic Disorder, Hx Post Traumatic Stress Disorder, Hx Inpatient Treatment, Hx Community Mental Health Tx, Hx Schizophrenia, Hx Bipolar Disorder , Hx Suicide Attempt, Hx of Violent Episodes Against Others, Hx Substance Abuse , Other Psychiatric Issues/Disorders - Surgical History Surgery Procedure, Year, and Place: Hemorrhoid surgery - December 2017. TRIPLE BYPASS PIG ARTERY PLACEMENT 2005;. EYE SURGERY LEFT DETACHED RETINA ( ORBIT XRAYS DONE . BILAT CATARACTS;. RT EYE VITRECTOMY; 1990. LT BKA 2008;. RT FOOT HEEL EXCISION;. RIGHT BKA 2012; Hx Anesthesia Reactions: Yes - Excessive Lethargy, and N&V. Infectious Disease History: Yes Infectious Disease History: Reports: Hx of Known/Suspected MRSA - before left leg was amputated Denies: Hx Clostridium Difficile, Hx Hepatitis, Hx Human Immunodeficiency Virus (HIV), Hx Shingles, Hx Tuberculosis, History Other Infectious Disease, Traveled Outside the in Last 30 Days - Family History Known Family History: Positive: Cardiac Disease, Other - Nervous breakdown- sister - Social History Alcohol Use: None Alcohol Amount: recovering alcoholic Hx Substance Use: No Substance Use Type: Reports: None Hx Tobacco Use: Yes Smoking Status (MU): Former Smoker Type: Cigarettes Amount Used/How Often: 1.5 packs a day for 33 yrs Have You Smoked in the Last Year: No Review of Systems Negative: Fever Negative: Chest Pain Positive: Shortness Of Breath. Negative: Cough Positive: Abdominal Pain. Negative: Vomiting, Diarrhea, Nausea All Other Systems Reviewed And Are Negative: Yes Physical Exam Triage Information Reviewed: Yes Vital Signs On Initial Exam: Initial Vitals Temp Pulse Resp BP Pulse Ox 98.5 F 79 16 179/75 94 08/23/18 21:01 08/23/18 21:01 08/23/18 21:01 08/23/18 21:01 08/23/18 21:01 Vital Signs Reviewed: Yes Appearance: Positive: Well-Appearing Skin: Positive: Warm, Dry Head/Face: Positive: Normal Head/Face Inspection Eyes: Positive: Normal, Conjunctiva Clear ENT: Positive: Pharynx normal Respiratory/Lung Sounds: Positive: Clear to Auscultation, Breath Sounds Present Cardiovascular: Positive: Normal, RRR Abdomen Description: Positive: Distended, Other: - mild diffuse abd tenderness Bowel Sounds: Positive: Present Pelvic Exam: Positive: Cervicitis Neurological: Positive: Normal Psychiatric: Positive: Normal Diagnostics - Vital Signs Vital Signs Temp Pulse Resp BP Pulse Ox 08/23/18 21:01 98.5 F 79 16 179/75 94 - Laboratory Result Diagrams: 08/23/18 21:37 08/23/18 21:37 Lab Statement: Any lab studies that have been ordered have been reviewed, and results considered in the medical decision making process. - Radiology chest Radiology Interpretation Completed By: ED Physician Summary of Radiographic Findings: no acute finding abd Radiology Interpretation Completed By: ED Physician Summary of Radiographic Findings: stool throughout - EKG No standard instances Cardiac Rate: NL EKG Rhythm: Sinus Rhythm EKG Comparison: No Significant Change Summary of EKG Findings: sinus rhythm Re-Evaluation - Re-Evaluation First Eval Re-Evaluation Time: 23:22 Change: Improved Comment: had bm in room with enema GIGU Course/Dx - Course Course Of Treatment: 53-year-old female presents with abd pain since sat. She states that last time had BM was Saturday. She took some milk of magnesium and had diarrhea on Saturday. She states that she has not a bowel movement since. She states that increasing shortness of breath. She states this problem has been intermittent for the past 3 years. She states MiraLAX daily. Denies any blood in her stool or dark tarry stool. She denies any nausea vomiting. No history of bowel obstruction. She denies any chest pain. No cough. No history asthma or COPD. States that her abdomen feels very distended. No fevers. No urinary symptoms. On exam has mild diffuse tenderness. Lungs clear to auscultation. abd distended. ekg shows sinus rhythm. lab work without significant abnormaility. chest xray read by me as normal. abd xray shows stool throughout. gave soap shaun enema and had large bm. discussed to add on senna every other day and increase if needed. patient understand and agrees with plan. - Diagnoses Differential Diagnoses - Female: Bowel Obstruction, Urinary Tract Infection, Other - constipation Provider Diagnoses: Constipation Discharge - Sign-Out/Discharge Documenting (check all that apply): Patient Departure Patient Received Moderate/Deep Sedation with Procedure: No - Discharge Plan Condition: Good Disposition: HOME Patient Education Materials: Constipation (ED) Referrals: Noni Faustin MD [Primary Care Provider] - Additional Instructions: take senna every other day, increase if continue to have issues with constipation follow up with primary Return to ED if develop any new or worsening symptoms - Billing Disposition and Condition Condition: GOOD Disposition: Home
[2018-08-23 21:48] LABS: ABS Basophils 0.1 10^3/ul (0-0.2); ABS Eosinophils 0.4 10^3/ul (0-0.6); ABS Lymphocytes 1.3 10^3/ul (1.0-4.8); ABS Monocytes 0.6 10^3/ul (0-0.8); Eosinophil % 5.1 %; Hematocrit 38 % (35-47); Hemoglobin 12.5 g/dL (12.0-16.0); Lymphocyte % 15.6 %; Mean Corpuscular HGB Conc 33 g/dL (31-36); Mean Corpuscular Hemoglobin 31 pg (27-31); Mean Corpuscular Volume 94 fL (80-97); Mean Platelet Volume 9.3 fL (7.4-10.4); Platelet Count 263 10^3/uL (150-450); Red Blood Count 3.98 10^6 /uL (3.70-4.87); Red Cell Distribution Width 13 % (10.5-15); White Blood Count 8.4 10^3/uL (3.5-10.8)
[2018-08-23 22:05] LABS: Albumin 3.4 g/dL (3.2-5.2); C Reactive Protein 18.69 mg/L (<8.01); Calcium 9.2 mg/dL (8.6-10.3); EGFR African American 62.6 (>60); EGFR Non-African American 51.8 (>60); Globulin 3.4 g/dL (2-4); Total Bilirubin 0.4 mg/dL (0.2-1.0); Total Protein 6.8 g/dL (6.4-8.9)
[2018-08-23 22:08] LABS: Troponin I 0.01 ng/mL (<0.04)
[2018-08-23 23:45] VITALS: BP 122/78
== END 2018-08-23 23:44 | disposition home or self-care (01) ==
LOC: ED 20:57
DX: K59.00 Constipation, unspecified (principal); J98.11 Atelectasis; E10.9 Type 1 diabetes mellitus without complications; I25.10 Atherosclerotic heart disease of native coronary artery without angina pectoris; I10 Essential (primary) hypertension; D64.9 Anemia, unspecified; Z88.8 Allergy status to other drugs, medicaments and biological substances; Z88.1 Allergy status to other antibiotic agents; Z91.041 Radiographic dye allergy status; Z87.891 Personal history of nicotine dependence
CPT/HCPCS: 36415; 71046; 74019; 80053; 83605; 83690; 83880; 84484; 85025; 86140; 93005; 99283

== ENCOUNTER 2018-09-17 12:45 | Emergency (ER) | payer MEDICARE, MEDICAID ==
--- NOTE | 2018-09-17 13:13 | ED ---
Skin Complaint - HPI Summary HPI Summary: Pt is a 53 y/o female with hx of IDDM and bilateral BKA presenting with painful spreading rash of the left leg. She wears her neoprene prosthetics without any stockings under. She was given a fungal shampoo by her PCP but her rash has not improved. States she has a chronic non-healing wound on that leg at the amputation site for which she sees Dr. Mosley, general surgery, and wound care. Denies fevers, chills, nausea, vomiting, abdominal pain, chest pain, cough. - History of Current Complaint Time Seen by Provider: 09/17/18 12:47 Stated Complaint: FALL PER EMS Hx Obtained From: Patient Onset/Duration: Started Days Ago Timing: Constant Onset Severity: Mild Current Severity: Mild Pain Intensity: 0 Skin Location: Discrete, Leg - Left thigh Character: Redness, Painful Aggravating Symptom(s): Nothing Alleviating Symptom(s): Nothing - Additional Pertinent History Primary Care Physician: VIGNESH - Allergy/Home Medications Allergies/Adverse Reactions: Allergies Allergy/AdvReac Type Severity Reaction Status Date / Time Iodinated Contrast- Oral and Allergy Hives Verified 08/23/18 21:08 IV Dye iodixanol [From Visipaque] Allergy Unknown Verified 08/23/18 21:08 Reaction Details omega-3 acid ethyl esters Allergy Unknown Verified 08/23/18 21:08 [From Lovaza] Reaction Details metronidazole [From Flagyl] AdvReac GI Upset Verified 08/23/18 21:08 vancomycin AdvReac javid Verified 08/23/18 21:08 syndrome varenicline [From Chantix] AdvReac Altered Verified 08/23/18 21:08 Mental Status PMH/Surg Hx/FS Hx/Imm Hx Previously Healthy: No Endocrine/Hematology History: Reports: Hx Anticoagulant Therapy - During hospitalizations only, Hx Blood Transfusions - 06/04/12, Hx Diabetes - type 1, Hx Anemia - currently Denies: Hx Blood Disorders, Hx Bone Marrow Disease, Hx Systemic Lupus Erythematosus, Hx Sickle Cell Disease, Hx Thyroid Disease, Hx Unexplained Bleeding, Other Endocrine/Hematological Disorders Cardiovascular History: Reports: Hx Coronary Artery Disease - triple cabg, Hx Hypercholesterolemia, Hx Hypotension, Hx Hypertension - on meds, Other Cardiovascular Problems/Disorders - hyperlipidemia, HX OF TRIPLE BYPASS Denies: Hx Aneurysm, Hx Angina, Hx Angioplasty, Hx Auto Implanted Cardiovert Defib, Hx Cardiac Arrest, Hx Cardiomegaly, Hx Congenital Heart Disease, Hx Congestive Heart Failure, Hx Deep Vein Thrombosis, Hx Myocardial Infarction, Hx Pacemaker/ICD, Hx Peripheral Vascular Disease, Hx Rheumatic Fever, Hx Syncope, Hx Valvular Heart Disease Respiratory History: Reports: Other Respiratory Problems/Disorders - "Always stuffed up." Denies: Hx Asthma, Hx Chronic Bronchitis, Hx Chronic Obstructive Pulmonary Disease (COPD), Hx Cystic Fibrosis, Hx Lung Cancer, Hx Pleural Effusion, Hx Pneumonia, Hx Pulmonary Edema, Hx Pulmonary Embolism, Hx Seasonal Allergies, Hx Sleep Apnea GI History: Reports: Hx Gall Bladder Disease - Has gallstones, Hx Gastroesophageal Reflux Disease Denies: Hx Cirrhosis, Hx Crohn's Disease, Hx Diverticulosis, Hx Gastrointestinal Bleed, Hx Hiatal Hernia, Hx Irritable Bowel, Hx Jaundice, Hx Obstructive Bowel, Hx Ileostomy, Hx Pyloric Stenosis, Hx Ulcer, Other GI Disorders History: Reports: Other Problems/Disorders - Hx of UTIs and in 2002 or 2003 a Kidney infection Denies: Hx Acute Renal Failure, Hx Benign Prostatic Hyperplasia, Hx Chronic Renal Failure, Hx Dialysis, Hx Kidney Infection, Hx Kidney Stones, Hx Renal Disease Musculoskeletal History: Reports: Hx Arthritis - hands Denies: Hx Back Problems, Hx Bursitis, Hx Congenital Bone Abnormalities, Hx Fibromyalgia, Hx Gout, Hx Orthopedic Injury, Hx Osteoporosis, Hx Scoliosis, Hx Tendonitis, Other Musculoskeletal History Sensory History: Reports: Hx Cataracts - louie, Hx Legally Blind - blind left eye , Hx Vision Problem - Right eye farsighted, only needs reading glasses. Denies: Hx Contacts or Glasses, Hx Eye Injury, Hx Eye Prosthesis, Hx Glaucoma , Hx Macular Degeneration, Hx Deafness, Hx Hearing Aid, Hx Hearing Problem, Other Sensory Impairments Opthamlomology History: Reports: Hx Cataracts - louie, Hx Legally Blind - blind left eye, Hx Vision Problem - Right eye farsighted, only needs reading glasses. Denies: Hx Contacts or Glasses, Hx Eye Injury, Hx Eye Prosthesis, Hx Glaucoma , Hx Macular Degeneration, Other Sensory Impairments Neurological History: Reports: Hx Nerve Disease - neuropathy, Other Neuro Impairments/Disorders - diabetic neuropathy Denies: Hx Dementia, Hx Developmental Delay, Hx Headaches, Hx Migraine, Hx Seizures, Hx Spinal Cord Injury, Hx Transient Ischemic Attacks (TIA) Psychiatric History: Reports: Hx Anxiety - on meds Denies: Hx Attention Deficit Hyperactivity Disorder, Hx Eating Disorder, Hx Depression, Hx Panic Disorder, Hx Post Traumatic Stress Disorder, Hx Inpatient Treatment, Hx Community Mental Health Tx, Hx Schizophrenia, Hx Bipolar Disorder , Hx Suicide Attempt, Hx of Violent Episodes Against Others, Hx Substance Abuse , Other Psychiatric Issues/Disorders - Surgical History Surgery Procedure, Year, and Place: Hemorrhoid surgery - December 2017. TRIPLE BYPASS PIG ARTERY PLACEMENT 2005;. EYE SURGERY LEFT DETACHED RETINA ( ORBIT XRAYS DONE . BILAT CATARACTS;. RT EYE VITRECTOMY; 1990. LT BKA 2008;. RT FOOT HEEL EXCISION;. RIGHT BKA 2012; Hx Anesthesia Reactions: Yes - Excessive Lethargy, and N&V. Infectious Disease History: No Infectious Disease History: Reports: Hx of Known/Suspected MRSA - before left leg was amputated Denies: Hx Clostridium Difficile, Hx Hepatitis, Hx Human Immunodeficiency Virus (HIV), Hx Shingles, Hx Tuberculosis, History Other Infectious Disease, Traveled Outside the [place] in Last 30 Days - Family History Known Family History: Positive: Cardiac Disease, Other - Nervous breakdown- sister - Social History Alcohol Use: None Alcohol Amount: recovering alcoholic Hx Substance Use: No Substance Use Type: Reports: None Hx Tobacco Use: Yes Smoking Status (MU): Former Smoker Type: Cigarettes Amount Used/How Often: 1.5 packs a day for 33 yrs Have You Smoked in the Last Year: No Review of Systems Negative: Fever, Chills Negative: Chest Pain Negative: Cough Negative: Abdominal Pain, Vomiting, Nausea Positive: Rash - Left leg All Other Systems Reviewed And Are Negative: Yes Physical Exam Triage Information Reviewed: Yes Vital Signs On Initial Exam: Initial Vitals Temp Pulse Resp BP Pulse Ox 97.5 F 78 16 139/61 96 09/17/18 12:51 09/17/18 12:51 09/17/18 12:51 09/17/18 12:51 09/17/18 12:51 Vital Signs Reviewed: Yes Appearance: Positive: Well-Appearing, No Pain Distress Skin: Positive: Warm, Skin Color Reflects Adequate Perfusion, Dry, Other - Erythematous macules coalescing into patches at distal left thigh with satellite lesions, c/w with appearance of fungal rash Head/Face: Positive: Normal Head/Face Inspection Eyes: Positive: Normal, Conjunctiva Clear ENT: Positive: Normal ENT inspection Respiratory/Lung Sounds: Positive: Breath Sounds Present, Wheezes - Chronic. Negative: Rales, Rhonchi Cardiovascular: Positive: RRR. Negative: Murmur, Rub Abdomen Description: Negative: Distended Musculoskeletal: Positive: Normal, Strength/ROM Intact Neurological: Positive: Normal, Sensory/Motor Intact, Alert, Oriented to Person Place, Time Psychiatric: Positive: Normal Diagnostics - Vital Signs Vital Signs Temp Pulse Resp BP Pulse Ox 09/17/18 12:51 97.5 F 78 16 139/61 96 - Laboratory Lab Statement: Any lab studies that have been ordered have been reviewed, and results considered in the medical decision making process. - Radiology Left knee x-ray Radiology Interpretation Completed By: Radiologist Summary of Radiographic Findings: Negative Course/Dx - Course Course Of Treatment: 53 y/o female with erythematous painful rash to left distal thigh, consistent with fungal etiology. States her current fungal shampoo has not relieved her rash. Knee x-ray negative for bone involvement. She is discharged home with prescription for nystatin powder and instructed to wear stockings b/t her skin and prosthetics. To f/u with Dr. Mosley, general surgery, and her PCP. - Differential Diagnoses - Skin Complaint Differential Diagnoses: Cellulitis, Contact Dermatitis, Eczema, Tinea - Diagnoses Provider Diagnoses: Skin yeast infection, Amputation stump pain Discharge - Sign-Out/Discharge Documenting (check all that apply): Patient Departure Patient Received Moderate/Deep Sedation with Procedure: No - Discharge Plan Condition: Improved Disposition: HOME Prescriptions: Nystatin TOP POWDER* 1 applic TOPICAL TID #1 btl Patient Education Materials: Skin Yeast Infection (ED) Referrals: Noni Faustin MD [Primary Care Provider] - Taya Mosley MD [Medical Doctor] - Additional Instructions: Follow-up for the leg with your surgeon Dr. Mosley. Treat rash with powder. Keep dressed with stocking at oh is provided. Return if worse, new symptoms or other concerns. - Billing Disposition and Condition Condition: IMPROVED Disposition: Home - Attestation Statements Document Initiated by Scribe: Yes Documenting Scribe: STONE Samson Provider For Whom Scribe is Documenting (Include Credential): Dr. Ortiz Scribe Attestation: Monica Gonzalez PA-S, scribed for Dr. Ortiz on 09/17/18 at 1752. Scribe Documentation Reviewed: Yes Provider Attestation: The documentation as recorded by the scribe, STONE Samson accurately reflects the service I personally performed and the decisions made by me, Dr. Ortiz Status of Scribjose Document: Viewed
--- OUTSIDE RECORDS SUMMARY | 2018-09-17 13:42 | XMS REPORT | Continuity of Care Document ---
:1965 External Reference #:[id number] Author Name Kalyan Coleman M.D. Address [address] [place] [address] Care Team Providers Name Role Phone Noni Faustin M.D. Primary Care Physician Unavailable Payers Date Identification Numbers Payment Provider Subscriber Policy Number: [id number] Medicare - [facility] Sherin Reyes PayID: [id number] [address] [place] [id number] Problems Active Problems Provider Date History of bilateral lower limb amputation Kalyan Coleman M.D. Onset: 07/2018 Type 1 diabetes mellitus Kalyan Coleman M.D. Onset: 09/09/2018 Blindness of one eye Kalyan Coleman M.D. Onset: 09/09/2018 Note: Left Eye Congestive heart failure Kalyan Coleman M.D. Onset: 09/09/2018 Family History Date Family Member(s) Observation Comments General Unknown Father Eye Issues Mother No Current Problems Social History Type Date Description Comments Sex Unknown Marital Status Single Occupation 1992 Disabled Work Status Disabled ETOH Use Denies alcohol use Tobacco Use Start: Unknown End: Unknown Patient is a former smoker Recreational Drug Use Denies Drug Use Smoking Status Reviewed: 09/09/18 Patient is a former smoker Allergies, Adverse Reactions, Alerts Active Allergies Reaction Severity Comments Date Contrast Dye 09/09/2018 Medications Active Medications SIG Qnty Indications Ordering Date Provider Xanax Unknown 0.5mg Tablets Ventolin HFA Unknown 108(90Base) mcg/Act Aerosol Sertraline HCL Unknown 25mg Tablets Senna Laxative Unknown 8.6mg Tablets Reglan Unknown 10mg Tablets Ramipril Unknown 5mg Capsules Ondansetron Unknown 4mg Tablets Dispers Omeprazole Unknown 20mg Capsules DR Nancy Perera Unknown 100Unit/ML Solution Miralax dissolve 17gm in Unknown 3350NF Powder 4-8ox liquid and drink twice a day as needed for constipation Lido-Prilo Milo Pack Unknown 2.5-2.5% Kit Lantus Solostar Unknown 100Unit/ML Solution Pen-Inject Hydrocortisone Unknown 2.5% Cream Furosemide Unknown 20mg Tablets KP Ferrous Sulfate Unknown 325(65Fe) mg Tablets Desloratadine Unknown 5mg Tablets Debrox Unknown 6.5% Solution Colace Unknown 100mg Capsules Atorvastatin Calcium Unknown 40mg Tablets Atenolol Unknown 50mg Tablets Procedures Date Code Description Status 05/23/2010 36531 Est Patient Comprehensive Exam Completed Plan of Treatment 09/09/2018 - Kalyan Coleman M.D.E11.9 Type 2 diabetes mellitus without complicationsComments:Smoking can increase the risk of developing or worsening any eye related disease, as well as affect your overall health. If you are a smoker, we strongly recommend that you quit.If you are not a smoker, we strongly recommend that you do not start. You have diabetes. I do not detect any changes in both of your retinas from diabetes at this time. Proper control of your diabetes is important for the health of your eyes. Changes in your eyes from diabetes can happen without symptoms, so it is important that you have your eyes examined.Follow up:1 Year Follow Up DFE You can expect to have your eyes dilated at your next visit. If Dr. Coleman orders any additional testing, it may require extra time. We recommend that you bring sunglasses, as dilation drops often make you light sensitive until they wear off. We always recommend you bring someone to drive you home if you are uncomfortable driving with your eyes dilated. If you have any questions before your next visit, feel free to call our office at .H01.001 Unspecified blepharitis right upper eyelidComments:Please follow Dr. Coleman's instructions. USE ARTIFICAL TEARS 3-4 TIMES A DAY. SOME BRANDS I RECOMMEND ARE, SYSTANE, REFRESH OR THERATEARS. START USING WARM COMPRESSES (RICE BAG) FOR 3-5 MINUTES AT NIGHT BEFORE BED TO BOTH EYES.H01.004 Unspecified blepharitis left upper eyelid
[2018-09-17 14:50] VITALS: BP 109/59
== END 2018-09-17 14:49 | disposition home or self-care (01) ==
LOC: ED 12:45
DX: B37.2 Candidiasis of skin and nail (principal); T87.89 Other complications of amputation stump; E10.9 Type 1 diabetes mellitus without complications; Z89.512 Acquired absence of left leg below knee; Z89.511 Acquired absence of right leg below knee; Z88.8 Allergy status to other drugs, medicaments and biological substances; Z87.891 Personal history of nicotine dependence; Z91.041 Radiographic dye allergy status
CPT/HCPCS: 99282

== ENCOUNTER 2018-12-29 17:08 | Inpatient (IN) | payer MEDICARE, MEDICAID ==
[2018-12-29] MEDS ORDERED: Clindamycin 600 MG IVPREMIX(* 600 MG/50 ML SDV IV ONE (17:21)
[2018-12-29] MEDS ORDERED: LORazepam INJ* 2 MG/ML 1 ML VIAL IV PUSH ONE (17:28)
[2018-12-29] MEDS ORDERED: Lorazepam PYXIS KEY PRN (17:28)
[2018-12-29] MEDS ORDERED: Lorazepam PYXIS KEY ONE (17:33)
[2018-12-29] MEDS ORDERED: Clindamycin 600 MG/D5W BAG(*) 600 MG/50 ML BAG IV ONE (17:34)
--- NOTE | 2018-12-29 17:37 | ED ---
Skin Complaint - HPI Summary HPI Summary: Pt is a 53 y/o F presenting to the ED brought in by EMS for a wound on her L leg. Per EMS, the pt is a double below-knee amputee who receives wound care for a sore on her L stump. She cannot get around in her own home, despite having an aide, as she cannot put any pressure on the stump. The pt herself notes that she is blind in her L eye and her vision in her R eye is going, and all of her complications are d/t Diabetes. She notes that she cannot use crutches because she is partially blind, and that she cannot bear any weight on it. She reports anxiety and chronic SOB as she is a former smoker. Pt denies any fever, chills, erythema of eyes, sore throat, CP, cough, abdominal pain, N/V, dysuria, hematuria, myalgia, edema, rash, or dizziness. - History of Current Complaint Chief Complaint: EDRashSkinAbscess Stated Complaint: WOUND ON LEFT LEG PER EMS Hx Obtained From: Patient Onset/Duration: Started Days Ago, Still Present Skin Exposure Onset/Duration: Days Ago Timing: Constant, Lasting Days Onset Severity: Mild Current Severity: Mild Pain Intensity: 3 Pain Scale Used: 0-10 Numeric Skin Location: Other: - L stump Aggravating Symptom(s): Other: - weight bearing Alleviating Symptom(s): Nothing Associated Signs & Symptoms: Difficulty Breathing - chronic - Additional Pertinent History Primary Care Physician: [id number] - Allergy/Home Medications Allergies/Adverse Reactions: Allergies Allergy/AdvReac Type Severity Reaction Status Date / Time Iodinated Contrast Media Allergy Hives Verified 08/23/18 21:08 [Iodinated Contrast- Oral and IV Dye] iodixanol [From Visipaque] Allergy Unknown Verified 08/23/18 21:08 Reaction Details omega-3 acid ethyl esters Allergy Unknown Verified 08/23/18 21:08 [From Lovaza] Reaction Details metronidazole [From Flagyl] AdvReac GI Upset Verified 08/23/18 21:08 vancomycin AdvReac javid Verified 08/23/18 21:08 syndrome varenicline [From Chantix] AdvReac Altered Verified 08/23/18 21:08 Mental Status PMH/Surg Hx/FS Hx/Imm Hx Previously Healthy: Yes Endocrine/Hematology History: Reports: Hx Anticoagulant Therapy - During hospitalizations only, Hx Blood Transfusions - 06/04/12, Hx Diabetes - type 1, Hx Anemia - currently Denies: Hx Blood Disorders, Hx Bone Marrow Disease, Hx Systemic Lupus Erythematosus, Hx Sickle Cell Disease, Hx Thyroid Disease, Hx Unexplained Bleeding, Other Endocrine/Hematological Disorders Cardiovascular History: Reports: Hx Coronary Artery Disease - triple cabg, Hx Hypercholesterolemia, Hx Hypotension, Hx Hypertension - on meds, Other Cardiovascular Problems/Disorders - hyperlipidemia, HX OF TRIPLE BYPASS Denies: Hx Aneurysm, Hx Angina, Hx Angioplasty, Hx Auto Implanted Cardiovert Defib, Hx Cardiac Arrest, Hx Cardiomegaly, Hx Congenital Heart Disease, Hx Congestive Heart Failure, Hx Deep Vein Thrombosis, Hx Myocardial Infarction, Hx Pacemaker/ICD, Hx Peripheral Vascular Disease, Hx Rheumatic Fever, Hx Syncope, Hx Valvular Heart Disease Respiratory History: Reports: Other Respiratory Problems/Disorders - "Always stuffed up." Denies: Hx Asthma, Hx Chronic Bronchitis, Hx Chronic Obstructive Pulmonary Disease (COPD), Hx Cystic Fibrosis, Hx Lung Cancer, Hx Pleural Effusion, Hx Pneumonia, Hx Pulmonary Edema, Hx Pulmonary Embolism, Hx Seasonal Allergies, Hx Sleep Apnea GI History: Reports: Hx Gall Bladder Disease - Has gallstones, Hx Gastroesophageal Reflux Disease Denies: Hx Cirrhosis, Hx Crohn's Disease, Hx Diverticulosis, Hx Gastrointestinal Bleed, Hx Hiatal Hernia, Hx Irritable Bowel, Hx Jaundice, Hx Obstructive Bowel, Hx Ileostomy, Hx Pyloric Stenosis, Hx Ulcer, Other GI Disorders History: Reports: Other Problems/Disorders - Hx of UTIs and in 2002 or 2003 a Kidney infection Denies: Hx Acute Renal Failure, Hx Benign Prostatic Hyperplasia, Hx Chronic Renal Failure, Hx Dialysis, Hx Kidney Infection, Hx Kidney Stones, Hx Renal Disease Musculoskeletal History: Reports: Hx Arthritis - hands Denies: Hx Back Problems, Hx Bursitis, Hx Congenital Bone Abnormalities, Hx Fibromyalgia, Hx Gout, Hx Orthopedic Injury, Hx Osteoporosis, Hx Scoliosis, Hx Tendonitis, Other Musculoskeletal History Sensory History: Reports: Hx Cataracts - louie, Hx Legally Blind - blind left eye , Hx Vision Problem - Right eye farsighted, only needs reading glasses. Denies: Hx Contacts or Glasses, Hx Eye Injury, Hx Eye Prosthesis, Hx Glaucoma , Hx Macular Degeneration, Hx Deafness, Hx Hearing Aid, Hx Hearing Problem, Other Sensory Impairments Opthamlomology History: Reports: Hx Cataracts - louie, Hx Legally Blind - blind left eye, Hx Vision Problem - Right eye farsighted, only needs reading glasses. Denies: Hx Contacts or Glasses, Hx Eye Injury, Hx Eye Prosthesis, Hx Glaucoma , Hx Macular Degeneration, Other Sensory Impairments Neurological History: Reports: Hx Nerve Disease - neuropathy, Other Neuro Impairments/Disorders - diabetic neuropathy Denies: Hx Dementia, Hx Developmental Delay, Hx Headaches, Hx Migraine, Hx Seizures, Hx Spinal Cord Injury, Hx Transient Ischemic Attacks (TIA) Psychiatric History: Reports: Hx Anxiety - on meds Denies: Hx Attention Deficit Hyperactivity Disorder, Hx Eating Disorder, Hx Depression, Hx Panic Disorder, Hx Post Traumatic Stress Disorder, Hx Inpatient Treatment, Hx Community Mental Health Tx, Hx Schizophrenia, Hx Bipolar Disorder , Hx Suicide Attempt, Hx of Violent Episodes Against Others, Hx Substance Abuse , Other Psychiatric Issues/Disorders - Surgical History Surgery Procedure, Year, and Place: Hemorrhoid surgery - December 2017. TRIPLE BYPASS PIG ARTERY PLACEMENT 2005;. EYE SURGERY LEFT DETACHED RETINA ( ORBIT XRAYS DONE . BILAT CATARACTS;. RT EYE VITRECTOMY; 1990. LT BKA 2008;. RT FOOT HEEL EXCISION;. RIGHT BKA 2012; Hx Anesthesia Reactions: Yes - Excessive Lethargy, and N&V. Infectious Disease History: No Infectious Disease History: Reports: Hx of Known/Suspected MRSA - before left leg was amputated Denies: Hx Clostridium Difficile, Hx Hepatitis, Hx Human Immunodeficiency Virus (HIV), Hx Shingles, Hx Tuberculosis, History Other Infectious Disease, Traveled Outside the [place] in Last 30 Days - Family History Known Family History: Positive: Cardiac Disease, Other - Nervous breakdown- sister - Social History Alcohol Use: None Alcohol Amount: recovering alcoholic Hx Substance Use: No Substance Use Type: Reports: None Hx Tobacco Use: Yes Smoking Status (MU): Former Smoker Type: Cigarettes Amount Used/How Often: 1.5 packs a day for 33 yrs Have You Smoked in the Last Year: No Review of Systems Negative: Fever, Chills Negative: Erythema Negative: Sore Throat Negative: Chest Pain Negative: Shortness Of Breath, Cough Negative: Abdominal Pain, Vomiting, Nausea Negative: dysuria, hematuria Negative: Myalgia, Edema Positive: Other - wound on L stump. Negative: Rash Neurological: Negative - dizziness Positive: Anxious All Other Systems Reviewed And Are Negative: Yes Physical Exam - Summary Physical Exam Summary: Constitutional: Well-developed, Well-nourished, Alert. (-) Distressed Skin: Warm, Dry HENT: Normocephalic; Atraumatic Eyes: Conjunctiva normal Neck: Musculoskeletal ROM normal neck. (-) JVD, (-) Stridor, (-) Tracheal deviation Cardio: Rhythm regular, rate normal, Heart sounds normal; Intact distal pulses; The pedal pulses are 2+ and symmetric. Radial pulses are 2+ and symmetric. (-) Murmur Pulmonary/Chest wall: Effort normal. (-) Respiratory distress, (-) Wheezes, (-) Rales Abd: Soft, (-) tenderness, (-) Distension, (-) Guarding, (-) Rebound Musculoskeletal: (-) Edema. Double below-knee amputation. L stump has an ulceration that is approximately dime-sized and deep on the inferior aspect of the stump. There is surrounding redness without warmth, induration, or fluctuance. Lymph: (-) Cervical adenopathy Neuro: Alert, Oriented x3 Psych: Mood and affect Normal Triage Information Reviewed: Yes Vital Signs On Initial Exam: Initial Vitals Temp Pulse Resp BP Pulse Ox 97.2 F 80 18 172/76 96 12/29/18 17:20 12/29/18 17:20 12/29/18 17:20 12/29/18 17:20 12/29/18 17:20 Vital Signs Reviewed: Yes Diagnostics - Vital Signs Vital Signs Temp Pulse Resp BP Pulse Ox 12/29/18 17:20 97.2 F 80 18 172/76 96 - Laboratory Result Diagrams: 12/29/18 17:46 12/29/18 17:46 Lab Statement: Any lab studies that have been ordered have been reviewed, and results considered in the medical decision making process. Course/Dx - Course Course Of Treatment: Pt is a 53 y/o F presenting to the ED brought in by EMS for a wound on her L leg. Per EMS, the pt is a double below-knee amputee who receives wound care for a sore on her L stump. She reports anxiety and chronic SOB as she is a former smoker. Pt denies any fever, chills, erythema of eyes, sore throat, CP, cough, abdominal pain, N/V, dysuria, hematuria, myalgia, edema , rash, or dizziness. On exam, pt has a double below-knee amputation. L stump has an ulceration that is approximately dime-sized and deep on the inferior aspect of the stump. There is surrounding redness without warmth, induration, or fluctuance. I spoke with Dr. Denson about the pt's present condition. He will be accepting the pt to [facility]. Dx includes prosthetic stump ulcer. - Diagnoses Provider Diagnoses: Ulcer of amputation stump of lower extremity - Physician Notifications Discussed Care Of Patient With: Pradeep Denson Time Discussed With Above Provider: 19:03 Instructed by Provider To: Admit As Inpatient Discharge ED - Sign-Out/Discharge Documenting (check all that apply): Patient Departure - Discharge Plan Condition: Stable Disposition: ADMITTED TO [facility] Referrals: Noni Faustin MD [Primary Care Provider] - - Attestation Statements Document Initiated by Scribe: Yes Documenting Scribe: Angela Munoz Provider For Whom Scribe is Documenting (Include Credential): Christopher Soto MD. Scribe Attestation: I, Angela Munoz, scribed for Christopher Soto MD. on 12/29/18 at 1903. Status of Scribe Document: Ready
[2018-12-29 18:00] LABS: ABS Basophils 0.1 10^3/ul (0-0.2); ABS Eosinophils 0.3 10^3/ul (0-0.6); ABS Lymphocytes 1.3 10^3/ul (1.0-4.8); ABS Monocytes 0.9 10^3/ul (0-0.8); ABS Neutrophils 8.3 10^3/ul (1.5-7.7); Eosinophil % 3.2 %; Hematocrit 40 % (35-47); Hemoglobin 13.2 g/dL (12.0-16.0); Lymphocyte % 12.1 %; Mean Corpuscular HGB Conc 33 g/dL (31-36); Mean Corpuscular Hemoglobin 30 pg (27-31); Mean Corpuscular Volume 92 fL (80-97); Mean Platelet Volume 9.1 fL (7.4-10.4); Platelet Count 308 10^3/uL (150-450); Red Blood Count 4.37 10^6 /uL (3.70-4.87); Red Cell Distribution Width 13 % (10-15); White Blood Count 10.9 10^3/uL (3.5-10.8)
[2018-12-29 18:12] LABS: Activated Partial Thrombo Time 35.8 seconds (26.0-38.0); INR 1.02 (0.82-1.09)
[2018-12-29 18:16] LABS: Albumin 3.8 g/dL (3.2-5.2); Albumin/Globulin Ratio 1.1 (1-3); BUN/Creatinine Ratio 10.1 (8-20); Calcium 9.6 mg/dL (8.6-10.3); EGFR Non-African American 66.1 (>60); Globulin 3.5 g/dL (2-4); Potassium 3.9 mmol/L (3.5-5.0); Total Bilirubin 0.5 mg/dL (0.2-1.0); Total Protein 7.3 g/dL (6.4-8.9); Troponin I 0.01 ng/mL (<0.04)
[2018-12-29] MEDS ORDERED: Dextrose 50% VIAL 50 ml IV PUSH PRN (20:04)
[2018-12-29] MEDS ORDERED: NS 0.9% 1000 ML** 1,000 ML IV SCH (20:15)
[2018-12-29] MEDS ORDERED: Sodium Phosphate ADULT ENEMA* 118 ml bottle PR ONE (20:23)
[2018-12-29 20:50] LABS: C Reactive Protein 24.55 mg/L (<8.01)
--- NOTE | 2018-12-29 22:10 | HP ---
CC: Dr. Noni Faustin; Dr. Taya Mosley * HISTORY AND PHYSICAL: DATE OF ADMISSION: 12/29/18 PRIMARY CARE PROVIDER: Dr. Noni Faustin. WATERPROOF BAG CUTTING MACHINE OPERATOR: Dr. Mosley. CHIEF COMPLAINT: Cellulitis. HISTORY OF PRESENT ILLNESS: Ms. Reyes is a 53-year-old female who has a history of bilateral below knee amputations secondary to osteomyelitis, who presents to the emergency room with complaints of left stump infection. The patient states that over the last couple of weeks, she has been feeling poorly. She has denied any fever. She has had a pressure ulcer on the anterior surface of the distal stump for at least the last 1 month. She has been seen in the wound clinic every Saturday for this. She notes that there is now increased redness. It is very painful for her to put on her prosthesis and bear weight. The patient states that in addition to this she has not been able to urinate today. She has not had a bowel movement in the last 2 weeks. She states overall she feels unsafe at home due to very poor vision and difficulty with her balance. She states that she has had an aide, who is no longer going to be working for her in the very near future. The patient does not feel safe going home and believes that she may need to be placed somewhere. PAST MEDICAL HISTORY: 1. Type 1 diabetes. 2. History of osteomyelitis of the bilateral feet, requiring bilateral below- knee amputations. 3. Hypertension. 4. Coronary artery disease. 5. GERD. 6. Hyperlipidemia. 7. Anxiety. PAST SURGICAL HISTORY: 1. Hemorrhoidectomy. 2. Left retinal detachment surgery. 3. Right eye vitrectomy. 4. Bilateral below-knee amputations. 5. CABG. 6. Heel excision. MEDICATIONS: The patient reviewed her medication list based on an old list in the computer from 2018. Her aide is to bring in an accurate list. 1. Lasix 20 mg p.o. every other day. 2. Fish oil 1 tab p.o. daily. 3. Colace 100 mg p.o. daily. 4. Zyrtec 10 mg p.o. daily. 5. Lipitor 40 mg p.o. daily. 6. Atenolol 50 mg p.o. daily. 7. Xanax 0.5 mg p.o. b.i.d. p.r.n. anxiety. 8. Ramipril 5 mg p.o. daily. 9. MiraLAX 17 g p.o. daily. 10. Omeprazole 20 mg p.o. daily. 11. Reglan 10 mg p.o. daily. 12. Lidocaine jelly applied to the stumps t.i.d. as needed. 13. Lantus 40 units subcutaneous twice daily. 14. NovoLog 70/30 5 units as needed. 15. Senokot 1 tab p.o. daily p.r.n. constipation. ALLERGIES: 1. IODINATED CONTRAST. 2. LOVAZA. 3. FLAGYL. 4. VANCOMYCIN. 5. CHANTIX. FAMILY HISTORY: The patient's paternal grandparents had a history of coronary artery disease with brother having a history of coronary artery disease. The patient's sister has diabetes. Mom has a history of skin cancer. Dad's history is unknown. SOCIAL HISTORY: The patient is a former smoker, quitting approximately 3 years ago. She has a 33-year history of smoking. She does not drink alcohol. She states she drank up until approximately 10 years ago. She denies any recreational drugs. She does not work. The patient's aide Monie has been continuing to provide care. However, the patient reportedly will be losing her aide support when her aide goes on vacation and this aide will not be returning. Monie had been previously her healthcare proxy; however, the patient wishes to change her healthcare proxy to her friend Michelle with her brother Yariel being the secondary. She is not . She has no children. REVIEW OF SYSTEMS: A complete 11-system review of systems was obtained. Pertinent positives and negatives are as per HPI and otherwise negative. PHYSICAL EXAMINATION GENERAL: The patient is a well-developed, middle-aged, obese female seen sitting up in the stretcher, in no acute distress. VITAL SIGNS: Blood pressure 161/62, pulse 77, respirations 20, temp 97.2, O2 sat 96% on room air. HEENT: Left pupil appears somewhat opacified when I shine the light into the eye. Right pupil is clear. Extraocular muscles are intact. Oropharynx is clear. Oral mucosa is moist. The patient is a Mallampati class IV. PULMONARY: Lungs are clear to auscultation bilaterally. CARDIAC: Normal S1, S2. Regular rate and rhythm. I do not appreciate any murmurs. The left stump appeared somewhat swollen. ABDOMEN: Bowel sounds present. Abdomen is soft. It seems mildly distended. It is nontender to palpation. MUSCULOSKELETAL: The patient has bilateral below-knee amputations. Her prosthesis is on the right. The left stump reveals an approximate three quarters of an inch in diameter, punched-out appearing ulceration with slough at the base of the wound and slight drainage with splotchy erythema on the stump and distal thigh. SKIN: See above dictation in the musculoskeletal exam. NEURO: Cranial nerves II through XII are grossly intact. Sensation is intact to light touch throughout. Strength is 5/5 and symmetric in the upper extremities. Lower extremity strength is not tested. PSYCH: The patient is alert. She is oriented x3. She does become tearful at times when talking about her home situation. DIAGNOSTIC STUDIES/LAB DATA: WBC 10.9, hemoglobin 13.2, hematocrit 40, platelets 308. INR 1.02. Sodium 137, potassium 3.9, chloride 106, CO2 of 23, BUN 9, creatinine 0.89, glucose 181, lactic acid 1.0, calcium 9.6. Bilirubin 0.5, AST 15, ALT 14, alk phos 203. Troponin 0.01. Albumin 3.8. ASSESSMENT AND PLAN: Ms. Reyes is a 53-year-old female, who presented to the emergency room with complaints of possible left stump infection as well as concerns for her home safety. 1. Left stump infection. At this point, it does appear that the patient may have a mild left stump infection. I am going to start cefazolin 1 g IV q.8 hours and clindamycin 600 mg IV q.8 hours for anaerobic coverage given her Flagyl allergy. The patient's white blood cell count is mildly elevated. She has not been febrile. I will add on a CRP tomorrow. Recommendation should be obtained from the wound center on how to treat her punched-out ulceration on the distal stump. 2. Type 1 diabetes. The patient follows with Dr. Faustin as an outpatient. Her last hemoglobin A1c on 12/03/18 was 8.7%. For now, we will continue Lantus 40 units subcutaneous twice daily and a lispro sliding scale. 3. Hypertension. BP is moderately elevated at this time. I am going to continue her usual doses of ramipril and atenolol. If her blood pressures remain elevated, this medication regimen should be modified. 4. Hyperlipidemia. Continue Lipitor. 5. Gastroesophageal reflux disease. Continue omeprazole. 6. Constipation. The patient states that she has not had a bowel movement in 2 weeks. We will administer Fleet Enema. 7. Difficulty with urination. The patient states that she has been unable to urinate today. I will ask for straight catheterization. We will then follow her ability to urinate. I wonder if she may be having neuropathy leading to difficulty with urination given her longstanding history of type 1 diabetes. 8. Anxiety. Continue p.r.n. Xanax. 9. DVT prophylaxis: According to the Adult Thrombosis Prophylaxis Risk Factor Assessment Guide, the patient has a total risk factor score of 2, making her moderate risk. Lovenox 40 mg subcutaneous q.24 hours will be utilized as DVT prophylaxis. 10. Code status is DNR. TIME SPENT: 65 minutes was spent admitting this patient. [id number]/CPS #: [id number] JUAN ANTONIO
[2018-12-29] MEDS: Enoxaparin(*) 40 MG/0.4 ML SYR SUBCUT SCH (22:46)
[2018-12-29] MEDS: Insulin LISPRO* 1 UNITS UNIT SUBCUT SCH (22:46)
[2018-12-29] MEDS: Docusate CAP* 100 MG PO SCH (22:47)
[2018-12-29] MEDS: ceFAZolin 1 GM ADVAN(*) 1 GM in NS 0.9% 50 ML* 50 ML IVPB SCH (22:47)
[2018-12-29] MEDS: Insulin GLARGINE(*) 1 UNITS UNIT SUBCUT SCH (22:48)
[2018-12-30 00:42] LABS: Urine Appearance Clear; Urine Bacteria Absent (Absent); Urine Bilirubin Negative (Negative); Urine Blood Negative (Negative); Urine Color Yellow; Urine Glucose 3+(>=500 mg/dL) (Negative); Urine Ketones Negative (Negative); Urine Nitrite Negative (Negative); Urine Protein 2+(100 mg/dL) (Negative); Urine Red Blood Cell Absent (Absent); Urine Specific Gravity 1.011 (1.010-1.030); Urine Urobilinogen Negative (Negative); Urine White Blood Cell Absent (Absent)
[2018-12-30] MEDS: Insulin LISPRO* 1 UNITS UNIT SUBCUT SCH ×6 (00:52→20:50)
[2018-12-30] MEDS: Clindamycin 600 MG/D5W BAG(*) 600 MG/50 ML BAG IV SCH ×2 (02:39→09:22)
[2018-12-30] MEDS: ceFAZolin 1 GM ADVAN(*) 1 GM in NS 0.9% 50 ML* 50 ML IVPB SCH ×2 (06:20→15:13)
[2018-12-30] MEDS: Atenolol TAB* 50 MG PO SCH (09:20)
[2018-12-30] MEDS: Ramipril CAP* 5 MG PO SCH (09:20)
[2018-12-30] MEDS: Cetirizine* 10 MG TAB PO SCH (09:20)
[2018-12-30] MEDS: Atorvastatin* 40 MG TAB PO SCH (09:20)
[2018-12-30] MEDS: Polyethylene Glycol 3350* 17 GM PACKET PO SCH (09:20)
[2018-12-30] MEDS: Docusate CAP* 100 MG PO SCH ×2 (09:20→20:48)
[2018-12-30] MEDS: Pantoprazole TAB * 40 MG TAB PO SCH (09:21)
[2018-12-30] MEDS: Metoclopramide TAB* 10 MG PO SCH (09:21)
[2018-12-30] MEDS: Insulin GLARGINE(*) 1 UNITS UNIT SUBCUT SCH ×2 (09:21→20:49)
[2018-12-30] MEDS: ALPRAZolam TAB* 0.5 MG PO PRN (09:39)
[2018-12-30] MEDS ORDERED: Lidocaine 2% JELLY* 6 ML JELLY TOPICAL PRN (13:30)
--- NOTE | 2018-12-30 13:37 | PN ---
Subjective Date of Service: 12/30/18 Interval History: Pt complained of left leg pain, no SOB, no chest pain, no fever. Pt was emotional when she talked about her placement issues, she was angry when I mentioned the choice of going to assisted. She emphasized her concern is her left leg pain and ulcer which made her difficult to put her prosthesis on. Patient refused her sliding scale insulin, and verbalized that she would only take when BG> 250. Objective Active Medications: Alprazolam (Xanax Tab*) 0.5 mg PO BID PRN PRN Reason: ANXIETY Last Admin: 12/30/18 09:39 Dose: 0.5 mg Atenolol (Tenormin Tab*) 50 mg PO QAM [facility] Last Admin: 12/30/18 09:20 Dose: 50 mg Atorvastatin Calcium (Lipitor*) [facility] [place] Last Admin: 12/30/18 09:20 Dose: 40 mg Cetirizine HCl (Zyrtec*) 10 mg PO QAM [facility] Last Admin: 12/30/18 09:20 Dose: 10 mg Dextrose (Dextrose 50% Vial 50 Ml*) 25 ml IV PUSH .FOR FS < 60 - SS PRN PRN Reason: FS < 60 Docusate Sodium (Colace Cap*) 100 mg PO BID [facility] Last Admin: 12/30/18 09:20 Dose: 100 mg Enoxaparin Sodium (Lovenox(*)) 40 mg SUBCUT Q24H [facility] Last Admin: 12/29/18 22:46 Dose: 40 mg Cefazolin Sodium 1 gm/ Sodium (Chloride) 50 mls @ 200 mls/hr IVPB Q8H [facility] Last Admin: 12/30/18 06:20 Dose: 200 mls/hr Clindamycin HCl/Dextrose (Cleocin 600 Mg/50 Ml(*)) 600 mg in 50 mls @ 100 mls/ hr IV Q8H [facility] Last Admin: 12/30/18 09:22 Dose: 100 mls/hr Insulin Glargine (Lantus(*)) 40 units SUBCUT BID [facility] Last Admin: 12/30/18 09:21 Dose: 40 units Insulin Human Lispro (Humalog*) 0 units SUBCUT ACHS [facility]; Protocol Last Admin: 12/30/18 12:32 Dose: Not Given Lidocaine HCl (Lidocaine 2% Jelly*) 1 applic TOPICAL TID PRN PRN Reason: PAIN - MILD Metoclopramide HCl (Reglan Tab*) 10 mg PO [facility] Last Admin: 12/30/18 09:21 Dose: 10 mg Miscellaneous (Ativan Pyxis Courtney) 1 ea N/A .ATIVAN IV COURTNEY PRN PRN Reason: PYXIS COURTNEY Pantoprazole Sodium (Protonix Tab*) 40 mg PO [facility] Last Admin: 12/30/18 09:21 Dose: 40 mg Polyethylene Glycol/Electrolytes (Miralax*) [facility] [place] Last Admin: 12/30/18 09:20 Dose: 17 gm Ramipril (Altace Cap*) 5 mg PO [facility] Last Admin: 12/30/18 09:20 Dose: 5 mg Vital Signs - 8 hr 12/30/18 12/30/18 12/30/18 07:00 08:00 09:39 Temperature 97.6 F Pulse Rate 76 Respiratory 19 22 22 Rate Blood Pressure 178/75 (mmHg) O2 Sat by Pulse 96 96 Oximetry 12/30/18 11:39 Temperature Pulse Rate Respiratory 18 Rate Blood Pressure (mmHg) O2 Sat by Pulse Oximetry Oxygen Devices in Use Now: None Exam: General -obese habitus, sitting on bed Eyes - PERRLA, EOM intact HEENT- no abnormality Lymph Nodes - No lymphadenopathy Cardiovascular - RRR no m/r/g, no JVD, no carotid bruits Lungs - bibsal crepitation to auscltation, no use of acessory muscles, no crackles or wheezes. Skin - No rashes, skin warm and dry, no erythematous areas Abdomen - Normal bowel sounds, abdomen soft and mild tenderness. Extremities - Bilateral below knee amputation seen, left stump distal 1cm ulcer with raised borders, Erythematous skin changes on bilateral stumps.No edema, cyanosis or clubbing over bilateral upper extremities. Musculo Skeletal - 5/5 strength, normal range of motion, no swollen or erythematous joints. Neurological Alert and oriented x 3, CN 2-12 grossly intact. Psychiatry- anxious, not depressed. Result Diagrams: 12/29/18 17:46 12/29/18 17:46 Assess/Plan/Problems-Billing Assessment: 53 y/o female with history of T1DM, bilateral below knee amputation, presented to hospital for left stump chronic non healing ulcer, as well as concerns for home safety. - Patient Problems (1) Ulceration of below knee amputation stump Current Visit: Yes Status: Acute Code(s): T87.89 - OTHER COMPLICATIONS OF AMPUTATION STUMP; L97.809 - NON-PRS CHRONIC ULCER OTH PRT UNSP LOWER LEG W UNSP SEVERITY SNOMED Code(s): 933278530 Comment: - wound team review today - continue iv cefazolin and clindamycin although likely chronic ulcer with no active infection (2) Type I diabetes mellitus Current Visit: No Status: Acute Priority: High Comment: Lispro by SS. (3) Urinary retention Current Visit: No Status: Acute Priority: Medium Code(s): R33.9 - RETENTION OF URINE, UNSPECIFIED SNOMED Code(s): 784984041 Comment: initial complain of difficulty urinating, but pt is urinating normally now. Will continue to monitor. Status and Disposition: Inpatient Medicine. Attestation Documenting Resident: Yvette Santamaria Supervising Physician: Slime Hazel Attending/Supervising Physician Comment: Sherin came to the ED yesterday because she could not put her left prosthetic leg on due to pain in the stump ulcer. She has an aide at home but she is retiring. She wheels around her house in her wheelchair and uses the prostetic legs to help transfer from wheelchair. Her wound does not appear to be infected to me. Will DC abx. Appreciate SW/CM input about how we can arrange for her to go home with aides. Attestation: This service has been performed in part by a resident under the direction of a teaching physician.I, Slime Hazel, performed the service, or was physically present during the critical, or courtney portions of the service, furnished by the resident. I participated in the management of the patient.
--- NOTE | 2018-12-30 15:56 | CONSULT ---
Subjective Date of Service: 12/30/18 Interval History: Ms. Reyes is a 53 yo female with PMH significant for bilateral BKA secondary to osteomyelitis, DM1, HTN, CAD, GERD, HLD, and anxiety; who presented to the emergency room with complaints of a left stump infection. Presented to the hospital with a known ulcer to her left stump that had been present since around the end of November. She has been following with the wound clinic for this wound. The area has become painful and it is difficult to wear her prosthetics. Patient seen and examined at bedside. Family History: Unchanged from Admission Social History: Unchanged from Admission Past Medical History: Unchanged from Admission Review of Systems - Measurements Intake and Output: Intake and Output Last 24 Hours 12/28/18 12/29/18 12/30/18 12/31/18 06:59 06:59 06:59 06:59 Intake Total 100 480 Output Total 200 Balance -100 480 Weight 227 lb Intake: IVPB 100 Oral 0 480 Output: Urine 200 Other: Estimated Void Large Date of Last Bowel 12/30/18 Movement # Bowel Movements 0 1 # Voids 2 1 - Review of Systems Constitutional Symptoms: Negative: Fever, Other - Chills Dermatology: Positive: Other - Ulcer to left LE stump Endocrinology: Positive: Obesity, Diabetes Mellitus Objective Active Medications: Alprazolam (Xanax Tab*) 0.5 mg PO BID PRN Reason: ANXIETY Atenolol (Tenormin Tab*) 50 mg PO QAM [facility] Atorvastatin Calcium (Lipitor*) 40 mg PO QAM [facility] Cetirizine HCl (Zyrtec*) 10 mg PO QAM [facility] Dextrose (Dextrose 50% Vial 50 Ml*) 25 ml IV PUSH PRN Reason: FS < 60 Docusate Sodium (Colace Cap*) 100 mg PO BID [facility] Enoxaparin Sodium (Lovenox(*)) 40 mg SUBCUT Q24H [facility] Cefazolin Sodium 1 gm/ Sodium (Chloride) 50 mls @ 200 mls/hr IVPB Q8H [facility] Clindamycin HCl/Dextrose (Cleocin 600 Mg/50 Ml(*)) 600 mg in 50 mls @ 100 mls/ hr IV Q8H [facility] Insulin Glargine (Lantus(*)) 40 units SUBCUT BID [facility] Insulin Human Lispro (Humalog*) 0 units SUBCUT ACHS [facility]; Protocol Lidocaine HCl (Lidocaine 2% Jelly*) 1 applic TOPICAL TID PRN Reason: PAIN - MILD Metoclopramide HCl (Reglan Tab*) 10 mg PO QAM [facility] Miscellaneous (Ativan Pyxis Saul) 1 ea N/A .ATIVAN IV SAUL PRN Pantoprazole Sodium (Protonix Tab*) 40 mg PO QAM [facility] Polyethylene Glycol/Electrolytes (Miralax*) 17 gm PO QAM [facility] Ramipril (Altace Cap*) 5 mg PO QAM [facility] Vital Signs - 8 hr 12/30/18 12/30/18 12/30/18 08:00 09:39 11:39 Respiratory 22 22 18 Rate O2 Sat by Pulse 96 Oximetry Oxygen Devices in Use Now: None Appearance: NAD, sitting up in bed Ears/Nose/Mouth/Throat: Mucous Membranes Moist Respiratory: Symmetrical Chest Expansion and Respiratory Effort Extremities: - - Bilateral LE BKA Skin: - - See skin note below Neurological: Alert and Oriented x 3 Result Diagrams: 12/31/18 12:17 12/29/18 17:46 Additional Lab and Data: Above labs were pulled into the chart when the note was edited prior to signing. Below are the labs from the day of consultation. Laboratory Tests 12/29/18 12/29/18 17:46 17:46 WBC 10.9 H Hgb 13.2 Hct 40 Plt Count 308 Sodium 137 Potassium 3.9 Chloride 106 Carbon Dioxide 23 BUN 9 Creatinine 0.89 Glucose 181 H C-Reactive Protein 24.55 H Total Protein 7.3 Albumin 3.8 Skin Deviation Note - Skin Deviation Findings Left LE stump - There is an ulcer, measures 2 cm x 1.6 cm x 0.5 cm at 12 o' clock and 0.4 cm at the bottom near 5 o'clock. The wound base is mostly yellow slough, the center of the wound with red granulation tissue. There is slight erythema surrounding the wound. There is no drainage. Wound Problem/Plan Assessment: Ms. Reyes is a 53 yo female with PMH significant for bilateral BKA secondary to osteomyelitis, DM1, HTN, CAD, GERD, HLD, and anxiety; who presented to the emergency room with complaints of a left stump infection. Has a known ulcer to her left stump that had been present since around the end of November. 1. Left stump ulcer. Suspect secondary to pressure from the prosthetic and DM. Has been present since the end of November. Recommend applying silver alginate, followed by rolled gauze and change the dressing every other day and as needed for drainage. If there continues to be slough in the wound base, will require debridement; either chemical with Santyl or mechanical. Refer back to the wound clinic at discharge. Keep prosthetic off as much as possible, this includes the gel sleeves. Only have prosthetics on for transfers and then remove. 2. DM1. HgA1c 8.7 on 12/03/18. Maintain good glycemic control to allow for wound healing. 3. Morbid obesity. BMI ~ 66. 4. Diet. Consistent Carbohydrate 5. Code Status. DNR. 6. Disposition. Inpatient, disposition per primary medicine team. Is Patient a Wound Clinic Patient: Yes - Dr. Mosley Current Treatment: Silver Alginate, change every 3 days Counseling and/or Coordination of Care Minutes: 30 Points of Discussion: TIME SPENT: Time spent for this wound consultation was 30 minutes and 20 minutes was spent with the patient discussing past medical history; assessing, measuring, and photographing the wound; applying a dressing. Attending: Taya Mosley
[2018-12-30] MEDS ORDERED: Acetaminophen TAB* 325 MG PO PRN (16:21)
[2018-12-30] MEDS: Enoxaparin(*) 40 MG/0.4 ML SYR SUBCUT SCH (20:55)
[2018-12-31] MEDS: Pantoprazole TAB * 40 MG TAB PO SCH (09:40)
[2018-12-31] MEDS: Insulin LISPRO* 1 UNITS UNIT SUBCUT SCH ×3 (09:40→18:13)
[2018-12-31] MEDS: Docusate CAP* 100 MG PO SCH ×2 (09:40→20:11)
[2018-12-31] MEDS: Atenolol TAB* 50 MG PO SCH (09:41)
[2018-12-31] MEDS: Metoclopramide TAB* 10 MG PO SCH (09:41)
[2018-12-31] MEDS: Ramipril CAP* 5 MG PO SCH (09:41)
[2018-12-31] MEDS: Atorvastatin* 40 MG TAB PO SCH (09:41)
[2018-12-31] MEDS: Cetirizine* 10 MG TAB PO SCH (09:41)
[2018-12-31] MEDS: Insulin GLARGINE(*) 1 UNITS UNIT SUBCUT SCH ×2 (09:42→20:12)
[2018-12-31] MEDS: Polyethylene Glycol 3350* 17 GM PACKET PO SCH (09:42)
[2018-12-31 12:37] LABS: ABS Basophils 0.1 10^3/ul (0-0.2); ABS Eosinophils 0.3 10^3/ul (0-0.6); ABS Lymphocytes 1.3 10^3/ul (1.0-4.8); ABS Monocytes 0.8 10^3/ul (0-0.8); ABS Neutrophils 6.8 10^3/ul (1.5-7.7); Eosinophil % 3.4 %; Hematocrit 41 % (35-47); Hemoglobin 13.5 g/dL (12.0-16.0); Mean Corpuscular HGB Conc 33 g/dL (31-36); Mean Corpuscular Hemoglobin 30 pg (27-31); Mean Corpuscular Volume 92 fL (80-97); Mean Platelet Volume 9.2 fL (7.4-10.4); Platelet Count 304 10^3/uL (150-450); Red Blood Count 4.45 10^6 /uL (3.70-4.87); Red Cell Distribution Width 13 % (10-15); White Blood Count 9.2 10^3/uL (3.5-10.8)
--- NOTE | 2018-12-31 14:17 | PN ---
Subjective Date of Service: 12/31/18 Interval History: Patient had multiple complains today - PT didn't assist her in transferring yesterday, they only put her on recliner. - Not happy with fingerstick ACHS, would like omit evening one - Not happy with the hospital bed, she felt she couldn't reach the control broad - Unable about the heel caser who again wanted to push her to longterm. Otherwise, her left stump pain is improving. - Objective Active Medications: Acetaminophen (Tylenol Tab*) 650 mg PO Q6H PRN PRN Reason: PAIN - MODERATE Alprazolam (Xanax Tab*) 0.5 mg PO BID PRN PRN Reason: ANXIETY Last Admin: 12/30/18 09:39 Dose: 0.5 mg Atenolol (Tenormin Tab*) 50 mg PO [facility] Last Admin: 12/31/18 09:41 Dose: 50 mg Atorvastatin Calcium (Lipitor*) 40 mg PO [facility] Last Admin: 12/31/18 09:41 Dose: 40 mg Cetirizine HCl (Zyrtec*) 10 mg PO [facility] Last Admin: 12/31/18 09:41 Dose: 10 mg Dextrose (Dextrose 50% Vial 50 Ml*) 25 ml IV PUSH .FOR FS < 60 - SS PRN PRN Reason: FS < 60 Docusate Sodium (Colace Cap*) 100 mg PO BID [facility] Last Admin: 12/31/18 09:40 Dose: 100 mg Enoxaparin Sodium (Lovenox(*)) 40 mg SUBCUT Q24H [facility] Last Admin: 12/30/18 20:55 Dose: 40 mg Insulin Glargine (Lantus(*)) 40 units SUBCUT BID [facility] Last Admin: 12/31/18 09:42 Dose: 40 units Insulin Human Lispro (Humalog*) 0 units SUBCUT [facility]; Protocol Last Admin: 12/31/18 12:24 Dose: Not Given Lidocaine HCl (Lidocaine 2% Jelly*) 1 applic TOPICAL TID PRN PRN Reason: PAIN - MILD Metoclopramide HCl (Reglan Tab*) 10 mg PO [facility] Last Admin: 12/31/18 09:41 Dose: 10 mg Miscellaneous (Ativan Pyxis Courtney) 1 ea N/A .ATIVAN IV COURTNEY PRN PRN Reason: PYXIS COURTNEY Pantoprazole S[facility] (Protonix Tab*) [facility] Last Admin: 12/31/18 09:40 Dose: 40 mg Polyethylene Glycol/Electrolytes (Miralax*) [facility] Last Admin: 12/31/18 09:42 Dose: 17 gm Ramipril (Altace Cap*) [facility] Last Admin: 12/31/18 09:41 Dose: 5 mg Vital Signs - 8 hr 12/31/18 12/31/18 08:12 11:35 Temperature 98.3 F 97.9 F Pulse Rate 78 78 Respiratory 16 16 Rate Blood Pressure 138/52 155/65 (mmHg) O2 Sat by Pulse 96 97 Oximetry Oxygen Devices in Use Now: None Exam: General -not in distress, bilateral stumps exposed Eyes - PERRLA, EOM intact HEENT- macroglossia, no other abnormality Lymph Nodes - No lymphadenopathy Cardiovascular -irregularly irregular, no m/r/g, no JVD, no carotid bruits Lungs - clear on auscultation, no use of acessory muscles, no crackles or wheezes. Skin - No rashes, skin warm and dry, no erythematous areas Abdomen - Normal bowel sounds, abdomen soft and mild tenderness. Extremities -bilateral below knee stumps, left stump 1cm ulcer seen, erythematous and scaly over bilateral stumps Musculo Skeletal - 5/5 strength, normal range of motion, no swollen or erythematous joints. Neurological Alert and oriented x 3, CN 2-12 grossly intact. Psychiatry- anxious, not depressed. Result Diagrams: 12/31/18 12:17 12/29/18 17:46 Assess/Plan/Problems-Billing Assessment: 53 y/o female with history of T1DM, bilateral below knee amputation, presented to hospital for left stump chronic non healing ulcer, as well as concerns for home safety. - Patient Problems (1) Ulceration of below knee amputation stump Current Visit: Yes Status: Acute Code(s): T87.89 - OTHER COMPLICATIONS OF AMPUTATION STUMP; L97.809 - NON-PRS CHRONIC ULCER OTH PRT UNSP LOWER LEG W UNSP SEVERITY SNOMED Code(s): 262490684 Comment: - daily wound change as per wound team instruction - off abx, off plug (2) Type I diabetes mellitus Current Visit: No Status: Acute Priority: High Comment: - change glucose monitoring to AC only - patient refused sliding scale if BG<250 (3) Urinary retention Current Visit: No Status: Acute Priority: Medium Code(s): R33.9 - RETENTION OF URINE, UNSPECIFIED SNOMED Code(s): 481961623 Comment: initial complain of difficulty urinating, but pt is urinating normally now. Will continue to monitor. (4) DVT prophylaxis Current Visit: No Status: Acute Priority: Medium Code(s): DQC8452 - SNOMED Code(s): 787065063 Comment: SYD Woodysanjay Status and Disposition: Inpatient Medicine. Pt requires JANIE according to PT assessment Attestation Documenting Resident: Yvette Santamaria Supervising Physician: Slime Hazel Attending/Supervising Physician Comment: awaiting STR Attestation: This service has been performed in part by a resident under the direction of a teaching physician.I, Slime Hazel, performed the service, or was physically present during the critical, or courtney portions of the service, furnished by the resident. I participated in the management of the patient.
[2018-12-31] MEDS: Enoxaparin(*) 40 MG/0.4 ML SYR SUBCUT SCH (20:10)
[2018-12-31] MEDS: ALPRAZolam TAB* 0.5 MG PO PRN (23:12)
[2019-01-01] MEDS: Insulin LISPRO* 1 UNITS UNIT SUBCUT SCH ×2 (07:54→13:23)
[2019-01-01] MEDS: Atorvastatin* 40 MG TAB PO SCH (07:56)
[2019-01-01] MEDS: Pantoprazole TAB * 40 MG TAB PO SCH (07:57)
[2019-01-01] MEDS: Docusate CAP* 100 MG PO SCH (07:58)
[2019-01-01] MEDS: Polyethylene Glycol 3350* 17 GM PACKET PO SCH (07:58)
[2019-01-01] MEDS: Cetirizine* 10 MG TAB PO SCH (07:58)
[2019-01-01] MEDS: Atenolol TAB* 50 MG PO SCH (07:58)
[2019-01-01] MEDS: Insulin GLARGINE(*) 1 UNITS UNIT SUBCUT SCH (08:00)
[2019-01-01] MEDS: Ramipril CAP* 5 MG PO SCH (08:00)
[2019-01-01] MEDS: Metoclopramide TAB* 10 MG PO SCH (08:00)
[2019-01-01 13:00] VITALS: BP 146/67
--- NOTE | 2019-01-01 23:39 | DS ---
CC: Dr. Mosley; Dr. Noni Fautsin * DISCHARGE SUMMARY: DATE OF ADMISSION: 12/29/18 DATE OF DISCHARGE: 01/01/19 PRINCIPAL DISCHARGE DIAGNOSES: 1. Chronic nonhealing left stump ulcer. 2. Inability to care for herself at home. SECONDARY DISCHARGE DIAGNOSES: 1. Type 1 diabetes. 2. Bilateral [id number] amputations. 3. Hypertension. 4. Coronary artery disease. 5. Gastroesophageal reflux disease. 6. Anxiety. 7. Hyperlipidemia. MEDICATIONS AT DISCHARGE: 1. Reglan 10 mg daily. 2. Furosemide 20 mg every other day. 3. Ramipril 5 mg daily. 4. Omeprazole 20 mg daily. 5. Lantus 40 units b.i.d. 6. Atorvastatin 40 mg daily. 7. Atenolol 50 mg daily. 8. Alprazolam 0.5 mg b.i.d. p.r.n. anxiety. 9. MiraLAX 17 g daily. 10. Docusate 100 mg daily. 11. Cetirizine 10 mg daily. 12. Senna 1 tab daily as needed for constipation. 13. Fish oil 1 tab daily. 14. Lidocaine 2% jelly applied to the stump ulcer t.i.d. p.r.n. pain. PHYSICAL EXAM AT DISCHARGE: Temp 98.1, respiratory rate 16, pulse ox 97% on room air, heart rate 73, blood pressure 146/67. General: Alert, well- appearing young woman in no distress. HEENT: Pupils equal, round, and reactive to light. She has macroglossia. Neck: No JVP or adenopathy. Chest: She is in a regular rate and rhythm with no murmurs. Her lungs are clear bilaterally. Abdomen: Obese, soft, nontender, nondistended. No CVA tenderness. Extremities: She has bilateral below- the-knee amputations. The left stump has a 2.5 cm well-circumscribed ulcer with granulation tissue that is approximately 5 mm deep with no surrounding erythema or drainage. HOSPITAL COURSE BY PROBLEM: 1. Nonhealing left stump wound. She has been following with Dr. Mosley closely for this and has been doing quite well; however, prior to admission, she was unable to put her prosthetic legs on because of the ulcer and because of the pain she was experiencing. She does not usually have significant pain with the ulcer, but the day prior to admission, the pain was worse than usual and because she could not put her legs on, she was unable to transfer from the wheelchair to the bed or to the bathroom, so she came to the emergency department with concerns that she could not care for herself at home. She does have an aide for 11 hours per week; however, the aide is retiring and she was also quite concerned about this. On admission, she had a very slight leukocytosis at 10.9, so a soft tissue ultrasound was obtained to rule out a drainable collection and the ultrasound showed likely phlegmonous change with no evidence of drainable fluid collection. She was initially started on antibiotics, but these were discontinued on day one of her hospitalization. Wound Care was consulted and Jenna evaluated her. She recommended applying silver alginate followed by rolled gauze and changing the dressing every other day and as needed for drainage. She also recommends keeping the prosthetic off as much as possible. 2. Inability to care for herself at home. This appeared to be multifactorial and related partially to the stump wound but also partially related to increasing need and inadequate support at home, and she agreed with this. She was evaluated by Physical Therapy who recommended short-term rehab and she agreed to [place]. She is being transferred there today. 3. Type 1 diabetes. She was continued on her home regimen of insulin. DISPOSITION: Sherin is being discharged to [place] on 01/01/19. She will need followup with Dr. Mosley in the wound clinic. Her wound is to be dressed with silver alginate and rolled gauze every other day or as needed for drainage. She should also follow up with Dr. Faustin within 2 weeks. CONDITION AT THE TIME OF DISCHARGE: Stable. [id number]/[facility] #: [id number] [facility]
== END 2019-01-01 17:30 | DRG 565 ==
LOC: ED 17:08 → MED 20:04 → OBSVTOIN 12-31 17:44
PROVIDERS: ADMIT Hospitalist; ATTEND Internal Medicine
DX: T87.89 Other complications of amputation stump (principal); L97.829 Non-pressure chronic ulcer of other part of left lower leg with unspecified severity; Z68.44 Body mass index [BMI] 60.0-69.9, adult; I25.10 Atherosclerotic heart disease of native coronary artery without angina pectoris; E78.00 Pure hypercholesterolemia, unspecified; I10 Essential (primary) hypertension; E78.5 Hyperlipidemia, unspecified; K21.9 Gastro-esophageal reflux disease without esophagitis; M19.042 Primary osteoarthritis, left hand; M19.041 Primary osteoarthritis, right hand; H52.01 Hypermetropia, right eye; H54.62 Unqualified visual loss, left eye, normal vision right eye; K59.00 Constipation, unspecified; Z66 Do not resuscitate; Y65.8 Other specified misadventures during surgical and medical care; E66.01 Morbid (severe) obesity due to excess calories; R33.9 Retention of urine, unspecified; E10.42 Type 1 diabetes mellitus with diabetic polyneuropathy; F41.9 Anxiety disorder, unspecified; Z98.42 Cataract extraction status, left eye; Z98.41 Cataract extraction status, right eye; Z89.512 Acquired absence of left leg below knee; Z95.1 Presence of aortocoronary bypass graft; Z87.440 Personal history of urinary (tract) infections; Z89.511 Acquired absence of right leg below knee; Z82.49 Family history of ischemic heart disease and other diseases of the circulatory system; Z88.8 Allergy status to other drugs, medicaments and biological substances; Z88.1 Allergy status to other antibiotic agents; Z91.041 Radiographic dye allergy status; Z87.891 Personal history of nicotine dependence; Z86.14 Personal history of Methicillin resistant Staphylococcus aureus infection; Z83.3 Family history of diabetes mellitus; Z80.8 Family history of malignant neoplasm of other organs or systems; Y92.009 Unspecified place in unspecified non-institutional (private) residence as the place of occurrence of the external cause; Z79.4 Long term (current) use of insulin
CPT/HCPCS: 36415; 80053; 81003; 81015; 83605; 84484; 85025; 85610; 85730; 86140; 87040; 96374; 96375; 99284; A9270-GY; G0378; G8978-GP-CM; G8979-GP-CI; G8987-GO-CM; G8988-GO-CJ; J0690; J1650; J2060

== ENCOUNTER 2019-01-08 09:40 | Emergency (ER) | payer MEDICARE, MEDICAID ==
--- NOTE | 2019-01-08 10:05 | ED ---
Shortness of Breath - HPI Summary HPI Summary: Patient is a 53-year-old female who presents emergency department for worsening shortness of breath. Patient states she's been feeling short of breath for the last month and has been worse the last 2 days. Patient is currently at [facility] for rehabilitation. Past medical history of diabetes, obesity, hypertension. Patient with bilateral [id number] amputations. Patient notes mild increase in cough. Denies fever, chest pain, abdominal pain, vomiting, diarrhea. Patient notes shortness of breath is constant and does not know any modifying factors. Symptoms are moderate in severity. Patient notes she smoked for 35 years and quit 3 years ago. Patient notes she has tried inhalers in the past with minimal improvement of symptoms. - History of Current Complaint Chief Complaint: EDShortnessOfBreath Time Seen by Provider: 01/08/19 09:50 Hx Obtained From: Patient - Allergy/Home Medications Allergies/Adverse Reactions: Allergies Allergy/AdvReac Type Severity Reaction Status Date / Time Iodinated Contrast Media Allergy Hives Verified 01/08/19 09:51 [Iodinated Contrast- Oral and IV Dye] iodixanol [From Visipaque] Allergy Unknown Verified 01/08/19 09:51 Reaction Details omega-3 acid ethyl esters Allergy Unknown Verified 01/08/19 09:51 [From Lovaza] Reaction Details metronidazole [From Flagyl] AdvReac GI Upset Verified 01/08/19 09:51 vancomycin AdvReac javid Verified 01/08/19 09:51 syndrome varenicline [From Chantix] AdvReac Altered Verified 01/08/19 09:51 Mental Status Home Medications: Home Medications Acetaminophen TAB* [Tylenol TAB*] 325 mg PO Q4H PRN 01/08/19 [History Confirmed 01/08/19] Alkol-3 Fatty Acids (Nf) [Fish Oil (NF)] 1,000 mg PO DAILY 01/08/19 [History Confirmed 01/08/19] Sennosides/Docusate Sodium [Senna Plus 8.6-50 mg Tablet] 2 tab PO BID 01/08/19 [ History Confirmed 01/08/19] Sertraline* [Zoloft*] 25 mg PO DAILY 01/08/19 [History Confirmed 01/08/19] PMH/Surg Hx/FS Hx/Imm Hx Previously Healthy: Yes Endocrine/Hematology History: Reports: Hx Anticoagulant Therapy - During hospitalizations only, Hx Blood Transfusions - 06/04/12, Hx Diabetes, Hx Anemia - currently Denies: Hx Blood Disorders, Hx Bone Marrow Disease, Hx Systemic Lupus Erythematosus, Hx Sickle Cell Disease, Hx Thyroid Disease, Hx Unexplained Bleeding, Other Endocrine/Hematological Disorders Cardiovascular History: Reports: Hx Coronary Artery Disease - triple cabg, Hx Hypercholesterolemia, Hx Hypotension, Hx Hypertension, Other Cardiovascular Problems/Disorders - hyperlipidemia, HX OF TRIPLE BYPASS Denies: Hx Aneurysm, Hx Angina, Hx Angioplasty, Hx Auto Implanted Cardiovert Defib, Hx Cardiac Arrest, Hx Cardiomegaly, Hx Congenital Heart Disease, Hx Congestive Heart Failure, Hx Deep Vein Thrombosis, Hx Myocardial Infarction, Hx Pacemaker/ICD, Hx Peripheral Vascular Disease, Hx Rheumatic Fever, Hx Syncope, Hx Valvular Heart Disease Respiratory History: Reports: Other Respiratory Problems/Disorders - "Always stuffed up." Denies: Hx Asthma, Hx Chronic Bronchitis, Hx Chronic Obstructive Pulmonary Disease (COPD), Hx Cystic Fibrosis, Hx Lung Cancer, Hx Pleural Effusion, Hx Pneumonia, Hx Pulmonary Edema, Hx Pulmonary Embolism, Hx Seasonal Allergies, Hx Sleep Apnea GI History: Reports: Hx Gall Bladder Disease - Has gallstones, Hx Gastroesophageal Reflux Disease Denies: Hx Cirrhosis, Hx Crohn's Disease, Hx Diverticulosis, Hx Gastrointestinal Bleed, Hx Hiatal Hernia, Hx Irritable Bowel, Hx Jaundice, Hx Obstructive Bowel, Hx Ileostomy, Hx Pyloric Stenosis, Hx Ulcer, Other GI Disorders History: Reports: Other Problems/Disorders - Hx of UTIs and in 2002 or 2003 a Kidney infection Denies: Hx Acute Renal Failure, Hx Benign Prostatic Hyperplasia, Hx Chronic Renal Failure, Hx Dialysis, Hx Kidney Infection, Hx Kidney Stones, Hx Renal Disease Musculoskeletal History: Reports: Hx Arthritis - hands Denies: Hx Back Problems, Hx Bursitis, Hx Congenital Bone Abnormalities, Hx Fibromyalgia, Hx Gout, Hx Orthopedic Injury, Hx Osteoporosis, Hx Scoliosis, Hx Tendonitis, Other Musculoskeletal History Sensory History: Reports: Hx Cataracts - louie, Hx Contacts or Glasses, Hx Legally Blind - blind left eye, Hx Vision Problem - Right eye farsighted, only needs reading glasses. Denies: Hx Eye Injury, Hx Eye Prosthesis, Hx Glaucoma, Hx Macular Degeneration, Hx Deafness, Hx Hearing Aid, Hx Hearing Problem, Other Sensory Impairments Opthamlomology History: Reports: Hx Cataracts - louie, Hx Contacts or Glasses, Hx Legally Blind - blind left eye, Hx Vision Problem - Right eye farsighted, only needs reading glasses. Denies: Hx Eye Injury, Hx Eye Prosthesis, Hx Glaucoma, Hx Macular Degeneration, Other Sensory Impairments Neurological History: Reports: Hx Nerve Disease - neuropathy, Other Neuro Impairments/Disorders - diabetic neuropathy Denies: Hx Dementia, Hx Developmental Delay, Hx Headaches, Hx Migraine, Hx Seizures, Hx Spinal Cord Injury, Hx Transient Ischemic Attacks (TIA) Psychiatric History: Reports: Hx Anxiety - on meds Denies: Hx Attention Deficit Hyperactivity Disorder, Hx Eating Disorder, Hx Depression, Hx Panic Disorder, Hx Post Traumatic Stress Disorder, Hx Inpatient Treatment, Hx Community Mental Health Tx, Hx Schizophrenia, Hx Bipolar Disorder , Hx Suicide Attempt, Hx of Violent Episodes Against Others, Hx Substance Abuse , Other Psychiatric Issues/Disorders - Surgical History Surgery Procedure, Year, and Place: Hemorrhoid surgery - December 2017. TRIPLE BYPASS PIG ARTERY PLACEMENT 2005;. EYE SURGERY LEFT DETACHED RETINA ( ORBIT XRAYS DONE . BILAT CATARACTS;. RT EYE VITRECTOMY; 1990. LT BKA 2008;. RT FOOT HEEL EXCISION;. RIGHT BKA 2012; Hx Anesthesia Reactions: Yes - Excessive Lethargy, and N&V. Infectious Disease History: No Infectious Disease History: Reports: Hx of Known/Suspected MRSA - before left leg was amputated Denies: Hx Clostridium Difficile, Hx Hepatitis, Hx Human Immunodeficiency Virus (HIV), Hx Shingles, Hx Tuberculosis, History Other Infectious Disease, Traveled Outside the [place] in Last 30 Days - Family History Known Family History: Positive: Cardiac Disease, Other - Nervous breakdown- sister - Social History Occupation: Unemployed Lives: At [facility] Alcohol Use: None Alcohol Amount: recovering alcoholic Hx Substance Use: No Substance Use Type: Reports: None Hx Tobacco Use: Yes Smoking Status (MU): Former Smoker Type: Cigarettes Amount Used/How Often: 1.5 packs a day for 33 yrs Have You Smoked in the Last Year: No Review of Systems Constitutional: Negative Negative: Fever, Chills ENT: Negative Cardiovascular: Negative Negative: Palpitations, Chest Pain Positive: Shortness Of Breath, Cough Gastrointestinal: Negative Negative: Abdominal Pain, Vomiting, Diarrhea Genitourinary: Negative Musculoskeletal: Negative Skin: Negative Neurological: Negative All Other Systems Reviewed And Are Negative: Yes Physical Exam Triage Information Reviewed: Yes Vital Signs On Initial Exam: Initial Vitals Temp Pulse Resp BP Pulse Ox 98.1 F 87 19 117/84 97 01/08/19 09:47 10 09:47 10 09:47 01/08/19 09:47 01/08/19 09:47 Vital Signs Reviewed: Yes Appearance: Positive: Well-Nourished - Pt. sitting straight up in bed in NAD. Anxious when speaking. Pt. stating she feels she cannot breath however O2 in high 90's on RA. Skin: Positive: Warm, Dry Head/Face: Positive: Normal Head/Face Inspection Eyes: Positive: Normal, EOMI, UZIEL Neck: Positive: Supple Respiratory/Lung Sounds: Positive: Clear to Auscultation, Breath Sounds Present. Negative: Rales, Rhonchi, Stridor, Wheezes, Fatigue Cardiovascular: Positive: Normal, RRR Musculoskeletal: Positive: Other - Bilateral annqd-loh-mpgh amputations. Small ulceration to left stump without signs of acute infection. Neurological: Positive: Normal, CN Intact II-III Psychiatric: Positive: Anxious Procedures - Sedation Patient Received Moderate/Deep Sedation with Procedure: No Diagnostics - Vital Signs Vital Signs Temp Pulse Resp BP Pulse Ox 01/08/19 09:47 98.1 F 87 19 117/84 97 - Laboratory Result Diagrams: 01/08/19 10:24 01/08/19 10:24 Lab Statement: Any lab studies that have been ordered have been reviewed, and results considered in the medical decision making process. Course/Dx - Course Course Of Treatment: Patient presenting with complaints of worsening shortness of breath. She is afebrile with stable vital signs. Oxygen saturation the high 90s on room air which is normal. Patient's exam is relatively unremarkable however she is complaining she is very short of breath and gets very upset when speaking with me. ECG done at 1024 shows a sinus rhythm of 86bpm, normal axis, old t wave changes, no STEMI, similar to prior tracing. Chest x-ray shows evidence of obstructive pulmonary disease and chronic findings without acute findings, reading per radiology. Labs show leukocytosis of 14,000, mildly elevated creatinine and glucose. Negative troponin and BMP. Patient received a nebulizer at states she feels mildly better but is still concerned with her shortness of breath. Patient does have increased risk for PE given being mostly immobile secondary to amputations. Patient has an IV contrast allergy. D-dimer minimally elevated. VQ scan was obtained to rule out PE and is negative per radiology. We'll treat patient for potential COPD exacerbation with steroids, albuterol and azithromycin. Follow-up with PCP in 2 -3 days for recheck. Return to the ER symptoms change or worsen. Patient understands and agrees with plan. Patient notes she is feeling better at discharge. - Diagnoses Differential Diagnosis/HQI/PQRI: Positive: Asthma, Bronchitis, COPD Exacerbation , [place], Pneumonia Provider Diagnoses: COPD exacerbation Discharge ED - Sign-Out/Discharge Documenting (check all that apply): Patient Departure - Discharge Plan Condition: Improved Disposition: HOME Prescriptions: Azithromycin TAB* [Zithromax TAB (Z-SHE) 250 mg #6 tabs] 250 mg PO DAILY #4 tab predniSONE TAB* [Deltasone 20 MG TAB*] 40 mg PO DAILY #8 tab Patient Education Materials: COPD (Chronic Obstructive Pulmonary Disease) (ED) Referrals: Noni Faustin MD [Primary Care Provider] - Additional Instructions: Follow up with PCP in 2-3 days for recheck Use inhaler 2 puffs every 4-6 hours as needed for shortness of breath Medication as directed Return to ER if symptoms change or worsen - Billing Disposition and Condition Condition: IMPROVED Disposition: Home
[2019-01-08 10:58] LABS: Troponin I 0.01 ng/mL (<0.04)
[2019-01-08 10:59] LABS: Albumin/Globulin Ratio 1.1 (1-3); BUN/Creatinine Ratio 24.2 (8-20); Calcium 9.8 mg/dL (8.6-10.3); EGFR African American 50.7 (>60); EGFR Non-African American 41.9 (>60); Globulin 3.5 g/dL (2-4); Potassium 4.2 mmol/L (3.5-5.0); Total Bilirubin 0.4 mg/dL (0.2-1.0); Total Protein 7.5 g/dL (6.4-8.9)
[2019-01-08 11:16] LABS: ABS Basophils 0.1 10^3/ul (0-0.2); ABS Eosinophils 0.3 10^3/ul (0-0.6); ABS Lymphocytes 1.3 10^3/ul (1.0-4.8); ABS Monocytes 0.8 10^3/ul (0-0.8); ABS Neutrophils 11.6 10^3/ul (1.5-7.7); Eosinophil % 1.8 %; Hematocrit 42 % (35-47); Hemoglobin 13.8 g/dL (12.0-16.0); Lymphocyte % 9.4 %; Mean Corpuscular HGB Conc 33 g/dL (31-36); Mean Corpuscular Hemoglobin 30 pg (27-31); Mean Corpuscular Volume 92 fL (80-97); Mean Platelet Volume 10.6 fL (7.4-10.4); Platelet Count 343 10^3/uL (150-450); Red Blood Count 4.59 10^6 /uL (3.70-4.87); Red Cell Distribution Width 13 % (10-15)
[2019-01-08] MEDS ORDERED: Albuterol 2.5 MG/3 ML NEB.SOL* (0.083%) INH ONE (12:47)
[2019-01-08] MEDS ORDERED: Azithromycin TAB* 250 MG PO ONE (16:58)
[2019-01-08] MEDS ORDERED: predniSONE TAB* 20 MG PO ONE (16:58)
[2019-01-08] MEDS ORDERED: Albuterol HFA INHALER* 8 gm MDI INH ONE (17:04)
[2019-01-08 18:33] VITALS: BP 133/73
[2019-01-09 14:31] LABS: C Reactive Protein 19.28 mg/L (<8.01)
[2019-01-09 15:05] LABS: Ferritin 87.2 ng/mL (11-307)
== END 2019-01-08 18:28 | disposition home or self-care (01) ==
LOC: ED 09:40
DX: J44.1 Chronic obstructive pulmonary disease with (acute) exacerbation (principal); E11.9 Type 2 diabetes mellitus without complications; E66.9 Obesity, unspecified; I10 Essential (primary) hypertension; I25.10 Atherosclerotic heart disease of native coronary artery without angina pectoris; Z95.1 Presence of aortocoronary bypass graft; E78.00 Pure hypercholesterolemia, unspecified; K21.9 Gastro-esophageal reflux disease without esophagitis; F41.9 Anxiety disorder, unspecified; Z87.891 Personal history of nicotine dependence; Z89.612 Acquired absence of left leg above knee; Z89.611 Acquired absence of right leg above knee; Z88.8 Allergy status to other drugs, medicaments and biological substances; Z88.1 Allergy status to other antibiotic agents; Z91.041 Radiographic dye allergy status; Z79.899 Other long term (current) drug therapy; Z79.4 Long term (current) use of insulin
CPT/HCPCS: 36415; 71046; 78582; 80053; 82607; 82728; 83540; 83605; 83880; 84134; 84484; 85025; 85379; 86140; 87040; 93005; 99284; A9270-GY; A9540; A9558; J7512

== ENCOUNTER 2019-03-16 16:02 | Emergency (ER) | payer MEDICARE, MEDICAID ==
--- NOTE | 2019-03-16 16:36 | ED ---
Skin Complaint - HPI Summary HPI Summary: The patient is a 53-year-old female to [facility] [place] with a chief complaint of sacral pain for the last 4-5 days. She reports a history of pilonidal cysts, so she is concerned that she has developed another one. She denies any fevers. She is currently staying at [facility] for a leg injury, but she is noted to have bilateral [id number] amputations. Currently, her pain is rated 8/10 in severity. The area is painful to touch. She has not used any medications prior to arrival for treatment. The SAUSAGE INSPECTOR at [facility] recommended she come here. PMHx: diabetes with neuropathy, anemia, coronary artery disease, hypertension, hyperlipidemia, GERD, MRSA. Former smoker, no EtOH, no substance use. Medications reviewed. Allergies noted. - History of Current Complaint Chief Complaint: EDRectalPain Time Seen by Provider: 03/16/19 16:23 Stated Complaint: RECTAL CYST PER EMS Hx Obtained From: Patient Onset/Duration: Started Days Ago - 4-5, Still Present Skin Exposure Onset/Duration: Days Ago Timing: Lasting Days Onset Severity: Mild Current Severity: Severe Pain Intensity: 8 Pain Scale Used: 0-10 Numeric Skin Location: Other: - sacral Character: Pain Aggravating Symptom(s): Touch Alleviating Symptom(s): Nothing Associated Signs & Symptoms: Negative - no fever - Additional Pertinent History Primary Care Physician: [id number] - Allergy/Home Medications Allergies/Adverse Reactions: Allergies Allergy/AdvReac Type Severity Reaction Status Date / Time Iodinated Contrast Media Allergy Hives Verified 02/16/19 15:29 [Iodinated Contrast- Oral and IV Dye] iodixanol [From Visipaque] Allergy Unknown Verified 02/16/19 15:29 Reaction Details omega-3 acid ethyl esters Allergy Unknown Verified 02/16/19 15:29 [From Lovaza] Reaction Details metronidazole [From Flagyl] AdvReac GI Upset Verified 02/16/19 15:29 vancomycin AdvReac javid Verified 02/16/19 15:29 syndrome varenicline [From Chantix] AdvReac Altered Verified 02/16/19 15:29 Mental Status PMH/Surg Hx/FS Hx/Imm Hx Endocrine/Hematology History: Reports: Hx Anticoagulant Therapy - During hospitalizations only, Hx Blood Transfusions - 06/04/12, Hx Diabetes, Hx Anemia - currently Denies: Hx Blood Disorders, Hx Bone Marrow Disease, Hx Systemic Lupus Erythematosus, Hx Sickle Cell Disease, Hx Thyroid Disease, Hx Unexplained Bleeding, Other Endocrine/Hematological Disorders Cardiovascular History: Reports: Hx Coronary Artery Disease - triple cabg, Hx Hypercholesterolemia, Hx Hypotension, Hx Hypertension, Other Cardiovascular Problems/Disorders - hyperlipidemia, HX OF TRIPLE BYPASS Denies: Hx Aneurysm, Hx Angina, Hx Angioplasty, Hx Auto Implanted Cardiovert Defib, Hx Cardiac Arrest, Hx Cardiomegaly, Hx Congenital Heart Disease, Hx Congestive Heart Failure, Hx Deep Vein Thrombosis, Hx Myocardial Infarction, Hx Pacemaker/ICD, Hx Peripheral Vascular Disease, Hx Rheumatic Fever, Hx Syncope, Hx Valvular Heart Disease Respiratory History: Reports: Other Respiratory Problems/Disorders - "Always stuffed up." Denies: Hx Asthma, Hx Chronic Bronchitis, Hx Chronic Obstructive Pulmonary Disease (COPD), Hx Cystic Fibrosis, Hx Lung Cancer, Hx Pleural Effusion, Hx Pneumonia, Hx Pulmonary Edema, Hx Pulmonary Embolism, Hx Seasonal Allergies, Hx Sleep Apnea GI History: Reports: Hx Gall Bladder Disease - Has gallstones, Hx Gastroesophageal Reflux Disease Denies: Hx Cirrhosis, Hx Crohn's Disease, Hx Diverticulosis, Hx Gastrointestinal Bleed, Hx Hiatal Hernia, Hx Irritable Bowel, Hx Jaundice, Hx Obstructive Bowel, Hx Ileostomy, Hx Pyloric Stenosis, Hx Ulcer, Other GI Disorders History: Reports: Other Problems/Disorders - Hx of UTIs and in 2002 or 2003 a Kidney infection Denies: Hx Acute Renal Failure, Hx Benign Prostatic Hyperplasia, Hx Chronic Renal Failure, Hx Dialysis, Hx Kidney Infection, Hx Kidney Stones, Hx Renal Disease Musculoskeletal History: Reports: Hx Arthritis - hands Denies: Hx Back Problems, Hx Bursitis, Hx Congenital Bone Abnormalities, Hx Fibromyalgia, Hx Gout, Hx Orthopedic Injury, Hx Osteoporosis, Hx Scoliosis, Hx Tendonitis, Other Musculoskeletal History Sensory History: Reports: Hx Cataracts - louie, Hx Contacts or Glasses, Hx Legally Blind - blind left eye, Hx Vision Problem - Right eye farsighted, only needs reading glasses. Denies: Hx Eye Injury, Hx Eye Prosthesis, Hx Glaucoma, Hx Macular Degeneration, Hx Deafness, Hx Hearing Aid, Hx Hearing Problem, Other Sensory Impairments Opthamlomology History: Reports: Hx Cataracts - louie, Hx Contacts or Glasses, Hx Legally Blind - blind left eye, Hx Vision Problem - Right eye farsighted, only needs reading glasses. Denies: Hx Eye Injury, Hx Eye Prosthesis, Hx Glaucoma, Hx Macular Degeneration, Other Sensory Impairments Neurological History: Reports: Hx Nerve Disease - neuropathy, Other Neuro Impairments/Disorders - diabetic neuropathy Denies: Hx Dementia, Hx Developmental Delay, Hx Headaches, Hx Migraine, Hx Seizures, Hx Spinal Cord Injury, Hx Transient Ischemic Attacks (TIA) Psychiatric History: Reports: Hx Anxiety - on meds Denies: Hx Attention Deficit Hyperactivity Disorder, Hx Eating Disorder, Hx Depression, Hx Panic Disorder, Hx Post Traumatic Stress Disorder, Hx Inpatient Treatment, Hx Community Mental Health Tx, Hx Schizophrenia, Hx Bipolar Disorder , Hx Suicide Attempt, Hx of Violent Episodes Against Others, Hx Substance Abuse , Other Psychiatric Issues/Disorders - Surgical History Surgical History: Yes Surgery Procedure, Year, and Place: Hemorrhoid surgery - December 2017. TRIPLE BYPASS PIG ARTERY PLACEMENT 2005;. EYE SURGERY LEFT DETACHED RETINA ( ORBIT XRAYS DONE . BILAT CATARACTS;. RT EYE VITRECTOMY; 1990. LT BKA 2008;. RT FOOT HEEL EXCISION;. RIGHT BKA 2012; Hx Anesthesia Reactions: Yes - Excessive Lethargy, and N&V. Infectious Disease History: No Infectious Disease History: Reports: Hx of Known/Suspected MRSA - before left leg was amputated Denies: Hx Clostridium Difficile, Hx Hepatitis, Hx Human Immunodeficiency Virus (HIV), Hx Shingles, Hx Tuberculosis, History Other Infectious Disease, Traveled Outside the [place] in Last 30 Days - Family History Known Family History: Positive: Cardiac Disease, Other - Nervous breakdown- sister - Social History Alcohol Use: None Alcohol Amount: recovering alcoholic Hx Substance Use: No Substance Use Type: Reports: None Hx Tobacco Use: Yes Smoking Status (MU): Former Smoker Type: Cigarettes Amount Used/How Often: 1.5 packs a day for 33 yrs Have You Smoked in the Last Year: No Review of Systems Negative: Fever Positive: Other - irritation at sacrum All Other Systems Reviewed And Are Negative: Yes Physical Exam - Summary Physical Exam Summary: VITAL SIGNS: Reviewed. GENERAL: Patient is a well-developed and nourished female who is lying comfortable in the stretcher. Patient is not in any acute respiratory distress. HEAD AND FACE: No signs of trauma. No ecchymosis, hematomas or skull depressions. No sinus tenderness. EYES: PERRLA, EOMI x 2, No injected conjunctiva, no nystagmus. EARS: Hearing grossly intact. Ear canals and tympanic membranes are within normal limits. MOUTH: Oropharynx within normal limits. NECK: Supple, trachea is midline, no adenopathy, no JVD, no carotid bruit, no c- spine tenderness, neck with full ROM. CHEST: Symmetric, no tenderness at palpation. LUNGS: Clear to auscultation bilaterally. No wheezing or crackles. CVS: Regular rate and rhythm, S1 and S2 present, no murmurs or gallops appreciated. ABDOMEN: Soft, non-tender. No signs of distention. No rebound, no guarding, and no masses palpated. Bowel sounds are normal. EXTREMITIES: Bilateral vquuc-pjg-[id number] amputations. FROM in all major joints, no edema, no cyanosis or clubbing. NEURO: Alert and oriented x 3. No acute neurological deficits. Speech is normal and follows commands. SKIN: Pilonidal cyst in the right gluteus. Dry and warm. Triage Information Reviewed: Yes Vital Signs On Initial Exam: Initial Vitals Temp Pulse Resp BP Pulse Ox 97.3 F 98 18 149/68 97 03/16/19 16:10 03/16/19 16:10 03/16/19 16:10 03/16/19 16:10 03/16/19 16:10 Vital Signs Reviewed: Yes Procedures - Sedation Patient Received Moderate/Deep Sedation with Procedure: No - Incision and Drainage Right Sacrum Site: right gluteus Anesthesia: Local, Lidocaine - 1% Instrument(s): Scalpel - 11 Packing: Gauze Diagnostics - Vital Signs Vital Signs Temp Pulse Resp BP Pulse Ox 03/16/19 16:10 97.3 F 98 18 149/68 97 - Laboratory Lab Statement: Any lab studies that have been ordered have been reviewed, and results considered in the medical decision making process. Course/Dx - Course Assessment/Plan: The patient is a 53-year-old female to [facility] [place] with a chief complaint of sacral pain for the last 4-5 days. She reports a history of pilonidal cysts, so she is concerned that she has developed another one. She denies any fevers. She is currently staying at [facility] for a leg injury, but she is noted to have bilateral [id number]-[id number] amputations. Currently, her pain is rated 8/10 in severity. The area is painful to touch. She has not used any medications prior to arrival for treatment. The SAUSAGE INSPECTOR at [facility] recommended she come here. PMHx: diabetes with neuropathy, anemia, coronary artery disease, hypertension, hyperlipidemia, GERD, MRSA. Former smoker, no EtOH, no substance use. Medications reviewed. Allergies noted. Patient with an abscess in the right gluteus. Ultrasound guided IV for I& D of the abscess. There was a substantial amount of purulent discharge. Cultures were sent to the lab. Patient was placed on doxycycline, and she was given one Wayne for pain. Patient will be discharged home with follow-up with primary care physician within 2-3 days. I discussed all the findings and test results with the patient. Patient was instructed to return to the emergency room immediately if any of the symptoms return or worsen. Plan of care was discussed with the patient and understands and agrees. All questions were answered at patient satisfaction. There were no further complaints or concerns. - Diagnoses Provider Diagnoses: Pilonidal cyst with abscess Discharge ED - Sign-Out/Discharge Documenting (check all that apply): Patient Departure - Patient will be discharged home. - Discharge Plan Condition: Stable Disposition: HOME Prescriptions: DOXYcycline CAP(*) [DOXYcycline 100MG CAP(*)] 100 mg PO BID #20 cap Hydrocodone/Acetaminophen [Wayne 5-325 Tablet] 1 each PO Q6H PRN #10 tablet MDD 4 PRN Reason: Pain - Moderate Patient Education Materials: Pilonidal Cyst (ED), Pilonidal Cyst Excision (DC) Referrals: Noni Faustin MD [Primary Care Provider] - 3 Days Additional Instructions: Please take medications as prescribed. Follow up with your primary care provider in 2-3 days. Return to the emergency department for any new or worsening symptoms. - Billing Disposition and Condition Condition: STABLE Disposition: Home - Attestation Statements Document Initiated by Hemalatha: Yes Documenting Scribe: Tiffanie Wade Provider For Whom Hemalatha is Documenting (Include Credential): Dr. Gil Copeland MD Scribe Attestation: Tiffanie Gonzalez scribed for Dr. Gil Copeland MD on 03/16/19 at 1857. Scribe Documentation Reviewed: Yes Provider Attestation: The documentation as recorded by the Tiffanie morejon accurately reflects the service I personally performed and the decisions made by me, Dr. Gil Copeland MD Status of Scribe Document: Viewed
--- OUTSIDE RECORDS SUMMARY | 2019-03-16 16:36 | XMS REPORT ---
:1965 Author Organization [facility] Care Team Providers Name Role Phone Unavailable Unavailable Unavailable Problems This patient has no known problems. Allergies, Adverse Reactions, Alerts Allergy Name Allergy Status Severity Reaction(s) Onset Inactive Treating Comments Type Date Date Clinician Iodinated Unknown Active Unknown Reaction Interface Contrast Unknown 9-24 Media iodixanol Base Active Unknown Reaction Interface Ingredient Unknown 9-24 omega-3 acid Base Active Unknown Reaction Unknown ethyl esters Ingredient Unknown 9-24 metronidazol Base Active Unknown Reaction Interface e Ingredient Unknown 9-24 vancomycin Base Active Unknown Reaction Interface Ingredient Unknown 9-24 varenicline Base Active Unknown Reaction Interface Ingredient Unknown 9-24 Medications Ordered Filled Start Stop Current Ordering Indication Dosage Frequency Signature Comments Components Medication Medication Date Date Medication? Clinician (SIG) Name Name No Known No Known No None None None Medications Medications For This For This Patient Patient Procedures This patient has no known procedures. Results This patient has no known results.
--- OUTSIDE RECORDS SUMMARY | 2019-03-16 16:36 | XMS REPORT ---
:1965 Author Organization [facility] Care Team Providers Name Role Phone Unavailable [...]
--- OUTSIDE RECORDS SUMMARY | 2019-03-16 16:36 | XMS REPORT ---
:1965 Author Organization [facility] Care Team Providers Name Role Phone Unavailable [...]
--- OUTSIDE RECORDS SUMMARY | 2019-03-16 16:36 | XMS REPORT ---
:1965 Author Organization [facility] Care Team Providers Name Role Phone Unavailable [...]
--- OUTSIDE RECORDS SUMMARY | 2019-03-16 16:36 | XMS REPORT ---
:1965 Author Organization [facility] Care Team Providers Name Role Phone Unavailable [...]
--- OUTSIDE RECORDS SUMMARY | 2019-03-16 16:36 | XMS REPORT ---
:1965 Author Organization [facility] Care Team Providers Name Role Phone Unavailable [...]
--- OUTSIDE RECORDS SUMMARY | 2019-03-16 16:36 | XMS REPORT ---
:1965 Author Organization [facility] Care Team Providers Name Role Phone Unavailable [...]
--- OUTSIDE RECORDS SUMMARY | 2019-03-16 16:36 | XMS REPORT ---
:1965 Author Organization [facility] Care Team Providers Name Role Phone Unavailable [...]
--- OUTSIDE RECORDS SUMMARY | 2019-03-16 16:36 | XMS REPORT ---
:1965 Author Organization [facility] Care Team Providers Name Role Phone Unavailable [...]
--- OUTSIDE RECORDS SUMMARY | 2019-03-16 16:36 | XMS REPORT ---
:1965 Author Organization [facility] Care Team Providers Name Role Phone Unavailable [...]
--- OUTSIDE RECORDS SUMMARY | 2019-03-16 16:36 | XMS REPORT ---
:1965 Author Organization [facility] Care Team Providers Name Role Phone Unavailable [...]
--- OUTSIDE RECORDS SUMMARY | 2019-03-16 16:36 | XMS REPORT ---
:1965 Author Organization [facility] Care Team Providers Name Role Phone Unavailable [...]
--- OUTSIDE RECORDS SUMMARY | 2019-03-16 16:36 | XMS REPORT ---
:1965 Author Organization [facility] Care Team Providers Name Role Phone Unavailable [...]
--- OUTSIDE RECORDS SUMMARY | 2019-03-16 16:36 | XMS REPORT ---
:1965 Author Organization [facility] Care Team Providers Name Role Phone Unavailable [...]
--- OUTSIDE RECORDS SUMMARY | 2019-03-16 16:36 | XMS REPORT ---
:1965 Author Organization [facility] Care Team Providers Name Role Phone Unavailable [...]
--- OUTSIDE RECORDS SUMMARY | 2019-03-16 16:36 | XMS REPORT ---
:1965 Author Organization [facility] Care Team Providers Name Role Phone Unavailable [...]
--- OUTSIDE RECORDS SUMMARY | 2019-03-16 16:36 | XMS REPORT ---
:1965 Author Organization [facility] Care Team Providers Name Role Phone Unavailable [...]
--- OUTSIDE RECORDS SUMMARY | 2019-03-16 16:36 | XMS REPORT | Continuity of Care Document ---
:1965 External Reference #:[id number] Author Name Ema Wheatley M.D. (transmitted by agent of provider Umu Rogers) Address [address] [place] [id number] Care Team Providers Name Role Phone Nnoi Faustin MD - Family Care Team Information Internal Controls Analyst [phone] Medicine Taya Mosley MD - Surgery Care Team Information Internal Controls Analyst [phone] Problems Active Problems Provider Date Chronic infection of amputation stump Lakeisha Mosley, N.P. Onset: 04/14/2013 Chronic osteomyelitis Bashir Hale II, M.D. Onset: 04/14/2013 Osteomyelitis of ankle AND/OR foot Brenton Mendez M.D. Onset: 2013 Ulcer of heel Zeferino Gupta M.D. Onset: 04/14/2013 Gastrointestinal hemorrhage Stephanie Rosenthal NP Onset: 09/11/2017 Dyspnea Stephanie Rosenthal NP Onset: 09/11/2017 Acute posthemorrhagic anemia Stephanie Rosenthal NP Onset: 09/11/2017 Chronic kidney disease stage 3 Stephanie Rosenthal NP Onset: 09/11/2017 Type 1 diabetes mellitus Stephanie Rosenthal NP Onset: 09/11/2017 Amputated below knee Stephanie Rosenthal NP Onset: 09/11/2017 Body mass index 40+ - severely obese Stephanie Rosentahl NP Onset: 09/2017 Anemia Don Kirkland M.D. Onset: 09/13/2017 Multi vessel coronary artery disease Ema Wheatley M.D. Onset: 09/27/2017 Arteriosclerosis of coronary artery Ema Wheatley M.D. Onset: 09/27/2017 bypass graft Mixed hyperlipidemia Ema Wheatley M.D. Onset: 09/27/2017 Diastolic heart failure Ema Wheatley M.D. Onset: 09/27/2017 Abnormal results of cardiovascular Ema Wheatley M.D. Onset: 10/25/2017 function studies Atherosclerosis of autologous artery Ema Wheatley M.D. Onset: 10/25/2017 coronary artery bypass graft(s) with other forms of angina pectoris Essential hypertension Marie Cruz NP Onset: 11/04/2017 Hyperlipidemia Marie Cruz NP Onset: 11/04/2017 Type 1 diabetes mellitus with diabetic Marie Cruz NP Onset: 11/04/2017 autonomic (poly)neuropathy Neurological disorder with type 1 Marie Cruz NP Onset: 11/04/2017 diabetes mellitus Hemorrhoids without complication Slime Hazel DO Onset: 11/05/2017 Acute renal failure syndrome Stephanie Rosenthal NP Onset: 12/07/2017 Long-term current use of insulin Stephanie Rosenthal NP Onset: 2017 Transfusion reaction due to excess Miesha Kiser NP Onset: 2017 volume Hypertensive chronic kidney disease Miesha Kiser NP Onset: 2017 with stage 1 through stage 4 chronic kidney disease, or unspecified chronic kidney disease Heart failure, unspecified Cl Trevizo MD Onset: 12/27/2017 Acquired absence of right knee Cl Trevizo MD Onset: 12/27/2017 Acquired absence of left knee Cl Trevizo MD Onset: 12/27/2017 Social History Type Date Description Comments Sex Unknown ETOH Use Negative For Denies alcohol use Tobacco Use Start: Unknown End: Patient is a former smoker Unknown Recreational Drug Use Denies Drug Use Smoking Status Reviewed: 09/18/18 Patient is a former smoker Exercise Type/Frequency Does not exercise Allergies, Adverse Reactions, Alerts Active Allergies Reaction Severity Comments Date Vancomycin not effective 04/14/2013 Chantix unable to tolerate 04/14/2013 Visipaque unknown 04/14/2013 Lovaza Moderate unknown 08/02/2017 Contrast Dye Moderate unknown 08/02/2017 Medications Active Medications SIG Qnty Indications Ordering Date Provider Giacomocepa take 2 tablets 120caps E78.2 Lakeisha BabcockEla Dimitri, 09/18/2018 1gm Capsules twice daily with N.P. meals Humalog sliding scale Ema Wheatley, 06/12/2018 100Unit/ML Not taking M.D. Solution Cartridge Atorvastatin Calcium 1 by mouth every 90tabs Ema Wheatley, 09/27/2017 40mg day M.D. Tablets Debrox 4 gtt in L ear Unknown 6.5% Solution nightly for 5 days Reglan 1 tab by mouth Unknown 10mg Tablets q6 hours as needed Novolin R 5 units for Unknown 100Unit/ML bs>250 Solution Desloratadine 1 by mouth every Unknown 5mg Tablets day Lidocaine-Prilocaine bid - tid Prn Unknown 2.5-2.5% Cream Ventolin HFA 2 puffs by mouth Unknown 108(90Base) four times a day mcg/Act Aerosol as needed Insulin use with lantus Unknown Syringe/U-100/1ML/30G daily X 5/16" 30G X 5/16" 1 ML Misc [employer] [place] Contour Blood use one strip to Unknown Glucose Test Strips check glucose once daily and Strips one as needed Ferrous Sulfate 1 by mouth daily Unknown 325(65Fe) mg Tablets Miralax 17 grams by Unknown Powder mouth every day with main meal Sertraline HCL 1 by mouth every Unknown 25mg day Tablets Atenolol 1 by mouth every Unknown 50mg Tablets day Omeprazole 1 by mouth every Unknown 20mg Capsules day DR Ramipril 1 by mouth every Unknown 5mg Capsules day Furosemide 1 by mouth every Unknown 20mg Tablets day Lantus Solostar 40 units in Am, Unknown 40 units in PM 100Unit/ML Solution Pen-Inject Ra Col-Rite 2 by mouth once Unknown 100mg a day Capsules Ondansetron HCL 1-2 PO every 4-6 Unknown 4mg hours as needed Tablets for nausea Xanax by mouth once Unknown 0.5mg Tablets daily. May take a second pill daily as needed Immunizations Description No Information Available Vital Signs Date Vital Result Comment 09/18/2018 3:11pm Height 66 inches 5'6" Weight 225.00 lb Estimated Heart Rate 74 /min Radial BP Systolic Sitting 104 mmHg Lue reg cuff BP Diastolic Sitting 60 mmHg Lue reg cuff BMI (Body Mass Index) 36.3 kg/m2 06/13/2018 1:27pm Height 66 inches 5'6" Weight 228.00 lb Heart Rate 70 /min BP Systolic Sitting 120 mmHg Lue lg cuff BP Diastolic Sitting 70 mmHg Lue lg cuff BMI (Body Mass Index) 36.8 kg/m2 Results Test Acquired Date Facility Test Result H/L Range Note Laboratory test 01/16/2019 [facility] Tissue (BX) SEE RESULT [address] Culture & [place] [address] [phone] Laboratory test 01/09/2019 [facility] Tissue (BX) SEE RESULT 2, [address] Culture & [place] [address] [phone] CBC No Diff 12/03/2018 [facility] White Blood 10.4 Normal 3.5- 10.[address] Count 10^3/[place] [address] [phone] Red Blood Count 4.31 10^6/uL Normal 3.70-4.87 Hemoglobin 13.4 g/dL Normal 12.0-16.0 Hematocrit 40 % Normal 35-47 Mean Corpuscular Volume 93 fL Normal 80-97 Mean Corpuscular Hemoglobin 31 pg Normal 27-31 Mean Corpuscular HGB Conc 34 g/dL Normal 31-36 Red Cell Distribution Width 13 % Normal 10-15 Platelet Count 324 10^3/uL Normal 150-450 Mean Platelet Volume 9.6 fL Normal 7.4-10.4 Urinalysis Profile 12/03/2018 [facility] Urine Color Yellow [address] [place], [place] [id number] [phone] Urine Appearance Cloudy Urine Specific [place] 1.012 Normal 1.010-1.030 Urine pH 6.0 Normal 5-9 Urine Urobilinogen Negative Negative Urine Ketones Negative Negative Urine Protein 2+(100 mg/dL) Abnormal Negative Urine Leukocytes 1+ Abnormal Negative Urine Blood Negative Negative Urine Nitrite Negative Negative Urine Bilirubin Negative Negative Urine Glucose 2+(150 mg/dL) Abnormal Negative Urine White Blood Cell Trace(0-5/hpf) Absent Urine Red Blood Cell Absent Absent Urine Bacteria Absent Absent Urine Squamous Epithelial Cell Present Abnormal Absent Lipid Profile 12/03/2018 [facility] Triglycerides 155 mg/dL 4 (Trig/Chol/HDL) [address] [place], [place] [id number] [phone] Cholesterol 153 mg/dL 5 HDL Cholesterol 43.5 mg/dL 6 LDL Cholesterol 79 mg/dL 7 Laboratory test 12/03/2018 [facility] Thyroxine 10.95 Normal 6.09-12.[address] g/dL [place], [place] [id number] [phone] TSH (Thyroid Stim Horm) 2.57 mcIU/mL Normal 0.34-5.60 Hemoglobin A1c (Glyco HGB) 8.7 % High 4.0-5.6 8 Urine Microalbumin 12/03/2018 [facility] Urine Creatinine 74.81 mg/dL Random [address] [place], [place] [address] [phone] Ur Microalbumin (mg/L) 939.2 mg/L Urine Microalbumin/Creatinine 1255.4 High <31 Urine Culture And 12/03/2018 [facility] Urine Culture SEE RESULT [address] [place], [place] [address] [phone] Laboratory test 12/03/2018 [facility] Prealbumin 16 mg/dL Low 18-[address] [place], [place] [address] [phone] C Reactive Protein 21.02 mg/L High <8.01 Lipid Panel - 09/18/2018 [facility] Creatine Kinase(CK) <pending > [facility] [address] [place], [place] [id number] [phone] Lipid Profile 09/08/2018 [facility] Triglycerides 244 mg/dL 10, 11 (Trig/Chol/HD [address] L) [place], [place] [id number] [phone] Cholesterol 177 mg/dL 12 HDL Cholesterol 49.3 mg/dL 13 LDL Cholesterol 79 mg/dL 14 1 SEE RESULT BELOW Name: SHERIN ROSE : [address]: Narcisa Shankar [employer] Acct: [id number] Unit: [id number] AGE: 53 Location: WOUND Re01/16/19 SEX: F Status: REG REF SPEC: [id number] TRUDI: 01/16/[address]: Narcisa Shankar [employer] REQ: [id number] RECD: 01/16/19 STATUS: DUNCAN KHAN DR: Noni Faustin MD _ SOURCE: WOUND SPDESC:LEFT LEG ORDERED: Tissue Cult/GS Procedure Result Reported Site Tissue Gram Stain Final 01/17/19- 0751 ML No Neutrophils Observed No Organisms Seen Tissue Culture Final 01/20/19- 0847 ML Organism 1 PSEUDOMONAS AERUGINOSA Quantity 2+ 1. PSEUDOMONAS AERUGINOSA M.I.C. RX --------- ------ Cefazolin >=64 R Cefepime <=1 S Ciprofloxacin <=0.25 S Gentamicin <=1 S Levofloxacin 0.5 S Meropenem <=0.25 S Pipercillin/Tazobactam 16 S Contact the Microbiology Department for any additional antibiotic reporting. * ML - Main Lab . 2 LEFT LEG WOUND 3 SEE RESULT BELOW Name: SHERIN ROSE : [address]: Narcisa Shankar NP Acct: [id number] Unit: [id number] AGE: 53 Location: WOUND Re01/09/19 SEX: F Status: REG REF SPEC: [id number] TRUDI: 01/09/[address]: Narcisa Shankar NP REQ: [id number] RECD: 01/09/192542 STATUS: DUNCAN KHAN DR: Noni Faustin MD _ SOURCE: TISSUE SPDESC: ORDERED: Tissue Cult/GS COMMENTS: LEFT LEG WOUND Procedure Result Reported Site Tissue Gram Stain Final 01/09/19- 1604 ML 1+ Nucleated Cells No Neutrophils Observed No Organisms Seen Preparation By Cytospin Smear Tissue Culture Final 01/13/19- 0937 ML No Growth Day 4 * ML - Main Lab . END OF REPORT DEPARTMENT OF PATHOLOGY, [address] [place] [address] Aung Liu M.D. Director [facility] # [id number] 4 Desirable: <150 Borderline High: 150-199 High: 200-499 Very High: >500 5 Desirable: <200 Borderline High: 200-239 High: >239 6 Low: <40 Desirable: 40-60 High: >60 7 Desirable: <100 Near Optimal: 100-129 Borderline High: 130-159 High: 160-189 Very High: >189 8 Therapeutic target for the treatment of diabetes mellitus patients is <7% HBA1C, and in selective patients <6.0%. Please refer to [place] [employer] diabetic care guidelines for further information. 9 SEE RESULT BELOW Name: SHERIN ROSE : [address]: Noni Faustin MD Acct: [id number] Unit: [id number] AGE: 53 Location: LAB Re12/03/18 SEX: F Status: REG REF SPEC: [id number] TRUDI: 12/03/18-[address]: Noni Faustin MD REQ: [id number] RECD: 12/03/18151 STATUS: DUNCAN KHAN DR: Taya Wheatley MD _ SOURCE: URINE SPDC: ORDERED: Urine Culture Procedure Result Reported Site Urine Culture Final 12/05/18- 0900 ML Organism 1 PSEUDOMONAS AERUGINOSA [place] Count 75-100,000 (Many) CFU/ML 1. PSEUDOMONAS AERUGINOSA M.I.C. RX --------- ------ Cefazolin >=64 R Cefepime <=1 S Ciprofloxacin <=0.25 S Gentamicin <=1 S Levofloxacin 0.25 S Meropenem <=0.25 S Pipercillin/Tazobactam <=4 S Contact the Microbiology Department for any additional antibiotic reporting. * ML - Main Lab . END OF REPORT DEPARTMENT OF PATHOLOGY, [address] [place] [address] Aung Liu M.D. Director [facility] # [id number] 10 FASTING 11 Desirable: <150 Borderline High: 150-199 High: 200-499 Very High: >500 12 Desirable: <200 Borderline High: 200-239 High: >239 13 Low: <40 Desirable: 40-60 High: >60 14 Desirable: <100 Near Optimal: 100-129 Borderline High: 130-159 High: 160-189 Very High: >189 Procedures Date Code Description Status 02/18/2019 78789 Chemical Cautery Granulation Tissue Completed 01/16/2019 26752 Removal Devitalization Tissue Wound Less Than Equal 20 Completed Square CM 01/09/2019 57198 Debridement Skin,& sq Tissue Completed 12/24/2018 90834 Removal Devitalization Tissue Wound Less Than Equal 20 Completed Square CM 12/17/2018 29583 Removal Devitalization Tissue Wound Less Than Equal 20 Completed Square CM 12/03/2018 03159 Debridement Skin,& sq Tissue Completed 09/18/2018 13162 EKG Tracing & Interpretation Completed Medical Devices Description No Information Available Encounters Type Date Location Provider Dx Diagnosis Office Visit 02/04/2019 [facility] Taya Bashir T87.9 Unspecified 1:15p AT [facility] Mosley MD complications of amputation stump Office Visit 01/21/2019 [facility] Taya Bashir T87.9 Unspecified 1:00p AT [facility] Mosley MD complications of amputation stump Office Visit 01/01/2019 [facility] Slime Hazel, L97.829 Non- pressure 10:28a Assoc,pc DO chronic ulcer oth Hospitalists prt l low leg w unsp severity E10.622 Type 1 diabetes mellitus with other skin ulcer T87.89 Other complications of amputation stump I10 Essential (primary) hypertension Office Visit 12/31/2018 10:28a [facility] Slime R33.9 Retention of Assoc,lucia Hazle DO urine, Hospitalists unspecified E10.622 Type 1 diabetes mellitus with other skin ulcer T87.89 Other complications of amputation stump Office Visit 12/30/2018 8:15a Wound Care Stephanie Lopez T87.9 Unspecified [facility] Rosenthal complications of amputation stump L97.828 Non-prs chronic ulcer oth prt l low leg with oth severity E10.622 Type 1 diabetes mellitus with other skin ulcer Office Visit 12/29/2018 10:27a [facility] Karin T87.44 Infection of Assoc,lucia Ivan D.O. 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 R06.02 Shortness of breath E10.8 Type 1 diabetes mellitus with unspecified complications I10 Essential (primary) hypertension E78.2 Mixed hyperlipidemia Assessments Date Code Description Provider 02/18/2019 T87.9 Unspecified complications of Taya Mosley MD amputation stump 02/04/2019 T87.9 Unspecified complications of Taya Mosley MD amputation stump 01/21/2019 T87.9 Unspecified complications of Taya Mosley MD amputation stump 01/16/2019 E10.622 Type 1 diabetes mellitus with other Narcisa Shankar DNP , RN, skin ulcer [employer] 01/16/2019 T87.9 Unspecified complications of Narcisa Shankar DNP, RN, amputation stump [employer] 01/16/2019 L97.821 Non-pressure chronic ulcer of other Narcisa Shankar DNP , RN, part of left lower leg limited to [employer] breakdown of skin 01/09/2019 L97.822 Non-pressure chronic ulcer of other Narcisa Shankar DNP , RN, part of left lower leg with fat [employer] ASSEM[employer] layer exposed 01/09/2019 E10.622 Type 1 diabetes mellitus with other Narcisa Shankar DNP , RN, skin ulcer [employer] 01/09/2019 E10.51 Type 1 diabetes mellitus with Narcisa Shankar DNP, RN, diabetic peripheral angiopathy [employer] without gangrene 01/09/2019 R53.83 Other fatigue Narcisa Shankar DNP, RN, [employer] 01/09/2019 E46 Unspecified protein-calorie Narcisa Shankar DNP, RN, malnutrition [employer] 01/09/2019 D50.8 Other iron deficiency anemias Narcisa Shankar DNP, RN, [employer]ER[employer] 01/09/2019 T87.9 Unspecified complications of Narcisa Shankar DNP, RN, amputation stump [employer] 01/01/2019 L97.829 Non-pressure chronic ulcer of other Slime Senner, DO part of left lower leg with unspecified severity 01/01/2019 E10.622 Type 1 diabetes mellitus with other Slime Senner, DO skin ulcer 01/01/2019 T87.89 Other complications of amputation Slime Senner, DO stump 01/01/2019 I10 Essential (primary) hypertension Slime Senner, DO 12/31/2018 R33.9 Retention of urine, unspecified Slime Senner, DO 12/31/2018 E10.622 Type 1 diabetes mellitus with other Slime Senner, DO skin ulcer 12/31/2018 T87.89 Other complications of amputation Slime Senner, DO stump 12/30/2018 L97.829 Non-pressure chronic ulcer of other Slime Senner, DO part of left lower leg with unspecified severity 12/30/2018 T87.9 Unspecified complications of Stephanie Rosenthal, [employer] amputation stump 12/30/2018 L97.828 Non-pressure chronic ulcer of other Stephanie Rosenthal [employer] part of left lower leg with other specified severity 12/30/2018 E10.622 Type 1 diabetes mellitus with other Stephanie Rosenthal, [employer] skin ulcer 12/30/2018 T87.89 Other complications of amputation Slime Senner, DO stump 12/30/2018 E10.9 Type 1 diabetes mellitus without Slime Senner, DO complications 12/30/2018 R33.9 Retention of urine, unspecified Slime Senner, DO 12/29/2018 T87.44 Infection of amputation stump, left Karin Ivan D.O. lower extremity 12/29/2018 R30.0 Dysuria Radha CloeOEla 12/29/2018 E10.9 Type 1 diabetes mellitus without Karin Ivan D.O. complications 12/29/2018 I10 Essential (primary) hypertension Karin Ivan D.O. 12/24/2018 T87.9 Unspecified complications of Taya Mosley MD amputation stump 12/17/2018 T87.9 Unspecified complications of Taya Mosley MD amputation stump 12/10/2018 T87.9 Unspecified complications of Taya Mosley MD amputation stump 12/03/2018 T87.9 Unspecified complications of Taya Mosley MD amputation stump 12/03/2018 E10.622 Type 1 diabetes mellitus with other Taya Mosley MD skin ulcer 09/18/2018 R94.31 Abnormal electrocardiogram [ECG] Jonna Solomon M.D. [EKG] 09/18/2018 I25.729 Atherosclerosis of autologous artery Lakeisha Mosley, N.P. coronary artery bypass 09/18/2018 R06.02 Shortness of breath Lakeisha Mosley, N.P. 09/18/2018 E10.8 Type 1 diabetes mellitus with Lakeisha Mosley, N.P. unspecified complications 09/18/2018 I10 Essential (primary) hypertension Lakeisha Mosley, N.P. 09/18/2018 E78.2 Mixed hyperlipidemia Lakeisha Mosley, N.P. Plan of Treatment 09/18/2018 - Lakeisha Mosley, N.P.I25.729 Atherosclerosis of autologous artery coronary artery zvwpcoF06.02 Shortness of crnrgoY55.8 Type 1 diabetes mellitus with unspecified inzijztmggibpI93 Essential (primary) haupafsjwbzlL41.2 Mixed hyperlipidemiaNew Medication:Vascepa 1 gm - take 2 tablets twice daily with mealsFollow up:5mo OV LSRecommendations:Triglycerides are high We recommend starting Vascepa which is a prescription strength fish oil If you can start this we would recheck lipids in 2-3 months. Functional Status Description No Information Available Mental Status Description No Information Available Referrals Description No Information Available
--- OUTSIDE RECORDS SUMMARY | 2019-03-16 16:36 | XMS REPORT ---
:1965 Author Organization [facility] Care Team Providers Name Role Phone Unavailable [...]
--- OUTSIDE RECORDS SUMMARY | 2019-03-16 16:36 | XMS REPORT ---
:1965 Author Organization [facility] Care Team Providers Name Role Phone Unavailable [...]
--- OUTSIDE RECORDS SUMMARY | 2019-03-16 16:36 | XMS REPORT ---
:1965 Author Organization [facility] Care Team Providers Name Role Phone Unavailable [...]
--- OUTSIDE RECORDS SUMMARY | 2019-03-16 16:37 | XMS REPORT ---
:1965 Author Organization [facility] Care Team Providers Name Role Phone Unavailable [...]
--- OUTSIDE RECORDS SUMMARY | 2019-03-16 16:37 | XMS REPORT ---
:1965 Author Organization [facility] Care Team Providers Name Role Phone Unavailable [...]
--- OUTSIDE RECORDS SUMMARY | 2019-03-16 16:37 | XMS REPORT ---
:1965 Author Organization [facility] Care Team Providers Name Role Phone Unavailable [...]
--- OUTSIDE RECORDS SUMMARY | 2019-03-16 16:37 | XMS REPORT ---
:1965 Author Organization [facility] Care Team Providers Name Role Phone Unavailable [...]
[2019-03-16] MEDS ORDERED: Lidocaine 1% MPF ** 5 ML VIAL ONE (16:44)
[2019-03-16] MEDS ORDERED: HYDROcodone/ACETAMIN 5-325 MG* 1 TAB PO ONE (16:59)
[2019-03-16] MEDS ORDERED: Sulfamethox/Trimethoprim DS 800/160* TAB PO ONE (16:59)
[2019-03-16] MEDS ORDERED: DOXYcycline CAP(*) 100 MG PO ONE (17:01)
[2019-03-16 19:08] VITALS: BP 130/64
== END 2019-03-16 18:30 | disposition home or self-care (01) ==
LOC: ED 16:02
DX: L05.01 Pilonidal cyst with abscess (principal); E11.40 Type 2 diabetes mellitus with diabetic neuropathy, unspecified; D64.9 Anemia, unspecified; I25.10 Atherosclerotic heart disease of native coronary artery without angina pectoris; I10 Essential (primary) hypertension; E78.5 Hyperlipidemia, unspecified; K21.9 Gastro-esophageal reflux disease without esophagitis; F41.9 Anxiety disorder, unspecified; E78.00 Pure hypercholesterolemia, unspecified; Z87.891 Personal history of nicotine dependence; Z95.1 Presence of aortocoronary bypass graft; Z89.511 Acquired absence of right leg below knee; Z88.8 Allergy status to other drugs, medicaments and biological substances; Z88.1 Allergy status to other antibiotic agents; Z91.041 Radiographic dye allergy status
CPT/HCPCS: 10080; 87070; 87077; 87205; 99283; A9270-GY

== ENCOUNTER → 2019-04-06 06:51 | Day surgery (SDC) | payer MEDICARE, MEDICAID ==
[~2019-04-06 06:51] MED LIST: Heparin 2 UNITS/ML IVPREMIX* 1,000 ML IV ONE; Heparin 2 UNITS/ML IVPREMIX* 2,000 ML IV ONE; Heparin(*) 1000 UNIT/ML 10 ML VIAL CATH LAB IV ONE; Insulin REGULAR(*) 1 UNITS UNIT SUBCUT SCH; Iodixanol 320 (CONTRAST) 100 ML SDV ONE; Iohexol 350 (CONTRAST) 200 ML MDV IV ONE; LORazepam TAB(*) 1 MG ONE; Lidocaine 1% INJ* 10 MG/ML 30 ML SDV ONE; Metoprolol Tartrate IV* 1 MG/ML 5 ML VIAL ONE; Midazolam* 1 MG/ML 5 ML VIAL (5 MG) ONE; diPHENhydraMINE IV* 50 MG/ML 1 ml VIAL (BENADRYL) ONE; fentaNYL* 50 MCG/ML 2 ML VIAL (100 MCG VIAL) ONE
--- NOTE | 2019-04-06 11:11 | PN ---
Progress Note - Progress Note Date of Service: 04/06/19 SOAP: Subjective: Patient denies any new pain complaints either in the left thigh or right groin. Denies chest pain or shortness of breath. Objective: Selected Entries 04/06/19 04/06/19 07:58 10:52 Temperature 97.7 F Heart Rate 81 Respiratory 13 Rate Blood Pressure 158/72 (mmHg) Blood Pressure 88 Mean O2 Sat by Pulse 95 Oximetry NAD, AAO x 3 Right groin is soft nontender. Dressing is clean dry and intact. Left thigh is soft and nontender. Assessment: 53 -year-old female status post pelvic and left lower extremity arteriography with unsuccessful attempt to revascularize long segment occlusion of the left superficial femoral artery. Right common femoral arteriotomy successfully closed with Angio-Seal closure device. Plan: 1. DC to [facility] after routine bedrest and monitoring. 2. Per the patient's desiresl retrograde revascularization of the left popliteal artery with general anesthesia support could be attempted. 3. Continue wound care.
[2019-04-06 15:04] VITALS: BP 154/72
== END | disposition home or self-care (01) ==
LOC: CHICATH 06:51
PROVIDERS: ATTEND Radiology Diagnostic Radiology
DX: I70.235 Atherosclerosis of native arteries of right leg with ulceration of other part of foot (principal); Z89.512 Acquired absence of left leg below knee; E10.42 Type 1 diabetes mellitus with diabetic polyneuropathy; E10.319 Type 1 diabetes mellitus with unspecified diabetic retinopathy without macular edema; Z79.4 Long term (current) use of insulin; Z87.891 Personal history of nicotine dependence; I25.10 Atherosclerotic heart disease of native coronary artery without angina pectoris; I10 Essential (primary) hypertension; K21.9 Gastro-esophageal reflux disease without esophagitis; E78.5 Hyperlipidemia, unspecified; E10.43 Type 1 diabetes mellitus with diabetic autonomic (poly)neuropathy; K31.84 Gastroparesis; Z95.1 Presence of aortocoronary bypass graft
CPT/HCPCS: 36415; 75736; 76937; 82947; 85347; 99156; 99157; A9270-GY; C1760; C1769; C1887; C1894; J1200; J1644; J2250; J3010; J3490

== ENCOUNTER 2019-04-13 18:05 | Emergency (ER) | payer MEDICARE, MEDICAID ==
--- NOTE | 2019-04-13 18:48 | ED ---
Complex/Multi-Sys Presentation - HPI Summary HPI Summary: 53 y/o female presented to [facility] complaining of right eye deterioration present for year with recent worsening. Her left eye began deteriorating 30 years ago, and her right eye began deteriorating a few years ago. She is now experiencing severe blurred vision in the right eye. She is not in any pain. She has had difficulty getting an appointment through the [facility] staff and they sent her to the ER. History of bilateral cataracts. - History Of Current Complaint Chief Complaint: EDEyeProblem Time Seen by Provider: 04/13/19 18:19 Hx Obtained From: Patient Onset/Duration: Still Present Timing: Constant Severity Currently: Severe Aggravating Factor(s): nothing Alleviating Factor(s): nothing Associated Signs And Symptoms: Positive: Other - blurred vision Related History: Other - long-term deterioration - Allergies/Home Medications Allergies/Adverse Reactions: Allergies Allergy/AdvReac Type Severity Reaction Status Date / Time Iodinated Contrast Media Allergy Hives Verified 04/06/19 08:05 [Iodinated Contrast- Oral and IV Dye] iodixanol [From Visipaque] Allergy Unknown Verified 04/06/19 08:05 Reaction Details omega-3 acid ethyl esters Allergy Unknown Verified 04/06/19 08:05 [From Lovaza] Reaction Details metronidazole [From Flagyl] AdvReac GI Upset Verified 04/06/19 08:05 vancomycin AdvReac javid Verified 04/06/19 08:05 syndrome varenicline [From Chantix] AdvReac Altered Verified 04/06/19 08:05 Mental Status PMH/Surg Hx/FS Hx/Imm Hx Endocrine/Hematology History: Reports: Hx Anticoagulant Therapy - During hospitalizations only, Hx Blood Transfusions - 06/04/12, Hx Diabetes, Hx Anemia - currently Denies: Hx Blood Disorders, Hx Bone Marrow Disease, Hx Systemic Lupus Erythematosus, Hx Sickle Cell Disease, Hx Thyroid Disease, Hx Unexplained Bleeding, Other Endocrine/Hematological Disorders Cardiovascular History: Reports: Hx Coronary Artery Disease - triple cabg, Hx Hypercholesterolemia, Hx Hypotension, Hx Hypertension, Other Cardiovascular Problems/Disorders - hyperlipidemia, HX OF TRIPLE BYPASS Denies: Hx Aneurysm, Hx Angina, Hx Angioplasty, Hx Auto Implanted Cardiovert Defib, Hx Cardiac Arrest, Hx Cardiomegaly, Hx Congenital Heart Disease, Hx Congestive Heart Failure, Hx Deep Vein Thrombosis, Hx Myocardial Infarction, Hx Pacemaker/ICD, Hx Peripheral Vascular Disease, Hx Rheumatic Fever, Hx Syncope, Hx Valvular Heart Disease Respiratory History: Reports: Other Respiratory Problems/Disorders - "Always stuffed up." Denies: Hx Asthma, Hx Chronic Bronchitis, Hx Chronic Obstructive Pulmonary Disease (COPD), Hx Cystic Fibrosis, Hx Lung Cancer, Hx Pleural Effusion, Hx Pneumonia, Hx Pulmonary Edema, Hx Pulmonary Embolism, Hx Seasonal Allergies, Hx Sleep Apnea GI History: Reports: Hx Gall Bladder Disease - Has gallstones, Hx Gastroesophageal Reflux Disease Denies: Hx Cirrhosis, Hx Crohn's Disease, Hx Diverticulosis, Hx Gastrointestinal Bleed, Hx Hiatal Hernia, Hx Irritable Bowel, Hx Jaundice, Hx Obstructive Bowel, Hx Ileostomy, Hx Pyloric Stenosis, Hx Ulcer, Other GI Disorders History: Reports: Other Problems/Disorders - Hx of UTIs and in 2002 or 2003 a Kidney infection Denies: Hx Acute Renal Failure, Hx Benign Prostatic Hyperplasia, Hx Chronic Renal Failure, Hx Dialysis, Hx Kidney Infection, Hx Kidney Stones, Hx Renal Disease Musculoskeletal History: Reports: Hx Arthritis - hands Denies: Hx Back Problems, Hx Bursitis, Hx Congenital Bone Abnormalities, Hx Fibromyalgia, Hx Gout, Hx Orthopedic Injury, Hx Osteoporosis, Hx Scoliosis, Hx Tendonitis, Other Musculoskeletal History Sensory History: Reports: Hx Cataracts - louie, Hx Contacts or Glasses - reading, Hx Legally Blind - blind left eye, Hx Vision Problem - Right eye farsighted, only needs reading glasses. Denies: Hx Eye Injury, Hx Eye Prosthesis, Hx Glaucoma, Hx Macular Degeneration, Hx Deafness, Hx Hearing Aid, Hx Hearing Problem, Other Sensory Impairments Opthamlomology History: Reports: Hx Cataracts - louie, Hx Contacts or Glasses - reading, Hx Legally Blind - blind left eye, Hx Vision Problem - Right eye farsighted, only needs reading glasses. Denies: Hx Eye Injury, Hx Eye Prosthesis, Hx Glaucoma, Hx Macular Degeneration, Other Sensory Impairments Neurological History: Reports: Hx Nerve Disease - neuropathy, Other Neuro Impairments/Disorders - diabetic neuropathy Denies: Hx Dementia, Hx Developmental Delay, Hx Headaches, Hx Migraine, Hx Seizures, Hx Spinal Cord Injury, Hx Transient Ischemic Attacks (TIA) Psychiatric History: Reports: Hx Anxiety - on meds Denies: Hx Attention Deficit Hyperactivity Disorder, Hx Eating Disorder, Hx Depression, Hx Panic Disorder, Hx Post Traumatic Stress Disorder, Hx Inpatient Treatment, Hx Community Mental Health Tx, Hx Schizophrenia, Hx Bipolar Disorder , Hx Suicide Attempt, Hx of Violent Episodes Against Others, Hx Substance Abuse , Other Psychiatric Issues/Disorders - Surgical History Surgery Procedure, Year, and Place: Hemorrhoid surgery - December 2017. TRIPLE BYPASS PIG ARTERY PLACEMENT 2005;. EYE SURGERY LEFT DETACHED RETINA ( ORBIT XRAYS DONE . BILAT CATARACTS;. RT EYE VITRECTOMY; 1990. LT BKA 2008;. RT FOOT HEEL EXCISION;. RIGHT BKA 2012; Hx Anesthesia Reactions: Yes - Excessive Lethargy, and N&V. Infectious Disease History: No Infectious Disease History: Reports: Hx of Known/Suspected MRSA - before left leg was amputated Denies: Hx Clostridium Difficile, Hx Hepatitis, Hx Human Immunodeficiency Virus (HIV), Hx Shingles, Hx Tuberculosis, History Other Infectious Disease, Traveled Outside the [place] in Last 30 Days - Family History Known Family History: Positive: Cardiac Disease, Other - Nervous breakdown- sister - Social History Alcohol Use: None Alcohol Amount: recovering alcoholic Hx Substance Use: No Substance Use Type: Reports: None Hx Tobacco Use: Yes Smoking Status (MU): Former Smoker Type: Cigarettes Amount Used/How Often: 1.5 packs a day for 33 yrs Have You Smoked in the Last Year: No Review of Systems Negative: Fever Neurological: Other - loss of eyesight All Other Systems Reviewed And Are Negative: Yes Physical Exam - Summary Physical Exam Summary: Appearance: The patient is well-nourished in no acute distress and in no acute pain. Skin: The skin is warm and dry, and skin color reflects adequate perfusion. HEENT: The head is normocephalic and atraumatic. Flame-hemorrhages and cotton- wool spots in right eye. No red reflex in left eye. The conjunctivae are clear and without drainage. Nares are patent and without drainage. Mouth reveals moist mucous membranes, and the throat is without erythema and exudate. The external ears are intact. The ear canals are patent and without drainage. The tympanic membranes are intact. Neck: The neck is supple with full range of motion and non-tender. There are no carotid bruits. There is no neck vein distension. Respiratory: Chest is non-tender. Lungs are clear to auscultation and breath sounds are symmetrical and equal. Cardiovascular: Heart is regular rate and rhythm. There is no murmur or rub auscultated. There is no peripheral edema and pulses are symmetrical and equal. Abdomen: The abdomen is soft and non-tender. There are normal bowel sounds heard in all four quadrants and there is no organomegaly palpated. Musculoskeletal: There is no back tenderness noted. Extremities are non-tender with full range of motion. There is good capillary refill. There is no peripheral edema or calf tenderness elicited. Neurological: Patient is alert and oriented to person, place and time. The patient has symmetrical motor strength in all four extremities. Cranial nerves are grossly intact. Deep tendon reflexes are symmetrical and equal in all four extremities. Psychiatric: The patient has an appropriate affect and does not exhibit any anxiety or depression. Triage Information Reviewed: Yes Vital Signs On Initial Exam: Initial Vitals Temp Pulse Resp BP Pulse Ox 97.4 F 69 16 173/83 96 04/13/19 18:09 04/13/19 18:09 04/13/19 18:09 04/13/19 18:09 04/13/19 18:09 Vital Signs Reviewed: Yes Procedures - Sedation Patient Received Moderate/Deep Sedation with Procedure: No Diagnostics - Vital Signs Vital Signs Temp Pulse Resp BP Pulse Ox 04/13/19 18:09 97.4 F 69 16 173/83 96 - Laboratory Lab Statement: Any lab studies that have been ordered have been reviewed, and results considered in the medical decision making process. Complex Multi-Symp Course/Dx Course Of Treatment: I saw no acute changes in Ms. Pierre eye. This is a long- standing problem and likely related to diabetic retinopathy. I saw no evidence for an acute retinal tear or detachment and history is not consistent with that. I recommended follow-up with Dr. Freedman's office where she has been seen previously. - Diagnoses Provider Diagnoses: Diabetic retinopathy Discharge ED - Sign-Out/Discharge Documenting (check all that apply): Patient Departure - dc - Discharge Plan Condition: Stable Disposition: HOME Patient Education Materials: Diabetic Retinopathy (ED) Referrals: Noni Faustin MD [Primary Care Provider] - Tahir Freedman MD [Medical Doctor] - 3 Days Additional Instructions: Follow up with Dr. Freedman in 1-3 days. If you experience new or worsening symptoms please return to the ER. - Billing Disposition and Condition Condition: STABLE Disposition: Home - Attestation Statements Document Initiated by Scribe: Yes Documenting Scribe: Tiffanie Wade Provider For Whom Scribe is Documenting (Include Credential): Dr. Yonas Mcclelland MD Scribe Attestation: I, Tiffanie Wade, scribed for Dr. Yonas Mcclelland MD on 04/13/19 at 205. Scribe Documentation Reviewed: Yes Provider Attestation: The documentation as recorded by the jean-pierre, Tiffanie Wade accurately reflects the service I personally performed and the decisions made by me, Dr. Yonas Mcclelland MD Status of Scribe Document: Viewed
[2019-04-13 18:54] VITALS: BP 138/64
--- OUTSIDE RECORDS SUMMARY | 2019-04-13 18:55 | XMS REPORT ---
:1965 Author Organization [facility] Care Team Providers Name Role Phone Unavailable [...]
--- OUTSIDE RECORDS SUMMARY | 2019-04-13 18:55 | XMS REPORT ---
:1965 Author Organization [facility] Care Team Providers Name Role Phone [...]
--- OUTSIDE RECORDS SUMMARY | 2019-04-13 18:55 | XMS REPORT ---
:1965 Author Organization [facility] Care Team Providers Name Role Phone Unavailable [...]
--- OUTSIDE RECORDS SUMMARY | 2019-04-13 18:55 | XMS REPORT ---
:1965 Author Organization [facility] Care Team Providers Name Role Phone Unavailable [...]
--- OUTSIDE RECORDS SUMMARY | 2019-04-13 18:55 | XMS REPORT ---
:1965 Author Organization [facility] Care Team Providers Name Role Phone Unavailable [...]
--- OUTSIDE RECORDS SUMMARY | 2019-04-13 18:55 | XMS REPORT ---
:1965 Author Organization [facility] Care Team Providers Name Role Phone Unavailable [...]
--- OUTSIDE RECORDS SUMMARY | 2019-04-13 18:55 | XMS REPORT ---
:1965 Author Organization [facility] Care Team Providers Name Role Phone Unavailable [...]
--- OUTSIDE RECORDS SUMMARY | 2019-04-13 18:55 | XMS REPORT ---
:1965 Author Organization [facility] Care Team Providers Name Role Phone Unavailable [...]
--- OUTSIDE RECORDS SUMMARY | 2019-04-13 18:55 | XMS REPORT ---
:1965 Author Organization [facility] Care Team Providers Name Role Phone Unavailable [...]
--- OUTSIDE RECORDS SUMMARY | 2019-04-13 18:55 | XMS REPORT | Continuity of Care Document ---
:1965 External Reference #:[id number] Author Name Ema Wheatley M.D. (transmitted by agent of provider Mare Escamilla) Address [address] [place] [address] Care Team Providers Name Role Phone Noni Faustin MD - Family Care Team Information Injection Specialist [phone] Medicine Taya Mosley MD - Surgery Care Team Information Injection Specialist Problems Active Problems Provider Date Chronic infection of amputation stump Lakeisha Mosley, N.P. Onset: 04/14/2013 Chronic osteomyelitis Bashir Hale II, M.D. Onset: 04/14/2013 Osteomyelitis of ankle AND/OR foot Brenton Mendez M.D. Onset: 2013 Ulcer of heel Zeferino Gupta M.D. Onset: 04/14/2013 Gastrointestinal hemorrhage Stephanie Rosenthal NP Onset: 09/11/2017 Dyspnea Stephanie Rosenthal NP Onset: 09/11/2017 Acute posthemorrhagic anemia Stephanei Rosenthal NP Onset: 09/11/2017 Chronic kidney disease stage 3 Stephanie Rosenthal NP Onset: 09/11/2017 Type 1 diabetes mellitus Stephanie Rosenthal NP Onset: 09/11/2017 Amputated below knee Stephanie Rosenthal NP Onset: 09/11/2017 Body mass index 40+ - severely obese Stephanie Rosenthal NP Onset: 09/2017 Anemia Don Kirkland M.D. [...] left knee Cl Trevizo MD Onset: 12/27/2017 Atherosclerosis of [place] arteries of Anatoly Mayer M.D. Onset: 03/25/2019 right leg with ulceration of other part of foot Social History Type Date Description Comments Sex Unknown ETOH Use Negative For Denies alcohol use Tobacco Use Start: Unknown End: Patient is a former smoker Unknown Recreational Drug Use Denies Drug Use Smoking Status Reviewed: 04/03/19 Patient is a former smoker Exercise Type/Frequency Does not exercise Allergies, Adverse Reactions, Alerts Active Allergies Reaction Severity Comments Date Vancomycin not effective 04/14/2013 Chantix unable to tolerate 04/14/2013 Visipaque unknown 04/14/2013 Lovaza Moderate unknown 08/02/2017 Contrast Dye Moderate unknown 08/02/2017 Varenicline 04/03/2019 Medications Active Medications SIG Qnty Indications Ordering Date Provider Ciprofloxacin HCL 1 by mouth every 12 Unknown 04/02/2019 hours for 10 days 250mg Tablets Prednisone take prednisone 50 6tabs I70.235 Anatoly G. 03/25/2019 50mg mg by mouth 13, 7 Feli Mayer Tablets and 1 hour before arteriography with Dr. Moreno Kennedy take 2 tablets twice 120caps E78.2 Lakeisha Mosley, 09/18/2018 1gm Capsules daily with meals N.P. Humalog sliding scale Not Ema Wheatley, 06/12/2018 100Unit/ML taking M.D. Solution Cartridge Atorvastatin Calcium 1 by mouth every day 90tabs Ema Wheatley, 09/27/2017 M.DEla 40mg Tablets Restasis 1 gtt both eyes Unknown 0.05% every 12 hours Emulsion Benadryl Allergy take 1-2 tablets by Unknown 25mg mouth every night at Capsules bedtime as needed Oxycodone HCL 1 tabs by mouth Unknown 5mg every 4-6 hours as Tablets needed for 14 days Acetaminophen 2 every 6 hours as Unknown 500mg needed Tablets Reglan 1 tab by mouth q6 Unknown 10mg Tablets hours as needed Novolin R 5 units for bs>250 Unknown 100Unit/ML sliding scale Solution Desloratadine 1 by mouth every day Unknown 5mg Tablets Ventolin HFA 2 puffs by mouth Unknown four times a day as 108(90Base) mcg/Act needed Aerosol Insulin use with lantus Unknown Syringe/U-100/1ML/30 daily G X 5/16" 30G X 5/16" 1 ML [facility] Robyn Contour Blood use one strip to Unknown Glucose Test Strips check glucose once daily and one as Strips needed Ferrous Sulfate 1 by mouth qod ( Unknown Not Given AT 325(65Fe) mg Tablets [facility]) Sertraline HCL 1 by mouth every day Unknown 25mg Tablets Atenolol 1 by mouth every day Unknown 50mg Tablets Omeprazole 1 by mouth every day Unknown 20mg Capsules DR Ramipril 1 by mouth every day Unknown 5mg Capsules Furosemide 1 by mouth every Unknown 20mg other day Tablets Lantus Solostar 40 units in Am, 40 Unknown units in PM 100Unit/ML Solution Pen-Inject Ondansetron HCL 1-2 PO every 4-6 Unknown 4mg hours as needed for Tablets nausea Xanax by mouth once daily. Unknown 0.5mg Tablets May take a second pill daily as needed Immunizations Description No Information Available Vital Signs Date Vital Result Comment 04/03/2019 1:15pm Heart Rate 72 /min BP Systolic Sitting 118 mmHg Lue reg cuff BP Diastolic Sitting 70 mmHg Lue reg cuff Respiratory Rate 12 /min Ejection Fraction 55-60% date 08/13/17 ECHO 03/25/2019 10:16am Height 66 inches 5'6" Weight 199.00 lb Facility weight per pt. Heart Rate 68 /min apical BP Systolic Sitting 116 mmHg ule reg cuff BP Diastolic Sitting 74 mmHg ule reg cuff BMI (Body Mass Index) 32.1 kg/m2 Results Test Acquired Date Facility Test Result H/L Range Note Laboratory test 01/16/2019 [facility] Tissue (BX) SEE RESULT [address] [place] [address] [place] [address] [phone] Laboratory test 01/09/2019 [facility] Tissue (BX) SEE RESULT 2, [address] [place] [address] [phone] CBC No Diff 12/03/2018 [facility] White Blood 10.4 Normal 3.5- 10.[address] Count 10^3/[place] [address] [phone] Red Blood Count 4.31 10^6/uL Normal 3.70-4.87 Hemoglobin 13.4 g/dL Normal 12.0-16.0 Hematocrit 40 % Normal 35-47 Mean Corpuscular Volume 93 fL Normal 80-97 Mean Corpuscular Hemoglobin 31 pg Normal 27-31 Mean Corpuscular HGB Conc 34 g/dL Normal 31-36 Red Cell Distribution Width 13 % Normal 10-15 Platelet Count 324 10^3/uL Normal 150-450 Mean Platelet Volume 9.6 fL Normal 7.4-10.4 Urinalysis Profile 12/03/2018 [facility] Urine Color Yellow [address] [place] [address] [phone] Urine Appearance Cloudy Urine Specific [place] 1.012 Normal 1.010-1.030 Urine pH 6.0 Normal [...] Cell Present Abnormal Absent Lipid Profile 12/03/2018 [facility] Triglycerides 155 mg/dL 4 (Trig/Chol/HDL) [place] [address] [phone] Cholesterol 153 mg/dL 5 HDL Cholesterol 43.5 mg/dL 6 LDL Cholesterol 79 mg/dL 7 Laboratory test 12/03/2018 [facility] Thyroxine 10.95 Normal 6.09-12.[address] g/[place] [address] [phone] TSH (Thyroid Stim Horm) 2.57 mcIU/mL Normal 0.34-5.60 Hemoglobin A1c (Glyco HGB) 8.7 % High 4.0-5.6 8 Urine Microalbumin 12/03/2018 [facility] Urine Creatinine 74.81 mg/[place] [address] [phone] Ur Microalbumin (mg/L) 939.2 mg/L Urine Microalbumin/Creatinine 1255.4 High <31 Urine Culture And 12/03/2018 [facility] Urine Culture SEE RESULT [address] [place] [address] [phone] Laboratory test 12/03/2018 [facility] Prealbumin 16 mg/dL Low 18-[address] [place] [address] [phone] C Reactive Protein 21.02 mg/L High <8.01 1 SEE RESULT BELOW Name: SHERIN ROSE : [address]: Narcisa Shankar MANAGER LIFE Acct: [id number] Unit: [id number] AGE: 53 Location: WOUND Re01/16/19 SEX: F Status: REG REF SPEC: [id number] TRUDI: 01/16/[address]: Narcisa Shankar MANAGER LIFE REQ: [id number] RECD: 01/16/19 STATUS: DUNCAN KHAN DR: Noni [...] [address]: Narcisa Shankar NP Acct: [id number] Unit: [id number] AGE: 53 Location: WOUND Re01/09/19 SEX: F Status: REG REF SPEC: [id number] TRUDI: 01/09/193940 [facility] DR: Narcisa Shankar NP REQ: [id number] RECD: 01/09/196219 STATUS: DUNCAN KHAN DR: Noni Faustin MD [...] . END OF REPORT DEPARTMENT OF PATHOLOGY, [address] [place] [address] Aung Liu M.D. Director [facility] # [id number] 4 Desirable: <150 Borderline High: 150-199 High: 200-499 Very High: >500 5 Desirable: <200 Borderline High: 200-239 High: >239 6 Low: <40 Desirable: 40-60 High: >60 7 Desirable: <100 Near Optimal: 100-129 Borderline High: 130-159 High: 160-189 Very High: >189 8 Therapeutic target for the treatment of diabetes mellitus patients is <7% HBA1C, and in selective patients <6.0%. Please refer to [place] [employer] diabetic care guidelines for further information. 9 SEE RESULT BELOW Name: SHERIN ROSE : [address]: Noni Faustin MD Acct: [id number] Unit: [id number] AGE: 53 Location: LAB Re12/03/18 SEX: F Status: REG REF SPEC: [id number] TRUDI: 12/03/18-[address]: Noni Faustin MD REQ: [id number] RECD: 12/03/18-151 STATUS: COMP [facility] DR: Taya Wheatley MD _ SOURCE: URINE SPDESC: ORDERED: Urine Culture Procedure Result Reported Site Urine Culture Final 12/05/18- 0900 ML Organism 1 PSEUDOMONAS AERUGINOSA [place] Count 75-100,000 (Many) CFU/ML 1. PSEUDOMONAS AERUGINOSA [facility].I[facility] RX --------- ------ Cefazolin >=64 R Cefepime <=1 S Ciprofloxacin <=0.25 S Gentamicin <=1 S Levofloxacin 0.25 S Meropenem <=0.25 S Pipercillin/Tazobactam <=4 S Contact the Microbiology Department for any additional antibiotic reporting. * ML - Main Lab . END OF REPORT DEPARTMENT OF PATHOLOGY, [address] [place] [address] Aung Liu M.D. Director [facility] # [id number] Procedures Date Code Description Status 04/03/2019 23388 EKG Tracing & Interpretation Completed 03/04/2019 80089 Chemical Cautery Granulation Tissue Completed 02/18/2019 87749 Chemical Cautery Granulation Tissue Completed 01/16/2019 38630 Removal Devitalization Tissue Wound Less Than Equal 20 Completed Square CM 01/09/2019 48883 Debridement Skin,& sq Tissue Completed 12/24/2018 81027 Removal Devitalization Tissue Wound Less Than Equal 20 Completed Square CM 12/17/2018 66193 Removal Devitalization Tissue Wound Less Than Equal 20 Completed Square CM 12/03/2018 77527 Debridement Skin,& sq Tissue Completed Medical Devices Description No Information Available Encounters Type Date Location Provider Dx Diagnosis Office Visit 03/25/2019 [facility] Taya Bashir T87.9 Unspecified 1:00p AT [facility] Mosley MD complications of amputation stump Office Visit 03/25/2019 [facility] Anatoly Carbajal I70.235 [facility] [place] 9:30a [facility] Mayer M.D. arteries of right leg w ulcer ot prt foot Office Visit 02/04/2019 [facility] Taya Wright7.9 Unspecified 1:15p AT L[facility] Mosley MD complications of amputation stump Office Visit 01/21/2019 [facility] Taya Wright7.9 Unspecified 1:00p AT [facility] Mosley MD complications of amputation stump Office Visit 01/01/2019 [facility] Slime Hazel, L97.829 Non- pressure 10:28a Assoc,pc DO chronic ulcer oth Hospitalists prt l low leg w unsp severity E10.622 Type 1 diabetes mellitus with other skin ulcer T87.89 Other complications of amputation stump I10 Essential (primary) hypertension Office Visit 12/31/2018 10:28a [facility] Slime R33.9 Retention of Assoc,pc DO Ilir urine, Hospitalists unspecified E10.622 Type 1 diabetes mellitus with other skin ulcer T87.89 Other complications of amputation stump Office Visit 12/30/2018 8:15a Wound Care Stephanie Lopez T87.9 Unspecified Center AT [facility] [place] Rosenthal complications of amputation stump L97.828 Non-prs chronic ulcer oth prt l low leg with oth severity E10.622 Type 1 diabetes mellitus with other skin ulcer Office Visit 12/29/2018 10:27a [facility] Karin T87.44 Infection of Assoc,pc Taj Ivan. amputation Hospitalists stump, left lower extremity R30.0 Dysuria E10.9 Type 1 diabetes mellitus without complications I10 Essential (primary) hypertension Office Visit 12/10/2018 1:45p Wound Care Taya Bashir T87.9 Unspecified Center AT [facility] MD Dimitri complications of amputation stump Assessments Date Code Description Provider 04/03/2019 I70.235 Atherosclerosis of [place] arteries Ema Wheatley M.D. 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 04/03/2019 E78.2 Mixed hyperlipidemia Ema Wheatley M.D. 04/03/2019 I10 Essential (primary) hypertension Ema Wheatley M.D. 03/25/2019 I70.235 Atherosclerosis of [place] arteries Anatoly Mayer M.D. of right leg with ulceration of other part of foot 03/25/2019 T87.9 Unspecified complications of Taya Mosley MD amputation stump 03/04/2019 T87.9 Unspecified complications of Taya Mosley MD amputation stump 02/18/2019 T87.9 Unspecified complications of Taya Mosley MD amputation stump 02/04/2019 T87.9 Unspecified complications of Taya Mosley MD amputation stump 01/21/2019 T87.9 Unspecified complications of Taya Mosley MD amputation stump 01/16/2019 E10.622 Type 1 diabetes mellitus with other Narcisa Shankar DNP , RN, skin ulcer BEATER OPERATOR-BC 01/16/2019 T87.9 Unspecified complications of Narcisa Shankar DNP, RN, amputation stump BEATER OPERATOR-BC 01/16/2019 L97.821 Non-pressure chronic ulcer of other Narcisa Shankar DNP , RN, part of left lower leg limited to BEATER OPERATOR-BC breakdown of skin 01/09/2019 L97.822 Non-pressure chronic ulcer of other Narcisa Shankar DNP , RN, part of left lower leg with fat BEATER OPERATOR-BC layer exposed 01/09/2019 E10.622 Type 1 diabetes mellitus with other Narcisa Shankar DNP RN, skin ulcer BEATER OPERATOR-BC 01/09/2019 E10.51 Type 1 diabetes mellitus with Narcisa Shankar DNP RN, diabetic peripheral angiopathy BEATER OPERATOR-BC without gangrene 01/09/2019 R53.83 Other fatigue Narcisa Shankar DNP RN, BEATER OPERATOR-BC 01/09/2019 E46 Unspecified protein-calorie Narcisa Shankar DNP RN, malnutrition BEATER OPERATOR-BC 01/09/2019 D50.8 Other iron deficiency anemias Narcisa Shankar DNP RN, BEATER OPERATOR-BC 01/09/2019 T87.9 Unspecified complications of Narcisa Shankar DNP RN, amputation stump BEATER OPERATOR-BC 01/01/2019 L97.829 Non-pressure chronic ulcer of other [...] L97.829 Non-pressure chronic ulcer of other Slime Hazel, DO part of left lower leg with unspecified severity 12/30/2018 T87.9 Unspecified complications of Stephanie Rosenthal, GILL amputation stump 12/30/2018 L97.828 Non-pressure chronic ulcer of other Stephanie Rosenthal, GILL part of left lower leg with other specified severity 12/30/2018 E10.622 Type 1 diabetes mellitus with other Stephanie Rosenthal, GILL skin ulcer 12/30/2018 T87.89 Other complications of amputation Slime Hazel, DO stump 12/30/2018 E10.9 Type 1 diabetes mellitus without Slime Hazel, DO complications 12/30/2018 R33.9 Retention of urine, unspecified Slime Hazel, DO 12/29/2018 T87.44 Infection of amputation stump, left Karin Mocnho, D.O. lower extremity 12/29/2018 R30.0 Dysuria Karin Moncho, D.O. 12/29/2018 E10.9 Type 1 diabetes mellitus without Karin Moncho, D.O. complications 12/29/2018 I10 Essential (primary) hypertension Karin Moncho, D.O. 12/24/2018 T87.9 Unspecified complications of Taya Mosley MD amputation stump 12/17/2018 T87.9 Unspecified complications of Taya Mosley MD amputation stump 12/10/2018 T87.9 Unspecified complications of Taya Mosley MD amputation stump 12/03/2018 T87.9 Unspecified complications of Taya Mosley MD amputation stump 12/03/2018 E10.622 Type 1 diabetes mellitus with other Taya Mosley MD skin ulcer Plan of Treatment Future Appointment(s):04/06/2019 8:00 am - Anatoly Mayer M.D. at [facility] Vascular Medicine [facility]04/03/2019 - Ema Wheatley M.D.I70.235 Atherosclerosis of [place] arteries of right leg with ulceration of other part of footComments: Dr Mayer follows, getting steroids pre procedure for dye allergy, pt worried about affect on glucose.Follow up:OV approx June 2019 with ECG, MD or MANAGER LIFE.I25.729 Atherosclerosis of autologous artery coronary artery bypassComments: ECG is stable.R06.02 Shortness of breathComments:Wheezing today.Recommendations: OK for inhalers prn, determined by [facility] team.E78.2 Mixed hyperlipidemiaComments:TG's better in [place] on Vascepa, but not taking now while in [facility].Recommendations:Update lipids April 2019 LDL goal < 70I10 Essential (primary) hypertensionComments:Well controlled Functional Status Description No Information Available Mental Status Description No Information Available Referrals Description No Information Available
--- OUTSIDE RECORDS SUMMARY | 2019-04-13 18:55 | XMS REPORT ---
:1965 Author Organization [facility] Care Team Providers Name Role Phone Unavailable [...]
--- OUTSIDE RECORDS SUMMARY | 2019-04-13 18:55 | XMS REPORT ---
:1965 Author Organization [facility] Care Team Providers Name Role Phone Unavailable [...]
--- OUTSIDE RECORDS SUMMARY | 2019-04-13 18:55 | XMS REPORT ---
:1965 Author Organization [facility] Care Team Providers Name Role Phone Unavailable [...]
--- OUTSIDE RECORDS SUMMARY | 2019-04-13 18:55 | XMS REPORT ---
:1965 Author Organization [facility] Care Team Providers Name Role Phone Unavailable [...]
--- OUTSIDE RECORDS SUMMARY | 2019-04-13 18:55 | XMS REPORT ---
:1965 Author Organization [facility] Care Team Providers Name Role Phone Unavailable [...]
--- OUTSIDE RECORDS SUMMARY | 2019-04-13 18:55 | XMS REPORT ---
:1965 Author Organization [facility] Care Team Providers Name Role Phone Unavailable [...]
--- OUTSIDE RECORDS SUMMARY | 2019-04-13 18:55 | XMS REPORT ---
:1965 Author Organization [facility] Care Team Providers Name Role Phone Unavailable [...]
--- OUTSIDE RECORDS SUMMARY | 2019-04-13 18:55 | XMS REPORT ---
:1965 Author Organization [facility] Care Team Providers Name Role Phone Unavailable [...]
--- OUTSIDE RECORDS SUMMARY | 2019-04-13 18:55 | XMS REPORT | Continuity of Care Document ---
:1965 External Reference #:[id number] Author Name Anatoly Mayer M.D. (transmitted by agent of provider Nikia Dickens) Address [address] [place] [address] Care Team Providers Name Role Phone Noni Faustin MD - Family Care Team Information Cissp [phone] Medicine Taya Mosley MD - Surgery Care Team Information Cissp [phone] Problems Active Problems Provider Date Chronic infection [...] Cl Trevizo MD Onset: 12/27/2017 Atherosclerosis of [place] arteries of Anatoly Mayer M.D. Onset: 03/25/2019 right leg with ulceration of other part of foot Social History Type Date Description Comments Sex Unknown ETOH Use Negative For Denies alcohol use Tobacco Use Start: Unknown End: Patient is a former smoker Unknown Recreational Drug Use Denies Drug Use Smoking Status Reviewed: 03/25/19 Patient is a former smoker Exercise Type/Frequency Does not exercise Allergies, Adverse Reactions, Alerts Active Allergies Reaction Severity Comments Date Vancomycin not effective 04/14/2013 Chantix unable to tolerate 04/14/2013 Visipaque unknown 04/14/2013 Lovaza Moderate unknown 08/02/2017 Contrast Dye Moderate unknown 08/02/2017 Medications Active Medications SIG Qnty Indications Ordering Date Provider Prednisone take prednisone 50 6tabs I70.235 Anatoly G. 03/25/2019 50mg mg by mouth 13, 7 PoliKathrin funk.DEla Tablets and 1 hour before arteriography with Dr. Moreno Kennedy take 2 tablets twice 120caps E78.2 Lakeisha Mosley, 09/18/2018 1gm Capsules daily with meals N.P. Humalog sliding scale Not Emamio Wheatley, 06/12/2018 100Unit/ML taking M.D. Solution Cartridge Atorvastatin Calcium 1 by mouth every day 90tabs Ema Wheatley, 09/27/2017 M.D. 40mg Tablets Debrox 4 gtt in L ear Unknown 6.5% Solution nightly for 5 days Reglan 1 tab by mouth q6 Unknown 10mg Tablets hours as needed Novolin R 5 units for bs>250 Unknown 100Unit/ML Solution Desloratadine 1 by mouth every day Unknown 5mg Tablets Lidocaine-Prilocaine bid - tid Prn Unknown 2.5-2.5% Cream Ventolin HFA 2 puffs by mouth Unknown four times a day as 108(90Base) mcg/Act needed Aerosol Insulin use with lantus Unknown Syringe/U-100/1ML/30 daily G X 5/16" 30G X 5/16" 1 ML [facility] Contour Blood use one strip to Unknown Glucose Test Strips check glucose once daily and one as Strips needed Ferrous Sulfate 1 by mouth daily Unknown 325(65Fe) mg Tablets Miralax 17 grams by mouth Unknown Powder every day with main meal Sertraline HCL 1 by mouth every day Unknown 25mg Tablets Atenolol 1 by mouth every day Unknown 50mg Tablets Omeprazole 1 by mouth every day Unknown 20mg Capsules Ramipril 1 by mouth every day Unknown 5mg Capsules Furosemide 1 by mouth every day Unknown 20mg Tablets Lantus Solostar 40 units in Am, 40 Unknown units in PM 100Unit/ML Solution Pen-Inject Ra Col-Rite 2 by mouth once a Unknown 100mg day Capsules Ondansetron HCL 1-2 PO every 4-6 Unknown 4mg hours as needed for Tablets nausea Xanax by mouth once daily. Unknown 0.5mg Tablets May take a second pill daily as needed Immunizations Description No Information Available Vital Signs Date Vital Result Comment 03/25/2019 10:16am Height 66 inches 5'6" Weight 199.00 lb Facility weight per pt. Heart Rate 68 /min apical BP Systolic Sitting 116 mmHg ule reg cuff BP Diastolic Sitting 74 mmHg ule reg cuff BMI (Body Mass Index) 32.1 kg/m2 09/18/2018 3:11pm Height 66 inches 5'6" Weight 225.00 lb Estimated Heart Rate 74 /min Radial BP Systolic Sitting 104 mmHg Lue reg cuff BP Diastolic Sitting 60 mmHg Lue reg cuff BMI (Body Mass Index) 36.3 kg/m2 Results Test Acquired Date Facility Test Result H/L Range Note Laboratory test 01/16/2019 [facility] Tissue (BX) SEE RESULT [address] Culture & [place] [address] [phone] Laboratory test 01/09/2019 [facility] Tissue (BX) SEE RESULT 2, [address] Culture & [place] [address] [phone] CBC No Diff 12/03/2018 [facility] White Blood 10.4 Normal 3.5- 10.[address] Count 10^3/[place] [address] [phone] Red Blood Count 4.31 10^6/uL Normal 3.70-4.87 Hemoglobin 13.4 g/dL Normal 12.0-16.0 Hematocrit 40 % Normal 35-47 Mean Corpuscular Volume 93 fL Normal 80-97 Mean Corpuscular Hemoglobin 31 pg Normal 27-31 Mean Corpuscular HGB Conc 34 g/dL Normal 31-36 Red Cell Distribution Width 13 % Normal 10-15 Platelet Count 324 10^3/uL Normal 150-450 Mean Platelet Volume 9.6 fL Normal 7.4-10.4 Urinalysis Profile 12/03/2018 [facility] [place] [address] [phone] Urine Appearance Cloudy Urine Specific [place] 1.012 Normal 1.010-1.030 Urine pH 6.0 Normal [...] Cell Present Abnormal Absent Lipid Profile 12/03/2018 [facility] Triglycerides 155 mg/dL 4 (Trig/Chol/HDL) [place] [address] [phone] Cholesterol 153 mg/dL 5 HDL Cholesterol 43.5 mg/dL 6 LDL Cholesterol 79 mg/dL 7 Laboratory test 12/03/2018 [facility] Thyroxine 10.95 Normal 6.09-12.[address] g/[place] [address] [phone] TSH (Thyroid Stim Horm) 2.57 mcIU/mL Normal 0.34-5.60 Hemoglobin A1c (Glyco HGB) 8.7 % High 4.0-5.6 8 Urine Microalbumin 12/03/2018 [facility] Urine Creatinine 74.81 mg/[place] [address] [phone] Ur Microalbumin (mg/L) 939.2 mg/L Urine Microalbumin/Creatinine 1255.4 High <31 Urine Culture And 12/03/2018 [facility] Urine Culture SEE RESULT [address] [place] [address] [phone] Laboratory test 12/03/2018 [facility] Prealbumin 16 mg/dL Low 18-[address] [place] [address] [phone] C Reactive Protein 21.02 mg/L High <8.01 1 SEE RESULT BELOW Name: SHERIN ROSE : [address]: Narcisa Shankar DIESEL LOCOMOTIVE CRANE OPERATOR Acct: [id number] Unit: [id number] AGE: 53 Location: WOUND Re01/16/19 SEX: F Status: REG REF SPEC: [id number] TRUDI: 01/16/[address] [facility] [address]: Narcisa Shankar DIESEL LOCOMOTIVE CRANE OPERATOR REQ: [id number] RECD: 01/16/19 STATUS: DUNCAN KHAN DR: Noni [...] [address]: Narcisa Shankar NP Acct: [id number] Unit: [id number] AGE: 53 Location: WOUND Re01/09/19 SEX: F Status: REG REF SPEC: [id number] TRUDI: 01/09/[address]: Narcisa Shankar NP REQ: [id number] RECD: 01/09/19 STATUS: DUNCAN KHAN DR: Noni Faustin MD [...] . END OF REPORT DEPARTMENT OF PATHOLOGY, [address] [place] [address] Aung Liu M.D. Director [facility] # [id number] 4 Desirable: <150 Borderline High: 150-199 High: 200-499 Very High: >500 5 Desirable: <200 Borderline High: 200-239 High: >239 6 Low: <40 Desirable: 40-60 High: >60 7 Desirable: <100 Near Optimal: 100-129 Borderline High: 130-159 High: 160-189 Very High: >189 8 Therapeutic target for the treatment of diabetes mellitus patients is <7% HBA1C, and in selective patients <6.0%. Please refer to [place] [employer] diabetic care guidelines for further information. 9 SEE RESULT BELOW Name: SHERIN ROSE : [address]: Noni Faustin MD Acct: [id number] Unit: [id number] AGE: 53 Location: LAB Re12/03/18 SEX: F Status: REG REF SPEC: [id number] TRUDI: 12/03/18-[address]: Noni Faustin MD REQ: [id number] RECD: 12/03/18-151 STATUS: COMP OTHR DR: Taya Wheatley MD _ SOURCE: URINE SPDC: ORDERED: Urine Culture Procedure Result Reported Site Urine Culture Final 12/05/18- 0900 ML Organism 1 PSEUDOMONAS AERUGINOSA [place] Count 75-100,000 (Many) CFU/ML 1. PSEUDOMONAS AERUGINOSA [facility].I.C. RX --------- ------ Cefazolin >=64 R Cefepime <=1 S Ciprofloxacin <=0.25 S Gentamicin <=1 S Levofloxacin 0.25 S Meropenem <=0.25 S Pipercillin/Tazobactam <=4 S Contact the Microbiology Department for any additional antibiotic reporting. * ML - Main Lab . END OF REPORT DEPARTMENT OF PATHOLOGY, [address] [place] [address] Aung Liu M.D. Director [facility] # [id number] Procedures Date Code Description Status 03/04/2019 62565 Chemical Cautery Granulation Tissue Completed 02/18/2019 08146 Chemical Cautery Granulation Tissue Completed 01/16/2019 70182 Removal Devitalization Tissue Wound Less Than Equal 20 Completed Square CM 01/09/2019 85646 Debridement Skin,& sq Tissue Completed 12/24/2018 39865 Removal Devitalization Tissue Wound Less Than Equal 20 Completed Square CM 12/17/2018 88966 Removal Devitalization Tissue Wound Less Than Equal 20 Completed Square CM 12/03/2018 25891 Debridement Skin,& sq Tissue Completed Medical Devices Description No Information Available Encounters Type Date Location Provider Dx Diagnosis Office Visit 03/25/2019 [facility] Taya Bashir T87.9 Unspecified 1:00p AT [facility] Mosley MD complications of amputation stump Office Visit 03/25/2019 [facility] Anatoly Carbajal I70.235 [place] 9:30a Medicine [facility] Feli Mayer arteries of right leg w ulcer oth prt foot Office Visit 02/04/2019 [facility] Taya Bashir T87.9 Unspecified 1:15p AT [facility] Mosley MD complications of amputation stump Office Visit 01/21/2019 [facility] Taya Bashir T87.9 Unspecified 1:00p AT [facility] Mosley MD complications of amputation stump Office Visit 01/01/2019 [facility] Slime Hazel L97.829 Non- pressure 10:28a Assoc,pc DO chronic ulcer ot Hospitalists prt l low leg w unsp severity E10.622 Type 1 diabetes mellitus with other skin ulcer T87.89 Other complications of amputation stump I10 Essential (primary) hypertension Office Visit 12/31/2018 10:28a [facility] Slime R33.9 Retention of Assoc,pc DO Ilir urine, Hospitalists unspecified E10.622 Type 1 diabetes mellitus with other skin ulcer T87.89 Other complications of amputation stump Office Visit 12/30/2018 8:15a Wound Care Stephanie Lopez T87.[address] [facility] Rosenthal complications of amputation stump L97.828 Non-prs chronic ulcer oth prt l low leg with oth severity E10.622 Type 1 diabetes mellitus with other skin ulcer Office Visit 12/29/2018 10:27a [facility] Karin T87.44 Infection of Assoc,pc Taj Ivan. amputation Hospitalists stump, left lower extremity R30.0 Dysuria E10.9 Type 1 diabetes mellitus without complications I10 Essential (primary) hypertension Office Visit 12/10/2018 1:45p Wound Care Taya Bashir T87.[address] [facility] MD Dimitri complications of amputation stump Assessments Date Code Description Provider 03/25/2019 I70.235 Atherosclerosis of [place] arteries Anatoly Mayer M.D. of right leg [...] Narcisa Shankar DNP , RN, skin ulcer CONSUMER RELATIONS COMPLAINT CLERK-BC 01/16/2019 T87.9 Unspecified complications of Narcisa Shankar DNP, RN, amputation stump CONSUMER RELATIONS COMPLAINT CLERK-BC 01/16/2019 L97.821 Non-pressure chronic ulcer of other Narcisa Shankar DNP , RN, part of left lower leg limited to CONSUMER RELATIONS COMPLAINT CLERK-BC breakdown of skin 01/09/2019 L97.822 Non-pressure chronic ulcer of other Narcisa Shankar DNP , RN, part of left lower leg with fat CONSUMER RELATIONS COMPLAINT CLERK-BC layer exposed 01/09/2019 E10.622 Type 1 diabetes mellitus with other Narcisa Shankar DNP , RN, skin ulcer CONSUMER RELATIONS COMPLAINT CLERK-BC 01/09/2019 E10.51 Type 1 diabetes mellitus with Narcisa Shankar DNP, RN, diabetic peripheral angiopathy CONSUMER RELATIONS COMPLAINT CLERK-BC without gangrene 01/09/2019 R53.83 Other fatigue Narcisa Shankar DNP, RN, CONSUMER RELATIONS COMPLAINT CLERK-BC 01/09/2019 E46 Unspecified protein-calorie Narcisa Shankar DNP, RN, malnutrition CONSUMER RELATIONS COMPLAINT CLERK-BC 01/09/2019 D50.8 Other iron deficiency anemias Narcisa Shankar DNP, RN, CONSUMER RELATIONS COMPLAINT CLERK-BC 01/09/2019 T87.9 Unspecified complications of Narcisa Shankar DNP, RN, amputation stump CONSUMER RELATIONS COMPLAINT CLERK-BC 01/01/2019 L97.829 Non-pressure chronic ulcer of other [...] 12/30/2018 T87.9 Unspecified complications of Stephanie Rosenthal, DIESEL LOCOMOTIVE CRANE OPERATOR amputation stump 12/30/2018 L97.828 Non-pressure chronic ulcer of other Stephanie Rosenthal DIESEL LOCOMOTIVE CRANE OPERATOR part of left lower leg with other specified severity 12/30/2018 E10.622 Type 1 diabetes mellitus with other Stephanie Rosenthal, DIESEL LOCOMOTIVE CRANE OPERATOR skin ulcer 12/30/2018 T87.89 Other complications of amputation Slime Senner, DO stump 12/30/2018 E10.9 Type 1 diabetes mellitus without Slime Senner, DO complications 12/30/2018 R33.9 Retention of urine, unspecified Slime Hazel, DO 12/29/2018 T87.44 Infection of amputation stump, left Karin Ivan D.O. lower extremity 12/29/2018 R30.0 Dysuria Karin Ivan D.O. 12/29/2018 E10.9 Type 1 diabetes mellitus [...] 8:00 am - Anatoly Mayer M.D. at [facility] Vascular Medicine [facility]03/25/2019 - Anatoly Mayer M.D.I70.235 Atherosclerosis of [place] arteries of right leg with ulceration of other part of footNew Medication:Prednisone 50 mg - take prednisone 50 mg by mouth 13, 7 and 1 hour before arteriography with Dr. Alfordomments:The following was discussed with Sherin at the time of consultation:It is likely that more remains distal left stump wound is being exacerbated by arterial insufficiency considering her multiple risk factors for vasculopathy and history of prior amputations.Arterial duplex sonography documents flow in the common femoral arteries indicating percutaneous access will be possible followed by arteriography and revascularization. Functional Status Description No Information Available Mental Status Description No Information Available Referrals Description No Information Available
--- OUTSIDE RECORDS SUMMARY | 2019-04-13 18:55 | XMS REPORT ---
:1965 Author Organization [facility] Care Team Providers Name Role Phone Unavailable [...]
--- OUTSIDE RECORDS SUMMARY | 2019-04-13 18:55 | XMS REPORT ---
:1965 Author Organization [facility] Care Team Providers Name Role Phone Unavailable [...]
--- OUTSIDE RECORDS SUMMARY | 2019-04-13 18:55 | XMS REPORT ---
:1965 Author Organization [facility] Care Team Providers Name Role Phone Unavailable [...]
--- OUTSIDE RECORDS SUMMARY | 2019-04-13 18:55 | XMS REPORT ---
:1965 Author Organization [facility] Care Team Providers Name Role Phone Unavailable [...]
--- OUTSIDE RECORDS SUMMARY | 2019-04-13 18:55 | XMS REPORT ---
:1965 Author Organization [facility] Care Team Providers Name Role Phone Unavailable [...]
== END 2019-04-13 19:52 | disposition home or self-care (01) ==
LOC: ED 18:05
DX: E11.319 Type 2 diabetes mellitus with unspecified diabetic retinopathy without macular edema (principal); H53.8 Other visual disturbances; I25.10 Atherosclerotic heart disease of native coronary artery without angina pectoris; Z79.01 Long term (current) use of anticoagulants; Z87.891 Personal history of nicotine dependence; F41.9 Anxiety disorder, unspecified; Z95.5 Presence of coronary angioplasty implant and graft; I10 Essential (primary) hypertension; E78.00 Pure hypercholesterolemia, unspecified; K21.9 Gastro-esophageal reflux disease without esophagitis
CPT/HCPCS: 99282

== ENCOUNTER 2019-04-23 02:57 | Emergency (ER) | payer MEDICARE, MEDICAID ==
--- OUTSIDE RECORDS SUMMARY | 2019-04-23 05:43 | XMS REPORT ---
:1965 Author Organization [facility] Care Team Providers Name Role Phone Unavailable [...]
--- OUTSIDE RECORDS SUMMARY | 2019-04-23 05:43 | XMS REPORT ---
:1965 Author Organization [facility] Care Team Providers Name Role Phone Unavailable [...]
--- OUTSIDE RECORDS SUMMARY | 2019-04-23 05:44 | XMS REPORT ---
:1965 Author Organization [facility] Care Team Providers Name Role Phone Unavailable [...]
--- OUTSIDE RECORDS SUMMARY | 2019-04-23 05:44 | XMS REPORT | Continuity of Care Document ---
:1965 External Reference #:[id number] Author Name Wolfgang Han M.D. Address [address] [place] [address] Care Team Providers Name Role Phone Noni Faustin MD Care Team Information Miller Head Assistant Wet Process Unavailable Problems Active Problems Provider Date Type 1 diabetes mellitus Wolfgang Han M.D. Onset: 04/16/2019 Social History Type Date Description Comments Sex Unknown ETOH Use Denies alcohol use Tobacco Use Start: Unknown End: Unknown Patient is a former smoker Smoking Status Reviewed: 04/16/19 Patient is a former smoker Allergies, Adverse Reactions, Alerts Description No Information Available Medications Description No Information Available Immunizations Description No Information Available Vital Signs Date Vital Result Comment 04/16/2019 1:41pm Intraocular Pressure Right Eye 8 mmHg tp Intraocular Pressure Left Eye 10 mmHg Results Description No Information Available Procedures Date Code Description Status 04/16/2019 43713 Ophthalmoscopy Initial Completed 04/16/2019 93559 Oct Retina Completed 04/16/2019 65530 Eye Exam New Comprehensive Completed 04/16/2019 09577 B-Scan Contact, Ophthalmic Ultrasound Echography Completed Medical Devices Description No Information Available Encounters Description No Information Available Assessments Date Code Description Provider 04/16/2019 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 Plan of Treatment 04/16/2019 - Wolfgang Han M.D.E08.3291 Diabetes with mild nonp rtnop without macular edema, r eyeFollow up:6 mos f/uH33.052 Total retinal detachment, left eyeFollow up:6 mos f/u Functional Status Description No Information Available Mental Status Description No Information Available Referrals Description No Information Available
--- OUTSIDE RECORDS SUMMARY | 2019-04-23 05:44 | XMS REPORT ---
:1965 Author Organization [facility] Care Team Providers Name Role Phone Unavailable [...]
--- OUTSIDE RECORDS SUMMARY | 2019-04-23 05:44 | XMS REPORT ---
:1965 Author Organization [facility] Care Team Providers Name Role Phone Unavailable [...]
--- OUTSIDE RECORDS SUMMARY | 2019-04-23 05:44 | XMS REPORT ---
:1965 Author Organization [facility] Care Team Providers Name Role Phone Unavailable [...]
--- OUTSIDE RECORDS SUMMARY | 2019-04-23 05:44 | XMS REPORT ---
:1965 Author Organization [facility] Care Team Providers Name Role Phone Unavailable [...]
--- OUTSIDE RECORDS SUMMARY | 2019-04-23 05:44 | XMS REPORT ---
:1965 Author Organization [facility] Care Team Providers Name Role Phone Unavailable [...]
--- OUTSIDE RECORDS SUMMARY | 2019-04-23 05:44 | XMS REPORT ---
:1965 Author Organization [facility] Care Team Providers Name Role Phone Unavailable [...]
--- OUTSIDE RECORDS SUMMARY | 2019-04-23 05:44 | XMS REPORT ---
:1965 Author Organization [facility] Care Team Providers Name Role Phone Unavailable [...] Unknown Reaction Unknown ethyl esters Ingredient Unknown 924 metronidazol Base Active Unknown Reaction Interface e Ingredient Unknown 924 vancomycin Base Active Unknown Reaction Interface Ingredient [...]
[2019-04-23 06:37] VITALS: BP 141/86
== END 2019-04-23 06:30 ==
LOC: ED 02:57
DX: K62.89 Other specified diseases of anus and rectum (principal); I25.10 Atherosclerotic heart disease of native coronary artery without angina pectoris; E11.9 Type 2 diabetes mellitus without complications; F41.9 Anxiety disorder, unspecified; K21.9 Gastro-esophageal reflux disease without esophagitis; J44.9 Chronic obstructive pulmonary disease, unspecified; Z79.899 Other long term (current) drug therapy; Z66 Do not resuscitate
CPT/HCPCS: 99283

== ENCOUNTER 2019-05-06 21:28 | Emergency (ER) | payer MEDICARE, MEDICAID ==
--- NOTE | 2019-05-06 21:35 | ED ---
Complex/Multi-Sys Presentation - HPI Summary HPI Summary: Patient is a 53 y/o F presenting to the ED via EMS for a chief complaint of confusion. Per EMS, staff at [facility], [place], the patient's residence, noticed the patient appeared to be confused and was complaining of having "bricks on her chest and arms" around 15:00 on 05/06/19. At that time, she was given oxycodone , which she typically takes Q6H PRN. Insulin was withheld by [facility] [place] staff. She was started on IV fluids and given oxygen around 17:00 when she was found to have a low oxygen saturation. EMS was later called by staff and on EMS arrival, patient's oxygen saturation was 97% on room air. Currently, patient continues to complain of chest pain described as a heavy sensation, shortness of breath, rectal pain which she attributes to having hemorrhoids, and being thirsty. She denies abdominal pain or nausea. 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 PMHx is significant for COPD. - History Of Current Complaint Hx Obtained From: Patient, EMS Onset/Duration: Sudden Onset, Still Present Timing: Constant Severity Currently: Moderate Severity Initially: Moderate Associated Signs And Symptoms: Positive: Confusion, SOB, Chest Pain. Negative: Nausea, Abdominal Pain - Allergies/Home Medications Allergies/Adverse Reactions: Allergies Allergy/AdvReac Type Severity Reaction Status Date / Time Iodinated Contrast Media Allergy Hives Verified 04/06/19 08:05 [Iodinated Contrast- Oral and IV Dye] iodixanol [From Visipaque] Allergy Unknown Verified 04/06/19 08:05 Reaction Details omega-3 acid ethyl esters Allergy Unknown Verified 04/06/19 08:05 [From Lovaza] Reaction Details metronidazole [From Flagyl] AdvReac GI Upset Verified 04/06/19 08:05 vancomycin AdvReac javid Verified 04/06/19 08:05 syndrome varenicline [From Chantix] AdvReac Altered Verified 04/06/19 08:05 Mental Status PMH/Surg Hx/FS Hx/Imm Hx Previously Healthy: Yes Endocrine/Hematology History: Reports: Hx Anticoagulant Therapy - During hospitalizations only, Hx Blood Transfusions - 06/04/12, Hx Diabetes, Hx Anemia - currently Denies: Hx Blood Disorders, Hx Bone Marrow Disease, Hx Systemic Lupus Erythematosus, Hx Sickle Cell Disease, Hx Thyroid Disease, Hx Unexplained Bleeding, Other Endocrine/Hematological Disorders Cardiovascular History: Reports: Hx Coronary Artery Disease - triple cabg, Hx Hypercholesterolemia, Hx Hypotension, Hx Hypertension, Other Cardiovascular Problems/Disorders - hyperlipidemia, HX OF TRIPLE BYPASS Denies: Hx Aneurysm, Hx Angina, Hx Angioplasty, Hx Auto Implanted Cardiovert Defib, Hx Cardiac Arrest, Hx Cardiomegaly, Hx Congenital Heart Disease, Hx Congestive Heart Failure, Hx Deep Vein Thrombosis, Hx Myocardial Infarction, Hx Pacemaker/ICD, Hx Peripheral Vascular Disease, Hx Rheumatic Fever, Hx Syncope, Hx Valvular Heart Disease Respiratory History: Reports: Hx Chronic Obstructive Pulmonary Disease (COPD), Other Respiratory Problems/Disorders - "Always stuffed up." Denies: Hx Asthma, Hx Chronic Bronchitis, Hx Cystic Fibrosis, Hx Lung Cancer , Hx Pleural Effusion, Hx Pneumonia, Hx Pulmonary Edema, Hx Pulmonary Embolism, Hx Seasonal Allergies, Hx Sleep Apnea GI History: Reports: Hx Gall Bladder Disease - Has gallstones, Hx Gastroesophageal Reflux Disease Denies: Hx Cirrhosis, Hx Crohn's Disease, Hx Diverticulosis, Hx Gastrointestinal Bleed, Hx Hiatal Hernia, Hx Irritable Bowel, Hx Jaundice, Hx Obstructive Bowel, Hx Ileostomy, Hx Pyloric Stenosis, Hx Ulcer, Other GI Disorders History: Reports: Other Problems/Disorders - Hx of UTIs and in 2002 or 2003 a Kidney infection Denies: Hx Acute Renal Failure, Hx Benign Prostatic Hyperplasia, Hx Chronic Renal Failure, Hx Dialysis, Hx Kidney Infection, Hx Kidney Stones, Hx Renal Disease Musculoskeletal History: Reports: Hx Arthritis - hands Denies: Hx Back Problems, Hx Bursitis, Hx Congenital Bone Abnormalities, Hx Fibromyalgia, Hx Gout, Hx Orthopedic Injury, Hx Osteoporosis, Hx Scoliosis, Hx Tendonitis, Other Musculoskeletal History Sensory History: Reports: Hx Cataracts - louie, Hx Contacts or Glasses - reading, Hx Legally Blind - blind left eye, Hx Vision Problem - Right eye farsighted, only needs reading glasses. Denies: Hx Eye Injury, Hx Eye Prosthesis, Hx Glaucoma, Hx Macular Degeneration, Hx Deafness, Hx Hearing Aid, Hx Hearing Problem, Other Sensory Impairments Opthamlomology History: Reports: Hx Cataracts - louie, Hx Contacts or Glasses - reading, Hx Legally Blind - blind left eye, Hx Vision Problem - Right eye farsighted, only needs reading glasses. Denies: Hx Eye Injury, Hx Eye Prosthesis, Hx Glaucoma, Hx Macular Degeneration, Other Sensory Impairments EENT History: Denies: Hx Deafness Neurological History: Reports: Hx Nerve Disease - neuropathy, Other Neuro Impairments/Disorders - diabetic neuropathy Denies: Hx Dementia, Hx Developmental Delay, Hx Headaches, Hx Migraine, Hx Seizures, Hx Spinal Cord Injury, Hx Transient Ischemic Attacks (TIA) Psychiatric History: Reports: Hx Anxiety - on meds Denies: Hx Attention Deficit Hyperactivity Disorder, Hx Eating Disorder, Hx Depression, Hx Panic Disorder, Hx Post Traumatic Stress Disorder, Hx Inpatient Treatment, Hx Community Mental Health Tx, Hx Schizophrenia, Hx Bipolar Disorder , Hx Suicide Attempt, Hx of Violent Episodes Against Others, Hx Substance Abuse , Other Psychiatric Issues/Disorders - Surgical History Surgical History: Yes Surgery Procedure, Year, and Place: Hemorrhoid surgery - December 2017. TRIPLE BYPASS PIG ARTERY PLACEMENT 2005;. EYE SURGERY LEFT DETACHED RETINA ( ORBIT XRAYS DONE . BILAT CATARACTS;. RT EYE VITRECTOMY; 1990. LT BKA 2008;. RT FOOT HEEL EXCISION;. RIGHT BKA 2012; Hx Anesthesia Reactions: Yes - Excessive Lethargy, and N&V. Infectious Disease History: Yes Infectious Disease History: Reports: Hx of Known/Suspected MRSA - before left leg was amputated Denies: Hx Clostridium Difficile, Hx Hepatitis, Hx Human Immunodeficiency Virus (HIV), Hx Shingles, Hx Tuberculosis, History Other Infectious Disease - Family History Known Family History: Positive: Cardiac Disease, Other - Nervous breakdown- sister - Social History Occupation: Disabled Lives: Assisted Living Alcohol Use: None Alcohol Amount: recovering alcoholic Hx Substance Use: No Substance Use Type: Reports: None Hx Tobacco Use: Yes Smoking Status (MU): Former Smoker Type: Cigarettes Amount Used/How Often: 1.5 packs a day for 33 yrs Have You Smoked in the Last Year: No Review of Systems Positive: Other - Positive thirsty Positive: Chest Pain Positive: Shortness Of Breath Negative: Abdominal Pain, Nausea Positive: pain - Rectal Neurological: Other - Positive confusion All Other Systems Reviewed And Are Negative: Yes Physical Exam - Summary Physical Exam Summary: Constitutional: Well-developed, Well-nourished, Alert. (-) Distressed Skin: Warm, Dry HENT: Normocephalic; Atraumatic Eyes: Conjunctiva normal Neck: Musculoskeletal ROM normal neck. (-) JVD, (-) Stridor, (-) Tracheal deviation Cardio: Rhythm regular, rate normal, Heart sounds normal; Intact distal pulses; The pedal pulses are 2+ and symmetric. Radial pulses are 2+ and symmetric. (-) Murmur Pulmonary/Chest wall: Effort normal. (-) Respiratory distress, (-) Wheezes, (-) Rales Abd: Soft, (-) tenderness, (-) Distension, (-) Guarding, (-) Rebound Musculoskeletal: (-) Edema Lymph: (-) Cervical adenopathy Neuro: Minimally cooperative with exam, resisting with good strength in all extremities, but when asked to make a fist, she states she cannot with either hand, she can hold her arms up and resist against me when lifting her arms and when trying to pull down with excellent strength, she cannot keep her arms up past 5 seconds or the legs past 3 seconds, alert and oriented x3. GCS: 15, no focal deficits. Psych: Mood and affect Normal Triage Information Reviewed: Yes Vital Signs Reviewed: Yes - [place]oina Coma Scale Best Eye Response: 4 - Spontaneous Best Motor Response: 6 - Obeys Commands Best Verbal Response: 5 - Oriented Coma Scale Total: 15 Procedures - Sedation Patient Received Moderate/Deep Sedation with Procedure: No Diagnostics - Laboratory Result Diagrams: 05/06/19 22:28 05/06/19 22:28 Lab Statement: Any lab studies that have been ordered have been reviewed, and results considered in the medical decision making process. - CT Brain CT CT Interpretation Completed By: Radiologist Summary of CT Findings: Brain CT IMPRESSION: 1. No acute intracranial findings. 2. Old small lacunar infarct located in the right thalamus. 3. Small air-fluid level located in sphenoid sinus. This may represent acute sinusitis. Reviewed by Dr. Wiggins. - EKG 21:35 Cardiac Rate: NL - 77 BPM EKG Rhythm: Sinus Rhythm ST Segment: Normal Ectopy: None Summary of EKG Findings: EKG at 21:35 shows normal sinus rhythm at 77 bpm, normal SC, normal QRS, normal QTc, normal axis, normal ST, T-wave inversions in V4, V5, V6, and aVF, nonspecific EKG with PVCs x1. Reviewed and interpreted by Dr. Wiggins. 22:19 Cardiac Rate: NL - 80 BPM EKG Rhythm: Sinus Rhythm ST Segment: Normal Ectopy: None Summary of EKG Findings: EKG at 22:19 shows normal sinus rhythm at 80 bpm, normal SC, normal QRS, normal QTc, normal axis, normal ST, T-wave inversions in V4, V5, V6, and aVF, nonspecific EKG with PVCs x1. Unchanged from prior EKG. Reviewed and interpreted by Dr. Wiggins. Re-Evaluation - Re-Evaluation First Eval Re-Evaluation Time: 00:37 Change: Unchanged Comment: At 00:37, I updated the patient regarding imaging results. Complex Multi-Symp Course/Dx Course Of Treatment: Patient is a 53 y/o F presenting to the ED via EMS for a chief complaint of confusion. Per EMS, staff at [facility], [place], the patient's residence, noticed the patient appeared to be confused and was complaining of having "bricks on her chest and arms" around 15:00 on 05/06/19. At that time, she was given oxycodone, which she typically takes Q6H PRN. Insulin was withheld by [facility] [place] staff. She was started on IV fluids and given oxygen around 17:00 when she was found to have a low oxygen saturation. EMS was later called by staff and on EMS arrival, patient's oxygen saturation was 97% on room air. Currently, patient continues to complain of chest pain described as a heavy sensation, shortness of breath, rectal pain which she attributes to having hemorrhoids, and being thirsty. She denies abdominal pain or nausea. 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 PMHx is significant for COPD. On exam, minimally cooperative with exam, resisting with good strength in all extremities , but when asked to make a fist, she states she cannot with either hand, she can hold her arms up and resist against me when lifting her arms and when trying to pull down with excellent strength, she cannot keep her arms up past 5 seconds or the legs past 3 seconds, alert and oriented x3. GCS: 15, no focal deficits. In the ED course, patient was given piperacillin 3.375 gm IVPB and IV fluids. Laboratory abnormal findings: WBC 20, absolute neuts 16.4, absolute monos 1.1, creatinine 1.27, glucose 192, alkaline phosphatase 204, urine protein 1+, urine blood 2+, urine nitrate positive, urine leukocyte esterase 3+ , urine WBC 3+, urine RBC 3+, urine squamous epith cells present, amorphous crystals present, urine bacteria 2+, urine glucose 1+. Brain CT IMPRESSION: 1. No acute intracranial findings. 2. Old small lacunar infarct located in the right thalamus. 3. Small air-fluid level located in sphenoid sinus. This may represent acute sinusitis. EKG at 21:35 shows normal sinus rhythm at 77 bpm, normal SC, normal QRS, normal QTc, normal axis, normal ST, T-wave inversions in V4, V5, V6, and aVF, nonspecific EKG with PVCs x1. EKG at 22:19 shows normal sinus rhythm at 80 bpm, normal SC, normal QRS, normal QTc, normal axis, normal ST, T-wave inversions in V4, V5, V6, and aVF, nonspecific EKG with PVCs x1. Unchanged from prior EKG. At 00:37, I updated the patient regarding imaging results. At 00:47, I discussed the patients case with Dr. Karin Ivan. Dr. Ivan believes that her current living facility can manage the patient. Patient will be discharged with a diagnosis of UTI. Follow up with PCP in 1 day. - Diagnoses Provider Diagnoses: UTI (urinary tract infection) - Physician Notifications Discussed Care Of Patient With: Karin Ivan - At 00:47, I discussed the patients case with Dr. Karin Ivan. Dr. Ivan believes that her current living facility can manage the patient. Time Discussed With Above Provider: 00:47 Instructed by Provider To: Other - Discharge Discharge ED - Sign-Out/Discharge Documenting (check all that apply): Patient Departure - Discharge - Discharge Plan Condition: Stable Disposition: HOME Prescriptions: Ciprofloxacin TAB* [Cipro 500 MG TAB*] 500 mg PO BID 10 Days #20 tab Patient Education Materials: Urinary Tract Infection in Women (ED) Print Language: LITHUANIAN Referrals: Noni Faustin MD [Primary Care Provider] - Additional Instructions: RETURN TO THE EMERGENCY DEPARTMENT FOR CHANGING OR WORSENING SYMPTOMS. Follow up with your primary care physician in 1 day. - Billing Disposition and Condition Condition: STABLE Disposition: Home - Attestation Statements Document Initiated by Scribe: Yes Documenting Scribe: Sharon Mann Provider For Whom Scribe is Documenting (Include Credential): Mary Nieto MD Scribe Attestation: Sharon Gonzalez, scribed for Mary Wiggins MD on 05/07/19 at 0329. Scribe Documentation Reviewed: Yes Provider Attestation: The documentation as recorded by the scribe, Sharon Mann accurately reflects the service I personally performed and the decisions made by me, Mary Wiggins MD Status of Scribe Document: Viewed
[2019-05-06 22:15] LABS: Urine Appearance Turbid; Urine Bilirubin Negative (Negative); Urine Blood 2+ (Negative); Urine Color Yellow; Urine Glucose 1+(50 mg/dL) (Negative); Urine Ketones Negative (Negative); Urine Nitrite Positive (Negative); Urine Protein 1+(30 mg/dL) (Negative); Urine Specific Gravity 1.014 (1.010-1.030); Urine Urobilinogen Negative (Negative)
[2019-05-06 22:22] LABS: Urine Bacteria 2+ (Absent); Urine Red Blood Cell 3+(>10/hpf) (Absent); Urine Squamous Epithelial Cell Present (Absent); Urine White Blood Cell 3+(>20/hpf) (Absent)
--- OUTSIDE RECORDS SUMMARY | 2019-05-06 22:35 | XMS REPORT ---
:1965 Author Organization [facility] Care Team Providers Name Role Phone Unavailable [...]
[2019-05-06 22:36] LABS: ABS Basophils 0.1 10^3/ul (0-0.2); ABS Eosinophils 0.3 10^3/ul (0-0.6); ABS Lymphocytes 2.2 10^3/ul (1.0-4.8); ABS Monocytes 1.1 10^3/ul (0-0.8); ABS Neutrophils 16.4 10^3/ul (1.5-7.7); Eosinophil % 1.6 %; Hematocrit 36 % (35-47); Hemoglobin 12.2 g/dL (12.0-16.0); Lymphocyte % 10.8 %; Mean Corpuscular HGB Conc 34 g/dL (31-36); Mean Corpuscular Hemoglobin 31 pg (27-31); Mean Corpuscular Volume 93 fL (80-97); Mean Platelet Volume 8.6 fL (7.4-10.4); Platelet Count 332 10^3/uL (150-450); Red Blood Count 3.93 10^6 /uL (3.70-4.87); Red Cell Distribution Width 14 % (10-15)
--- OUTSIDE RECORDS SUMMARY | 2019-05-06 22:36 | XMS REPORT ---
:1965 Author Organization [facility] Care Team Providers Name Role Phone Unavailable [...]
--- OUTSIDE RECORDS SUMMARY | 2019-05-06 22:36 | XMS REPORT ---
:1965 Author Organization [facility] Care Team Providers Name Role Phone Unavailable [...]
--- OUTSIDE RECORDS SUMMARY | 2019-05-06 22:36 | XMS REPORT | Continuity of Care Document ---
:1965 External Reference #:[id number] Author Name Grace Rosario M.D. Address [address] [place] [address] Care Team Providers Name Role Phone Grace Rosario M.D. 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 Onset: 05/05/2019 Benign essential hypertension Grace Rosario M.D. Onset: 05/05/2019 Retention of urine Grace Rosario M.D. Onset: 05/05/2019 Social History Type Date Description Comments Sex Unknown ETOH Use Denies alcohol use Tobacco Use Start: Unknown End: Unknown Patient is a former smoker Recreational Drug Use Denies Drug Use Smoking Status Reviewed: 05/05/19 Patient is a former smoker Allergies, Adverse Reactions, Alerts Active Allergies Reaction Severity Comments Date Flagyl unknown 05/05/2019 Iodine / Sodium Iodide unknown 05/05/2019 Lovaza unknown 05/05/2019 Vancomycin Difficulty breathing, Difficulty 05/05/2019 swallowing, Facial swelling, Flushing, Hives Varenicline unknown 05/05/2019 Iodixanol unknown 05/05/2019 Medications Active Medications SIG Qnty Indications Ordering Date Provider [facility] Hemorrhoidal Unknown 0.25-14-74.9% Ointment Melatonin 1 by mouth every day Unknown 1mg Capsules Senna S 1 tabl by mouth twice Unknown 8.6-50mg a day as needed for Tablets constipation Senna take 1 tablet by Unknown 8.6mg Tablets mouth twice a day if needed for Constipation Omeprazole Unknown 20mg Capsules DR Manning Inject 40 Units Unknown 100Unit/ML Subcutaneously In The Solution Morning And 40 Units AT Night Ondansetron HCL Unknown 4mg Tablets Humalog Geronimo, 100Unit/ML Azar Rai MD Solution Furosemide Dinse, 20mg Tablets Jennifer, MOSAIC TECHNICIAN Ipratropium Dinse, [place]/Albuterol Jennifer, MOSAIC TECHNICIAN Sulfate 0.5-2.5(3)mg/3ML Solution Atorvastatin Calcium Geronimo, Azar Rai MD 40mg Tablets Alprazolam Dinse, 0.5mg Jennifer, MOSAIC TECHNICIAN Tablets Sertraline HCL Dinse, 100mg Jennifer, MOSAIC TECHNICIAN Tablets Ramipril Unknown 5mg Capsules Atenolol Unknown 50mg Tablets Restasis Dinse, 0.05% Emulsion Jennifer, MOSAIC TECHNICIAN Sertraline HCL Dinse, 25mg Jennifer, MOSAIC TECHNICIAN Tablets Oxycodone HCL Dinse, 5mg Jennifer, MOSAIC TECHNICIAN Tablets Metoclopramide HCL Unknown 10mg Tablets Lantus Solostar Unknown 100Unit/ML Solution Pen-Inject Immunizations Description No Information Available Vital Signs Date Vital Result Comment 05/05/2019 11:38am BP Systolic 135 mmHg BP Diastolic 72 mmHg Body Temperature 98.7 F Heart Rate 60 /min Respiratory Rate 18 /min Height 55 inches 4foot 7 with out prosthetics Weight 202.00 lb Pain Level 7 rectal pain BMI (Body Mass Index) 46.9 kg/m2 BSA (Body Surface Area) 1.76 m2 Fabius body weight in kilograms 45 kg O2 % BldC Oximetry 96 % Results Description No Information Available Procedures Description No Information Available Medical Devices Description No Information Available Encounters Type Date Location Provider Dx Diagnosis Office Visit 05/05/2019 Urology Grace Rosario R33.9 Retention of urine, 11:30a M.DEla unspecified Assessments Date Code Description Provider 05/05/2019 R33.9 Retention of urine, unspecified Grace Rosario M.D. Plan of Treatment Future Appointment(s):05/28/2019 9:45 am - Grace Rosario M.D. at Urology Functional Status Description No Information Available Mental Status Description No Information Available Referrals Description No Information Available
--- OUTSIDE RECORDS SUMMARY | 2019-05-06 22:36 | XMS REPORT ---
:1965 Author Organization [facility] Care Team Providers Name Role Phone Unavailable [...]
--- OUTSIDE RECORDS SUMMARY | 2019-05-06 22:36 | XMS REPORT ---
:1965 Author Organization [facility] Care Team Providers Name Role Phone Unavailable [...]
--- OUTSIDE RECORDS SUMMARY | 2019-05-06 22:36 | XMS REPORT ---
:1965 Author Organization [facility] Care Team Providers Name Role Phone Unavailable [...]
--- OUTSIDE RECORDS SUMMARY | 2019-05-06 22:36 | XMS REPORT ---
:1965 Author Organization [facility] Care Team Providers Name Role Phone Unavailable [...]
--- OUTSIDE RECORDS SUMMARY | 2019-05-06 22:36 | XMS REPORT ---
:1965 Author Organization [facility] Care Team Providers Name Role Phone Unavailable [...]
--- OUTSIDE RECORDS SUMMARY | 2019-05-06 22:36 | XMS REPORT ---
:1965 Author Organization [facility] Care Team Providers Name Role Phone Unavailable [...]
--- OUTSIDE RECORDS SUMMARY | 2019-05-06 22:36 | XMS REPORT ---
:1965 Author Organization [facility] Care Team Providers Name Role Phone Unavailable [...]
--- OUTSIDE RECORDS SUMMARY | 2019-05-06 22:36 | XMS REPORT ---
:1965 Author Organization [facility] Care Team Providers Name Role Phone Unavailable [...]
--- OUTSIDE RECORDS SUMMARY | 2019-05-06 22:36 | XMS REPORT ---
:1965 Author Organization [facility] Care Team Providers Name Role Phone Unavailable [...]
[2019-05-06 22:42] LABS: INR 1.03 (0.82-1.09)
[2019-05-06 22:55] LABS: Albumin 3.4 g/dL (3.2-5.2); Albumin/Globulin Ratio 1.1 (1-3); BUN/Creatinine Ratio 18.1 (8-20); Calcium 9.4 mg/dL (8.6-10.3); EGFR African American 53.1 (>60); EGFR Non-African American 43.9 (>60); Globulin 3.1 g/dL (2-4); Potassium 4.3 mmol/L (3.5-5.0); Total Bilirubin 0.3 mg/dL (0.2-1.0); Total Protein 6.5 g/dL (6.4-8.9)
[2019-05-06 22:58] LABS: Troponin I 0.01 ng/mL (<0.03)
[2019-05-07] MEDS ORDERED: Piperacillin/Tazobac ADVAN(*) 3.375 GM in NS 0.9% 100 ML* 100 ML IVPB ONE (00:32)
[2019-05-07] MEDS ORDERED: NS 0.9% 1000 ML** 1,000 ML IV.FLUID IV ONE (00:32)
[2019-05-07 03:20] VITALS: BP 145/62
== END 2019-05-07 04:30 | disposition home or self-care (01) ==
LOC: ED 21:28
DX: N39.0 Urinary tract infection, site not specified (principal); E11.9 Type 2 diabetes mellitus without complications; D64.9 Anemia, unspecified; I25.10 Atherosclerotic heart disease of native coronary artery without angina pectoris; E78.00 Pure hypercholesterolemia, unspecified; I10 Essential (primary) hypertension; J44.9 Chronic obstructive pulmonary disease, unspecified; K21.9 Gastro-esophageal reflux disease without esophagitis; F41.9 Anxiety disorder, unspecified; Z95.1 Presence of aortocoronary bypass graft; Z87.891 Personal history of nicotine dependence; Z79.899 Other long term (current) drug therapy; Z88.8 Allergy status to other drugs, medicaments and biological substances; Z88.1 Allergy status to other antibiotic agents; Z91.041 Radiographic dye allergy status
CPT/HCPCS: 36415; 70450; 80053; 81003; 81015; 83605; 84484; 85025; 85610; 87040; 87077; 87086; 87186; 87641; 93005; 96361; 96365; 99285; J2543

== ENCOUNTER 2019-08-06 15:29 | Emergency (ER) | payer MEDICARE, MEDICAID ==
[2019-08-06] MEDS ORDERED: Dibucaine 1% OINT 28.35 GM TUBE PR ONE (15:54)
[2019-08-06 17:37] VITALS: BP 81/42
== END 2019-08-06 17:36 | disposition home or self-care (01) ==
LOC: ED 15:29

== ENCOUNTER 2020-04-10 08:05 | Observation (INO) ==
[2020-04-10] MEDS ORDERED: Ondansetron 4 mg VIAL 2 MG/ML 2 ml VIAL IV ONE (08:31)
[2020-04-10] MEDS ORDERED: NS 0.9% 1000 ml BAG 1,000 ML IV ONE ×2 (08:31→13:55)
[2020-04-10 09:15] LABS: ABS Basophils 0.1 10^3/ul (0-0.2); ABS Lymphocytes 1.4 10^3/ul (1.0-4.8); ABS Neutrophils 8.2 10^3/ul (1.5-7.7); Hematocrit 39 % (35-47); Hemoglobin 13.2 g/dL (12.0-16.0); Lymphocyte % 13.2 %; Mean Corpuscular HGB Conc 34 g/dL (31-36); Mean Corpuscular Hemoglobin 32 pg (27-31); Mean Corpuscular Volume 94 fL (80-97); Mean Platelet Volume 9.2 fL (7.4-10.4); Platelet Count 339 10^3/uL (150-450); Red Blood Count 4.14 10^6 /uL (3.70-4.87); Red Cell Distribution Width 15 % (10-15); White Blood Count 10.7 10^3/uL (3.5-10.8)
[2020-04-10 09:24] LABS: INR 1.42 (0.82-1.09)
[2020-04-10 09:27] LABS: ALT 20 U/L (7-52); AST 14 U/L (13-39); Albumin 3.5 g/dL (3.2-5.2); Albumin/Globulin Ratio 1.1 (1-3); Alkaline Phosphatase 83 U/L (34-104); Anion Gap 15 mmol/L (2-11); BUN/Creatinine Ratio 29.9 (8-20); Blood Urea Nitrogen 40 mg/dL (6-24); C Reactive Protein 31.55 mg/L (<8.01); CO2 Carbon Dioxide 22 mmol/L (22-32); Calcium 10.5 mg/dL (8.6-10.3); Chloride 100 mmol/L (101-111); EGFR African American 49.7 (>60); EGFR Non-African American 41.1 (>60); Globulin 3.2 g/dL (2-4); Glucose 308 mg/dL (70-100); Potassium 3.6 mmol/L (3.5-5.0); Sodium 137 mmol/L (135-145); Total Protein 6.7 g/dL (6.4-8.9)
[2020-04-10 09:35] LABS: Troponin I 0.07 ng/mL (<0.03)
[2020-04-10 09:42] LABS: Influenza A Molecular Negative (Negative); Influenza B Molecular Negative (Negative)
[2020-04-10 13:14] LABS: Troponin I 0.06 ng/mL (<0.03)
[2020-04-10 14:07] LABS: Urine Appearance Cloudy; Urine Bilirubin Negative (Negative); Urine Blood Negative (Negative); Urine Color Yellow; Urine Glucose 3+(>=500 mg/dL) (Negative); Urine Ketones 2+ (Negative); Urine Nitrite Negative (Negative); Urine Protein Negative (Negative); Urine Specific Gravity 1.014 (1.010-1.030); Urine Urobilinogen Negative (Negative)
[2020-04-10 14:28] LABS: Hematocrit 40 % (35-47)
[2020-04-10] MEDS ORDERED: Pantoprazole VIAL 40 MG VIAL IV ONE (15:44)
[2020-04-10] MEDS ORDERED: diPHENhydraMINE IV 50 MG/ML 1 ml VIAL (BENADRYL) SLOW PUSH ONE (16:13)
[2020-04-10] MEDS ORDERED: Iodixanol (CONTRAST) 320 MG/ML 100 ML SDV IV ONE (16:19)
[2020-04-10] MEDS ORDERED: Dextrose 50% Syringe 50 ml 25 GM/50 ML SYRINGE IV PUSH PRN (16:29)
[2020-04-10] MEDS ORDERED: hydrALAZINE 20 mg/ml 1 ML Vial IV IV SLOW PU PRN (16:57)
[2020-04-10] MEDS: Lactated Ringers 1000 ml BAG 1,000 ML IV SCH (18:32)
[2020-04-10 22:14] LABS: Hematocrit 42 % (35-47); Hemoglobin 13.5 g/dL (12.0-16.0)
[2020-04-10] MEDS: Insulin GLARGINE 100 un/ml 10 ml VIAL SUBCUT SCH (22:21)
[2020-04-10] MEDS: Pantoprazole VIAL 40 MG VIAL IV SCH (23:24)
[2020-04-11] MEDS: Lactated Ringers 1000 ml BAG 1,000 ML IV SCH ×2 (05:50→20:30)
[2020-04-11] MEDS ORDERED: fentaNYL 100 mcg/2 ml 50 MCG/ML VIAL ONE (10:32)
[2020-04-11] MEDS ORDERED: Midazolam 10 mg/10 ml VIAL 1 mg/ml 10 ml VIAL (10 mg) ONE (10:32)
[2020-04-11] MEDS: Pantoprazole VIAL 40 MG VIAL IV SCH ×2 (11:42→20:30)
[2020-04-11 13:30] LABS: BUN/Creatinine Ratio 27.4 (8-20); Calcium 10.7 mg/dL (8.6-10.3); EGFR African American 65.1 (>60); EGFR Non-African American 53.8 (>60); Potassium 4.1 mmol/L (3.5-5.0)
[2020-04-11 15:52] LABS: ABS Basophils 0.1 10^3/ul (0-0.2); ABS Lymphocytes 2.1 10^3/ul (1.0-4.8); ABS Monocytes 1.5 10^3/ul (0-0.8); ABS Neutrophils 9.9 10^3/ul (1.5-7.7); Eosinophil % 0.1 %; Hematocrit 39 % (35-47); Hemoglobin 13.2 g/dL (12.0-16.0); Lymphocyte % 15.5 %; Mean Corpuscular HGB Conc 34 g/dL (31-36); Mean Corpuscular Hemoglobin 31 pg (27-31); Mean Corpuscular Volume 92 fL (80-97); Mean Platelet Volume 9.6 fL (7.4-10.4); Platelet Count 231 10^3/uL (150-450); Red Blood Count 4.23 10^6 /uL (3.70-4.87); Red Cell Distribution Width 15 % (10-15); White Blood Count 13.6 10^3/uL (3.5-10.8)
[2020-04-11] MEDS: Ondansetron 4 mg VIAL 2 MG/ML 2 ml VIAL IV PRN ×2 (18:07→21:58)
[2020-04-11] MEDS: Insulin GLARGINE 100 un/ml 10 ml VIAL SUBCUT SCH (20:31)
[2020-04-12 07:28] LABS: ABS Basophils 0.1 10^3/ul (0-0.2); ABS Lymphocytes 2.3 10^3/ul (1.0-4.8); ABS Monocytes 1.1 10^3/ul (0-0.8); ABS Neutrophils 6.6 10^3/ul (1.5-7.7); Eosinophil % 0.1 %; Hematocrit 36 % (35-47); Hemoglobin 12.2 g/dL (12.0-16.0); Lymphocyte % 22.8 %; Mean Corpuscular HGB Conc 34 g/dL (31-36); Mean Corpuscular Hemoglobin 32 pg (27-31); Mean Corpuscular Volume 93 fL (80-97); Mean Platelet Volume 8.5 fL (7.4-10.4); Platelet Count 260 10^3/uL (150-450); Red Blood Count 3.87 10^6 /uL (3.70-4.87); Red Cell Distribution Width 15 % (10-15)
[2020-04-12] MEDS: Pantoprazole VIAL 40 MG VIAL IV SCH (08:45)
[2020-04-12] MEDS: Ondansetron 4 mg VIAL 2 MG/ML 2 ml VIAL IV PRN (12:17)
[2020-04-12 13:29] VITALS: BP 155/67
== END 2020-04-12 14:30 ==
LOC: MED 08:05 → ED 08:05 → MED 17:47 → MEDTELE 04-11 16:31
PROVIDERS: ADMIT Pediatrics; ATTEND Student in an Organized Health Care Education/Training Program